=== PATIENT | female | born 1955 | race Hispanic/Latino ===

== ENCOUNTER 2018-07-23 17:41 | Emergency (ER) | payer BC ==
[2018-07-23 18:57] LABS: Absolute Lymphocytes (CBC) 3.7 K/uL (0.7-4.9); Absolute Monocytes 0.6 K/uL (0.1-1.3); Absolute Neutrophil 5.1 K/uL (1.8-8.0); Eosinophils % 1.6 % (0-4.4); Hematocrit 36.1 % (36.0-45.0); Lymphocytes % 38.1 % (15.3-44.8); MCH 31.5 pg (27.0-35.0); MCV 90.2 fL (80-100); MPV 6.7 fL (7.6-11.3); Monocytes % 6.2 % (3.3-12.3); RBC Red Blood Cell Count 4.01 M/uL (3.86-4.86)
[2018-07-23 19:15] LABS: ALT/SGPT 20 U/L (12-78); AST/SGOT 18 U/L (15-37); Albumin 3.5 g/dL (3.4-5.0); Alkaline Phosphatase 142 U/L (45-117); Amylase Level 23 U/L (25-115); BUN Blood Urea Nitrogen 16 mg/dL (7-18); Bicarbonate 26 mmol/L (21-32); Bilirubin Direct < 0.1 mg/dL (0-0.2); Bilirubin Total 0.4 mg/dL (0.2-1.0); Glucose Level 187 mg/dL (74-106); Lipase 138 U/L (73-393); Potassium 3.6 mmol/L (3.5-5.1); Protein, Total 7.3 g/dL (6.4-8.2); Sodium Level 140 mmol/L (136-145)
--- NOTE | 2018-07-23 19:31 | RAD REPORT ---
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 No acute fracture or dislocatio n seen. No joint effusion.
[2018-07-23 19:35] LABS: Urine Blood NEGATIVE (NEG); Urine Glucose TRACE (NEG); Urine Protein NEGATIVE (NEG); Urine Specific Gravity 1.025 (1.005-1.030)
[2018-07-23 19:41] LABS: Urine Bacteria <20 /HPF (<20); Urine Culture Reflex Order REFLEXED; Urine Mucus SLIGHT /HPF (NONE SEEN); Urine RBC <5 /HPF (NONE SEEN)
--- NOTE | 2018-07-23 20:43 | RAD REPORT ---
EXAM DESCRIPTION: CT - Head Brain Wo Cont - 07/23/2018 8:27 pm CLINICAL HISTORY: DIZZINESS Headache COMPARISON: HEAD BRAIN W O CONTRAST dated 10/27/2013; HEAD BRAIN W O CONTRAST dated 07/25/2001 TECHNIQUE: All CT scans are performed using dose optimization technique as appropriate and may inclu de automated exposure control or mA/KV adjustment according to patient size. FINDINGS: No intracranial hemorrhage, hydrocephalus or extra-axial fluid collection.Mild generalized brain atrophy is present with mild periventricular and deep white matter chronic microvascular ische allegra changes.No areas of brain edema or evidence of midline shift. The paranasal sinuses and mastoids are clear. The calvarium is intact. IMPRESSION: No acute intracranial abnormality.
--- NOTE | 2018-07-23 20:48 | RAD REPORT ---
EXAM DESCRIPTION: CTAbdomen Pelvis W Contrast - 07/23/2018 8:31 pm CLINICAL HISTORY: Abdominal pain. LLQ abdomen pain COMPARISON: Abdomen Pelvis W Contrast dated 11/15/2016 TECHNIQUE: Biphasic CT imaging of the abdomen and pelvis was performed with 100 ml non-ionic IV cont rast. All CT scans are performed using dose optimization technique as appropriate and may include automated exposure control or mA/KV adjustment according to patient size. FINDINGS: The lung bases are clear.Cholelithiasis. The liver, spleen, pancreas, adrenal glands and kidneys are within normal limits. No bowel obstruction, free air, free fluid or abscess. The appendix is normal. No evidence of signi ficant lymphadenopathy. No suspicious bony findings. IMPRESSION: No acute intra-abdominal or pelvic finding. Cholelithiasis.
--- NOTE | 2018-07-23 21:27 | ER ---
Nurse's Notes [facility] Name: Feli Lee Age: 63 yrs Sex: Female : 1955 Arrival Date: 07/23/2018 Time: 17:46 Bed 26 Private MD: Scott Bowling R Diagnosis: Dizziness and giddiness;Lower abdominal pain, unspecified;Pain in left knee Presentation: 07/23 17:57 Presenting complaint: Patient states: She has been having dizziness and pain to her aj1 left side and left leg since yesterday. Denies fever. Denies Cp Denies SOB. Transition of care: patient was not received from another setting of care. Onset of symptoms was July 22, 2018. Risk Assessment: Do you want to hurt yourself or someone else? Patient reports no desire to harm self or others. Initial Sepsis Screen: Does the patient meet any 2 criteria? No. Patient's initial sepsis screen is negative. Does the patient have a suspected source of infection? No. Patient's initial sepsis screen is negative. Care prior to arrival: None. 17:57 Method Of Arrival: Ambulatory [facility] 17:57 Acuity: TONO 3 aj1 Triage Assessment: 18:01 General: Appears in no apparent distress. comfortable, Behavior is calm, cooperative, aj1 appropriate for age. Pain: Complains of pain in anterior aspect of left lateral abdomen and left leg Pain currently is 8 out of 10 on a pain scale. Neuro: Level of Consciousness is awake, alert, obeys commands, Oriented to person, place, time, situation, Gait is steady, Speech is normal, Facial symmetry appears normal, Reports dizziness. Cardiovascular: Patient's skin is warm and dry. Respiratory: Airway is patent Respiratory effort is even, unlabored, Respiratory pattern is regular, symmetrical. Historical: - Allergies: 18:01 No Known Allergies; aj1 - Home Meds: 18:01 insulin daily [Active]; Lisinopril Oral [Active]; Metformin Oral [Active]; aj1 - PMHx: 18:01 Diabetes - IDDM; Hypertension; aj1 - Immunization history:: Flu vaccine is not up to date. - Social history:: Smoking status: Patient/guardian denies using tobacco. - Ebola Screening: : Patient denies travel to an Ebola-affected area in the 21 days before illness onset. Screenin:14 Abuse screen: Denies threats or abuse. Denies injuries from another. Nutritional rv screening: No deficits noted. Tuberculosis screening: No symptoms or risk factors identified. Fall Risk None identified. Assessment: 18:15 General: Appears in no apparent distress. comfortable, Behavior is calm, cooperative. rv Pain: Complains of pain in LEFT HIP, RIGHT LEG. Neuro: Level of Consciousness is awake, alert, obeys commands, Oriented to person, place, time, situation. Cardiovascular: Capillary refill < 3 seconds. Respiratory: Airway is patent. GI: No signs and/or symptoms were reported involving the gastrointestinal system. : No signs and/or symptoms were reported regarding the genitourinary system. EENT: No signs and/or symptoms were reported regarding the EENT system. Derm: Skin is intact. Vital Signs: 18:01 BP 167 / 73; Pulse 67; Resp 18; Temp 98.4; Pulse Ox 98% on R/A; Weight 79.83 kg (R); aj1 Height 5 ft. 1 in. (154.94 cm) (R); Pain 8/10; 18:14 BP 147 / 88; Pulse 66; Pulse Ox 96% on R/A; rv 21:22 BP 173 / 75; Pulse 61; Resp 16; Pulse Ox 97% ; rv 18:01 Body Mass Index 33.25 (79.83 kg, 154.94 cm) aj1 ED Course: 17:46 Patient arrived in ED. sb2 17:46 Scott Bowling MD is Private Physician. sb2 18:00 Triage completed. aj1 18:01 Arm band placed on Patient placed in an exam room. aj1 18:12 Rayshawn Cheney PA is PHCP. cp 18:12 Thaddeus Dunbar MD is Attending Physician. cp 18:14 Patient has correct armband on for positive identification. Bed in low position. Call rv light in reach. Side rails up X 1. Adult w/ patient. Pulse ox on. NIBP on. 18:40 Inserted saline lock: 20 gauge in right antecubital area, using aseptic technique. rv 18:57 X-ray completed. Portable x-ray completed in exam room. Patient tolerated procedure bb2 well. 18:58 XRAY Knee LEFT 3 view In Process Unspecified. EDMS 18:59 Urine collected: clean catch specimen, clear, jessica colored, Amount Voided: 90mL. jp3 19:29 EKG done, by ED staff, reviewed by Rayshawn SMITH. jp3 19:30 Urine --Ancillary (enter results) Sent. jp3 19:30 Urine Dipstick--Ancillary (enter results) Sent. jp3 20:27 CT Head Brain wo Cont In Process Unspecified. EDMS 20:28 CT completed. Patient tolerated procedure well. Patient moved to CT via wheelchair. ga Patient moved back from CT. 20:31 CT Abd/Pelvis - W/Contrast In Process Unspecified. EDMS 20:52 Urine Culture Sent. jp3 21:26 Scott Bowling MD is Referral Physician. cp 21:39 No provider procedures requiring assistance completed. IV discontinued, bleeding rv controlled, No redness/swelling at site. Pressure dressing applied. Administered Medications: No medications were administered Point of Care Testing: Blood Glucose: 18:14 Blood Glucose: 153 mg/dL; rv Ranges: Outcome: 21:27 Discharge ordered by MD. cp 21:39 Discharged to home ambulatory. rv 21:39 Condition: good 21:39 Discharge instructions given to patient, Instructed on discharge instructions, follow up and referral plans. medication usage, Demonstrated understanding of Prescriptions given X 2. 21:40 Patient left the ED. rv Addendum: 07/27/2018 16:47 Addendum: Culture Results: Positive urine culture. Patient was not prescribed s s antibiotics at discharge. Report given to BETHANY for further evaluation and then to food checkers and cashiers supervisor for follow up with patient. Prescription called-in to pharmacy of choice. Levaquin called into [facility] [place] as requested by patient and ordered by LUIS Garcia. Signatures: Dispatcher [employer] EDMS Alysia Ramirez, RN RN aj1 Theresa Maldonado RN RN ss Page, Corey, PA PA cp Jordan, Nathan nj Bock, Brittany bb2 Stephani Ochoa2 Betito Mello RN RN rv Nithin Lim jp3
--- NOTE | 2018-07-23 21:27 | EDPHYS ---
Physician Documentation [facility] Name: Feli Lee Age: 63 yrs Sex: Female : 1955 Arrival Date: 07/23/2018 Time: 17:46 Bed 26 Private MD: Scott Bowling R ED Physician Thaddeus Dunbar HPI: 07/23 18:35 This 63 yrs old Female presents to ER via Ambulatory with complaints of cp Dizziness, SIDE PAIN. 18:35 The patient presents with dizziness, lightheadedness. cp 18:35 Onset: The symptoms/episode began/occurred today. Associated signs and symptoms: cp Pertinent positives: abdominal pain, left knee pain, Pertinent negatives: blurred vision, chest pain, focal weakness, headache, near-syncope, numbness, palpitations, shortness of breath, syncope, vomiting. Severity of symptoms: in the emergency department the symptoms are unchanged despite home interventions. Patient's baseline: Neuro: alert and fully oriented, Motor: no deficits, Ambulation: walks without assistance, Speech: normal. Historical: - Allergies: 18:01 No Known Allergies; aj1 - Home Meds: 18:01 insulin daily [Active]; Lisinopril Oral [Active]; Metformin Oral [Active]; aj1 - PMHx: 18:01 Diabetes - IDDM; Hypertension; aj1 - Immunization history:: Flu vaccine is not up to date. - Social history:: Smoking status: Patient/guardian denies using tobacco. - Ebola Screening: : Patient denies travel to an Ebola-affected area in the 21 days before illness onset. ROS: 18:40 Constitutional: Negative for body aches, chills, fever, poor PO intake. cp 18:40 Eyes: Negative for injury, pain, redness, and discharge. cp 18:40 ENT: Negative for drainage from ear(s), ear pain, sore throat, difficulty swallowing, difficulty handling secretions. 18:40 Neck: Negative for pain with movement, pain at rest, stiffness. 18:40 Cardiovascular: Negative for chest pain, edema, palpitations. 18:40 Respiratory: Negative for cough, shortness of breath, wheezing. 18:40 Abdomen/GI: Positive for abdominal pain, Negative for vomiting, diarrhea, constipation, anorexia, black/tarry stool, rectal bleeding. 18:40 Back: Negative for pain at rest, pain with movement, radiated pain. 18:40 : Negative for urinary symptoms, flank pain. 18:40 MS/extremity: Positive for pain, tenderness, of the left knee, Negative for injury or acute deformity, decreased range of motion. 18:40 Skin: Negative for cellulitis, rash. 18:40 Neuro: Positive for dizziness, Negative for altered mental status, headache, syncope, near syncope, weakness. 18:40 All other systems are negative. Exam: 18:45 Constitutional: The patient appears in no acute distress, alert, awake, cp non-diaphoretic, non-toxic, well developed, well nourished. 18:45 Head/Face: Normocephalic, atraumatic. Eyes: Pupils equal round and reactive to light, cp extra-ocular motions intact. Lids and lashes normal. Conjunctiva and sclera are non-icteric and not injected. Cornea within normal limits. Periorbital areas with no swelling, redness, or edema. ENT: Nares patent. No nasal discharge, no septal abnormalities noted. Tympanic membranes are normal and external auditory canals are clear. Oropharynx with no redness, swelling, or masses, exudates, or evidence of obstruction, uvula midline. Mucous membranes moist. Neck: Trachea midline, no thyromegaly or masses palpated, and no cervical lymphadenopathy. Supple, full range of motion without nuchal rigidity, or vertebral point tenderness. No Meningismus. 18:45 Chest/axilla: Inspection: normal, Palpation: is normal, no crepitus, no tenderness. 18:45 Cardiovascular: Rate: normal, Rhythm: regular, Edema: is not appreciated, JVD: is not appreciated. 18:45 Respiratory: the patient does not display signs of respiratory distress, Respirations: normal, no use of accessory muscles, no retractions, no splinting, no tachypnea, labored breathing, is not present, Breath sounds: are clear throughout, no decreased breath sounds, no stridor, no wheezing. 18:45 Abdomen/GI: Inspection: abdomen appears normal, Bowel sounds: active, all quadrants, Palpation: abdomen is soft and non-tender, in all quadrants, rebound tenderness, is not appreciated, involuntary guarding, is not appreciated. 18:45 Back: pain, is absent, ROM is normal. 18:45 Musculoskeletal/extremity: Extremities: grossly normal except: noted in the anterior aspect left knee: tenderness, There is no evidence of decreased ROM. 18:45 Skin: cellulitis, is not appreciated, no rash present. 18:45 Neuro: Orientation: to person, place \T\ time. Mentation: lucid, able to follow commands, Cerebellar function: Romberg testing is negative, normal finger to nose testing, Motor: moves all fours, strength is normal, Sensation: no obvious gross deficits. 19:33 ECG was reviewed by the Attending Physician. cp Vital Signs: 18:01 BP 167 / 73; Pulse 67; Resp 18; Temp 98.4; Pulse Ox 98% on R/A; Weight 79.83 kg (R); aj1 Height 5 ft. 1 in. (154.94 cm) (R); Pain 8/10; 18:14 BP 147 / 88; Pulse 66; Pulse Ox 96% on R/A; rv 21:22 BP 173 / 75; Pulse 61; Resp 16; Pulse Ox 97% ; rv 18:01 Body Mass Index 33.25 (79.83 kg, 154.94 cm) aj1 MDM: 18:12 Patient medically screened. cp 21:27 Data reviewed: vital signs, nurses notes, lab test result(s), EKG, radiologic studies, cp CT scan, plain films. 21:27 Test interpretation: by ED physician or midlevel provider: ECG, plain radiologic cp studies. Counseling: I had a detailed discussion with the patient and/or guardian regarding: the historical points, exam findings, and any diagnostic results supporting the discharge/admit diagnosis, lab results, radiology results, to return to the emergency department if symptoms worsen or persist or if there are any questions or concerns that arise at home. Response to treatment: improved. Will discharge to home for continued monitoring. Special discussion: Based on the patient's Hx, exam, and Dx evaluation, there is no indication for emergent surgery or inpatient Tx. It is understood by the patient/guardian that if the Sx's persist or worsen they need to return immediately for re-evaluation. 07/23 18:26 Order name: Amylase, Serum; Complete Time: 20:48 cp 07/23 18:26 Order name: Basic Metabolic Panel; Complete Time: 20:48 cp 07/23 18:26 Order name: CBC with Diff; Complete Time: 20:48 cp 07/23 18:26 Order name: Creatinine for Radiology; Complete Time: 20:48 cp 07/23 18:26 Order name: Hepatic Function; Complete Time: 20:48 cp 0830 18:26 Order name: Lipase; Complete Time: 20:48 cp 30 18:26 Order name: Urine Microscopic Only; Complete Time: 20:48 cp 30 18:26 Order name: Magnesium; Complete Time: 20:48 cp 07/23 19:03 Order name: Urine Dipstick--Ancillary (enter results); Complete Time: 20:48 mw2 07/23 19:03 Order name: Urine --Ancillary (enter results); Complete Time: 20:48 mw2 07/23 19:43 Order name: Urine Culture EDMS 07/23 18:26 Order name: XRAY Knee LEFT 3 view; Complete Time: 20:48 cp 07/23 18:28 Order name: CT Head Brain wo Cont; Complete Time: 20:48 cp 07/23 20:48 Interpretation: Report reviewed. cp 07/23 18:28 Order name: CT Abd/Pelvis - W/Contrast; Complete Time: 21:27 cp 07/23 18:26 Order name: EKG; Complete Time: 18:27 cp 07/23 18:26 Order name: IV Saline Lock; Complete Time: 18:57 cp 07/23 18:26 Order name: Labs collected and sent; Complete Time: 18:57 cp 07/23 18:26 Order name: Urine Dipstick-Ancillary (obtain specimen); Complete Time: 18:57 cp 07/23 18:26 Order name: EKG - Nurse/Tech; Complete Time: 19:36 cp 07/23 21:18 Order name: PO challenge; Complete Time: 21:22 cp EC:33 Rate is 60 beats/min. Rhythm is regular. TN interval is normal. QRS interval is normal. cp QT interval is normal. T waves are Flattened in lead aVL. Interpreted by me. Reviewed by me. Administered Medications: No medications were administered Point of Care Testing: Blood Glucose: 18:14 Blood Glucose: 153 mg/dL; rv Ranges: Critical Glucose Levels:Adult <50 mg/dl or >400 mg/dl <40 mg/dl or >180 mg/dl Disposition: 07/23/18 21:27 Discharged to Home. Impression: Dizziness and giddiness, Lower abdominal pain, unspecified, Pain in left knee. - Condition is Stable. - Discharge Instructions: Abdominal Pain, Adult, Dizziness, Knee Pain. - Prescriptions for Bentyl 20 mg Oral Tablet - take 2 tablets by ORAL route every 6 hours As needed; 30 tablet. Meclizine 25 mg Oral Tablet - take 1 tablet by ORAL route every 8 hours As needed; 30 tablet. - Medication Reconciliation Form, Thank You Letter, Antibiotic Education, Prescription Opioid Use form. - Follow up: Scott Bowling MD; When: 1 - 2 days; Reason: Recheck today's complaints. - Problem is new. - Symptoms have improved. Addendum: 07/28/2018 23:41 Co-signature as Attending Physician, Thaddeus Dunbar MD. r n Signatures: Dispatcher [employer] EDMS Alysia Ramirez RN RN aj1 Thaddeus Dunbar MD MD rn Rayshawn Cheney PA PA Betito Rosa RN RN rv Corrections: (The following items were deleted from the chart) 07/23 21:27 21:27 07/23/2018 21:27 Discharged to Home. Impression: Dizziness and giddiness; Lower cp abdominal pain, unspecified. Condition is Stable. Forms are Medication Reconciliation Form, Thank You Letter, Antibiotic Education, Prescription Opioid Use. Follow up: Scott Bowling; When: 1 - 2 days; Reason: Recheck today's complaints. Problem is new. Symptoms have improved. cp 21:40 21:27 07/23/2018 21:27 Discharged to Home. Impression: Dizziness and giddiness; Lower rv abdominal pain, unspecified; Pain in left knee. Condition is Stable. Forms are Medication Reconciliation Form, Thank You Letter, Antibiotic Education, Prescription Opioid Use. Follow up: Scott Bowling; When: 1 - 2 days; Reason: Recheck today's complaints. Problem is new. Symptoms have improved. cp
[2018-07-23 21:47] VITALS: TEMP 98.4
[2018-07-23 21:49] VITALS: BP 173/75; O2SAT 97
--- NOTE | 2018-07-25 06:11 | EKG ---
Test Date: 2018-07-23 Test Time: 19:25:48 Occupational Therapist Home Based: STEVE MEASUREMENT RESULTS: Intervals: Rate: 60 OK: 198 QRSD: 80 QT: 404 QTc: 404 Chancellor: P: 52 OK: 198 QRS: -28 T: 83 INTERPRETIVE STATEMENTS: Normal sinus rhythm Normal ECG Compared to ECG 04/23/2017 00:42:17 No significant changes Electronically Signed On 07-25-18 06:08:12 CDT by Merrick Hernandez
== END 2018-07-23 21:40 | disposition home or self-care (01) ==
LOC: ER 17:41
DX: R10.30 Lower abdominal pain, unspecified (principal); M25.562 Pain in left knee; I10 Essential (primary) hypertension; E11.9 Type 2 diabetes mellitus without complications; Z79.4 Long term (current) use of insulin
CPT/HCPCS: 36415; 70450; 74177; 80048; 80076; 81003; 81015; 81025; 82150; 82962; 83690; 83735; 85025; 87077; 87086; 87088; 87186; 93005; 99284; Q9967

== ENCOUNTER 2018-12-18 19:02 | Emergency (ER) | payer BC ==
--- NOTE | 2018-12-18 21:03 | EDPHYS ---
Physician Documentation [facility] Name: Feli Lee Age: 63 yrs Sex: Female : 1955 Arrival Date: 12/18/2018 Time: 19:05 Bed 20 Private MD: Scott Bowling R ED Physician Judson Kumari HPI: 12/18 19:45 This 63 yrs old Female presents to ER via Ambulatory with complaints of Sore gs Throat, Fever. 19:45 The patient presents with sore throat. The patient describes throat pain as scratchy. gs Onset: The symptoms/episode began/occurred yesterday. Severity of symptoms: At their worst the symptoms were moderate, in the emergency department the symptoms are unchanged. Modifying factors: The symptoms are alleviated by nothing, the symptoms are aggravated by nothing, Patient's oral intake status: good. Associated signs and symptoms: Pertinent positives: chills, cough, fever, flu-like symptoms, malaise. The patient has experienced similar episodes in the past, a few times. The patient has not recently seen a physician. Historical: - Allergies: 19:08 No Known Allergies; sv - PMHx: 19:08 Diabetes - IDDM; Hypertension; sv - Immunization history:: Adult Immunizations unknown. - Social history:: The patient lives at home, Smoking status: unknown. - Ebola Screening: : No symptoms or risks identified at this time. ROS: 19:45 All other systems are negative. gs Exam: 19:45 Head/Face: Normocephalic, atraumatic. Eyes: Pupils equal round and reactive to light, gs extra-ocular motions intact. Lids and lashes normal. Conjunctiva and sclera are non-icteric and not injected. Cornea within normal limits. Periorbital areas with no swelling, redness, or edema. ENT: Nares patent. No nasal discharge, no septal abnormalities noted. Tympanic membranes are normal and external auditory canals are clear. Oropharynx with no redness, swelling, or masses, exudates, or evidence of obstruction, uvula midline. Mucous membranes moist. Neck: Trachea midline, no thyromegaly or masses palpated, and no cervical lymphadenopathy. Supple, full range of motion without nuchal rigidity, or vertebral point tenderness. No Meningismus. Chest/axilla: Normal chest wall appearance and motion. Nontender with no deformity. No lesions are appreciated. Cardiovascular: Regular rate and rhythm with a normal S1 and S2. No gallops, murmurs, or rubs. Normal PMI, no JVD. No pulse deficits. Respiratory: Lungs have equal breath sounds bilaterally, clear to auscultation and percussion. No rales, rhonchi or wheezes noted. No increased work of breathing, no retractions or nasal flaring. Abdomen/GI: Soft, non-tender, with normal bowel sounds. No distension or tympany. No guarding or rebound. No evidence of tenderness throughout. Back: No spinal tenderness. No costovertebral tenderness. Full range of motion. Skin: Warm, dry with normal turgor. Normal color with no rashes, no lesions, and no evidence of cellulitis. MS/ Extremity: Pulses equal, no cyanosis. Neurovascular intact. Full, normal range of motion. Neuro: Awake and alert, GCS 15, oriented to person, place, time, and situation. Cranial nerves II-XII grossly intact. Motor strength 5/5 in all extremities. Sensory grossly intact. Cerebellar exam normal. Normal gait. 19:45 Constitutional: The patient appears alert, awake. Vital Signs: 19:08 BP 153 / 86; Pulse 69; Resp 18; Temp 97.5; Pulse Ox 97% ; Weight 77.11 kg; Height 5 ft. sv 1 in. (154.94 cm); 20:51 BP 138 / 68; Pulse 76; Resp 16; Pulse Ox 97% on R/A; jb4 19:08 Body Mass Index 32.12 (77.11 kg, 154.94 cm) sv MDM: 19:33 Patient medically screened. 19:45 Differential diagnosis: influenza, pharyngitis, viral syndrome. Data reviewed: vital gs signs, nurses notes. Counseling: I had a detailed discussion with the patient and/or guardian regarding: the historical points, exam findings, and any diagnostic results supporting the discharge/admit diagnosis. Response to treatment: the patient's symptoms have mildly improved after treatment, and as a result, I will discharge patient. 20:59 Counseling: I had a detailed discussion with the patient and/or guardian regarding: lab gs results. 12/18 19:33 Order name: Strep 12/18 19:33 Order name: Influenza Screen (a \T\ B) 12/18 20:31 Order name: Influenza Screen (A ; Complete Time: 20:59 EDMS 12/18 20:32 Order name: Group A Streptococcus Rapid Sc; Complete Time: 20:59 EDMS 12/18 21:10 Order name: Throat Culture EDSC Administered Medications: No medications were administered Disposition: 12/18/18 21:02 Discharged to Home. Impression: Acute upper respiratory infection, unspecified. - Condition is Stable. - Discharge Instructions: Fever, Adult, Upper Respiratory Infection, Adult. - Medication Reconciliation Form, Thank You Letter, Antibiotic Education, Prescription Opioid Use form. - Follow up: Private Physician; When: 1 - 2 days; Reason: Re-evaluation by your physician. Signatures: Dispatcher [employer] EDYaneth Willard RN RN Satinder Gutierrez RN RN jb4 Judson Kumari MD MD gs Corrections: (The following items were deleted from the chart) 21:15 21:02 12/18/2018 21:02 Discharged to Home. Impression: Acute upper respiratory jb4 infection, unspecified. Condition is Stable. Forms are Medication Reconciliation Form, Thank You Letter, Antibiotic Education, Prescription Opioid Use. Follow up: Private Physician; When: 1 - 2 days; Reason: Re-evaluation by your physician.
--- NOTE | 2018-12-18 21:03 | ER ---
Nurse's Notes [facility] Name: Feil Lee Age: 63 yrs Sex: Female : 1955 Arrival Date: 12/18/2018 Time: 19:05 Bed 20 Private MD: Scott Bowling R Diagnosis: Acute upper respiratory infection, unspecified Presentation: 12/18 19:07 Presenting complaint: Patient states: sore throat x 2 days, fever last night, cough and sv runny nose. Transition of care: patient was not received from another setting of care. Onset of symptoms was December 16, 2018. Care prior to arrival: None. 19:07 Method Of Arrival: Ambulatory sv 19:07 Acuity: TONO 4 sv 19:30 Risk Assessment: Do you want to hurt yourself or someone else? Patient reports no jb4 desire to harm self or others. Initial Sepsis Screen: Does the patient meet any 2 criteria? No. Patient's initial sepsis screen is negative. Does the patient have a suspected source of infection? No. Patient's initial sepsis screen is negative. Triage Assessment: 19:09 General: Appears in no apparent distress. comfortable, Behavior is calm, cooperative, sv appropriate for age. General: Reports fever for 12-24 hours. EENT: Reports pain in throat. Neuro: Level of Consciousness is awake, alert, obeys commands, Oriented to person, place, time, situation, Moves all extremities. Full function. Respiratory: Reports cough that is non-productive, Respiratory effort is even, unlabored, Respiratory pattern is regular, symmetrical. Historical: - Allergies: 19:08 No Known Allergies; sv - PMHx: 19:08 Diabetes - IDDM; Hypertension; sv - Immunization history:: Adult Immunizations unknown. - Social history:: The patient lives at home, Smoking status: unknown. - Ebola Screening: : No symptoms or risks identified at this time. Screenin:20 Abuse screen: Denies threats or abuse. Nutritional screening: No deficits noted. jb4 Tuberculosis screening: No symptoms or risk factors identified. Fall Risk None identified. Assessment: 19:20 General: Appears in no apparent distress. comfortable, Behavior is calm, cooperative, jb4 appropriate for age. Pain: Complains of pain in throat Pain does not radiate. Pain currently is 4 out of 10 on a pain scale. Quality of pain is described as itchy scratching sensation. Neuro: Level of Consciousness is awake, alert, obeys commands, Oriented to person, place, time, situation, Speech is normal, Facial symmetry appears normal. Cardiovascular: Patient's skin is warm and dry. Respiratory: Airway is patent Respiratory effort is even, unlabored, Respiratory pattern is regular, symmetrical, Breath sounds are clear bilaterally. GI: No signs and/or symptoms were reported involving the gastrointestinal system. : No signs and/or symptoms were reported regarding the genitourinary system. EENT: Throat is clear is reddened. Derm: Skin is intact, Skin is pink, warm \T\ dry. Musculoskeletal: Circulation, motion, and sensation intact. 20:54 Reassessment: Patient appears in no apparent distress at this time. Patient and/or jb4 family updated on plan of care and expected duration. Pain level reassessed. Patient is alert, oriented x 3, equal unlabored respirations, skin warm/dry/pink. Vital Signs: 19:08 BP 153 / 86; Pulse 69; Resp 18; Temp 97.5; Pulse Ox 97% ; Weight 77.11 kg; Height 5 ft. sv 1 in. (154.94 cm); 20:51 BP 138 / 68; Pulse 76; Resp 16; Pulse Ox 97% on R/A; jb4 19:08 Body Mass Index 32.12 (77.11 kg, 154.94 cm) sv ED Course: 19:05 Patient arrived in ED. al2 19:05 Scott Bowling MD is Private Physician. al2 19:08 Triage completed. sv 19:10 Arm band placed on. sv 19:11 Judson Kumari MD is Attending Physician. gs 19:20 Patient has correct armband on for positive identification. Bed in low position. Call jb4 light in reach. Side rails up X 1. Pulse ox on. NIBP on. 19:27 Satinder Gutierrez RN is Primary Nurse. jb4 21:10 No provider procedures requiring assistance completed. Patient did not have IV access jb4 during this emergency room visit. Administered Medications: No medications were administered Outcome: 21:02 Discharge ordered by . gs 21:10 Discharged to home ambulatory. jb4 21:10 Condition: stable 21:10 Discharge instructions given to patient, Instructed on discharge instructions, follow up and referral plans. Demonstrated understanding of instructions, follow-up care. 21:15 Patient left the ED. jb4 Signatures: Yaneth Wong RN RN sv Satinder Gutierrez RN RN jb4 Judson Kumari MD MD gs Love, Angelica al2 Corrections: (The following items were deleted from the chart) 19:10 19:08 Pulse 69bpm; Resp 18bpm; Pulse Ox 97%; Temp 97.5F; 77.11 kg; Height 5 ft. 1 in.; sv BMI: 32.1; sv
[2018-12-18 21:21] VITALS: TEMP 97.5; O2SAT 97
[2018-12-18 21:23] VITALS: BP 138/68
== END 2018-12-18 21:15 | disposition home or self-care (01) ==
LOC: ER 19:02
DX: J06.9 Acute upper respiratory infection, unspecified (principal); I10 Essential (primary) hypertension
CPT/HCPCS: 87070; 87081; 87804; 99283

== ENCOUNTER 2019-04-04 23:21 | Emergency (ER) | payer BC ==
--- NOTE | 2019-04-05 00:01 | EDPHYS ---
Physician Documentation [facility] Name: Feli Lee Age: 63 yrs Sex: Female : 1955 Arrival Date: 04/04/2019 Time: 23:24 Bed 7 Private MD: Scott Bowling R ED Physician Cam Orellana HPI: 04/04 23:45 This 63 yrs old Female presents to ER via Ambulatory with complaints of cp Abdominal Pain, Urinary Problem. 23:45 The patient presents with abdominal pain in the lower abdomen. cp 23:45 Onset: The symptoms/episode began/occurred 1 day(s) ago. Associated signs and symptoms: cp Pertinent positives: dysuria, Pertinent negatives: constipation, diarrhea, fever, vomiting, back pain. Historical: - Allergies: 23:27 No Known Allergies; la1 - PMHx: 23:27 Diabetes - IDDM; Hypertension; la1 - Immunization history:: Adult Immunizations up to date. - Social history:: Smoking status: Patient/guardian denies using tobacco. - Ebola Screening: : No symptoms or risks identified at this time. ROS: 23:50 Constitutional: Negative for body aches, chills, fever, poor PO intake. cp 23:50 Eyes: Negative for injury, pain, redness, and discharge. cp 23:50 ENT: Negative for drainage from ear(s), ear pain, sore throat, difficulty swallowing, difficulty handling secretions. 23:50 Cardiovascular: Negative for chest pain. 23:50 Respiratory: Negative for cough, shortness of breath, wheezing. 23:50 Abdomen/GI: Positive for abdominal pain, of the suprapubic area, Negative for nausea, vomiting, diarrhea, constipation. 23:50 Back: Negative for radiated pain. 23:50 : Positive for urinary symptoms. 23:50 Skin: Negative for rash. 23:50 Neuro: Negative for altered mental status, headache, weakness. 23:50 All other systems are negative. Exam: 23:55 Constitutional: The patient appears in no acute distress, alert, awake, non-toxic, well cp developed, well nourished, uncomfortable. 23:55 Head/Face: Normocephalic, atraumatic. cp 23:55 Eyes: Periorbital structures: appear normal, Conjunctiva: normal, no exudate, no injection, Sclera: no appreciated abnormality, Lids and lashes: appear normal, bilaterally. 23:55 ENT: External ear(s): are unremarkable, Nose: is normal, Mouth: Lips: moist, Oral mucosa: moist. 23:55 Chest/axilla: Inspection: normal. 23:55 Cardiovascular: Rate: normal. 23:55 Respiratory: the patient does not display signs of respiratory distress, Respirations: normal. 23:55 Abdomen/GI: Inspection: abdomen appears normal, Bowel sounds: active, all quadrants, Palpation: soft, in all quadrants, mild abdominal tenderness, in the suprapubic area, rebound tenderness, is not appreciated, voluntary guarding, is elicited in the suprapubic area. 23:55 Back: pain, is absent, ROM is normal. Vital Signs: 23:27 BP 138 / 70; Pulse 70; Resp 16; Temp 98.5; Pulse Ox 98% on R/A; Weight 77.11 kg; Height la1 5 ft. 1 in. (154.94 cm); Pain 8/10; 04/05 00:20 BP 124 / 60; Pulse 73; Resp 16; Pulse Ox 99% on R/A; aa1 04/04 23:27 Body Mass Index 32.12 (77.11 kg, 154.94 cm) la1 MDM: 04/04 23:29 Patient medically screened. cp 23:45 Differential diagnosis: appendicitis, diverticulitis, Pyelonephritis, Ureterolithiasis, cp urinary tract infection. 04/05 00:00 Data reviewed: vital signs, nurses notes, and as a result, I will discharge patient. cp 00:00 Counseling: I had a detailed discussion with the patient and/or guardian regarding: the cp historical points, exam findings, and any diagnostic results supporting the discharge/admit diagnosis, lab results, the need for outpatient follow up, a family practitioner, to return to the emergency department if symptoms worsen or persist or if there are any questions or concerns that arise at home. 04/04 23:42 Order name: Urine Microscopic Only 04/04 23:42 Order name: Urine Culture 04/04 23:42 Order name: Urine Dipstick-Ancillary (obtain specimen); Complete Time: 00:13 cp 04/04 23:56 Order name: Urine Dipstick--Ancillary (enter results) mt Administered Medications: 00:19 Drug: Pyridium 200 mg Route: PO; aa1 00:19 Follow up: Response: No adverse reaction; Medication administered at discharge. aa1 :19 Drug: KeFLEX 500 mg Route: PO; aa1 :19 Follow up: Response: No adverse reaction; Medication administered at discharge. aa1 Disposition: 05:52 Co-signature as Attending Physician, Cam Orellana MD I agree with the assessment and tw4 plan of care. Disposition: 04/05/19 00:00 Discharged to Home. Impression: Urinary tract infection, site not specified. - Condition is Stable. - Discharge Instructions: Urinary Tract Infection, Adult. - Prescriptions for Keflex 500 mg Oral Capsule - take 1 capsule by ORAL route every 12 hours for 10 days; 20 capsule. Pyridium 200 mg Oral Tablet - take 1 tablet by ORAL route every 8 hours for 3 days; 6 tablet. - Medication Reconciliation Form, Thank You Letter, Antibiotic Education, Prescription Opioid Use form. - Follow up: Scott Bowling MD; When: 2 - 3 days; Reason: Worsening of condition. - Problem is new. - Symptoms have improved. Signatures: Dispatcher [employer] EDMS Elizabeth Stokes RN RN aa1 Mack Wilson RN RN la1 Rayshawn Cheney PA PA Cam Bear MD MD tw4 Corrections: (The following items were deleted from the chart) 00:24 00:00 04/05/2019 00:00 Discharged to Home. Impression: Urinary tract infection, site aa1 not specified. Condition is Stable. Forms are Medication Reconciliation Form, Thank You Letter, Antibiotic Education, Prescription Opioid Use. Follow up: Scott Bowling; When: 2 - 3 days; Reason: Worsening of condition. Problem is new. Symptoms have improved. cp
--- NOTE | 2019-04-05 00:01 | ER ---
Nurse's Notes [facility] Name: Feli Lee Age: 63 yrs Sex: Female : 1955 Arrival Date: 04/04/2019 Time: 23:24 Bed 7 Private MD: Scott Bowling R Diagnosis: Urinary tract infection, site not specified Presentation: 04/04 23:26 Presenting complaint: Patient states: lower abd pain and urinary sx for one day, denies la1 N/V/D. Transition of care: patient was not received from another setting of care. Onset of symptoms was April 04, 2019. Risk Assessment: Do you want to hurt yourself or someone else? Patient reports no desire to harm self or others. Initial Sepsis Screen: Does the patient meet any 2 criteria? No. Patient's initial sepsis screen is negative. Does the patient have a suspected source of infection? No. Patient's initial sepsis screen is negative. Care prior to arrival: None. 23:26 Method Of Arrival: Ambulatory la1 23:26 Acuity: TONO 3 la1 Historical: - Allergies: 23:27 No Known Allergies; la1 - PMHx: 23:27 Diabetes - IDDM; Hypertension; la1 - Immunization history:: Adult Immunizations up to date. - Social history:: Smoking status: Patient/guardian denies using tobacco. - Ebola Screening: : No symptoms or risks identified at this time. Screenin:40 Abuse screen: Denies threats or abuse. Denies injuries from another. Nutritional aa1 screening: No deficits noted. Tuberculosis screening: No symptoms or risk factors identified. Fall Risk None identified. Assessment: 23:40 General: Appears in no apparent distress. comfortable, Behavior is calm, cooperative, aa1 appropriate for age. Pain: Complains of pain in suprapubic area. Neuro: Level of Consciousness is awake, alert, obeys commands, Oriented to person, place, time, situation, Moves all extremities. Full function Gait is steady. Respiratory: Airway is patent Respiratory effort is even, unlabored, Respiratory pattern is regular, symmetrical. GI: Abd is soft and non tender X 4 quads. Patient currently denies constipation, diarrhea, nausea, vomiting. : Reports pain in suprapubic area with urination, Denies discharge, inability to void, vaginal bleeding. EENT: No signs and/or symptoms were reported regarding the EENT system. Derm: Skin is intact, is healthy with good turgor, Skin is pink, warm \T\ dry. Musculoskeletal: Circulation, motion, and sensation intact. Capillary refill < 3 seconds. 04/05 00:20 Reassessment: Patient appears in no apparent distress at this time. Patient is alert, aa1 oriented x 3, equal unlabored respirations, skin warm/dry/pink. Discussed d/c \T\ f/u instructions with pt; denies questions or concerns at this time. Ambulatory to lobby with steady gait. Vital Signs: 04/04 23:27 BP 138 / 70; Pulse 70; Resp 16; Temp 98.5; Pulse Ox 98% on R/A; Weight 77.11 kg; Height la1 5 ft. 1 in. (154.94 cm); Pain 8/10; 04/05 00:20 BP 124 / 60; Pulse 73; Resp 16; Pulse Ox 99% on R/A; aa1 04/04 23:27 Body Mass Index 32.12 (77.11 kg, 154.94 cm) la1 ED Course: 04/04 23:24 Patient arrived in ED. do 23:24 Scott Bowling MD is Private Physician. do 23:27 Triage completed. la1 23:27 Arm band placed on left wrist. la1 23:29 Rayshawn Cheney PA is PHCP. cp 23:29 Cam Orellana MD is Attending Physician. cp 23:40 Patient has correct armband on for positive identification. Bed in low position. Call aa1 light in reach. Pulse ox on. NIBP on. 23:49 Elizabeth Stokes, URBAN is Primary Nurse. aa1 23:50 Urine collected: clean catch specimen. aa1 04/05 00:00 Scott Bowling MD is Referral Physician. cp 00:20 No provider procedures requiring assistance completed. Patient did not have IV access aa1 during this emergency room visit. Administered Medications: 00:19 Drug: Pyridium 200 mg Route: PO; aa1 00:19 Follow up: Response: No adverse reaction; Medication administered at discharge. aa1 00:19 Drug: KeFLEX 500 mg Route: PO; aa1 00:19 Follow up: Response: No adverse reaction; Medication administered at discharge. aa1 Outcome: 00:00 Discharge ordered by . cp 00:20 Discharged to home ambulatory, with family. aa1 00:20 Condition: good 00:20 Discharge instructions given to patient, Instructed on discharge instructions, follow up and referral plans. medication usage, Demonstrated understanding of instructions, follow-up care, medications, Prescriptions given X 2. 00:24 Patient left the ED. aa1 Signatures: Elizabeth Stokes RN RN aa1 Mack Wilson RN RN la1 Rayshawn Cheney PA PA cp Ogletree, Danielle do
[2019-04-05 00:19] LABS: Urine Culture Reflex Order NOT NEEDED
[2019-04-05 00:20] LABS: Urine Bacteria >50 /HPF (<20); Urine RBC <5 /HPF (NONE SEEN)
[2019-04-05 00:21] LABS: Urine Blood TRACE (NEG); Urine Glucose NEGATIVE (NEG); Urine Protein NEGATIVE (NEG)
[2019-04-05] MEDS ORDERED: CEPHALEXIN 250 MG CAP ONE (00:28)
[2019-04-05] MEDS ORDERED: PHENAZOPYRIDINE 100MG TAB PO ONE (00:28)
[2019-04-05 02:33] VITALS: TEMP 98.5
[2019-04-05 02:35] VITALS: BP 124/60; O2SAT 99
== END 2019-04-05 00:24 | disposition home or self-care (01) ==
LOC: ER 23:21
DX: N39.0 Urinary tract infection, site not specified (principal); E11.9 Type 2 diabetes mellitus without complications; I10 Essential (primary) hypertension; Z79.4 Long term (current) use of insulin
CPT/HCPCS: 81003; 81015; 87077; 87086; 87088; 87186; 99284

== ENCOUNTER 2019-05-18 22:55 | Emergency (ER) | payer BC ==
[2019-05-18 23:42] LABS: Urine Blood TRACE (NEG); Urine Glucose NEGATIVE (NEG); Urine Protein NEGATIVE (NEG); Urine pH 6.5 (5.0-7.0)
[2019-05-19] MEDS ORDERED: CEFTRIAXONE 1000 MG/VIAL ONE (00:04)
[2019-05-19] MEDS ORDERED: levoFLOXacin 500 MG TAB ONE (00:04)
[2019-05-19] MEDS ORDERED: PHENAZOPYRIDINE 100MG TAB PO ONE (00:08)
--- NOTE | 2019-05-19 00:09 | ER ---
Nurse's Notes [facility] Name: Feli Lee Age: 63 yrs Sex: Female : 1955 Arrival Date: 05/18/2019 Time: 22:57 Bed 7 Private MD: Diagnosis: Urinary tract infection, site not specified;Low back pain Presentation: 05/18 23:10 Presenting complaint: Patient states: My lower back is hurting for about 3 days now. I ed1 think I had a UTI last month and maybe it is in my kidneys now. Transition of care: patient was not received from another setting of care. Onset of symptoms was May 15, 2019. Risk Assessment: Do you want to hurt yourself or someone else? Patient reports no desire to harm self or others. Initial Sepsis Screen: Does the patient meet any 2 criteria? No. Patient's initial sepsis screen is negative. Does the patient have a suspected source of infection? No. Patient's initial sepsis screen is negative. Care prior to arrival: None. 23:10 Method Of Arrival: Ambulatory ed1 23:10 Acuity: TONO 3 ed1 Triage Assessment: 23:11 General: Appears in no apparent distress. Behavior is calm, cooperative. Pain: ed1 Complains of pain in low back area Pain currently is 8 out of 10 on a pain scale. Quality of pain is described as aching. Musculoskeletal: Circulation, motion, and sensation intact. Range of motion: intact in all extremities, Swelling absent. Historical: - Allergies: 23:11 No Known Allergies; ed1 - Home Meds: 23:11 insulin daily [Active]; lisinopril Oral [Active]; Metformin Oral [Active]; ed1 - PMHx: 23:11 Diabetes - IDDM; Hypertension; ed1 - PSHx: 23:11 None; ed1 - Immunization history:: Adult Immunizations up to date. - Social history:: Smoking status: Patient/guardian denies using tobacco. - Ebola Screening: : Patient negative for fever greater than or equal to 101.5 degrees Fahrenheit, and additional compatible Ebola Virus Disease symptoms Patient denies exposure to infectious person Patient denies travel to an Ebola-affected area in the 21 days before illness onset No symptoms or risks identified at this time. - Family history:: not pertinent. Screenin:17 Abuse screen: Denies threats or abuse. Nutritional screening: No deficits noted. jd3 Tuberculosis screening: No symptoms or risk factors identified. Fall Risk Ambulatory Aid- None/Bed Rest/Nurse Assist (0 pts). Gait- Normal/Bed Rest/Wheelchair (0 pts) Mental Status- Oriented to own ability (0 pts). Total Ravi Fall Scale indicates No Risk (0-24 pts). Assessment: 23:15 General: Appears in no apparent distress. uncomfortable, Behavior is calm, cooperative, jd3 appropriate for age. Pain: Complains of pain in low back area Quality of pain is described as aching. Neuro: Level of Consciousness is awake, alert, obeys commands, Oriented to person, place, time, situation. Cardiovascular: Capillary refill < 3 seconds Patient's skin is warm and dry. Respiratory: Airway is patent Respiratory effort is even, unlabored, Respiratory pattern is regular, symmetrical. GI: Abdomen is round non-distended, Patient currently denies abdominal pain, constipation, diarrhea, nausea, vomiting. : Urine is clear, Reports recent untreated urinary tract infection. EENT: No signs and/or symptoms were reported regarding the EENT system. Derm: Skin is intact, Skin is dry, Skin is normal, Skin temperature is warm. Musculoskeletal: Circulation, motion, and sensation intact. Range of motion: intact in all extremities. 05/19 00:16 Reassessment: Patient appears in no apparent distress at this time. Patient and/or jd3 family updated on plan of care and expected duration. Pain level reassessed. Patient is alert, oriented x 3, equal unlabored respirations, skin warm/dry/pink. even and steady gait upon discharge. reported understanding of discharge instructions. Vital Signs: 05/18 23:11 BP 136 / 75; Pulse 59; Resp 17; Temp 98.1(TE); Pulse Ox 98% on R/A; Weight 74.84 kg; ed1 Height 5 ft. 1 in. (154.94 cm); Pain 8/10; 05/19 00:15 BP 132 / 84; Pulse 57; Resp 19 S; Pulse Ox 99% on R/A; jd3 05/18 23:11 Body Mass Index 31.18 (74.84 kg, 154.94 cm) ed1 ED Course: 05/18 22:57 Patient arrived in ED. ag3 23:10 Triage completed. ed1 23:11 Guiod Quigley, RN is Primary Nurse. jd3 23:11 Arm band placed on. ed1 23:13 Rayshawn Baugh MD is Attending Physician. [facility] 23:18 Patient has correct armband on for positive identification. Bed in low position. Call jd3 light in reach. Side rails up X 1. 05/19 00:16 No provider procedures requiring assistance completed. Patient did not have IV access jd3 during this emergency room visit. Administered Medications: 05/18 23:58 Drug: Rocephin (cefTRIAXone) 1 grams Route: IM; Site: right gluteus; jd3 05/19 00:15 Follow up: Response: No adverse reaction jd3 05/18 23:58 Drug: LevOfloxacin 500 mg Route: PO; jd3 05/19 00:15 Follow up: Response: No adverse reaction jd3 05/18 23:58 Drug: Pyridium 200 mg Route: PO; jd3 05/19 00:15 Follow up: Response: No adverse reaction jd3 Outcome: 05/18 23:50 Discharge ordered by . arcelia 05/19 00:16 Discharged to home ambulatory. jd3 Condition: stable Discharge instructions given to patient, Instructed on discharge instructions, follow up and referral plans. medication usage, Demonstrated understanding of instructions, follow-up care, medications, Prescriptions given X 3. 00:17 Patient left the ED. jd3 Signatures: Rayshawn Baugh MD MD cha Riggs, Erika RN RN ed1 Guido Quigley, RN RN jd3 Jeannette Shah ag3 Corrections: (The following items were deleted from the chart) 00:17 00:16 Reassessment: Patient appears in no apparent distress at this time. Patient jd3 and/or family updated on plan of care and expected duration. Pain level reassessed. Patient is alert, oriented x 3, equal unlabored respirations, skin warm/dry/pink. jd3
--- NOTE | 2019-05-19 00:10 | EDPHYS ---
Physician Documentation [facility] Name: Feli Lee Age: 63 yrs Sex: Female : 1955 Arrival Date: 05/18/2019 Time: 22:57 Bed 7 Private MD: DIEGO Physician Rayshawn Baugh HPI: 05/18 23:45 This 63 yrs old Female presents to ER via Ambulatory with complaints of Back arcelia Pain. 23:45 The patient presents with pain that is acute. The symptoms are located in the low back. arcelia Onset: The symptoms/episode began/occurred 2 day(s) ago. The pain does not radiate. Associated signs and symptoms: The patient has no apparent associated signs or symptoms. The problem was sustained from unknown cause. Modifying factors: The patient symptoms are alleviated by nothing, the patient symptoms are aggravated by nothing. Severity of symptoms: At their worst the symptoms were mild, moderate, in the emergency department the symptoms are unchanged. The patient has not experienced similar symptoms in the past. Historical: - Allergies: 23:11 No Known Allergies; ed1 - Home Meds: 23:11 insulin daily [Active]; lisinopril Oral [Active]; Metformin Oral [Active]; ed1 - PMHx: 23:11 Diabetes - IDDM; Hypertension; ed1 - PSHx: 23:11 None; ed1 - Immunization history:: Adult Immunizations up to date. - Social history:: Smoking status: Patient/guardian denies using tobacco. - Ebola Screening: : Patient negative for fever greater than or equal to 101.5 degrees Fahrenheit, and additional compatible Ebola Virus Disease symptoms Patient denies exposure to infectious person Patient denies travel to an Ebola-affected area in the 21 days before illness onset No symptoms or risks identified at this time. - Family history:: not pertinent. ROS: 23:45 Constitutional: Negative for fever, chills, and weight loss, Eyes: Negative for injury, arcelia pain, redness, and discharge, ENT: Negative for injury, pain, and discharge, Neck: Negative for injury, pain, and swelling, Cardiovascular: Negative for chest pain, palpitations, and edema, Respiratory: Negative for shortness of breath, cough, wheezing, and pleuritic chest pain, Abdomen/GI: Negative for abdominal pain, nausea, vomiting, diarrhea, and constipation, : Negative for injury, bleeding, discharge, and swelling, MS/Extremity: Negative for injury and deformity, Skin: Negative for injury, rash, and discoloration, Neuro: Negative for headache, weakness, numbness, tingling, and seizure, Psych: Negative for depression, anxiety, suicide ideation, homicidal ideation, and hallucinations, Allergy/Immunology: Negative for hives, rash, and allergies, Endocrine: Negative for neck swelling, polydipsia, polyuria, polyphagia, and marked weight changes. 23:45 Back: Positive for pain at rest. Exam: 23:45 Constitutional: This is a well developed, well nourished patient who is awake, alert, arcelia and in no acute distress. Head/Face: Normocephalic, atraumatic. Eyes: Pupils equal round and reactive to light, extra-ocular motions intact. Lids and lashes normal. Conjunctiva and sclera are non-icteric and not injected. Cornea within normal limits. Periorbital areas with no swelling, redness, or edema. ENT: Nares patent. No nasal discharge, no septal abnormalities noted. Tympanic membranes are normal and external auditory canals are clear. Oropharynx with no redness, swelling, or masses, exudates, or evidence of obstruction, uvula midline. Mucous membranes moist. Neck: Trachea midline, no thyromegaly or masses palpated, and no cervical lymphadenopathy. Supple, full range of motion without nuchal rigidity, or vertebral point tenderness. No Meningismus. Chest/axilla: Normal chest wall appearance and motion. Nontender with no deformity. No lesions are appreciated. Cardiovascular: Regular rate and rhythm with a normal S1 and S2. No gallops, murmurs, or rubs. Normal PMI, no JVD. No pulse deficits. Respiratory: Lungs have equal breath sounds bilaterally, clear to auscultation and percussion. No rales, rhonchi or wheezes noted. No increased work of breathing, no retractions or nasal flaring. Abdomen/GI: Soft, non-tender, with normal bowel sounds. No distension or tympany. No guarding or rebound. No evidence of tenderness throughout. Female : Normal external genitalia. Skin: Warm, dry with normal turgor. Normal color with no rashes, no lesions, and no evidence of cellulitis. MS/ Extremity: Pulses equal, no cyanosis. Neurovascular intact. Full, normal range of motion. Neuro: Awake and alert, GCS 15, oriented to person, place, time, and situation. Cranial nerves II-XII grossly intact. Motor strength 5/5 in all extremities. Sensory grossly intact. Cerebellar exam normal. Normal gait. Psych: Awake, alert, with orientation to person, place and time. Behavior, mood, and affect are within normal limits. 23:45 Back: pain, that is mild, ROM is painless, normal spinal alignment noted, CVA tenderness, is absent, muscle spasm, is not present. Vital Signs: 23:11 BP 136 / 75; Pulse 59; Resp 17; Temp 98.1(TE); Pulse Ox 98% on R/A; Weight 74.84 kg; ed1 Height 5 ft. 1 in. (154.94 cm); Pain 8/10; 05/19 00:15 BP 132 / 84; Pulse 57; Resp 19 S; Pulse Ox 99% on R/A; jd3 05/18 23:11 Body Mass Index 31.18 (74.84 kg, 154.94 cm) ed1 MDM: 05/18 23:13 Patient medically screened. [facility] 23:45 Data reviewed: vital signs, lab test result(s), urinalysis, bacteruria. [facility] 05/18 23:26 Order name: Urine Dipstick--Ancillary (enter results); Complete Time: 23:45 [facility] 05/18 23:17 Order name: Urine Dipstick-Ancillary (obtain specimen); Complete Time: 23:33 j Administered Medications: 23:58 Drug: Rocephin (cefTRIAXone) 1 grams Route: IM; Site: right gluteus; [facility] 05/19 00:15 Follow up: Response: No adverse reaction [facility] 05/18 23:58 Drug: LevOfloxacin 500 mg Route: PO; jd3 05/19 00:15 Follow up: Response: No adverse reaction [facility] 05/18 23:58 Drug: Pyridium 200 mg Route: PO; [facility] 05/19 00:15 Follow up: Response: No adverse reaction [facility] Disposition: 05/18/19 23:50 Discharged to Home. Impression: Urinary tract infection, site not specified, Low back pain. - Condition is Stable. - Discharge Instructions: Back Pain, Adult, Dysuria, Musculoskeletal Pain, Urinary Tract Infection, Adult, Urinary Tract Infection, Adult, [id number]. - Prescriptions for levofloxacin 500 mg Oral tablet - take 1 tablet by ORAL route once daily; 9 tablet. Pyridium 200 mg Oral Tablet - take 1 tablet by ORAL route every 8 hours for 3 days; 9 tablet. Tylenol- Codeine #3 300-30 mg Oral Tablet - take 2 tablets by ORAL route every 6 hours As needed; 20 tablet. - Medication Reconciliation Form, Thank You Letter, Antibiotic Education, Prescription Opioid Use form. - Follow up: Private Physician; When: 2 - 3 days; Reason: Recheck today's complaints, Continuance of care, Re-evaluation by your physician. - Problem is new. - Symptoms have improved. Signatures: Dispatcher [employer] EDMS Rayshawn Baugh MD MD cha Riggs, Erika RN RN ed1 Guido Quigley RN RN jd3 Corrections: (The following items were deleted from the chart) 00:17 05/18 23:50 05/18/2019 23:50 Discharged to Home. Impression: Urinary tract infection, jd3 site not specified; Low back pain. Condition is Stable. Forms are Medication Reconciliation Form, Thank You Letter, Antibiotic Education, Prescription Opioid Use. Follow up: Private Physician; When: 2 - 3 days; Reason: Recheck today's complaints, Continuance of care, Re-evaluation by your physician. Problem is new. Symptoms have improved. arcelia
[2019-05-19 01:23] VITALS: BP 132/84; TEMP 98.1; O2SAT 99
== END 2019-05-19 00:17 | disposition home or self-care (01) ==
LOC: ER 22:55
DX: M54.5 Low back pain (principal); N39.0 Urinary tract infection, site not specified; E11.9 Type 2 diabetes mellitus without complications; I10 Essential (primary) hypertension; Z79.4 Long term (current) use of insulin
CPT/HCPCS: 81003; 96372; 99283

== ENCOUNTER 2019-11-17 10:03 | Emergency (ER) | payer BC ==
--- OUTSIDE RECORDS SUMMARY | 2019-11-17 10:05 | XMS REPORT ---
:1955 [facility] Address [address] [place] [address] Dr. Landa [address] [place] [id number] Care Team Providers Name Role Phone Unavailable Unavailable Unavailable Problems This patient has no known problems. Allergies, Adverse Reactions, Alerts This patient has no known allergies or adverse reactions. Medications This patient has no known medications.
--- NOTE | 2019-11-17 12:18 | ER ---
Nurse's Notes [facility] Name: Feli Lee Age: 64 yrs Sex: Female : 1955 Arrival Date: 11/17/2019 Time: 10:04 Bed 17 Private MD: Scott Bowling R Diagnosis: Acute upper respiratory infection, unspecified Presentation: 11/17 10:43 Presenting complaint: Patient states: cough, sore throat, chest congestion, fever at iw night X 2 days. Transition of care: patient was not received from another setting of care. Onset of symptoms was November 15, 2019. Risk Assessment: Do you want to hurt yourself or someone else? Patient reports no desire to harm self or others. Initial Sepsis Screen: Does the patient meet any 2 criteria? No. Patient's initial sepsis screen is negative. Does the patient have a suspected source of infection? No. Patient's initial sepsis screen is negative. Care prior to arrival: None. 10:43 Method Of Arrival: Ambulatory iw 10:43 Acuity: TONO 4 iw Historical: - Allergies: 10:44 No Known Allergies; iw - Home Meds: 10:44 insulin daily [Active]; lisinopril Oral [Active]; Metformin Oral [Active]; iw - PMHx: 10:44 Diabetes - IDDM; Hypertension; iw - PSHx: 10:44 None; iw - Immunization history:: Adult Immunizations not up to date. - Social history:: Smoking status: Patient/guardian denies using tobacco. - Ebola Screening: : Patient negative for fever greater than or equal to 101.5 degrees Fahrenheit, and additional compatible Ebola Virus Disease symptoms Patient denies exposure to infectious person Patient denies travel to an Ebola-affected area in the 21 days before illness onset No symptoms or risks identified at this time. Screenin:25 Abuse screen: Denies threats or abuse. Nutritional screening: No deficits noted. em Tuberculosis screening: No symptoms or risk factors identified. Fall Risk None identified. Assessment: 11:25 General: Appears in no apparent distress. uncomfortable, Behavior is calm, cooperative, em Denies fever. Pain: Denies pain. Neuro: Level of Consciousness is awake, alert, obeys commands, Oriented to person, place, time, situation, Appropriate for age. Cardiovascular: Capillary refill < 3 seconds Patient's skin is warm and dry. Respiratory: Reports cough that is non-productive, Airway is patent Respiratory effort is even, unlabored, Respiratory pattern is regular, symmetrical, Breath sounds are clear bilaterally. EENT: Nares are clear Oral mucosa is moist. Derm: Skin is intact, is healthy with good turgor, Skin is pink, warm \T\ dry. Musculoskeletal: Range of motion: intact in all extremities. 12:00 Reassessment: Patient appears in no apparent distress at this time. Patient and/or em family updated on plan of care and expected duration. Pain level reassessed. Patient is alert, oriented x 3, equal unlabored respirations, skin warm/dry/pink. Vital Signs: 10:44 BP 171 / 75; Pulse 73; Resp 18 S; Temp 97.7(O); Pulse Ox 97% on R/A; Weight 70.31 kg; iw Height 5 ft. 1 in. (154.94 cm); Pain 0/10; 10:44 Body Mass Index 29.29 (70.31 kg, 154.94 cm) iw ED Course: 10:04 Patient arrived in ED. mr 10:04 Scott Bowling MD is Private Physician. mr 10:44 Triage completed. iw 10:44 Arm band placed on. iw 10:47 Chavo Valle NP is PHCP. pm1 10:47 Ang Schmitz MD is Attending Physician. pm1 10:50 Jose Manuel Lucero LVN is Primary Nurse. em 11:25 Patient has correct armband on for positive identification. Bed in low position. Call em light in reach. Side rails up X2. 12:27 No provider procedures requiring assistance completed. Patient did not have IV access em during this emergency room visit. Administered Medications: No medications were administered Outcome: 12:18 Discharge ordered by MD. pm1 12:29 Discharged to home ambulatory. em 12:29 Condition: good 12:29 Discharge instructions given to patient, Instructed on discharge instructions, follow up and referral plans. medication usage, Demonstrated understanding of instructions, follow-up care, medications, Prescriptions given X 2. 12:30 Patient left the ED. em Signatures: Nery Espinal mr Jose Manuel Lucero LVN PAMPHLET DISTRIBUTOR em Norma Zarco RN RN iw Chavo Valle NP DIGITAL STRATEGIST pm1
--- NOTE | 2019-11-17 12:19 | EDPHYS ---
Physician Documentation [facility] Name: Feli Lee Age: 64 yrs Sex: Female : 1955 Arrival Date: 11/17/2019 Time: 10:04 Bed 17 Private MD: Scott Bowling R ED Physician Ang Schmitz HPI: 11/17 10:59 This 64 yrs old Female presents to ER via Ambulatory with complaints of Flu pm1 Symptoms. 10:59 The patient or guardian reports cough, with no sputum, flu symptoms. pm1 10:59 Onset: The symptoms/episode began/occurred Previous night. Severity of symptoms: in the pm1 emergency department the symptoms are unchanged. Modifying factors: The symptoms are alleviated by Tylenol. Associated signs and symptoms: Pertinent positives: fever, rhinorrhea, sore throat, Pertinent negatives: chest pain, diarrhea, ear ache, vomiting, shortness of breath. 10:59 Patient has been spending time over the past few days with three of her grandchildren pm1 who have been diagnosed with the flu. Historical: - Allergies: 10:44 No Known Allergies; iw - Home Meds: 10:44 insulin daily [Active]; lisinopril Oral [Active]; Metformin Oral [Active]; iw - PMHx: 10:44 Diabetes - IDDM; Hypertension; iw - PSHx: 10:44 None; iw - Immunization history:: Adult Immunizations not up to date. - Social history:: Smoking status: Patient/guardian denies using tobacco. - Ebola Screening: : Patient negative for fever greater than or equal to 101.5 degrees Fahrenheit, and additional compatible Ebola Virus Disease symptoms Patient denies exposure to infectious person Patient denies travel to an Ebola-affected area in the 21 days before illness onset No symptoms or risks identified at this time. ROS: 10:59 Constitutional: Negative for fever, chills, and weight loss, Eyes: Negative for injury, pm1 pain, redness, and discharge. 10:59 Neck: Negative for injury, pain, and swelling, Cardiovascular: Negative for chest pain, palpitations, and edema. 10:59 Abdomen/GI: Negative for abdominal pain, nausea, vomiting, diarrhea, and constipation, Back: Negative for injury and pain, : Negative for injury, bleeding, discharge, and swelling, MS/Extremity: Negative for injury and deformity, Skin: Negative for injury, rash, and discoloration, Neuro: Negative for headache, weakness, numbness, tingling, and seizure. 10:59 ENT: Positive for rhinorrhea, sore throat, Negative for drainage from ear(s), ear pain. 10:59 Respiratory: Positive for cough, Negative for shortness of breath, sputum production, wheezing. Exam: 10:59 Constitutional: This is a well developed, well nourished patient who is awake, alert, pm1 and in no acute distress. Head/Face: Normocephalic, atraumatic. Eyes: Pupils equal round and reactive to light, extra-ocular motions intact. Lids and lashes normal. Conjunctiva and sclera are non-icteric and not injected. Cornea within normal limits. Periorbital areas with no swelling, redness, or edema. ENT: Nares patent. No nasal discharge, no septal abnormalities noted. Tympanic membranes are normal and external auditory canals are clear. Oropharynx with no redness, swelling, or masses, exudates, or evidence of obstruction, uvula midline. Mucous membranes moist. Neck: Trachea midline, no thyromegaly or masses palpated, and no cervical lymphadenopathy. Supple, full range of motion without nuchal rigidity, or vertebral point tenderness. No Meningismus. Chest/axilla: Normal chest wall appearance and motion. Nontender with no deformity. No lesions are appreciated. Cardiovascular: Regular rate and rhythm with a normal S1 and S2. No gallops, murmurs, or rubs. No pulse deficits. Respiratory: Lungs have equal breath sounds bilaterally, clear to auscultation and percussion. No rales, rhonchi or wheezes noted. No increased work of breathing, no retractions or nasal flaring. Abdomen/GI: Soft, non-tender, with normal bowel sounds. No distension or tympany. No guarding or rebound. No evidence of tenderness throughout. Back: No spinal tenderness. No costovertebral tenderness. Full range of motion. Skin: Warm, dry with normal turgor. Normal color with no rashes, no lesions, and no evidence of cellulitis. MS/ Extremity: Pulses equal, no cyanosis. Neurovascular intact. Full, normal range of motion. 10:59 Neuro: Orientation: is normal, Motor: is normal, moves all fours. Vital Signs: 10:44 BP 171 / 75; Pulse 73; Resp 18 S; Temp 97.7(O); Pulse Ox 97% on R/A; Weight 70.31 kg; iw Height 5 ft. 1 in. (154.94 cm); Pain 0/10; 10:44 Body Mass Index 29.29 (70.31 kg, 154.94 cm) iw MDM: 10:47 Patient medically screened. pm1 12:16 Data reviewed: vital signs. Counseling: I had a detailed discussion with the patient pm1 and/or guardian regarding: the historical points, exam findings, and any diagnostic results supporting the discharge/admit diagnosis, lab results, the need for outpatient follow up, to return to the emergency department if symptoms worsen or persist or if there are any questions or concerns that arise at home. 11/17 10:48 Order name: Flu; Complete Time: 11:47 pm1 11/17 10:48 Order name: Strep; Complete Time: 11:31 pm1 11/17 11:21 Order name: Throat Culture EDMS Administered Medications: No medications were administered Disposition: 13:05 Co-signature as Attending Physician, Agn Schmitz MD I agree with the assessment and kdr plan of care. Disposition: 11/17/19 12:18 Discharged to Home. Impression: Acute upper respiratory infection, unspecified. - Condition is Stable. - Discharge Instructions: Influenza, Adult, Upper Respiratory Infection, Adult. - Prescriptions for Tamiflu 75 mg Oral Capsule - take 1 tablet by ORAL route every 12 hours for 5 days; 10 tablet. Guaifenesin AC 10- 100 mg/5 mL Oral Liquid - take 10 milliliter by ORAL route every 4 hours As needed; 240 milliliter. - Medication Reconciliation Form, Thank You Letter, Antibiotic Education, Prescription Opioid Use form. - Follow up: Emergency Department; When: As needed; Reason: Worsening of condition. Follow up: Private Physician; When: 2 - 3 days; Reason: Recheck today's complaints, Continuance of care, Re-evaluation by your physician. - Problem is new. - Symptoms have improved. Signatures: Dispatcher [employer] EDMS Ang Schmitz MD MD kdr Munoz, Edgar, CLERICAL WAREHOUSE WORKER CLERICAL WAREHOUSE WORKER em Norma Zarco, RN RN iw Chavo Valle, RADHA CASINO FLOOR SUPERVISOR pm1 Corrections: (The following items were deleted from the chart) 12:30 12:18 11/17/2019 12:18 Discharged to Home. Impression: Acute upper respiratory em infection, unspecified. Condition is Stable. Forms are Medication Reconciliation Form, Thank You Letter, Antibiotic Education, Prescription Opioid Use. Follow up: Emergency Department; When: As needed; Reason: Worsening of condition. Follow up: Private Physician; When: 2 - 3 days; Reason: Recheck today's complaints, Continuance of care, Re-evaluation by your physician. Problem is new. Symptoms have improved. pm1
[2019-11-17 12:40] VITALS: BP 171/75; TEMP 97.7; O2SAT 97
== END 2019-11-17 12:30 | disposition home or self-care (01) ==
LOC: ER 10:03
DX: J06.9 Acute upper respiratory infection, unspecified (principal); I10 Essential (primary) hypertension; E11.9 Type 2 diabetes mellitus without complications
CPT/HCPCS: 87070; 87081; 87804; 99282

== ENCOUNTER 2020-09-24 23:06 | Emergency (ER) | payer BC ==
--- OUTSIDE RECORDS SUMMARY | 2020-09-24 23:08 | XMS REPORT | Continuity of Care Document ---
:1955 Author Organization [facility] t Address [address] [place] [address] Dr. Landa [address] [place] [id number] Care Team Providers Name Role Phone Unavailable Unavailable Unavailable Problems This patient has no known problems. Allergies, Adverse Reactions, Alerts This patient has no known allergies or adverse reactions. Medications This patient has no known medications. Procedures This patient has no known procedures. Results This patient has no known results.
[2020-09-24 23:27] LABS: Urine Blood TRACE (NEG); Urine Glucose NEGATIVE (NEG); Urine Protein NEGATIVE (NEG); Urine Specific Gravity >1.030 (1.005-1.030)
[2020-09-24 23:41] LABS: Absolute Lymphocytes (CBC) 1.8 K/uL (0.7-4.9); Basophils % 0.4 % (0-1.3); Hematocrit 33.3 % (36.0-45.0); Lymphocytes % 11.3 % (15.3-44.8); MPV 6.3 fL (7.6-11.3); RBC Red Blood Cell Count 3.68 M/uL (3.86-4.86)
[2020-09-24 23:44] LABS: Urine Bacteria LOADED /HPF (<20)
[2020-09-24 23:45] LABS: Urine Culture Reflex Order REFLEXED; Urine Mucus 2+ /HPF (NONE SEEN)
[2020-09-24] MEDS ORDERED: MORPHINE 4 MG/ML SYR ONE (23:45)
[2020-09-24] MEDS ORDERED: ONDANSETRON 4 MG/2 ML VIAL ONE (23:45)
[2020-09-24] MEDS ORDERED: NA CHLORIDE 0.9% 1,000 ML ONE (23:45)
[2020-09-25 00:07] LABS: ALT/SGPT 18 U/L (12-78); Albumin 3.6 g/dL (3.4-5.0); Alkaline Phosphatase 139 U/L (45-117); BUN Blood Urea Nitrogen 14 mg/dL (7-18); Bicarbonate 28 mmol/L (21-32); Bilirubin Direct < 0.1 mg/dL (0-0.2); Bilirubin Total 0.4 mg/dL (0.2-1.0); Glucose Level 133 mg/dL (74-106); Lipase 115 U/L (73-393); Protein, Total 7.7 g/dL (6.4-8.2); Sodium Level 142 mmol/L (136-145)
[2020-09-25] MEDS ORDERED: CEFTRIAXONE/SWI 1gm 1 GM/10 ML SYR ONE (00:08)
[2020-09-25 00:20] LABS: AST/SGOT 14 U/L (15-37); Potassium 3.4 mmol/L (3.5-5.1)
--- NOTE | 2020-09-25 01:30 | ER ---
Nurse's Notes [facility] Name: Feli Lee Age: 65 yrs Sex: Female : 1955 Arrival Date: 09/24/2020 Time: 23:09 Bed 7 Private MD: Scott Bowling R Diagnosis: Urinary tract infection, site not specified;Cholelithiasis Presentation: 09/24 23:10 Chief complaint: Patient states: "I am having this pain in my back that comes around jd3 the front of my stomach on the top.". Coronavirus screen: At this time, the client does not indicate any symptoms associated with coronavirus-19. Ebola Screen: Patient negative for fever greater than or equal to 101.5 degrees Fahrenheit, and additional compatible Ebola Virus Disease symptoms. Initial Sepsis Screen: Does the patient meet any 2 criteria? No. Patient's initial sepsis screen is negative. Does the patient have a suspected source of infection? No. Patient's initial sepsis screen is negative. Risk Assessment: Do you want to hurt yourself or someone else? Patient reports no desire to harm self or others. Onset of symptoms was September 17, 2020. 23:10 Method Of Arrival: Ambulatory jd3 23:10 Acuity: TONO 3 jd3 Historical: - Allergies: 23:12 No Known Allergies; jd3 - Home Meds: 23:12 lisinopril Oral [Active]; insulin daily [Active]; jd3 - PMHx: 23:12 Diabetes - IDDM; Hypertension; jd3 - PSHx: 23:12 None; jd3 - Immunization history:: Adult Immunizations up to date. - Social history:: Smoking status: Patient denies any tobacco usage or history of. Screenin:30 Abuse screen: Denies threats or abuse. Denies injuries from another. Nutritional rr5 screening: No deficits noted. Tuberculosis screening: No symptoms or risk factors identified. Fall Risk IV access (20 points). Total Ravi Fall Scale indicates No Risk (0-24 pts). Assessment: 23:18 General: Appears in no apparent distress. uncomfortable, Behavior is calm, cooperative, rr5 appropriate for age. Pain: Complains of pain in back Pain radiates to abdomen Pain currently is 8 out of 10 on a pain scale. Quality of pain is described as aching, Pain began gradually, Is intermittent. Neuro: Level of Consciousness is awake, alert, obeys commands, Oriented to person, place, time. Cardiovascular: Capillary refill < 3 seconds Patient's skin is warm and dry. Respiratory: Airway is patent Respiratory effort is even, unlabored, Respiratory pattern is regular, symmetrical. GI: Abdomen is round non-distended, Reports lower abdominal pain, upper abdominal pain. : No signs and/or symptoms were reported regarding the genitourinary system. EENT: No signs and/or symptoms were reported regarding the EENT system. Derm: Skin is intact, is healthy with good turgor, Skin temperature is warm. Musculoskeletal: Circulation, motion, and sensation intact. Capillary refill < 3 seconds. 09/25 00:45 Reassessment: Patient and/or family updated on plan of care and expected duration. Pain ll2 level reassessed. Patient is alert, oriented x 3, equal unlabored respirations, skin warm/dry/pink. 01:45 Reassessment: Patient appears in no apparent distress at this time. Patient is alert, rr5 oriented x 3, equal unlabored respirations, skin warm/dry/pink. discharge instruction given and explained without complaints made Patient denies pain at this time. Patient states feeling better. Patient states symptoms have improved. Vital Signs: 09/24 23:12 BP 156 / 78; Pulse 95; Resp 17 S; Temp 99.0(TE); Pulse Ox 100% on R/A; Weight 68.04 kg jd3 (R); Height 5 ft. 1 in. (154.94 cm) (R); Pain 9/10; 09/25 00:45 BP 134 / 70; Pulse 96; Resp 17; Pulse Ox 96% on R/A; ll2 01:45 BP 125 / 85; Pulse 90; Resp 17; Pulse Ox 99% ; Pain 0/10; rr5 09/24 23:12 Body Mass Index 28.34 (68.04 kg, 154.94 cm) jd3 ED Course: 09/24 23:09 Patient arrived in ED. am2 23:09 Scott Bowling MD is Private Physician. am2 23:11 Triage completed. jd3 23:14 Arm band placed on. jd3 23:15 Rickey Wylie RN is Primary Nurse. rr5 23:17 [facility]. pm1 23:17 Quincy Weir MD is Attending Physician. pm1 23:30 No provider procedures requiring assistance completed. Inserted saline lock: 20 gauge rr5 in left antecubital area, using aseptic technique. Blood collected. 23:33 Patient has correct armband on for positive identification. Placed in gown. Bed in low rr5 position. Call light in reach. Side rails up X2. Pulse ox on. NIBP on. 09/25 00:43 CT Abd/Pelvis - IV Contrast Only In Process Unspecified. EDMS 01:45 IV discontinued, intact, bleeding controlled, No redness/swelling at site. Pressure rr5 dressing applied. Administered Medications: 09/24 23:37 Drug: Zofran (Ondansetron) 4 mg Route: IVP; Site: right antecubital; 2 09/25 00:30 Follow up: Response: No adverse reaction rr5 01:15 Follow up: Response: No adverse reaction [facility] 09/24 23:38 Drug: NS 0.9% 1000 ml Route: IV; Rate: 1000 ml; Site: right antecubital; 2 09/25 00:30 Follow up: Response: No adverse reaction; IV Status: Completed infusion; IV Intake: rr5 1000ml 09/24 23:38 Drug: morphine 4 mg Route: IVP; Site: right antecubital; 2 09/25 00:30 Follow up: Response: No adverse reaction; RASS: Alert and Calm (0) rr5 01:15 Follow up: Response: No adverse reaction; RASS: Alert and Calm (0) [facility] 09/24 23:57 Drug: Rocephin 1 grams Route: IV; Rate: calculated rate; Site: left antecubital; rr5 09/25 01:00 Follow up: Response: No adverse reaction; IV Status: Completed infusion; IV Intake: [id number] Intake: 00:30 IV: 1000ml; Total: 1000ml. rr5 01:00 IV: 10ml; Total: 1010ml. rr5 Outcome: 01:29 Discharge ordered by . pm1 01:45 Discharged to home ambulatory. rr5 01:45 Condition: stable 01:45 Discharge instructions given to patient, Instructed on discharge instructions, follow up and referral plans. medication usage, Demonstrated understanding of instructions, follow-up care, medications, Prescriptions given X 2. 01:48 Patient left the ED. rr5 Addendum: 09/27/2020 08:31 Addendum: Culture Results: Positive urine culture. No further action required. Bacteria s s sensitive to prescribed antibiotic. Signatures: Dispatcher [employer] EDMS Theresa Maldonado RN RN ss Chavo Valle, ORDER PLANNER ORDER PLANNER pm1 Kelly Gardner am2 Guido Quigley RN RN jd3 Rickey Wylie RN RN rr5 Kiki Be RN RN ll2 Corrections: (The following items were deleted from the chart) 09/24 23:14 23:12 Pulse 95bpm; Resp 17bpm; Pulse Ox 100% RA; Temp 99.0F Temporal; 68.04 kg jd3 Reported; Height 5 ft. 1 in. Reported; BMI: 28.3; Pain 9/10; jd3
--- NOTE | 2020-09-25 01:30 | EDPHYS ---
Physician Documentation [facility] Name: Feli Lee Age: 65 yrs Sex: Female : 1955 Arrival Date: 09/24/2020 Time: 23:09 Bed 7 Private MD: Scott Bowling R ED Physician Quincy Weir HPI: 09/25 00:50 This 65 yrs old Female presents to ER via Ambulatory with complaints of Back pm1 Pain. 00:50 The patient presents with pain that is acute. The symptoms are located in the right low pm1 back. The pain radiates to the abdomen. Associated signs and symptoms: Pertinent negatives: dysuria, fever, nausea, vomiting. The problem was sustained from unknown cause. Modifying factors: The patient symptoms are alleviated by nothing, the patient symptoms are aggravated by movement. Severity of symptoms: in the emergency department the symptoms are actually worse. The patient has not experienced similar symptoms in the past. The patient has not recently seen a physician. Historical: - Allergies: 09/24 23:12 No Known Allergies; jd3 - Home Meds: 23:12 lisinopril Oral [Active]; insulin daily [Active]; jd3 - PMHx: 23:12 Diabetes - IDDM; Hypertension; jd3 - PSHx: 23:12 None; jd3 - Immunization history:: Adult Immunizations up to date. - Social history:: Smoking status: Patient denies any tobacco usage or history of. ROS: 09/25 00:50 Constitutional: Negative for fever, chills, and weight loss, Cardiovascular: Negative pm1 for chest pain, palpitations, and edema, Respiratory: Negative for shortness of breath, cough, wheezing, and pleuritic chest pain. : Negative for injury, bleeding, discharge, and swelling, MS/Extremity: Negative for injury and deformity, Skin: Negative for injury, rash, and discoloration, Neuro: Negative for headache, weakness, numbness, tingling, and seizure. Abdomen/GI: Abdomen/GI: Positive for abdominal pain, Negative for nausea, vomiting, and diarrhea. Back: Positive for flank pain, on the right, radiating to right groin area. Exam: 00:50 Constitutional: This is a well developed, well nourished patient who is awake, alert, pm1 and in no acute distress. Head/Face: Normocephalic, atraumatic. 00:50 Skin: Warm, dry with normal turgor. Normal color with no rashes, no lesions, and no evidence of cellulitis. MS/ Extremity: Pulses equal, no cyanosis. Neurovascular intact. Full, normal range of motion. 00:50 Cardiovascular: Exam negative for acute changes, Rate: normal, Rhythm: regular, Pulses: no pulse deficits are appreciated. 00:50 Respiratory: Exam negative for acute changes, respiratory distress, shortness of breath. 00:50 Abdomen/GI: Exam negative for acute changes, Inspection: abdomen appears normal, Palpation: abdomen is soft and non-tender, in all quadrants. 00:50 Back: pain, that is moderate, of the right low back, normal spinal alignment noted, vertebral tenderness, is not appreciated. 00:50 Neuro: Exam negative for acute changes, Orientation: is normal, Motor: is normal, moves all fours. Vital Signs: 09/24 23:12 BP 156 / 78; Pulse 95; Resp 17 S; Temp 99.0(TE); Pulse Ox 100% on R/A; Weight 68.04 kg jd3 (R); Height 5 ft. 1 in. (154.94 cm) (R); Pain 9/10; 09/25 00:45 BP 134 / 70; Pulse 96; Resp 17; Pulse Ox 96% on R/A; ll2 01:45 BP 125 / 85; Pulse 90; Resp 17; Pulse Ox 99% ; Pain 0/10; rr5 09/24 23:12 Body Mass Index 28.34 (68.04 kg, 154.94 cm) jd3 MDM: 09/24 23:19 Patient medically screened. pm1 09/25 00:54 Data reviewed: vital signs. Data interpreted: Pulse oximetry: on room air is 96 %. pm1 Interpretation: normal. 01:29 Counseling: I had a detailed discussion with the patient and/or guardian regarding: the pm1 historical points, exam findings, and any diagnostic results supporting the discharge/admit diagnosis, lab results, radiology results, the need for outpatient follow up, a family practitioner, a general surgeon, to return to the emergency department if symptoms worsen or persist or if there are any questions or concerns that arise at home. 09/24 23:24 Order name: Urine Dipstick--Ancillary (enter results); Complete Time: 23:50 tt3 09/24 23:25 Order name: Basic Metabolic Panel; Complete Time: 00:54 pm1 09/24 23:25 Order name: CBC with Diff; Complete Time: 23:50 pm1 09/24 23:25 Order name: Hepatic Function; Complete Time: 00:54 pm1 09/24 23:25 Order name: Lipase; Complete Time: 00:54 pm1 09/24 23:25 Order name: Urine Microscopic Only; Complete Time: 23:50 pm1 09/24 23:25 Order name: IV Saline Lock; Complete Time: 23:34 pm1 09/24 23:25 Order name: Labs collected and sent; Complete Time: 23:34 pm1 09/24 23:25 Order name: CT Abd/Pelvis - IV Contrast Only pm1 09/24 23:45 Order name: Urine Culture [facility] 09/24 23:25 Order name: Urine Dipstick-Ancillary (obtain specimen); Complete Time: 23:34 pm1 Administered Medications: 09/24 23:37 Drug: Zofran (Ondansetron) 4 mg Route: IVP; Site: right antecubital; [facility] 09/25 00:30 Follow up: Response: No adverse reaction rr5 01:15 Follow up: Response: No adverse reaction [facility] 09/24 23:38 Drug: NS 0.9% 1000 ml Route: IV; Rate: 1000 ml; Site: right antecubital; [facility] 09/25 00:30 Follow up: Response: No adverse reaction; IV Status: Completed infusion; IV Intake: rr5 1000ml 09/24 23:38 Drug: morphine 4 mg Route: IVP; Site: right antecubital; [facility] 09/25 00:30 Follow up: Response: No adverse reaction; RASS: Alert and Calm (0) rr5 01:15 Follow up: Response: No adverse reaction; RASS: Alert and Calm (0) [facility] 09/24 23:57 Drug: Rocephin 1 grams Route: IV; Rate: calculated rate; Site: left antecubital; rr5 09/25 01:00 Follow up: Response: No adverse reaction; IV Status: Completed infusion; IV Intake: [id number] Disposition: 07:25 Co-signature as Attending Physician, Quincy Weir MD. [email or web address] Disposition: 09/25/20 01:29 Discharged to Home. Impression: Cholelithiasis, Urinary tract infection, site not specified. - Condition is Stable. - Discharge Instructions: Urinary Tract Infection, Adult, Cholelithiasis. - Prescriptions for Tylenol- Codeine #3 300-30 mg Oral Tablet - take 2 tablets by ORAL route every 6 hours As needed; 20 tablet. Bactrim DS 800- 160 mg Oral Tablet - take 1 tablet by ORAL route every 12 hours for 10 days; 20 tablet. - Medication Reconciliation Form, Thank You Letter, Antibiotic Education, Prescription Opioid Use form. - Follow up: Emergency Department; When: As needed; Reason: Worsening of condition. Follow up: Private Physician; When: 2 - 3 days; Reason: Recheck today's complaints, Continuance of care, Re-evaluation by your physician. - Problem is new. - Symptoms have improved. Signatures: Dispatcher [employer] EDMS Chavo Valle NP GED INSTRUCTOR pm1 Guido Quigley RN RN jd3 Rickey Wylie RN RN rr5 Kiki Be RN RN ll2 Quincy Weir MD MD [email or web address] Corrections: (The following items were deleted from the chart) 01:48 01:29 09/25/2020 01:29 Discharged to Home. Impression: CholelithiasisUrinary tract rr5 infection, site not specified. Condition is Stable. Discharge Instructions: Urinary Tract Infection, Adult. Prescriptions for Cipro 500 mg Oral Tablet - take 1 tablet by ORAL route every 12 hours for 10 days; 20 tablet, Tylenol-Codeine #3 300-30 mg Oral Tablet - take 2 tablets by ORAL route every 6 hours As needed; 20 tablet. and Forms are Medication Reconciliation Form, Thank You Letter, Antibiotic Education, Prescription Opioid Use. Follow up: Emergency Department; When: As needed; Reason: Worsening of condition. Follow up: Private Physician; When: 2 - 3 days; Reason: Recheck today's complaints, Continuance of care, Re-evaluation by your physician. Problem is new. Symptoms have improved. pm1
[2020-09-25 02:18] VITALS: TEMP 99
[2020-09-25 02:22] VITALS: BP 125/85; O2SAT 99
--- NOTE | 2020-09-25 10:33 | RAD REPORT ---
EXAM DESCRIPTION: CT ABDOMEN AND PELVIS WITH CONTRAST. CLINICAL HISTORY: FLANK PAIN COMPARISON: None. TECHNIQUE: Axial CT imaging of the abdomen and pelvis performed with intravenous contrast. Reformatt ed coronal and sagittal images reviewed. A dose reduction technique was utilized with automated exposure control according to patient size. FINDINGS: Minimal right middle and left lower lobe atelectasis. Heart is normal in size. Normal liver contour. Liver is enlarged to approximately 21.67 cm. There is no liver mass or biliary dilatation. Gallbladder contains several partially calcified stones. No evidence of cholecystitis or biliary dilatation. Normal spleen and pancreas are normal adrenal glands. There is no renal stone or hydronephrosis in either kidney. There is no solid renal mass. Possible anterior left renal 6 mm cyst s. Mild aorta atherosclerosis. No aneurysm. Normal caliber inferior vena cava. Mesenteric vessels appear normal. Unremarkable stomach. The small bowel loops appear normal. Normal appendix within the right hemipelvi s. Unremarkable colon. No ascites or free air. No mesenteric adenopathy. There is a 4.1 cm right posterior lateral bladder diverticula. Bladder is otherwise normal. The uteru s is retroflexed. The lower uterine segment is below the level of the symphysis pubis indicative of p elvic floor laxity. Unremarkable ovaries. No pelvic free fluid or lymphadenopathy. There is moderate lower thoracic and lumbar spondylosis. There is a diffuse disc bulge at all levels from L2 to S1. In conjunction with degenerative facet changes and endplate hypertrophic bony changes, there is severe narrowing of the right L2-3 and left L4-5 and L5-S1 neural foramen with possible imp ingement upon the exiting right L2 and left L4 and L5 nerve roots. There is an L4 limbus vertebrae. I ntact bony pelvis. Normal hips. IMPRESSION: 1. No urinary tract stone, mass, or hydronephrosis to account for reported flank pain. T iny left renal cyst. 2. Right posterior lateral bladder diverticula. 3. Cholelithiasis without cholecystitis. 4. Hepatomegaly. 5. Pelvic floor laxity. 6. Lumbosacral spondylosis as detailed above. Electronically signed by: Cathy Rodgers DO 09/25/2020 1:05 AM BORDER MEASURER AND CUTTER Due to temporary technical issues with the PACS/Fluency reporting system, reports are being signed by the in house radiologist without review as a courtesy to ensure prompt reporting. The interpreting r adiologist is fully responsible for the content of the report.
== END 2020-09-25 01:48 | disposition home or self-care (01) ==
LOC: ER 23:06
DX: K80.20 Calculus of gallbladder without cholecystitis without obstruction (principal); N39.0 Urinary tract infection, site not specified; I10 Essential (primary) hypertension; E11.9 Type 2 diabetes mellitus without complications; Z79.4 Long term (current) use of insulin
CPT/HCPCS: 96365; 87088; 85025; 87086; 80048; 36415; 80076; 87077; 87186; 83690; 74177; 96375; 99284; Q9967; J7030; J2405; 81003; 81015

== ENCOUNTER 2020-12-16 14:25 | Emergency (ER) | payer BC ==
--- OUTSIDE RECORDS SUMMARY | 2020-12-16 14:27 | XMS REPORT | Continuity of Care Document ---
:1955 Author Organization [facility] t Address [address] [place] [address] Dr. Landa [address] [place] [id number] Care Team Providers Name Role Phone Unavailable Unavailable Unavailable Problems This patient has no known problems. Allergies, Adverse Reactions, Alerts This patient has no known allergies or adverse reactions. Medications This patient has no known medications. Procedures This patient has no known procedures. Results This patient has no known results.
--- NOTE | 2020-12-16 15:56 | RAD REPORT ---
EXAM DESCRIPTION: CT - Stone Protocol - 12/16/2020 3:10 pm CLINICAL HISTORY: Abdominal pain. COMPARISON: None. TECHNIQUE: Computed axial tomography of the abdomen pelvis was obtained without oral or IV contrast. Lack of IV and oral contrast limits evaluation of solid organs, bowel, and vessels. Coronal reformat samuel images were obtained and reviewed. All CT scans are performed using dose optimization technique as appropriate and may include automated exposure control or mA/KV adjustment according to patient size. FINDINGS: A renal calculus is not seen. An ureteral calculus is not noted. A bladder calculus is not present. Multiple gallstones. The gallbladder wall is not thickened. The liver, spleen, pancreas and adrenals appear grossly normal There is no evidence of diverticulitis. A vaginal pessary has been placed . A small cystocele is present. IMPRESSION: Negative for a genitourinary calculus Cholelithiasis without evidence of cholecystitis
[2020-12-16 16:10] LABS: Urine Blood NEGATIVE (NEG); Urine Glucose NEGATIVE (NEG); Urine Protein NEGATIVE (NEG); Urine pH 5.5 (5.0-7.0)
--- NOTE | 2020-12-16 16:11 | ER ---
Nurse's Notes [facility] Name: Feli Lee Age: 65 yrs Sex: Female : 1955 Arrival Date: 12/16/2020 Time: 14:27 Bed 19 Private MD: Diagnosis: Abdominal and pelvic pain Presentation: 12/16 14:30 Chief complaint: Patient states: "I don't know if i am having ovarian or my kidneys but jd3 I am hurting.". Coronavirus screen: At this time, the client does not indicate any symptoms associated with coronavirus-19. Ebola Screen: Patient negative for fever greater than or equal to 101.5 degrees Fahrenheit, and additional compatible Ebola Virus Disease symptoms. Initial Sepsis Screen: Does the patient meet any 2 criteria? No. Patient's initial sepsis screen is negative. Does the patient have a suspected source of infection? No. Patient's initial sepsis screen is negative. Risk Assessment: Do you want to hurt yourself or someone else? Patient reports no desire to harm self or others. Onset of symptoms was December 15, 2020. 14:30 Method Of Arrival: Ambulatory jd3 14:30 Acuity: TONO 3 jd3 Historical: - Allergies: 14:33 No Known Allergies; jd3 - Home Meds: 14:33 insulin daily [Active]; lisinopril Oral [Active]; jd3 - PMHx: 14:33 Diabetes - IDDM; Hypertension; jd3 - PSHx: 14:33 None; jd3 - Immunization history:: Adult Immunizations up to date. - Social history:: Smoking status: Patient denies any tobacco usage or history of. Screenin:37 Abuse screen: Denies threats or abuse. Nutritional screening: No deficits noted. rb3 Tuberculosis screening: No symptoms or risk factors identified. Fall Risk None identified. Assessment: 14:37 General: Appears in no apparent distress. comfortable, Behavior is calm, cooperative. rb3 Pain: Complains of pain in suprapubic area. Pain: Pain currently is 0 out of 10 on a pain scale. at worst was 9 out of 10 on a pain scale. Neuro: Level of Consciousness is awake, alert, obeys commands, Oriented to person, place, time, situation. Cardiovascular: Patient's skin is warm and dry. Respiratory: Airway is patent Respiratory effort is even, unlabored, Respiratory pattern is regular, symmetrical. GI: No signs and/or symptoms were reported involving the gastrointestinal system. : Denies burning with urination. 15:30 Reassessment: Patient appears in no apparent distress at this time. No changes from rb3 previously documented assessment. 16:00 Reassessment: Patient appears in no apparent distress at this time. Patient and/or rb3 family updated on plan of care and expected duration. Pain level reassessed. Patient is alert, oriented x 3, equal unlabored respirations, skin warm/dry/pink. Vital Signs: 14:33 BP 140 / 64; Pulse 77; Resp 18 S; Temp 97.1(TE); Pulse Ox 99% on R/A; Weight 68.04 kg jd3 (R); Height 5 ft. 1 in. (154.94 cm) (R); Pain 9/10; 15:40 BP 119 / 52; Pulse 68; Resp 17; Pulse Ox 97% ; rb3 14:33 Body Mass Index 28.34 (68.04 kg, 154.94 cm) jd3 ED Course: 14:27 Patient arrived in ED. ds1 14:27 Indira Ortiz [facility]C [facility] kb 14:27 Thaddeus Dunbar MD is Attending Physician. kb 14:32 Triage completed. jd3 14:33 Arm band placed on. jd3 14:37 Patient has correct armband on for positive identification. Bed in low position. Call rb3 light in reach. Pulse ox on. NIBP on. 15:10 CT Stone Protocol In Process Unspecified. EDMS 15:39 Onelia Andujar, RN is Primary Nurse. rb3 16:31 No provider procedures requiring assistance completed. Patient did not have IV access rb3 during this emergency room visit. Administered Medications: No medications were administered Outcome: 16:10 Discharge ordered by . kb 16:31 Discharged to home ambulatory. rb3 16:31 Condition: stable 16:31 Discharge instructions given to patient, Instructed on discharge instructions, follow up and referral plans. medication usage, Demonstrated understanding of instructions, follow-up care, medications, Prescriptions given X 1. 16:32 Patient left the ED. rb3 Signatures: Dispatcher [employer] EDMS Indira Ortiz FNP-C FNP-Kelsey Julian dsGuido Kearney, RN RN jd3 Onelia Andujar, RN RN rb3
--- NOTE | 2020-12-16 16:12 | EDPHYS ---
Physician Documentation [facility] Name: Feli Lee Age: 65 yrs Sex: Female : 1955 Arrival Date: 12/16/2020 Time: 14:27 Bed 19 Private MD: ED Physician Thaddeus Dunbar HPI: 12/16 15:39 This 65 yrs old Female presents to ER via Ambulatory with complaints of kb Ovarian Pain. 15:39 The patient presents with abdominal pain suprapubic. Onset: The symptoms/episode kb began/occurred yesterday. The symptoms do not radiate. Associated signs and symptoms: Pertinent positives: dysuria. The symptoms are described as constant. Modifying factors: The symptoms are alleviated by nothing, the symptoms are aggravated by nothing. Severity of pain: At its worst the pain was moderate in the emergency department the pain is unchanged. The patient has not experienced similar symptoms in the past. The patient has not recently seen a physician. Pt reports she had something inserted into her vagina by Dr Donato to keep her uterus from prolapsing on . Reports pain/pressure to suprapubic area since yesterday. States she has had some pain with urination as well. Historical: - Allergies: 14:33 No Known Allergies; jd3 - Home Meds: 14:33 insulin daily [Active]; lisinopril Oral [Active]; jd3 - PMHx: 14:33 Diabetes - IDDM; Hypertension; jd3 - PSHx: 14:33 None; jd3 - Immunization history:: Adult Immunizations up to date. - Social history:: Smoking status: Patient denies any tobacco usage or history of. ROS: 15:37 Constitutional: Negative for fever, chills, and weight loss, Cardiovascular: Negative kb for chest pain, palpitations, and edema, Respiratory: Negative for shortness of breath, cough, wheezing, and pleuritic chest pain, MS/Extremity: Negative for injury and deformity, Skin: Negative for injury, rash, and discoloration, Neuro: Negative for headache, weakness, numbness, tingling, and seizure. 15:37 Abdomen/GI: Positive for abdominal pain, of the suprapubic area. 15:37 : Positive for burning with urination. Exam: 15:38 Constitutional: This is a well developed, well nourished patient who is awake, alert, kb and in no acute distress. Head/Face: Normocephalic, atraumatic. Chest/axilla: Normal chest wall appearance and motion. Nontender with no deformity. No lesions are appreciated. Cardiovascular: Regular rate and rhythm with a normal S1 and S2. No gallops, murmurs, or rubs. Normal PMI, no JVD. No pulse deficits. Respiratory: Lungs have equal breath sounds bilaterally, clear to auscultation and percussion. No rales, rhonchi or wheezes noted. No increased work of breathing, no retractions or nasal flaring. Back: No spinal tenderness. No costovertebral tenderness. Full range of motion. Skin: Warm, dry with normal turgor. Normal color with no rashes, no lesions, and no evidence of cellulitis. MS/ Extremity: Pulses equal, no cyanosis. Neurovascular intact. Full, normal range of motion. Neuro: Awake and alert, GCS 15, oriented to person, place, time, and situation. Cranial nerves II-XII grossly intact. Motor strength 5/5 in all extremities. Sensory grossly intact. Cerebellar exam normal. Normal gait. 15:38 Abdomen/GI: Inspection: abdomen appears normal, Bowel sounds: normal, in all quadrants, Palpation: soft, in all quadrants, nontender, in all quadrants, mild abdominal tenderness, in the suprapubic area. Vital Signs: 14:33 BP 140 / 64; Pulse 77; Resp 18 S; Temp 97.1(TE); Pulse Ox 99% on R/A; Weight 68.04 kg jd3 (R); Height 5 ft. 1 in. (154.94 cm) (R); Pain 9/10; 15:40 BP 119 / 52; Pulse 68; Resp 17; Pulse Ox 97% ; rb3 14:33 Body Mass Index 28.34 (68.04 kg, 154.94 cm) jd3 MDM: 14:34 Patient medically screened. kb 15:37 Data reviewed: vital signs, nurses notes. Data interpreted: Pulse oximetry: on room air kb is 99 %. Interpretation: normal. 16:09 Counseling: I had a detailed discussion with the patient and/or guardian regarding: the kb historical points, exam findings, and any diagnostic results supporting the discharge/admit diagnosis, lab results, radiology results, the need for outpatient follow up, an OB/Gyne specialist, to return to the emergency department if symptoms worsen or persist or if there are any questions or concerns that arise at home. 12/16 16:08 Order name: Urine Dipstick--Ancillary (enter results) eb 12/16 16:08 Order name: Urine Dipstick-Ancillary; Complete Time: 16:11 [facility] 12/16 14:42 Order name: CT Stone Protocol; Complete Time: 15:59 kb 12/16 14:42 Order name: Urine Dipstick-Ancillary (obtain specimen); Complete Time: 15:58 kb Administered Medications: No medications were administered Disposition: 16:35 Co-signature as Attending Physician, Thaddeus Dunbar MD. rn Disposition: 12/16/20 16:10 Discharged to Home. Impression: Abdominal and pelvic pain. - Condition is Stable. - Discharge Instructions: Pelvic Pain, Female, Ljua-eq-[place]. - Prescriptions for Diclofenac Sodium 75 mg Oral Tablet, Delayed Release (E.C.) - take 1 tablet by ORAL route 2 times per day As needed; 30 tablet. - Medication Reconciliation Form, Thank You Letter, Antibiotic Education, Prescription Opioid Use form. - Follow up: Emergency Department; When: As needed; Reason: Worsening of condition. Follow up: Private Physician; When: 2 - 3 days; Reason: Recheck today's complaints, Continuance of care, Re-evaluation by your physician. Signatures: Dispatcher [employer] [facility] Indira Ortiz, SOCIAL SCIENCE ANALYST-C SOCIAL SCIENCE ANALYST-Ckb Thaddeus Dunbar MD MD rn Davies, Jonathon, RN RN Onelia Monet RN RN rb3 Corrections: (The following items were deleted from the chart) 16:32 16:10 12/16/2020 16:10 Discharged to Home. Impression: Abdominal and pelvic pain. rb3 Condition is Stable. Forms are Medication Reconciliation Form, Thank You Letter, Antibiotic Education, Prescription Opioid Use. Follow up: Emergency Department; When: As needed; Reason: Worsening of condition. Follow up: Private Physician; When: 2 - 3 days; Reason: Recheck today's complaints, Continuance of care, Re-evaluation by your physician. kb
[2020-12-16 16:36] VITALS: TEMP 97.1
[2020-12-16 16:37] VITALS: BP 119/52; O2SAT 97
== END 2020-12-16 16:32 | disposition home or self-care (01) ==
LOC: ER 14:25
DX: R10.2 Pelvic and perineal pain (principal); I10 Essential (primary) hypertension; E11.9 Type 2 diabetes mellitus without complications; Z79.4 Long term (current) use of insulin
CPT/HCPCS: 74176; 76377; 81003; 99283

== ENCOUNTER 2021-07-24 20:38 | Emergency (ER) | payer BC ==
--- OUTSIDE RECORDS SUMMARY | 2021-07-24 20:41 | XMS REPORT | Continuity of Care Document ---
:1955 Author Organization [facility] t Address [address] [place] [address] Dr. Landa [address] [place] [id number] Care Team Providers Name Role Phone Unavailable Unavailable Unavailable Problems This patient has no known problems. Allergies, Adverse Reactions, Alerts This patient has no known allergies or adverse reactions. Medications This patient has no known medications. Procedures This patient has no known procedures. Results This patient has no known results.
--- NOTE | 2021-07-24 21:46 | RAD REPORT ---
EXAM DESCRIPTION: RAD - Chest Single View - 07/24/2021 9:31 pm CLINICAL HISTORY: COUGH COMPARISON: Chest Single View dated 04/22/2017; CHEST SINGLE VIEW dated 10/27/2013; CHEST SINGLE VIEW dated 01/13/2011; ABDOMEN ACUTE SERIES dated 04/16/2003 FINDINGS: No evidence of edema or pneumonia. The heart size is within normal limits.No acute osseous abnormality. No significant pleural effusions or pneumothorax. IMPRESSION: No acute cardiopulmonary disease.
--- NOTE | 2021-07-24 22:46 | EDPHYS ---
Physician Documentation [facility] Name: Feli Lee Age: 66 yrs Sex: Female : 1955 Arrival Date: 07/24/2021 Time: 20:45 Bed Waiting Private MD: ED Physician Landen Pak HPI: 07/24 22:44 This 66 yrs old Female presents to ER via Ambulatory with complaints of Sore ma2 Throat, Fever, Cough. 22:44 The patient presents with sore throat. Onset: The symptoms/episode began/occurred ma2 gradually, 2 day(s) ago. Severity of symptoms: At their worst the symptoms were mild, in the emergency department the symptoms are unchanged. Associated signs and symptoms: Pertinent positives: cough, Pertinent negatives diarrhea, fever, headache. The patient has not experienced similar symptoms in the past. Historical: - Allergies: 21:15 No Known Allergies; iw - Home Meds: 21:15 insulin daily [Active]; lisinopril Oral [Active]; iw - PMHx: 21:15 Diabetes - IDDM; Hypertension; iw - Immunization history:: Client reports receiving the 1st dose of the Covid vaccine. - Social history:: Smoking status: Patient denies any tobacco usage or history of. - Family history:: not pertinent. ROS: 22:44 Constitutional: Negative for fever, chills, and weight loss. ma2 22:44 All other systems are negative. Exam: 22:44 Constitutional: This is a well developed, well nourished patient who is awake, alert, ma2 and in no acute distress. Head/Face: Normocephalic, atraumatic. Eyes: Pupils equal round and reactive to light, extra-ocular motions intact. Lids and lashes normal. Conjunctiva and sclera are non-icteric and not injected. Cornea within normal limits. Periorbital areas with no swelling, redness, or edema. ENT: Nares patent. No nasal discharge, no septal abnormalities noted. Tympanic membranes are normal and external auditory canals are clear. Oropharynx with no redness, swelling, or masses, exudates, or evidence of obstruction, uvula midline. Mucous membranes moist. Neck: Trachea midline, no thyromegaly or masses palpated, and no cervical lymphadenopathy. Supple, full range of motion without nuchal rigidity, or vertebral point tenderness. No Meningismus. Chest/axilla: Normal chest wall appearance and motion. Nontender with no deformity. No lesions are appreciated. Cardiovascular: Regular rate and rhythm with a normal S1 and S2. No gallops, murmurs, or rubs. Normal PMI, no JVD. No pulse deficits. Respiratory: Lungs have equal breath sounds bilaterally, clear to auscultation and percussion. No rales, rhonchi or wheezes noted. No increased work of breathing, no retractions or nasal flaring. Abdomen/GI: Soft, non-tender, with normal bowel sounds. No distension or tympany. No guarding or rebound. No evidence of tenderness throughout. Skin: Warm, dry with normal turgor. Normal color with no rashes, no lesions, and no evidence of cellulitis. MS/ Extremity: Pulses equal, no cyanosis. Neurovascular intact. Full, normal range of motion. Neuro: Awake and alert, GCS 15, oriented to person, place, time, and situation. Cranial nerves II-XII grossly intact. Motor strength 5/5 in all extremities. Sensory grossly intact. Cerebellar exam normal. Normal gait. Psych: Awake, alert, with orientation to person, place and time. Behavior, mood, and affect are within normal limits. Vital Signs: 21:14 BP 95 / 70; Pulse 89; Resp 16; Temp 99.0; Pulse Ox 98% on R/A; Weight 68.04 kg; Height iw 5 ft. 1 in. (154.94 cm); 21:14 Body Mass Index 28.34 (68.04 kg, 154.94 cm) iw MDM: 22:44 Differential diagnosis: gastroesophageal reflux disease, influenza, pharyngitis, upper ma2 respiratory infection. Data reviewed: vital signs, nurses notes. Counseling: I had a detailed discussion with the patient and/or guardian regarding: the historical points, exam findings, and any diagnostic results supporting the discharge/admit diagnosis, the presence of at least one elevated blood pressure reading (>120/80) during this emergency department visit, the need for outpatient follow up. Response to treatment: the patient's symptoms have markedly improved after treatment. 22:46 Patient medically screened. ma2 07/24 21:17 Order name: COVID-19 : Document "Date of Symptom Onset" if Symptomatic. iw 07/24 21:17 Order name: Strep; Complete Time: 22:29 iw 07/24 21:17 Order name: Flu; Complete Time: 22:29 iw 07/24 21:54 Order name: Throat Culture EDWA 07/24 22:19 Order name: SARS-COV-2 RT PCR; Complete Time: 22:29 EDMS 07/24 21:17 Order name: CXR XRAY; Complete Time: 22:29 iw Administered Medications: No medications were administered Disposition Summary: 07/24/21 22:46 Discharge Ordered Location: Home ma2 Condition: Stable ma2 Diagnosis - Acute upper respiratory infection, unspecified - COVID - 19 ma2 Followup: ma2 - With: Private Physician - When: Today - Reason: Continuance of care Discharge Instructions: - Discharge Summary Sheet ma2 - Upper Respiratory Infection, Adult ma2 Forms: - Medication Reconciliation Form ma2 - Thank You Letter ma2 - Antibiotic Education ma2 - Prescription Opioid Use ma2 Prescriptions: - Diclofenac Sodium 75 mg Oral Tablet Sustained Release - take 1 tablet by ORAL route 2 times per day; 30 tablet; Refills: 0, Product ma2 Selection Permitted - Zithromax Z-Phil 250 mg Oral Tablet - take 1 tablet by ORAL route as directed for 5 days Day 1 - take two (2) tablets ma2 one time. Day 2, 3, 4 , 5 take one (1) tablet once daily.; 6 tablet; Refills: 0, Product Selection Permitted - Medrol (Phil) 4 mg Oral Tablets, Dose Pack - take 1 tablet by ORAL route as directed - follow package instructions; 1 ma2 packet; Refills: 0, Product Selection Permitted Signatures: Dispatcher [employer] Norma Angel RN RN Landen Pak MD MD ma2 Corrections: (The following items were deleted from the chart) 21:30 21:17 CORONAVIRUS ordered. [facility] EDWA
--- NOTE | 2021-07-24 22:46 | ER ---
Nurse's Notes [facility] Name: Feli Lee Age: 66 yrs Sex: Female : 1955 Arrival Date: 07/24/2021 Time: 20:45 Bed Waiting Private MD: Diagnosis: Acute upper respiratory infection, unspecified-COVID - 19 Presentation: 07/24 21:14 Chief complaint: Patient states: cough, runny nose started today, no fever, and sore iw throat. Coronavirus screen: cough unrelated to allergies, nausea. Ebola Screen: Patient negative for fever greater than or equal to 101.5 degrees Fahrenheit, and additional compatible Ebola Virus Disease symptoms Patient denies exposure to infectious person. Patient denies travel to an Ebola-affected area in the 21 days before illness onset. No symptoms or risks identified at this time. Initial Sepsis Screen: Does the patient meet any 2 criteria? No. Patient's initial sepsis screen is negative. Does the patient have a suspected source of infection? No. Patient's initial sepsis screen is negative. Risk Assessment: Do you want to hurt yourself or someone else? Patient reports no desire to harm self or others. Onset of symptoms was July 24, 2021. 21:14 Method Of Arrival: Ambulatory iw 21:14 Acuity: TONO 4 iw Historical: - Allergies: 21:15 No Known Allergies; iw - Home Meds: 21:15 insulin daily [Active]; lisinopril Oral [Active]; iw - PMHx: 21:15 Diabetes - IDDM; Hypertension; iw - Immunization history:: Client reports receiving the 1st dose of the Covid vaccine. - Social history:: Smoking status: Patient denies any tobacco usage or history of. - Family history:: not pertinent. Vital Signs: 21:14 BP 95 / 70; Pulse 89; Resp 16; Temp 99.0; Pulse Ox 98% on R/A; Weight 68.04 kg; Height iw 5 ft. 1 in. (154.94 cm); 21:14 Body Mass Index 28.34 (68.04 kg, 154.94 cm) iw ED Course: 20:45 Patient arrived in ED. mr 21:15 Triage completed. iw 21:16 Arm band placed on. iw 21:32 CXR XRAY In Process Unspecified. EDMS 22:46 Landen Pak MD is Attending Physician. ma2 22:53 Norma Zarco, RN is Primary Nurse. iw Administered Medications: No medications were administered Outcome: : Discharge ordered by . ma2 22:53 Patient left the ED. iw Signatures: Dispatcher [employer] EDKY Nery Espinal mr Norma Zarco RN RN iw Landen Pak MD MD [facility]
[2021-07-24 22:59] VITALS: BP 95/70; TEMP 99; O2SAT 98
== END 2021-07-24 22:53 | disposition home or self-care (01) ==
LOC: ER 20:38
DX: U07.1 COVID-19 (principal); J06.9 Acute upper respiratory infection, unspecified; I10 Essential (primary) hypertension; E11.9 Type 2 diabetes mellitus without complications; Z79.4 Long term (current) use of insulin
CPT/HCPCS: 87070; 87081; 87804 ×2; 71045; 99282; U0003

== ENCOUNTER 2021-08-07 22:58 | Emergency (ER) | payer BC ==
--- OUTSIDE RECORDS SUMMARY | 2021-08-08 00:13 | XMS REPORT | Continuity of Care Document ---
:1955 Author Organization [facility] t Address [address] [place] [address] Care Team Providers Name Role Phone Sofya SAXENA, R Primary Care Physician Tyler RN, T Attending Clinician Unavailable Rodri RN Attending Clinician Unavailable Only, Db Test Attending Clinician Unavailable Lino MARQUEZ Attending Clinician Payers Payer Name Policy Type Policy Number Effective Date Expiration Date S ource Problems Condition Condition Condition Status Onset Resolution Last Treating Co mments Source Name Details Category Date Date Treatment Clinician Date No known No known Disease Unive rs active active ity of problems problems [facility] Allergies, Adverse Reactions, Alerts This patient has no known allergies or adverse reactions. Social History Social Habit Start Date Stop Date Quantity Comments Source Sex Assigned At [birth year] [facility] 00:00:00 00:00:00 [facility] Smoking Status Start Date Stop Date Source Unknown if ever smoked [facility] Medications Ordered Filled Start Stop Current Ordering Indication Dosage Frequency Signature Comments Components Source Medication Medication Date Date Medication? Clinician (SIG) Name Name phenazopyri 2018-11 Yes [id number] 200mg Take 1 [facility] 200 mg 2-13 tablet by ity of tablet 00:00: mouth 3 [place] (three) Medical times [place] daily. phenazopyri 2018-11 Yes [id number] 200mg Take 1 [facility] dine 200 mg 2-13 tablet by ity of tablet 00:00: mouth 3 [place] (three) Medical times [place] daily. phenazopyri 2018-11 Yes [id number] 200mg Take 1 [facility] dine 200 mg 2-13 tablet by ity of tablet 00:00: mouth 3 [place] (three) Medical times [place] daily. bisacodyl 2017-11 Yes 10mg Insert 1 Univ ers (DULCOLAX, 0-14 Suppositor ity of BISACODYL,) [place] 10 [place] 00 rectum at Medical suppository bedtime as [place] needed for Constipati on unresolved by oral medication s. bisacodyl 2017-11 Yes 10mg Insert 1 Univ ers (DULCOLAX, 0-14 Suppositor ity of BISACODYL,) [place] 00 rectum at Medical suppository bedtime as [place] needed for Constipati on unresolved by oral medication s. bisacodyl 2017-11 Yes 10mg Insert 1 Univ ers (DULCOLAX, 0-14 Suppositor ity of BISACODYL,) [place] mg 00 rectum at Medical suppository bedtime as [place] needed for Constipati on unresolved by oral medication s. lisinopril Yes 10mg Take 10 mg U nivers (PRINIVIL,Z 5-29 by mouth ity of ESTRIL) 10 19:36: daily. [place] mg tablet [facility] INSULIN NPH Yes 20U inject 20 U nivers HUM/REG 5-29 Units ity of INSULIN HM 19:[place]: [place] (NOVOLIN 04 skin every Medic al 70/30 [place]) morning. [place] INSULIN NPH Yes 10U inject 10 U nivers HUM/REG 5-29 Units it[place] of INSULIN HM 19:36: [place] (NOVOLIN 04 skin every Medic al 70/30 [place]) evening. [place] lisinopril Yes 10mg Take 10 mg U nivers (PRINIVIL,Z 5-29 by mouth ity of ESTRIL) 10 19:36: daily. [place] mg tablet 04 [facility] INSULIN NPH Yes 20U inject 20 U nivers HUM/REG 5-29 Units ity of INSULIN HM 19:36: [place] (NOVOLIN 04 skin every Medic al 70/30 [place]) morning. [place] INSULIN NPH Yes 10U inject 10 U nivers HUM/REG 5-29 Units ity of INSULIN HM 19:36: [place] (NOVOLIN 04 skin every Medic al 70/30 [place]) evening. [place] lisinopril Yes 10mg Take 10 mg U nivers (PRINIVIL,Z 5-29 by mouth ity of ESTRIL) 10 19:36: daily. [place] mg tablet 04 [facility] INSULIN NPH Yes 20U inject 20 U nivers HUM/REG 5-29 Units ity of INSULIN HM 19:36: [place] the [place] (NOVOLIN 04 skin every Medic al 70/30 SC) morning. [place] INSULIN NPH Yes 10U inject 10 U nivers HUM/REG 5-29 Units ity of INSULIN HM 19:36: [place] (NOVOLIN 04 skin every Medic al 70/30 [place]) evening. [place] Procedures This patient has no known procedures. Encounters Start End Encounter Admission Attending Care Care Encounter Source Date/Time Date/Time Type Type Clinicians Facility Department ID 2021-08-01 2021-08-01 Letter JACKSON Scott [id number] [facility] 00:00:00 00:00:00 (Out) Maribel CADET [id number] it y of [facility] [id number] Shane as [phone] [address] 2021-08-01 2021-08-01 Telephone JACKSON Mace [id number] Univers 00:00:00 00:00:00 Delmy CADET [id number] it y of [facility] [id number] Shane as [phone] [address] 2021-07-30 2021-07-30 Laboratory Only, Ang Db Test [facility] [id number] Univers 19:20:45 19:35:45 Only Lino, [facility] [id number] ity of [place] [id number] Shane as [place] [phone] [address] Medical Office Building Results This patient has no known results.
[2021-08-08 00:30] LABS: Protime INR 0.93
[2021-08-08 00:32] LABS: Absolute Lymphocytes (CBC) 2.1 K/uL (0.7-4.9); Basophils % 0.9 % (0-1.3); Hematocrit 31.2 % (36.0-45.0); Lymphocytes % 39.8 % (15.3-44.8); MPV 6.6 fL (7.6-11.3); RBC Red Blood Cell Count 3.59 M/uL (3.86-4.86)
[2021-08-08 00:57] LABS: ALT/SGPT 37 U/L (12-78); AST/SGOT 15 U/L (15-37); Alkaline Phosphatase 106 U/L (45-117); BUN Blood Urea Nitrogen 15 mg/dL (7-18); Bicarbonate 26 mmol/L (21-32); Bilirubin Direct < 0.1 mg/dL (0-0.2); Bilirubin Total 0.3 mg/dL (0.2-1.0); C-Reactive Protein 4.01 mg/L (<3.00); Ferritin 29.4 ng/mL (8-388); Glucose Level 146 mg/dL (74-106); Magnesium 2.1 mg/dL (1.8-2.4); NT PRO-BNP 45 pg/mL (<125); Potassium 3.5 mmol/L (3.5-5.1); Sodium Level 142 mmol/L (136-145); Troponin (Emerg Dept Use Only) < 0.02 ng/mL (0.0-0.045)
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
--- NOTE | 2021-08-08 01:11 | EDPHYS ---
Physician Documentation [facility] Name: Feli Lee Age: 66 yrs Sex: Female : 1955 Arrival Date: 08/07/2021 Time: 23:02 Bed 25 Private MD: ED Physician Quincy Weir HPI: 08/07 23:19 This 66 yrs old Female presents to ER via Ambulatory with complaints of Chest pm1 Pressure. 23:19 The patient or guardian reports chest pain that is located primarily in the mid-sternal pm1 area. Onset: this morning, at 07:00. The pain does not radiate. Associated signs and symptoms: Pertinent negatives: abdominal pain, cough, diaphoresis, dizziness, nausea, shortness of breath, vomiting. The chest pain is described as a pressure. Duration: The patient or guardian reports a single episode, that is now resolved, that lasted 1 hour(s). Modifying factors: The symptoms are alleviated by rest, the symptoms are aggravated by exertion. Severity of pain: in the emergency department the pain has resolved is a 0 / 10. The patient has not experienced similar symptoms in the past. The patient has not recently seen a physician, the patient's primary care provider is Dr. Bowling. Historical: - Allergies: 23:13 No Known Allergies; wg - Home Meds: 23:13 insulin [Active]; lisinopril Oral [Active]; wg - PMHx: 23:13 Diabetes - IDDM; Hypertension; wg - Immunization history:: Adult Immunizations up to date. - Social history:: Smoking status: Patient denies any tobacco usage or history of. - Code Status:: Full code. ROS: 23:19 Constitutional: Negative for fever, chills, and weight loss. pm1 23:19 Respiratory: Negative for shortness of breath, cough, wheezing, and pleuritic chest pain, Abdomen/GI: Negative for abdominal pain, nausea, vomiting, diarrhea, and constipation, Back: Negative for injury and pain, MS/Extremity: Negative for injury and deformity, Skin: Negative for injury, rash, and discoloration, Neuro: Negative for headache, weakness, numbness, tingling, and seizure. 23:19 Cardiovascular: Positive for chest pain, Negative for edema, orthopnea, palpitations. 23:19 All other systems are negative. Exam: 23:19 Constitutional: This is a well developed, well nourished patient who is awake, alert, pm1 and in no acute distress. Head/Face: Normocephalic, atraumatic. 23:19 Skin: Warm, dry with normal turgor. Normal color with no rashes, no lesions, and no evidence of cellulitis. MS/ Extremity: Pulses equal, no cyanosis. Neurovascular intact. Full, normal range of motion. 23:19 Chest/axilla: Inspection: normal, Palpation: crepitus, is not appreciated, tenderness, that is mild, of the anterior aspect of left upper chest. 23:19 Cardiovascular: Rate: normal, Rhythm: regular, Pulses: no pulse deficits are appreciated, Heart sounds: normal, normal S1and S2, Edema: is not appreciated. 23:19 Respiratory: Exam negative for acute changes, respiratory distress, shortness of breath, Breath sounds: are clear throughout. 23:19 Abdomen/GI: Inspection: abdomen appears normal, Palpation: abdomen is soft and non-tender, in all quadrants. 23:19 Neuro: Exam negative for acute changes, Orientation: is normal, Mentation: is normal, Motor: is normal, moves all fours. Vital Signs: 23:08 BP 151 / 61 RA Sitting (auto/reg); Pulse 64; Resp 18; Temp 97.6; Pulse Ox 100% on R/A; wg Weight 68.04 kg; Height 5 ft. 1 in. (154.94 cm); Pain 5/10; 23:47 BP 157 / 67; Pulse 60; Resp 19; Temp 98.1; Pulse Ox 99% on R/A; Weight 68.04 kg; Height wr 5 ft. 1 in. (154.94 cm); 08/08 02:04 BP 134 / 85; Pulse 60; Resp 21; Temp 98.4; Pulse Ox 100% ; wr 08/07 23:47 Body Mass Index 28.34 (68.04 kg, 154.94 cm) wr MDM: 08/07 23:25 Patient medically screened. pm1 08/08 00:04 Data reviewed: vital signs. Data interpreted: Pulse oximetry: on room air is 99 %. pm1 Interpretation: normal. 01:07 Counseling: I had a detailed discussion with the patient and/or guardian regarding: the pm1 historical points, exam findings, and any diagnostic results supporting the discharge/admit diagnosis, lab results, radiology results, the need for further work-up and treatment in the hospital. 01:07 Refusal of service: The patient/guardian displays adequate decision making capability pm1 and despite a detailed discussion of alternatives, benefits, risks, and consequences refuses: Admission to the hospital for further work-up and treatment, And does not want to stay in the hospital and prefers to follow-up with her PCP, Dr. Bowling, tomorrow. 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 08/07 23:16 Order name: Basic Metabolic Panel 08/07 23:16 Order name: CBC with Diff 08/07 23:16 Order name: LFT's 08/07 23:16 Order name: Magnesium; Complete Time: 01:00 08/07 23:16 Order name: NT PRO-BNP; Complete Time: 01:00 08/07 23:16 Order name: PT-INR; Complete Time: 00:46 08/07 23:16 Order name: Troponin (emerg Dept Use Only); Complete Time: 01:00 08/07 23:16 Order name: Basic Metabolic Panel; Complete Time: 01:00 [facility] 08/07 23:16 Order name: CBC with Automated Diff; Complete Time: 00:46 [facility] 08/07 23:16 Order name: Liver (Hepatic) Function; Complete Time: 01:00 [facility] 08/08 00:12 Order name: C-Reactive Protein; Complete Time: 01:00 [facility] 08/08 00:12 Order name: Ferritin; Complete Time: 01:00 [facility] 08/07 23:16 Order name: XRAY Chest (1 view) 08/07 23:16 Order name: EKG; Complete Time: 23:16 08/07 23:16 Order name: Cardiac monitoring; Complete Time: 23:38 08/07 23:16 Order name: EKG - Nurse/Tech; Complete Time: 00:07 08/07 23:16 Order name: IV Saline Lock; Complete Time: 00:07 08/07 23:16 Order name: Labs collected and sent; Complete Time: 00:07 08/07 23:16 Order name: O2 Per Protocol; Complete Time: 23:38 wg 08/07 23:16 Order name: O2 Sat Monitoring; Complete Time: 23:38 Administered Medications: 02:01 Drug: Aspirin Chewable Tablet 324 mg Route: PO; wr Disposition: 02:55 Co-signature as Attending Physician, Quincy Weir MD. [email or web address] Disposition Summary: 08/08/21 01:10 Left Against Medical Advice Location: Home pm1 Problem: new pm1 Symptoms: have improved pm1 Condition: Undetermined pm1 Diagnosis - Chest pain, unspecified pm1 Followup: pm1 - With: Emergency Department - When: As needed - Reason: Worsening of condition Followup: pm1 - With: Merrick Hernandez MD - When: Upon discharge from the Emergency Department - Reason: Recheck today's complaints, Continuance of care, Re-evaluation by your physician Discharge Instructions: - Discharge Summary Sheet pm1 - Nonspecific Chest Pain, Adult pm1 Signatures: Dispatcher [employer] EDMS Chavo Valle, SANDSTONE INSPECTOR REPAIRER SANDSTONE INSPECTOR REPAIRER pm1 Quincy Weir MD MD [facility] Andreas Singh RN Devora Guan Corrections: (The following items were deleted from the chart) 00:12 08/07 23:25 FERRITIN+C.LAB.BRZ ordered. EDMS EDMS 08/08 00:12 08/07 23:25 C-REACTIVE PROTEIN+C.LAB.BRZ ordered. EDMS EDMS
[2021-08-08] MEDS ORDERED: ASPIRIN 81 MG CHEWABLE TABLET ONE (02:00)
[2021-08-08 02:38] VITALS: BP 157/67; TEMP 98.1; O2SAT 99
--- NOTE | 2021-08-08 07:25 | RAD REPORT ---
EXAM DESCRIPTION: RAD - Chest Single View - 08/08/2021 12:01 am CLINICAL HISTORY: CHEST PAIN COMPARISON: Chest Single View dated 07/24/2021; Chest Single View dated 04/22/2017; CHEST SINGLE VIEW dated 10/27/2013; CHEST SINGLE VIEW dated 01/13/2011 FINDINGS: Lines: None. Lungs: No evidence of edema or pneumonia. Increased opacification peripherally in the lungs favored d ue to overlapping soft tissues. Pleural: No significant pleural effusions or pneumothorax. Cardiac: The heart size is within normal limits. Bones: No acute fractures. Other: IMPRESSION: No acute cardiopulmonary disease.
--- NOTE | 2021-08-08 08:14 | EKG ---
Test Date: 2021-08-07 Test Time: 23:45:49 Event Decorator And Designer: JOYCE MEASUREMENT RESULTS: Intervals: Rate: 57 [place]: 194 QRSD: 86 QT: 406 QTc: 395 [place]: P: 57 [place]: 194 QRS: -36 T: 75 INTERPRETIVE STATEMENTS: Sinus bradycardia Left axis deviation Cannot rule out Anterior infarct, age undetermined Abnormal ECG Compared to ECG 07/23/2018 19:25:48 Left-axis deviation now present Myocardial infarct finding now present Sinus rhythm no longer present Electronically Signed On 08-08-21 08:14:07 CDT by Merrick Hernandez
== END 2021-08-08 01:59 | disposition left against medical advice (07) ==
LOC: ER 22:58
DX: R07.9 Chest pain, unspecified (principal); I10 Essential (primary) hypertension; E11.9 Type 2 diabetes mellitus without complications; Z79.4 Long term (current) use of insulin
CPT/HCPCS: 36415; 71045; 80048; 80076; 82728; 83735; 83880; 84484; 85025; 85610; 86140; 93005; 99285

== ENCOUNTER 2022-04-06 22:45 | Emergency (ER) | payer OTHER, BC ==
--- OUTSIDE RECORDS SUMMARY | 2022-04-06 22:48 | XMS REPORT | Continuity of Care Document ---
:1955 [address] [facility] [place], [place] t Address [address] [place] [address] [address]. [address] [place] [address] Care Team Providers Name Role Phone Sofya SAXENA, R Primary Care Physician Tyler RN, T Attending Clinician Unavailable Rodri RN Attending Clinician Unavailable Only, Db Test Attending Clinician Unavailable Rahul ASSISTANT CREDIT MANAGER Attending Clinician RAHUL Attending Clinician Unavailable Payers Payer Name Policy Type Policy Number Effective Date Expiration Date S ource Problems Condition Condition Condition Status Onset Resolution Last Treating Co mments Source Name Details Category Date Date Treatment Clinician Date No known No known Disease Unive rs active active ity of problems problems [facility] Allergies, Adverse Reactions, Alerts Allergy Allergy Status Severity Reaction(s) Onset Inactive Treating Comm ents Source Name Type Date Date Clinician NO KNOWN Drug Active Univers ALLERGIE Class ity of S [facility] Social History Social Habit Start Date Stop Date Quantity Comments Source Sex Assigned At [birth year] [facility] 00:00:00 00:00:00 [facility] Branch Smoking Status Start Date Stop Date Source Unknown if ever smoked [facility] Medications Ordered Filled Start Stop Current Ordering Indication Dosage Frequency Signature Comments Components Source Medication Medication Date Date Medication? Clinician (SIG) Name Name phenazopyri 2018-11 Yes [id number] 200mg Take 1 Univers dine 200 mg 2-13 tablet by ity of tablet 00:00: mouth 3 [place] 00 (three) Medical times Branch daily. phenazopyri 2018-11 Yes [id number] 200mg Take 1 Univers dine 200 mg 2-13 tablet by ity of tablet 00:00: mouth 3 [place] (three) Medical times Branch daily. phenazopyri 2018-11 Yes [id number] 200mg Take 1 Univers dine 200 mg 2-13 tablet by ity of tablet 00:00: mouth 3 (three) Medical times Branch daily. phenazopyri 2018-11 Yes [id number] 200mg Take 1 Univers dine 200 mg 2-13 tablet by ity of tablet 00:00: mouth 3 [place] (three) Medical times Branch daily. phenazopyri 2018-11 Yes [id number] 200mg Take 1 Univers dine 200 mg 2-13 tablet by ity of tablet 00:00: mouth 3 [place] (three) Medical times Branch daily. bisacodyl 2017-11 Yes 10mg Insert 1 [...] on unresolved by oral medication s. lisinopril 2016-0 Yes 10mg Take 10 mg U nivers (PRINIVIL,Z 5-29 by mouth ity of ESTRIL) 10 19:36: daily. [place] mg tablet 04 [facility] INSULIN NPH 2015-0 Yes 20U inject 20 U nivers HUM/REG 5-29 Units ity of INSULIN HM 19:[place]: [place] (NOVOLIN 04 skin every Medic al 70/30 [place]) morning. Branch INSULIN NPH 2016-0 Yes 10U inject 10 U nivers HUM/REG 5-29 Units ity of INSULIN HM 19:36: [place] (NOVOLIN 04 skin every Medic al 70/30 [place]) evening. Branch lisinopril 2016-0 Yes 10mg Take 10 mg U nivers (PRINIVIL,Z 5-29 by mouth ity of ESTRIL) 10 19:36: daily. [place] mg tablet 04 [facility] INSULIN NPH 2015-0 Yes 20U inject 20 U nivers HUM/REG 5-29 Units ity of INSULIN HM 19:36: [place] the [place] (NOVOLIN 04 skin every Medic al 70/30 [place]) morning. Branch INSULIN NPH 2015-0 Yes 10U inject 10 U nivers HUM/REG 5-29 Units ity of INSULIN HM 19:36: under the [place] (NOVOLIN 04 skin every Medic al 70/30 [place]) evening. Branch lisinopril 2015-0 Yes 10mg Take 10 mg U nivers (PRINIVIL,Z 5-29 by mouth ity of ESTRIL) 10 19:36: daily. [place] mg tablet 04 [facility] INSULIN NPH 2015-0 Yes 20U inject 20 U nivers HUM/REG 5-29 Units ity of INSULIN HM 19:36: under the [place] (NOVOLIN 04 skin every Medic al 70/30 [place]) morning. Branch INSULIN NPH 2016-0 Yes 10U inject 10 U nivers HUM/REG 5-29 Units ity of INSULIN HM 19:36: under the [place] (NOVOLIN 04 skin every Medic al 70/30 [place]) evening. Branch lisinopril 2016-0 Yes 10mg Take 10 mg U nivers (PRINIVIL,Z 5-29 by mouth ity of ESTRIL) 10 19:36: daily. [place] mg tablet 04 [facility] INSULIN NPH 2016-0 Yes 20U inject 20 U nivers HUM/REG 5-29 Units ity of INSULIN HM 19:36: under the [place] (NOVOLIN 04 skin every Medic al 70/30 [place]) morning. Branch INSULIN NPH 0 Yes 10U inject 10 U nivers HUM/REG 5-29 Units ity of INSULIN HM 19:36: under the [place] (NOVOLIN 04 skin every Medic al 70/30 [place]) evening. Branch lisinopril Yes 10mg Take 10 mg U nivers (PRINIVIL,Z 5-29 by mouth ity of ESTRIL) 10 19:36: daily. [place] mg tablet 04 [facility] INSULIN NPH Yes 20U inject 20 U [...] ID 2021-08-01 2021-08-01 Letter JACKSON Scott [id number] Univers 00:00:00 00:00:00 (Out) Maribel CADET [id number] it y of [facility] [id number] Shane as [id number] [address] 2021-08-01 2021-08-01 Telephone JACKSON Mace [id number] Univers 00:00:00 00:00:00 Delmy CADET [id number] it y of [facility] [id number] Shane as [phone] [address] 2021-07-30 2021-07-30 Laboratory Only, Ang Db Test [facility] [id number] Univers 19:20:45 19:35:45 Only [facility] [id number] ity of [place] [id number] Shane as [place] [id number] [place] [address] Medical Office Building 2021-07-30 2021-07-30 Outpatient R RAHUL [facility] [id number] [facility] 19:20:00 19:20:00 KANDICE vasquez [facility] Results This patient has no known results.
[2022-04-07 00:21] LABS: Urine Blood Negative (Negative); Urine Glucose Negative (Negative); Urine Protein Negative (Negative)
--- NOTE | 2022-04-07 02:07 | ER ---
Nurse's Notes [facility] Name: Feli Lee Age: 66 yrs Sex: Female : 1955 Arrival Date: 04/06/2022 Time: 22:51 Bed 6 Private MD: Diagnosis: Sciatica, right side Presentation: 04/07 00:08 Chief complaint: Patient states: C/O bacl and right leg pain 10/10 for the past week. ll3 Coronavirus screen: Vaccine status: Patient reports receiving the 1st dose of the Covid vaccine. At this time, the client does not indicate any symptoms associated with coronavirus-19. Ebola Screen: No symptoms or risks identified at this time. Initial Sepsis Screen: Does the patient meet any 2 criteria? No. Patient's initial sepsis screen is negative. Does the patient have a suspected source of infection? No. Patient's initial sepsis screen is negative. Risk Assessment: Do you want to hurt yourself or someone else? Patient reports no desire to harm self or others. Onset of symptoms was March 31, 2022. 00:08 Method Of Arrival: Ambulatory ll3 00:08 Acuity: TONO 3 ll3 Triage Assessment: 00:09 General: Appears uncomfortable, Behavior is calm, cooperative. Pain: Complains of pain ll3 in right low back and right leg Pain currently is 10 out of 10 on a pain scale. Pain began 1 week ago Aggravated by increased activity, weight bearing. Derm: Skin is pink, warm \T\ dry. Musculoskeletal: Circulation, motion, and sensation intact. Reports pain in right low back and right leg. Historical: - Home Meds: 00:09 insulin [Active]; lisinopril Oral [Active]; ll3 - PMHx: 00:09 Diabetes - IDDM; Hypertension; Hypercholesterolemia; ll3 - Immunization history:: Client reports receiving the 1st dose of the Covid vaccine. - Social history:: Smoking status: Patient denies any tobacco usage or history of. Screenin:11 Abuse screen: Denies threats or abuse. Nutritional screening: No deficits noted. ll3 Tuberculosis screening: No symptoms or risk factors identified. Assessment: 00:11 General: See triage assessment. Neuro: Level of Consciousness is awake, alert, obeys ll3 commands, Oriented to person, place, time, situation. Vital Signs: 00:08 BP 164 / 94; Pulse 55; Resp 15; Pulse Ox 100% on R/A; Weight 68.04 kg (R); Height 5 ft. ll3 1 in. (154.94 cm) (R); 00:08 Body Mass Index 28.34 (68.04 kg, 154.94 cm) ll3 ED Course: 04/06 22:51 Patient arrived in ED. bp1 23:01 Jw Tejada DO is Attending Physician. ms3 04/07 00:08 Elisa Henderson, RN is Primary Nurse. ll3 00:09 Triage completed. ll3 00:09 Arm band placed on Patient placed in an exam room, on a stretcher, on pulse oximetry. ll3 00:11 Patient has correct armband on for positive identification. Bed in low position. Call ll3 light in reach. Side rails up X 1. 02:06 Lucas Potter MD is Referral Physician. ms3 Administered Medications: No medications were administered Medication: 00:11 VIS not applicable for this client. ll3 Outcome: 02:06 Discharge ordered by . ms3 02:44 Patient left the ED. jb4 Signatures: Satinder Gutierrez, RN RN jb4 Jw Tejada DO DO ms3 Clau Mendoza bp1 Elisa Henderson, URBAN RN ll3
--- NOTE | 2022-04-07 02:07 | EDPHYS ---
Physician Documentation [facility] Name: Feli Lee Age: 66 yrs Sex: Female : 1955 Arrival Date: 04/06/2022 Time: 22:51 Bed 6 Private MD: ED Physician Jw Tejada HPI: 04/06 23:10 This 66 yrs old Female presents to ER via Unassigned with complaints of Back ms3 Pain, Leg Pain. 23:10 The patient presents with pain that is acute, with no known mechanism of injury. The ms3 symptoms are located in the low back. Onset: The symptoms/episode began/occurred 1 week(s) ago. The pain radiates to the right leg. Associated signs and symptoms: Pertinent negatives: abdominal pain, chest pain, fever, hematuria, incontinence, numbness, tingling, urinary retention, weakness. The problem was sustained Lifts objects at work. Historical: - Home Meds: 04/07 00:09 insulin [Active]; lisinopril Oral [Active]; ll3 - PMHx: 00:09 Diabetes - IDDM; Hypertension; Hypercholesterolemia; ll3 - Immunization history:: Client reports receiving the 1st dose of the Covid vaccine. - Social history:: Smoking status: Patient denies any tobacco usage or history of. ROS: 04/06 23:10 Constitutional: Negative for fever, and chills. Eyes: Negative for injury, pain, ms3 redness, and discharge, Neck: Negative for injury, pain, and swelling, Cardiovascular: Negative for chest pain, and palpitations. Respiratory: Negative for shortness of breath, cough, wheezing, and pleuritic chest pain, Abdomen/GI: Negative for abdominal pain, nausea, vomiting, diarrhea, and constipation. Back: Positive for pain with movement, radiated pain. All other systems are negative. Exam: 23:10 Constitutional: This is a well developed, well nourished patient who is awake, alert, ms3 and in no acute distress. Head/Face: Normocephalic, atraumatic. Eyes: Pupils equal round and reactive to light, extra-ocular motions intact. Lids and lashes normal. Conjunctiva and sclera are non-icteric and not injected. Periorbital areas with no swelling, redness, or edema. Neck: Trachea midline, no cervical lymphadenopathy. Supple, full range of motion without nuchal rigidity, or vertebral point tenderness. No Meningismus. Chest/axilla: Normal chest wall appearance and motion. Nontender with no deformity. Cardiovascular: Regular rate and rhythm with a normal S1 and S2. No gallops, murmurs, or rubs. Normal PMI, no JVD. No pulse deficits. Respiratory: Lungs have equal breath sounds bilaterally, clear to auscultation and percussion. No rales, rhonchi or wheezes noted. No increased work of breathing, no retractions or nasal flaring. Abdomen/GI: Soft, non-tender, with normal bowel sounds. No distension or tympany. No guarding or rebound. No evidence of tenderness throughout. 23:10 Back: pain, that is moderate, of the right low back, ROM is normal, normal spinal alignment noted, vertebral tenderness, is not appreciated, muscle spasm, is appreciated in the right low back. Vital Signs: 04/07 00:08 BP 164 / 94; Pulse 55; Resp 15; Pulse Ox 100% on R/A; Weight 68.04 kg (R); Height 5 ft. ll3 1 in. (154.94 cm) (R); 00:08 Body Mass Index 28.34 (68.04 kg, 154.94 cm) ll3 MDM: 04/06 23:10 Differential diagnosis: spinal injury, UTI, Sciatica. ms3 23:52 Patient medically screened. ms3 04/07 02:06 Data reviewed: vital signs, nurses notes, lab test result(s). Counseling: I had a ms3 detailed discussion with the patient and/or guardian regarding: the historical points, exam findings, and any diagnostic results supporting the discharge/admit diagnosis, lab results, the need for outpatient follow up, to return to the emergency department if symptoms worsen or persist or if there are any questions or concerns that arise at home. ED course: Discussed UA , PE findings with patient. Patient to follow up with PMD as discussed. Patient understands/ agrees with plan. All questions answered. Return precautions given to include worsening symptoms, or any other concerns. Patient is improved, in NAD, non-toxic appearing, ambulatory in ED, speaking full sentences.. 04/07 00:21 Order name: Urine Dipstick-Ancillary; Complete Time: 02:05 EDMS 04/06 23:08 Order name: Urine Dipstick-Ancillary (obtain specimen); Complete Time: 00:20 ms3 Administered Medications: No medications were administered Disposition Summary: 04/07/22 02:06 Discharge Ordered Location: Home ms3 Condition: Stable ms3 Diagnosis - Sciatica, right side ms3 Followup: ms3 - With: Lucas Potter MD - When: 2 - 3 days - Reason: Recheck today's complaints Discharge Instructions: - Discharge Summary Sheet ms3 - Sciatica ms3 Forms: - Medication Reconciliation Form ms3 - Thank You Letter ms3 - Antibiotic Education ms3 - Prescription Opioid Use ms3 Prescriptions: - Ibuprofen 600 mg Oral Tablet - take 1 tablet by ORAL route every 6 hours As needed take with food; 30 tablet; ms3 Refills: 0, Product Selection Permitted - Cyclobenzaprine 10 mg Oral Tablet - take 1 tablet by ORAL route every 8 hours As needed; 30 tablet; Refills: 0, ms3 Product Selection Permitted Signatures: Dispatcher [employer] EDCA Jw Tejada DO DO ms3 Elisa Henderson RN RN ll3 Corrections: (The following items were deleted from the chart) 09:30 Data reviewed: vital signs, nurses notes, lab test result(s), ms3 ms3 09:30 Counseling: I had a detailed discussion with the patient and/or guardian ms3 regarding: the historical points, exam findings, and any diagnostic results supporting the discharge/admit diagnosis, lab results, the need for outpatient follow up, to return to the emergency department if symptoms worsen or persist or if there are any questions or concerns that arise at home, ms3 :32 09:30 ED course: Discussed UA , PE findings with patient. Patient to follow up with PMD ms3 as discussed. Patient understands/ agrees with plan. All questions answered. Return precautions given to include worsening symptoms, or any other concerns. Patient is improved, in NAD, non-toxic appearing, ambulatory in ED, speaking full sentences.. ms3
[2022-04-07 02:49] VITALS: BP 164/94; O2SAT 100
== END 2022-04-07 02:44 | disposition home or self-care (01) ==
LOC: ER 22:45
DX: M54.31 Sciatica, right side (principal); E11.9 Type 2 diabetes mellitus without complications; Z79.4 Long term (current) use of insulin; I10 Essential (primary) hypertension
CPT/HCPCS: 81003; 99282

== ENCOUNTER 2022-06-14 10:15 | Emergency (ER) | payer BC, OTHER ==
--- OUTSIDE RECORDS SUMMARY | 2022-06-14 10:19 | XMS REPORT | Continuity of Care Document ---
:1955 Author Organization [facility] t Address [address] [place] [address] Dr. D[address]on. [address] [place] [address] Care Team Providers Name Role Phone Sofya SAXENA, R Primary Care Physician Gopi SAXENA Attending Clinician Tyler RN, T Attending Clinician Unavailable Rodri DUGGAN Attending Clinician Unavailable Only, Db Test Attending Clinician Unavailable Rahul MANAGER BENEFIT Attending Clinician RAHUL Attending Clinician Unavailable Payers Payer Name Policy Type Policy Number Effective Date Expiration Date S ource Problems Condition Condition Condition Status Onset Resolution Last Treating Co mments Source Name Details Category Date Date Treatment Clinician Date No known No known Disease Unive rs active active ity of problems problems [facility] Allergies, Adverse Reactions, Alerts Allergy Allergy Status Severity Reaction(s) Onset Inactive Treating Comm ents Source Name Type Date Date Clinician NO KNOWN Drug Active Univers ALLERGIE Class ity of S [facility] Social History Social Habit Start Date Stop Date Quantity Comments Source Cigarette 2022-05-02 2022-05-02 [facility] pack-years 00:00:00 00:00:00 of Medicine Tobacco use and 2022-05-02 2022-05-02 Smokeless tobacco [facility] exposure 00:00:00 00:00:00 non-user of Medicine Sex Ass[birth year] [facility] 00:00:00 00:00:00 of Medicine Smoking Status Start Date Stop Date Source Never smoked tobacco [facility] Unknown if ever smoked [facility] Medications Ordered Filled Start Stop Current Ordering Indication Dosage Frequency Signature Comments Components Source Medication Medication Date Date Medication? Clinician (SIG) Name Name gabapentin Yes [id number] 600mg Take 1 [facility] (NEURONTIN) 05-02 Tablet by Col lege 600 MG 00:00: mouth 3 of tablet 00 times Medicin daily. e gabapentin Yes [id number] 600mg Take 1 [facility] (NEURONTIN) 05-02 Tablet by Col lege 600 MG 00:00: mouth 3 of tablet 00 times Medicin daily. e tramadol Yes TAKE 1 [facility] (ULTRAM) 50 5-20 TABLET BY Col lege MG tablet 00:00: MOUTH of 00 EVERY 6 Medicin HOURS e NEEDED tramadol Yes TAKE 1 [facility] (ULTRAM) 50 5-20 TABLET BY Col lege MG tablet 00:00: MOUTH of 00 EVERY 6 Medicin HOURS e NEEDED ibuprofen Yes TAKE 1 [facility] (MOTRIN) 5-15 TABLET BY [facility] e 600 MG 00:00: MOUTH of tablet 00 EVERY 6 Medicin HOURS e NEEDED FOR PAIN cyclobenzap Yes TAKE 1 [facility] 5-15 TABLET BY [place] (FLEXERIL) 00:00: MOUTH of 10 MG 00 EVERY 8 Medicin tablet HOURS e NEEDED FOR SPASMS cyclobenzap Yes 10mg Take 10 mg [facility] rine 5-15 by mouth 3 College (FLEXERIL) 00:00: times of 10 MG 00 daily as Medicin tablet needed for e Muscle spasms. ibuprofen 2021- No TAKE 1 [facility] (MOTRIN) 5-15 07-05 TABLET BY Colle ge 600 MG 00:00: 00:00 MOUTH of tablet 00 :00 EVERY 6 Medicin HOURS e NEEDED FOR PAIN lisinopril Yes TAKE 1 [facility] (PRINIVIL, 5-05 TABLET BY [facility] ZESTRIL) 20 00:00: MOUTH of MG tablet 00 EVERY DAY Medic in e simvastatin Yes TAKE 1 [facility] (ZOCOR) 10 5-05 TABLET BY [facility] ege MG tablet 00:00: MOUTH of 00 EVERY DAY Medicin IN THE e EVENING lisinopril Yes TAKE 1 [facility] (PRINIVIL, 5-05 TABLET BY [place] HORTA) 20 00:00: MOUTH of MG tablet 00 EVERY DAY Medic in e simvastatin 2021- No TAKE 1 [place] [facility] (ZOCOR) 10 5-05 07-05 TABLET BY Col lege MG tablet 00:00: 00:00 MOUTH of 00 :00 EVERY DAY Medicin IN THE e EVENING phenazopyri 2018-11 Yes [id number] 200mg Take 1 Univers dine 200 mg 2-13 tablet by ity of tablet 00:00: mouth 3 [place] 00 (three) Medical times Branch daily. phenazopyri 2018-11 Yes [id number] 200mg Take 1 Univers dine 200 mg 2-13 tablet by ity of tablet 00:00: mouth 3 [place] 00 (three) Medical times Branch daily. phenazopyri 2018-11 Yes [id number] 200mg Take 1 [facility] dine 200 mg 2-13 tablet by ity of tablet 00:00: mouth 3 [place] 00 (three) Medical times Branch daily. phenazopyri 2018-11 Yes [id number] 200mg Take 1 Univers dine 200 mg 2-13 tablet by ity of tablet 00:00: mouth 3 [place] 00 (three) Medical times Branch daily. phenazopyri 2018-11 Yes [id number] 200mg Take 1 Univers dine 200 mg 2-13 tablet by ity of tablet 00:00: mouth 3 [place] 00 (three) Medical times Branch daily. bisacodyl 2017-11 [...] 10 19:36: daily. [place] mg tablet 04 [facility] INSULIN NPH 0 Yes 20U inject 20 U nivers HUM/REG [...] 10 19:36: daily. [place] mg tablet 04 [facility] INSULIN NPH 0 Yes 20U inject 20 U nivers HUM/REG [...] 10 19:36: daily. [place] mg tablet 04 [facility] INSULIN NPH 2015-0 Yes 20U inject 20 [...] 10 19:36: daily. [place] mg tablet 04 [facility] INSULIN NPH 2015-0 Yes 20U inject 20 [...] 10 19:36: daily. [place] mg tablet 04 [facility] INSULIN NPH 0 Yes 20U inject 20 U nivers HUM/REG 5-29 Units ity of INSULIN HM 19:36: [place] (NOVOLIN 04 skin every Medic al 70/30 SC) morning. Branch INSULIN NPH 0 Yes 10U inject 10 U nivers HUM/REG 5-29 Units ity of INSULIN HM 19:36: [place] (NOVOLIN 04 skin every Medic al 70/30 SC) evening. [place] Vital Signs Vital Name Observation Time Observation Value Comments Source Systolic blood 2022-05-28 14:20:00 158 mm[Hg] [facility] pressure Medicine Diastolic blood 2022-05-28 14:20:00 82 mm[Hg] [facility] pressure Medicine Heart rate 2022-05-28 14:20:00 69 /min [facility] Body temperature 2022-05-28 14:20:00 36.67 [facility] Respiratory rate 2022-05-28 14:20:00 16 /min [facility] Body height 2022-05-28 14:20:00 154.9 cm [facility] Body weight 2022-05-28 14:20:00 69.4 kg [facility] BMI 2022-05-28 14:20:00 28.91 kg/m2 [facility] Systolic blood 2022-05-02 18:06:00 162 mm[Hg] [facility] Medicine Diastolic blood 2022-05-02 18:06:00 80 mm[Hg] [facility] Heart rate 2022-05-02 18:06:00 58 /min [facility] Body temperature 2022-05-02 18:06:00 35.89 [facility] Respiratory rate 2022-05-02 18:06:00 16 /min [facility] Body height 2022-05-02 18:06:00 154.9 cm [facility] Body weight 2022-05-02 18:06:00 68.402 kg [facility] BMI 2022-05-02 18:06:00 28.49 kg/m2 [facility] Procedures This patient has no known procedures. Plan of Care Planned Activity Planned Date Details Comments Source Future Scheduled 2022-05-29 Screening for [facility] Col [facility]ge Test 12:19:19 malignant neoplasm of Medici ne of colon (procedure) [code = 713443475] Future Scheduled 2022-05-29 Screening for [facility] Test 12:19:19 malignant neoplasm of Medici ne of breast (procedure) [code = 585357287] Future Scheduled 2022-05-29 COVID-19 Vaccine [facility] Test 12:19:19 (#1) [code = of Medicine COVID-19 Vaccine (#1)] Future Scheduled 2022-05-29 TETANUS SHOT (ADULT) [facility] Test 12:19:19 [code = TETANUS SHOT of Medi cine (ADULT)] Future Scheduled 2022-05-29 BMI FOLLOW UP PLAN [facility] Test 12:19:19 [code = BMI FOLLOW of Medici ne UP PLAN] Future Scheduled 2022-05-29 Hepatitis C [facility] Test 12:19:19 screening of Medicine (procedure) [code = 273496147] Future Scheduled 2022-05-29 ZOSTER VACCINE (1 of [place] [facility] Test 12:19:19 2) [code = ZOSTER of Medicin e VACCINE (1 of 2)] Future Scheduled 2022-05-29 Screening for Ever Col lege Test 12:19:19 osteoporosis of Medicine (procedure) [code = 686343166] Future Scheduled 2022-05-29 Pneumococcal 65+ (1 [facility] Test 12:19:19 - PCV) [code = of Medicine Pneumococcal 65+ (1 - PCV)] Future Scheduled 2022-05-29 FLU VACCINE > 6 [facility] Test 12:19:19 MONTHS [code = FLU of Medici ne VACCINE > 6 MONTHS] Future Scheduled 2022-05-29 FALL SCREEN [code = [facility] Test 12:19:19 FALL SCREEN] of Medicine Future Scheduled 2022-05-02 XR HIPS BILATERAL AP 1 Occurrences [facility] Test 13:48:50 LATERAL W AP PELVIS starting of Medic ine [code = 09531-1] 05/02/2022 until 05/02/2023 Future Scheduled 2022-05-02 MRI LUMBAR SPINE WO 1 Occurrences [place] [facility] Test 13:48:50 CONTRAST [code = starting of Medicine 29855-6] 05/02/2022 until 05/02/2023 Future Scheduled 2022-05-02 Screening for Ever Col [facility] Test 13:08:57 malignant neoplasm of Medici ne of colon (procedure) [code = 303224250] Future Scheduled 2022-05-02 Screening for Ever Col [facility]ge Test 13:08:57 malignant neoplasm of Medici ne of breast (procedure) [code = 526432998] Future Scheduled 2022-05-02 COVID-19 Vaccine [facility] Test 13:08:57 (#1) [code = of Medicine COVID-19 Vaccine (#1)] Future Scheduled 2022-05-02 TETANUS SHOT (ADULT) [facility] College Test 13:08:57 [code = TETANUS SHOT of Medi cine (ADULT)] Future Scheduled 2022-05-02 Hepatitis C [facility] Test 13:08:57 screening of Medicine (procedure) [code = 408094132] Future Scheduled 2022-05-02 ZOSTER VACCINE (1 of [place] [facility] Test 13:08:57 2) [code = ZOSTER of Medicin e VACCINE (1 of 2)] Future Scheduled 2022-05-02 FALL SCREEN [code = [facility] [employer] Test 13:08:57 FALL SCREEN] of Medicine Future Scheduled 2022-05-02 Screening for [facility] Test 13:08:57 osteoporosis of Medicine (procedure) [code = 056946363] Future Scheduled 2022-05-02 Pneumococcal 65+ (1 [facility] [employer] Test 13:08:57 - PCV) [code = of Medicine Pneumococcal 65+ (1 - PCV)] Future Scheduled 2022-05-02 FLU VACCINE > 6 [facility] Test 13:08:57 MONTHS [code = FLU of Medici ne VACCINE > 6 MONTHS] Encounters Start End Encounter Admission Attending Care Care Encounter Source Date/Time Date/Time Type Type Clinicians Facility Department ID 2022-05-28 2022-05-28 Office NAEL Nguyễn [id number] [facility] 09:20:00 14:31:34 Visit Alysia AMBULATOR [id number] College Y 0.2.7.2.686 of [id number] [facility] 805 e 2022-05-13 2022-05-13 Outpatient [facility] [id number] [facility] 10:22:36 10:22:36 Colleg e of Medicin e 2022-05-02 2022-05-02 Office NAEL Nguyễn [id number] [facility] 13:00:00 13:40:00 Visit Alysia AMBULATOR [id number] College Y 0.2.7.2.686 of [id number] [facility] ilene 805 e 2021-08-01 2021-08-01 Letter JACKSON Scott [id number] 00:00:00 00:00:00 (Out) Maribel CADET [id number] it y of [facility] [id number] Shane as [id number] [facility] carlos 019 Branch 2021-08-01 2021-08-01 Telephone JACKSON Mace [id number] Univers 00:00:00 00:00:00 Delmy CADET [id number] it y of [facility] 4.2.7.2.686 Shane as [id number] [address] 2021-07-30 2021-07-30 Laboratory Only, Ang Db Test [facility] [id number] Univers 19:20:45 19:35:45 Only Clau Huynh 350.1.13.10 ity [facility] [id number] Shane as [place] [id number] [place] [address] Medical Office Building 2021-07-30 2021-07-30 Outpatient R RAHUL [facility] [id number] Univers 19:20:00 19:20:00 CLAU birch o f [facility] Results This patient has no known results.
--- NOTE | 2022-06-14 11:08 | RAD REPORT ---
EXAM DESCRIPTION: CT - Head Brain Wo Cont - 06/14/2022 10:55 am CLINICAL HISTORY: Syncope COMPARISON: 2018 TECHNIQUE: Computed axial tomography of the head was obtained. IV contrast was not requested. All CT scans are performed using dose optimization technique as appropriate and may include automated exposure control or mA/KV adjustment according to patient size. FINDINGS: An intracranial bleed is not seen . The ventricles are normal in caliber. No extra-axial fluid collection is noted. Low-density area left basal ganglia unchanged probably old lacunar infarct Mild low-density areas within periventricular, deep and subcortical white matter likely represent isc hemic changes secondary to small vessel disease. Fluid within the sinuses/ mastoids is not seen. IMPRESSION: No acute intracranial abnormality is seen. If patient's symptoms persist MRI of the bra in would be recommended.
[2022-06-14 11:21] LABS: Absolute Lymphocytes (CBC) 1.6 K/uL (0.7-4.9); Hematocrit 35.1 % (36.0-45.0); Lymphocytes % 23.8 % (15.3-44.8); MCV 85.2 fL (80-100); MPV 6.2 fL (7.6-11.3); Protime INR 0.98; RBC Red Blood Cell Count 4.13 M/uL (3.86-4.86)
[2022-06-14 11:36] LABS: Albumin 3.9 g/dL (3.4-5.0); Bilirubin Direct 0.1 mg/dL (0-0.2); Bilirubin Total 0.9 mg/dL (0.2-1.0); Magnesium 2.4 mg/dL (1.8-2.4); Protein, Total 7.9 g/dL (6.4-8.2); Troponin High Sensitivity 4.3 pg/mL (<58.9)
[2022-06-14 11:50] LABS: Urine Blood Negative (Negative); Urine Glucose Negative (Negative); Urine Protein Negative (Negative); Urine Specific Gravity 1.015 (1.005-1.030); Urine pH 7.5 (5.0-7.0)
[2022-06-14 12:04] LABS: Urine Bacteria >50 /HPF (<20); Urine RBC None Seen /HPF (None Seen)
--- NOTE | 2022-06-14 12:18 | RAD REPORT ---
EXAM DESCRIPTION: Raj Single View06/14/2022 12:12 pm CLINICAL HISTORY: Chest pain COMPARISON: 2020 FINDINGS: The lungs appear clear of acute infiltrate. The heart is normal size IMPRESSION: No acute abnormalities displayed
[2022-06-14] MEDS ORDERED: NA CHLORIDE 0.9% 50 ML ONE (13:08)
[2022-06-14] MEDS ORDERED: ASPIRIN 81 MG CHEWABLE TABLET ONE (13:08)
[2022-06-14] MEDS ORDERED: CEFTRIAXONE 1000 MG/VIAL ONE (13:08)
--- NOTE | 2022-06-14 15:53 | EDPHYS ---
Physician Documentation [facility] Name: Feli Lee Age: 67 yrs Sex: Female : 1955 Arrival Date: 06/14/2022 Time: 10:19 Bed 6 Private MD: Scott Bowling R ED Physician Thaddeus Dunbar HPI: 06/14 10:45 This 67 yrs old Female presents to ER via Wheelchair with complaints of Chest cp Tightness, Dizziness, High Blood Pressure. 10:45 The patient has experienced near-syncope, almost passed out, felt dizzy, felt generally cp weak. 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 Duration: This was a single episode, that is still ongoing, but improving. Associated injury: The patient did not suffer any apparent associated injury. Patient reports starting last night she started feeling bad with general weakness, body aches. 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 Historical: - Allergies: 10:46 No Known Allergies; aa5 - PMHx: 10:46 Diabetes - IDDM; Hypercholesterolemia; Hypertension; Back pain; aa5 - Immunization history:: Adult Immunizations unknown. - Social history:: Smoking status: Patient denies any tobacco usage or history of. ROS: 10:50 Constitutional: Positive for body aches, Negative for fever, poor PO intake. cp 10:50 Eyes: Negative for injury, pain, redness, and discharge. cp 10:50 ENT: Negative for drainage from ear(s), ear pain, sore throat, difficulty swallowing, difficulty handling secretions. 10:50 Cardiovascular: Positive for chest pain, Negative for edema, palpitations. 10:50 Respiratory: Negative for cough, shortness of breath, wheezing. 10:50 Abdomen/GI: Negative for abdominal pain, vomiting, diarrhea, constipation. 10:50 Back: Negative for pain at rest, pain with movement. 10:50 Neuro: Positive for dizziness, near syncope, weakness, Negative for altered mental status, headache. 10:50 All other systems are negative. Exam: 10:51 ECG was reviewed by the Attending Physician. cp 10:55 Constitutional: The patient appears in no acute distress, alert, awake, cp non-diaphoretic, non-toxic, well developed, well nourished. 10:55 Head/Face: Normocephalic, atraumatic. cp 10:55 Eyes: Periorbital structures: appear normal, Pupils: equal, round, and reactive to light and accomodation, Extraocular movements: intact throughout, Conjunctiva: normal, no exudate, no injection, Sclera: no appreciated abnormality, Lids and lashes: appear normal, bilaterally. 10:55 ENT: External ear(s): are unremarkable, Ear canal(s): are normal, clear, TM's: dullness, bilaterally, Nose: is normal, Mouth: Lips: moist, Oral mucosa: moist, Posterior pharynx: Airway: no evidence of obstruction, patent. 10:55 Neck: ROM/movement: is normal, is supple, without pain, no range of motions limitations, no nuchal rigidity. 10:55 Chest/axilla: Inspection: normal, Palpation: is normal, no crepitus, no tenderness. 10:55 Cardiovascular: Rate: bradycardic, Rhythm: regular, Edema: is not appreciated, JVD: is not appreciated. 10:55 Respiratory: the patient does not display signs of respiratory distress, Respirations: normal, no use of accessory muscles, no retractions, labored breathing, is not present, Breath sounds: are clear throughout, no decreased breath sounds, no stridor, no wheezing. 10:55 Abdomen/GI: Inspection: abdomen appears normal, Bowel sounds: active, all quadrants, Palpation: abdomen is soft and non-tender, in all quadrants. 10:55 Back: pain, is absent, ROM is normal. 10:55 Skin: cellulitis, is not appreciated, no rash present. 10:55 Neuro: Orientation: to person, place \T\ time. Mentation: is normal, Cerebellar function: is grossly normal, Motor: moves all fours, strength is normal, Sensation: is normal. 15:24 ECG was reviewed by the Attending Physician. cp Vital Signs: 10:33 BP 164 / 64; Pulse 54; Resp 18 S; Temp 97.8(TE); Pulse Ox 97% ; Weight 68.04 kg (R); aa5 Height 5 ft. 1 in. (154.94 cm) (R); 12:05 BP 131 / 64; Pulse 49; Resp 14; Pulse Ox 98% on R/A; tw2 12:58 BP 127 / 64; Pulse 53; Resp 16; Pulse Ox 97% on R/A; tw2 13:39 BP 133 / 83; Pulse 49; Resp 18; Pulse Ox 98% on R/A; ph 14:40 BP 138 / 74; Pulse 54; Resp 15; Pulse Ox 98% on R/A; tw2 15:22 BP 129 / 52; Pulse 51; Resp 17; Pulse Ox 97% on R/A; tw2 10:33 Body Mass Index 28.34 (68.04 kg, 154.94 cm) aa5 MDM: 10:34 Patient medically screened. cp 15:53 Data reviewed: vital signs, nurses notes, lab test result(s), EKG, radiologic studies, cp CT scan, plain films. 15:53 Differential Diagnosis: cardiac arrhythmia, cerebrovascular accident, GI bleed. Test cp interpretation: by ED physician or midlevel provider: ECG, plain radiologic studies. Counseling: I had a detailed discussion with the patient and/or guardian regarding: the historical points, exam findings, and any diagnostic results supporting the discharge/admit diagnosis, lab results, radiology results, to return to the emergency department if symptoms worsen or persist or if there are any questions or concerns that arise at home. Response to treatment: the patient's symptoms have markedly improved after treatment, and as a result, I will discharge patient. 06/14 10:42 Order name: Basic Metabolic Panel; Complete Time: 12:07 06/14 10:42 Order name: CBC with Diff; Complete Time: 12: 06/14 12:07 Interpretation: Normal except: HGB 11.5; HCT 35.1; MCV 85.2; RDW 19.2; MPV 6.2. cp 06/14 10:42 Order name: LFT's; Complete Time: 12:07 cp 06/14 12:42 Interpretation: Normal except: AST 11; ALK 127; GLOB 4.0; A/G 1.0. cp 06/14 10:42 Order name: Magnesium; Complete Time: 12:07 cp 06/14 10:42 Order name: NT PRO-BNP; Complete Time: 12:07 cp 06/14 10:42 Order name: PT-INR; Complete Time: 12:07 06/14 10:42 Order name: Troponin HS; Complete Time: 12:07 06/14 10:42 Order name: XRAY Chest (1 view); Complete Time: 12:42 06/14 10:42 Order name: CT Head Brain wo Cont; Complete Time: 12:07 06/14 10:42 Order name: Urine Microscopic Only; Complete Time: 12:07 06/14 12:08 Interpretation: Abnormal: UBACT >50. 06/14 11:50 Order name: Urine Dipstick-Ancillary; Complete Time: 12:07 EDWI 06/14 12:07 Order name: Urine Culture [facility] 06/14 14:11 Order name: Troponin High Sensitivity: repeat \T\1500; Complete Time: 15:49 06/14 15:49 Interpretation: Reviewed. 06/14 10:42 Order name: EKG; Complete Time: 10:43 06/14 10:42 Order name: Cardiac monitoring; Complete Time: 11:19 06/14 10:42 Order name: EKG - Nurse/Tech; Complete Time: 10:55 06/14 10:42 Order name: IV Saline Lock; Complete Time: 11:09 06/14 10:42 Order name: Labs collected and sent; Complete Time: 11:09 06/14 10:42 Order name: O2 Per Protocol; Complete Time: 11:19 06/14 10:42 Order name: O2 Sat Monitoring; Complete Time: 11:19 06/14 10:42 Order name: Urine Dipstick-Ancillary (obtain specimen); Complete Time: 12:05 06/14 15:07 Order name: EKG - Nurse/Tech; Complete Time: 15:22 tw2 EC:51 Rate is 55 beats/min. Rhythm is regular. HI interval is normal. QRS interval is normal. cp QT interval is normal. T waves are Inverted in lead aVL. Interpreted by me. Reviewed by me. 15:24 Rate is 49 beats/min. Rhythm is regular. HI interval is normal. QRS interval is normal. cp QT interval is normal. T waves are Inverted in lead aVL. Interpreted by me. Reviewed by me. Administered Medications: 13:08 Drug: Aspirin Chewable Tablet 324 mg Route: PO; tw2 13:39 Follow up: Response: No adverse reaction ph 13:08 Drug: Rocephin - (cefTRIAXone) 1 grams Route: IVPB; Infused Over: 30 mins; Site: right tw2 antecubital; 13:39 Follow up: Response: No adverse reaction; IV Status: Completed infusion; IV Intake: 50mlph Disposition Summary: 06/14/22 15:53 Discharge Ordered Location: Home cp Problem: new cp Symptoms: have improved cp Condition: Stable cp Diagnosis - UTI/ Urinary tract infection, site not specified cp - Chest pain, unspecified cp - Hypertensive heart disease without heart failure cp - Dizziness and giddiness cp Followup: cp - With: Private Physician - When: 2 - 3 days - Reason: Recheck today's complaints Discharge Instructions: - Nonspecific Chest Pain, Adult cp - Dizziness cp - Discharge Summary Sheet tw2 - Hypertension, Adult cp - Urinary Tract Infection, Adult cp - Aspirin and Your Heart cp Forms: - Work release form tw2 - Medication Reconciliation Form cp - Thank You Letter cp - Antibiotic Education cp - Prescription Opioid Use cp Prescriptions: - Zofran 4 mg Oral Tablet - take 1 tablet by ORAL route every 12 hours As needed; 20 tablet; Refills: 0, cp Product Selection Permitted - Macrobid 100 mg Oral Capsule - take 1 capsule by ORAL route every 12 hours for 7 days; 14 capsule; Refills: 0, cp Product Selection Permitted Signatures: Dispatcher [employer] Hillary Conklin, RN RN aa5 Rayshawn Cheney PA PA cp Wise, Tara, RN RN tw2 Lizzette Julien RN ph
--- NOTE | 2022-06-14 15:53 | ER ---
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 Pt also reports chest tightness. 10:33 Coronavirus screen: At this time, the client does not indicate any symptoms associated aa5 with coronavirus-19. Ebola Screen: No symptoms or risks identified at this time. Initial Sepsis Screen: Does the patient meet any 2 criteria? No. Patient's initial sepsis screen is negative. Does the patient have a suspected source of infection? No. Patient's initial sepsis screen is negative. Risk Assessment: Do you want to hurt yourself or someone else? Patient reports no desire to harm self or others. Onset of symptoms was May 2022. 10:33 Acuity: TONO 3 aa5 10:33 Method Of Arrival: Wheelchair aa5 Historical: - Allergies: 10:46 No Known Allergies; aa5 - PMHx: 10:46 Diabetes - IDDM; Hypercholesterolemia; Hypertension; Back pain; aa5 - Immunization history:: Adult Immunizations unknown. - Social history:: Smoking status: Patient denies any tobacco usage or history of. Screenin:06 Abuse screen: Denies threats or abuse. Nutritional screening: No deficits noted. tw2 Tuberculosis screening: No symptoms or risk factors identified. Fall Risk None identified. Assessment: 12:58 Reassessment: Patient appears in no apparent distress at this time. No changes from tw2 previously documented assessment. Patient and/or family updated on plan of care and expected duration. Pain level reassessed. Patient is alert, oriented x 3, equal unlabored respirations, skin warm/dry/pink. 13:39 Reassessment: Patient appears in no apparent distress at this time. Patient and/or ph family updated on plan of care and expected duration. Pain level reassessed. Patient is alert, oriented x 3, equal unlabored respirations, skin warm/dry/pink. 14:30 Reassessment: Patient appears in no apparent distress at this time. No changes from tw2 previously documented assessment. Patient and/or family updated on plan of care and expected duration. Pain level reassessed. Patient is alert, oriented x 3, equal unlabored respirations, skin warm/dry/pink. 15:23 Reassessment: Patient appears in no apparent distress at this time. No changes from tw2 previously documented assessment. Patient and/or family updated on plan of care and expected duration. Pain level reassessed. Patient is alert, oriented x 3, equal unlabored respirations, skin warm/dry/pink. 16:15 Reassessment: Patient appears in no apparent distress at this time. No changes from tw2 previously documented assessment. Patient and/or family updated on plan of care and expected duration. Pain level reassessed. Patient is alert, oriented x 3, equal unlabored respirations, skin warm/dry/pink. Vital Signs: 10:33 BP 164 / 64; Pulse 54; Resp 18 S; Temp 97.8(TE); Pulse Ox 97% ; Weight 68.04 kg (R); aa5 Height 5 ft. 1 in. (154.94 cm) (R); 12:05 BP 131 / 64; Pulse 49; Resp 14; Pulse Ox 98% on R/A; tw2 12:58 BP 127 / 64; Pulse 53; Resp 16; Pulse Ox 97% on R/A; tw2 13:39 BP 133 / 83; Pulse 49; Resp 18; Pulse Ox 98% on R/A; ph 14:40 BP 138 / 74; Pulse 54; Resp 15; Pulse Ox 98% on R/A; tw2 15:22 BP 129 / 52; Pulse 51; Resp 17; Pulse Ox 97% on R/A; tw2 10:33 Body Mass Index 28.34 (68.04 kg, 154.94 cm) aa5 ED Course: 10:19 Patient arrived in ED. mr 10:20 Scott Bowling MD is Private Physician. mr 10:26 [facility] cp 10:26 Thaddeus Dunbar MD is Attending Physician. cp 10:33 Arm band placed on. aa5 10:33 Bed in low position. metal work duct installer on. Pulse ox on. NIBP on. Warm blanket given. tw2 10:46 Triage completed. aa5 10:56 CT Head Brain wo Cont In Process Unspecified. EDMS 11:09 Basic Metabolic Panel Sent. kc6 11:09 CBC with Diff Sent. kc6 11:09 LFT's Sent. kc6 11:09 Magnesium Sent. kc6 11:10 NT PRO-BNP Sent. kc6 11:10 PT-INR Sent. kc6 11:10 Troponin HS Sent. kc6 11:10 Inserted saline lock: 20 gauge in right antecubital area, using aseptic technique. kc6 Blood collected. 11:32 Heather Virgen RN is Primary Nurse. tw2 12:06 Patient maintains SpO2 saturation greater than 95% on room air. tw2 12:14 XRAY Chest (1 view) In Process Unspecified. EDMS 14:09 Primary Nurse role handed off by Heather Virgen RN tw2 15:22 Troponin High Sensitivity: repeat \\T\\1500 Sent. tw2 16:15 Heather Virgen RN is Primary Nurse. tw2 16:15 No provider procedures requiring assistance completed. IV discontinued, intact, tw2 bleeding controlled, No redness/swelling at site. Pressure dressing applied. Administered Medications: 13:08 Drug: Aspirin Chewable Tablet 324 mg Route: PO; tw2 13:39 Follow up: Response: No adverse reaction ph 13:08 Drug: Rocephin - (cefTRIAXone) 1 grams Route: IVPB; Infused Over: 30 mins; Site: right tw2 antecubital; 13:39 Follow up: Response: No adverse reaction; IV Status: Completed infusion; IV Intake: 50mlph Medication: 12:06 VIS not applicable for this client. tw2 Intake: 13:39 IV: 50ml; Total: 50ml. ph Outcome: 15:53 Discharge ordered by . cp 16:15 Discharged to home ambulatory. tw2 16:15 Condition: stable 16:15 Discharge instructions given to patient, Instructed on discharge instructions, follow up and referral plans. medication usage, Demonstrated understanding of instructions, follow-up care, medications, Prescriptions given X 2. 16:16 Patient left the ED. tw2 Signatures: Dispatcher [employer] DIEGORI TeddyNery mr RodriguezHillary RN RN aa5 Lizzette Julien RN RN ph Rayshawn Cheney PA PA cp Heather Virgen RN RN tw2 Rose Marie Peterson kc6
[2022-06-14 17:40] VITALS: TEMP 97.8
[2022-06-14 17:51] VITALS: BP 129/52; O2SAT 97
--- NOTE | 2022-06-16 06:24 | EKG ---
Test Date: 2022-06-14 Test Time: 10:46:25 Manufacturing Automation Engineer: FRANCES MEASUREMENT RESULTS: Intervals: Rate: 55 [place]: 186 QRSD: 80 QT: 412 QTc: 394 [place]: P: 60 [place]: 186 QRS: -14 T: 92 INTERPRETIVE STATEMENTS: Sinus bradycardia with premature supraventricular complexes Nonspecific T wave abnormality Abnormal ECG Compared to ECG 08/07/2021 23:45:49 Atrial premature complex(es) now present T-wave abnormality now present Left-axis deviation no longer present Myocardial infarct finding no longer present Electronically Signed On 06-16-22 06:22:07 CDT by Merrick Hernandez
--- NOTE | 2022-06-17 09:32 | EKG ---
Test Date: 2022-06-14 Test Time: 15:18:15 [employer] Attendant: DENNIS MEASUREMENT RESULTS: Intervals: Rate: 49 MD: 198 QRSD: 80 QT: 428 QTc: 386 [place]: P: 56 MD: 198 QRS: -33 T: 108 INTERPRETIVE STATEMENTS: Marked sinus bradycardia Left axis deviation Nonspecific ST and T wave abnormality Abnormal ECG Compared to ECG 06/14/2022 10:46:25 Left-axis deviation now present ST (T wave) deviation now present Atrial premature complex(es) no longer present T-wave abnormality no longer present Electronically Signed On 06-17-22 09:25:19 CDT by Merrick Hernandez
== END 2022-06-14 16:16 | disposition home or self-care (01) ==
LOC: ER 10:15
DX: N39.0 Urinary tract infection, site not specified (principal); I11.9 Hypertensive heart disease without heart failure; R07.89 Other chest pain; I10 Essential (primary) hypertension; E11.9 Type 2 diabetes mellitus without complications
CPT/HCPCS: 36415; 70450; 71045; 80048; 80076; 81003; 81015; 83735; 83880; 84484; 85025; 85610; 87077; 87086; 87088; 87186; 93005; 96365; 99285

== ENCOUNTER 2022-06-28 21:37 | Emergency (ER) | payer BC, OTHER ==
--- OUTSIDE RECORDS SUMMARY | 2022-06-28 21:40 | XMS REPORT | Continuity of Care Document ---
:1955 Author Organization [facility] t Address [address] [place] [address] [address]. [address] [place] [address] Care Team Providers Name Role Phone Sofya SAXENA, Scott Donaldson Primary Care Physician [phone] Gopi SAXENA, Alysia Attending Clinician Maribel Scott RN Attending Clinician Unavailable Rodri DUGGAN, Delmy Attending Clinician Unavailable Only, Loki Db Test Attending Clinician Unavailable Clau Bettencourt Attending Clinician CLAU KAY Attending Clinician Unavailable Payers Payer Name Policy Type Policy Number Effective Date Expiration Date S ource Problems Condition Condition Condition Status Onset Resolution Last Treating Co mments Source Name Details Category Date Date Treatment Clinician Date No known No known Disease Unive rs active active ity of problems problems [facility] Allergies, Adverse Reactions, Alerts Allergy Allergy Status Severity Reaction(s) Onset Inactive Treating Comm ents Source Name Type Date Date Clinician NO KNOWN Drug Active [facility] ALLERGIE Class ity of S [facility] Social History Social Habit Start Date Stop Date Quantity Comments Source Cigarette 2022-05-02 2022-05-02 [facility] pack-years 00:00:00 00:00:00 of Medicine Tobacco use and 2022-05-02 2022-05-02 Smokeless tobacco [facility] exposure 00:00:00 00:00:00 non-user of Medicine Sex Ass[birth year] [facility] [employer] 00:00:00 00:00:00 of Medicine Smoking Status Start Date Stop Date Source Never smoked tobacco [facility] of Medicine Unknown if ever smoked [facility] Medications Ordered Filled Start Stop Current Ordering Indication Dosage Frequency Signature Comments Components Source Medication Medication Date Date Medication? Clinician (SIG) Name Name gabapentin Yes [id number] 600mg Take 1 [facility] (NEURONTIN) 05-02 Tablet by Col lege 600 MG 00:00: mouth 3 of tablet 00 times Medicin daily. e gabapentin Yes [id number] 600mg Take 1 [facility] (NEURONTIN) 05-0202 Tablet by Col lege 600 MG 00:00: mouth 3 of tablet 00 times Medicin daily. e tramadol Yes TAKE 1 [facility] (ULTRAM) 50 5-20 TABLET BY Col lege MG tablet 00:00: MOUTH of 00 EVERY 6 Medicin HOURS e NEEDED tramadol Yes TAKE 1 [facility] (ULTRAM) 50 5-20 TABLET BY Col lege MG tablet 00:00: MOUTH of 00 EVERY 6 Medicin HOURS e NEEDED ibuprofen Yes TAKE 1 [facility] (MOTRIN) 5-15 TABLET BY Janel mckeon 600 MG 00:00: MOUTH of tablet 00 EVERY 6 Medicin HOURS e NEEDED FOR PAIN cyclobenzap Yes TAKE 1 [facility] 5-15 TABLET BY [place] (FLEXERIL) 00:00: MOUTH of 10 MG 00 EVERY 8 Medicin tablet HOURS e NEEDED FOR SPASMS cyclobenzap Yes 10mg Take 10 mg Ever rine 5-15 by mouth 3 College (FLEXERIL) [...] [facility] (PRINIVIL, 5-05 TABLET BY [facility] silver ZESTRIL) 20 00:00: MOUTH of MG tablet 00 EVERY DAY Medic in e simvastatin 2022-0 Yes TAKE 1 [facility] (ZOCOR) 10 5-05 TABLET BY Carmelina ege MG tablet 00:00: MOUTH of 00 EVERY DAY Medicin IN THE e EVENING lisinopril Yes TAKE 1 [facility] (PRINIVIL, 5-05 TABLET BY Carm[facility]ina ege ZESTRIL) 20 00:00: MOUTH of MG tablet 00 EVERY DAY Medic in e simvastatin 2021-0 2021- No TAKE 1 [facility] (ZOCOR) 10 5-05 07-05 TABLET BY Col lege MG tablet 00:00: 00:00 MOUTH of 00 :00 EVERY DAY Medicin IN THE e EVENING phenazopyri 2018-11 Yes [id number] 200mg Take 1 [facility] dine 200 mg 2-13 tablet by ity of tablet 00:00: mouth 3 [place] 00 (three) Medical times Branch daily. phenazopyri 2018-11 Yes [id number] 200mg Take 1 [facility] dine 200 mg 2-13 tablet by ity of tablet 00:00: mouth 3 [place] 00 (three) Medical times Branch daily. phenazopyri 2018-11 Yes [id number] 200mg Take 1 [facility] dine 200 mg 2-13 tablet by ity of tablet 00:00: mouth 3 [place] 00 (three) Medical times Branch daily. phenazopyri 2018-11 Yes [id number] 200mg Take 1 [facility] dine 200 mg 2-13 tablet by ity of tablet 00:00: mouth 3 [place] 00 (three) Medical times Branch daily. phenazopyri 2018-11 Yes [id number] 200mg Take 1 [facility] dine 200 mg 2-13 tablet by ity of tablet 00:00: mouth 3 [place] 00 (three) Medical times Branch daily. bisacodyl [...] 10 19:36: daily. [place] mg tablet 04 [facility] INSULIN NPH Yes 20U inject 20 [...] Medic al 70/30 [place]) evening. Branch lisinopril 0 Yes 10mg Take 10 mg U nivers (PRINIVIL,Z 5-29 by mouth ity of ESTRIL) 10 19:36: daily. [place] mg tablet 04 [facility] INSULIN NPH 2016-0 Yes 20U inject 20 [...] 10 19:36: daily. [place] mg tablet 04 [facility] INSULIN NPH 2016-0 Yes 20U inject 20 [...] 10 19:36: daily. [place] mg tablet 04 [facility] INSULIN NPH 2016-0 Yes 20U inject 20 U nivers HUM/REG 5-29 Units ity of INSULIN HM 19:36: [place] the [place] (NOVOLIN 04 skin every Medic al 70/30 [place]) morning. Branch INSULIN NPH 2016-0 Yes 10U inject 10 U nivers HUM/REG 5-29 Units ity of INSULIN HM 19:36: [place] (NOVOLIN 04 skin every Medic al 70/30 [place]) evening. [employer] Vital Signs Vital Name Observation Time Observation Value Comments Source Systolic blood 2022-05-28 14:20:00 158 mm[Hg] [facility] pressure Medicine Diastolic blood 2022-05-28 14:20:00 82 mm[Hg] [facility] pressure Medicine Heart rate 2022-05-28 14:20:00 69 /min [facility] Body temperature 2022-05-28 14:20:00 36.67 [facility] Respiratory rate 2022-05-28 14:20:00 16 /min [facility] Body height 2022-05-28 14:20:00 154.9 cm [facility] Body weight 2022-05-28 14:20:00 69.4 kg [facility] BMI 2022-05-28 14:20:00 28.91 kg/m2 [facility] Systolic blood 2022-05-02 18:06:00 162 mm[Hg] [facility] pressure Medicine Diastolic blood 2022-05-02 18:06:00 80 mm[Hg] [facility] Medicine Heart rate 2022-05-02 18:06:00 58 /min [facility] Body temperature 2022-05-02 18:06:00 35.89 [facility] Respiratory rate 2022-05-02 18:06:00 16 /min [facility] Body height 2022-05-02 18:06:00 154.9 cm [facility] Body weight 2022-05-02 18:06:00 68.402 kg [facility] BMI 2022-05-02 18:06:00 28.49 kg/m2 [facility] Procedures This patient has no known procedures. Plan of Care Planned Activity Planned Date Details Comments Source Future Scheduled 2022-05-29 Screening for [facility] Test 12:19:19 malignant neoplasm of Medici ne of colon (procedure) [code = 160298193] Future Scheduled 2022-05-29 Screening for [facility] Col [facility] Test 12:19:19 malignant neoplasm of Medici ne of breast (procedure) [code = 228051406] Future Scheduled 2022-05-29 COVID-19 Vaccine [facility] Test 12:19:19 (#1) [code = of Medicine COVID-19 Vaccine (#1)] Future Scheduled 2022-05-29 TETANUS SHOT (ADULT) [facility] Test 12:19:19 [code = TETANUS SHOT of Medi cine (ADULT)] Future Scheduled 2022-05-29 BMI FOLLOW UP PLAN [employer] Test 12:19:19 [code = BMI FOLLOW of Medici ne UP PLAN] Future Scheduled 2022-05-29 Hepatitis C [facility] e[facility] Test 12:19:19 screening of Medicine (procedure) [code = 189151681] Future Scheduled 2022-05-29 ZOSTER VACCINE (1 of [facility] [employer] Test 12:19:19 2) [code = ZOSTER of Medicin e VACCINE (1 of 2)] Future Scheduled 2022-05-29 Screening for [facility] Test 12:19:19 osteoporosis of Medicine (procedure) [code = 392819181] Future Scheduled 2022-05-29 Pneumococcal 65+ (1 [facility] [facility] [employer] Test 12:19:19 - PCV) [code = of Medicine Pneumococcal 65+ (1 - PCV)] Future Scheduled 2022-05-29 FLU VACCINE > 6 [facility] Test 12:19:19 MONTHS [code = FLU of Medici ne VACCINE > 6 MONTHS] Future Scheduled 2022-05-29 FALL SCREEN [code = [facility] Test 12:19:19 FALL SCREEN] of Medicine Future Scheduled 2022-05-02 XR HIPS BILATERAL AP 1 Occurrences [employer] Test 13:48:50 LATERAL W AP PELVIS starting of Medic ine [code = 29855-9] 05/02/2022 until 05/02/2023 Future Scheduled 2022-05-02 MRI LUMBAR SPINE WO 1 Occurrences [facility] [employer] Test 13:48:50 CONTRAST [code = starting of Medicine 42514-3] 05/02/2022 until 05/02/2023 Future Scheduled 2022-05-02 ZOSTER VACCINE (1 of [employer] [facility] [employer] Test 13:08:57 2) [code = ZOSTER of Medicin e VACCINE (1 of 2)] Future Scheduled 2022-05-02 FALL SCREEN [code = [employer] Test 13:08:57 FALL SCREEN] of Medicine Future Scheduled 2022-05-02 Screening for [facility] Test 13:08:57 osteoporosis of Medicine (procedure) [code = 721605896] Future Scheduled 2022-05-02 Pneumococcal 65+ (1 [employer] Test 13:08:57 - PCV) [code = of Medicine Pneumococcal 65+ (1 - PCV)] Future Scheduled 2022-05-02 FLU VACCINE > 6 [facility] Test 13:08:57 MONTHS [code = FLU of Medici ne VACCINE > 6 MONTHS] Future Scheduled 2022-05-02 Screening for [facility] Test 13:08:57 malignant neoplasm of Medici ne of colon (procedure) [code = 682368900] Future Scheduled 2022-05-02 Screening for [facility] Test 13:08:57 malignant neoplasm of Medici ne of breast (procedure) [code = 645601401] Future Scheduled 2022-05-02 COVID-19 Vaccine [facility] Test 13:08:57 (#1) [code = of Medicine COVID-19 Vaccine (#1)] Future Scheduled 2022-05-02 TETANUS SHOT (ADULT) [facility] Test 13:08:57 [code = TETANUS SHOT of Medi cine (ADULT)] Future Scheduled 2022-05-02 Hepatitis C [facility] Test 13:08:57 screening of Medicine (procedure) [code = 846939809] Encounters Start End Encounter Admission Attending Care Care Encounter Source Date/Time Date/Time Type Type Clinicians Facility Department ID 2022-05-28 2022-05-28 Office NAEL Nguyễn [id number] [facility] 09:20:00 14:31:34 Visit Alysia AMBULATOR [id number] College Y [id number] of [id number] [facility] 805 e 2022-05-13 2022-05-13 Outpatient [facility] [id number] [facility] 10:22:36 10:22:36 Colleg e of Medicin e 2022-05-02 2022-05-02 Office NAEL Nguyễn [id number] [facility] 13:00:00 13:40:00 Visit Alysia AMBULATOR [id number] College Y 0.2.7.2.686 of [id number] [facility] ilene 805 e 2021-08-01 2021-08-01 Letter JACKSON Scott [id number] Univers 00:00:00 00:00:00 (Out) Maribel CADET 350.1.13.10 y [facility] [id number] Shane as [id number] [address] 2021-08-01 2021-08-01 Telephone JACKSON Mace [id number] Univers 00:00:00 00:00:00 Delmy CADET 350.1.13.10 it y of [facility] 4.2.7.2.686 Shane as [id number] [address] 2021-07-30 2021-07-30 Laboratory Only, Ang Db Test [facility] 1.2.8 [id number] [id number] Univers 19:20:45 19:35:45 Only Clau Kay [facility] 350.1.13.10 ity of [place] [id number] Shane as [place] [id number] [facility] [address] Medical Office Building 2021-07-30 2021-07-30 Outpatient R RAHUL [facility] [id number] Univers 19:20:00 19:20:00 CLAU vasquez [facility] Results This patient has no known results.
[2022-06-28] MEDS ORDERED: NA CHLORIDE 0.9% 500 ML ONE (22:26)
[2022-06-28 23:03] LABS: Hematocrit 30.2 % (36.0-45.0); Lymphocytes % 22.8 % (15.3-44.8); MCV 85.2 fL (80-100); MPV 6.4 fL (7.6-11.3); RBC Red Blood Cell Count 3.55 M/uL (3.86-4.86)
[2022-06-28 23:17] LABS: Urine Blood Negative (Negative); Urine Glucose Negative (Negative); Urine Protein Negative (Negative); Urine pH 5.5 (5.0-7.0)
[2022-06-28 23:22] LABS: ALT/SGPT 15 U/L (12-78); AST/SGOT 13 U/L (15-37); Albumin 3.2 g/dL (3.4-5.0); Alkaline Phosphatase 122 U/L (45-117); BUN Blood Urea Nitrogen 13 mg/dL (7-18); Bicarbonate 26 mmol/L (21-32); Bilirubin Total 0.5 mg/dL (0.2-1.0); Glomerular Filtration Rate 95 ml/min (=/>90); Glucose Level 142 mg/dL (74-106); Potassium 3.5 mmol/L (3.5-5.1); Protein, Total 7.1 g/dL (6.4-8.2); Sodium Level 141 mmol/L (136-145)
[2022-06-28 23:33] LABS: Bilirubin Direct < 0.1 mg/dL (0-0.2)
[2022-06-28 23:59] LABS: Renal Epithelial <5 /HPF (None Seen); Urine Bacteria <20 /HPF (<20); Urine Mucus 1+ /HPF (None Seen); Urine RBC <5 /HPF (None Seen)
[2022-06-29] MEDS ORDERED: BENZONATATE 100 MG CAP PO ONE (02:13)
[2022-06-29] MEDS ORDERED: AZITHROMYCIN 250 MG TAB ONE (02:14)
--- NOTE | 2022-06-29 02:24 | EDPHYS ---
Physician Documentation [facility] Name: Feli Lee Age: 67 yrs Sex: Female : 1955 Arrival Date: 06/28/2022 Time: 21:39 Bed 16 Private MD: ED Physician Quincy Weir HPI: 06/28 22:18 This 67 yrs old Female presents to ER via Ambulatory with complaints of Fever, mh7 Cough. 22:18 The patient or guardian reports cough, that is intermittent, described as moderate, mh7 with no sputum, flu symptoms, low-grade fever, myalgias. Onset: The symptoms/episode began/occurred this morning, today. Severity of symptoms: At their worst the symptoms were moderate, earlier today, in the emergency department the symptoms have improved, mildly. States that she had a positive home COVID test today.. Historical: - Allergies: 21:50 No Known Allergies; lg3 - Home Meds: 21:50 insulin [Active]; lisinopril Oral [Active]; lg3 - PMHx: 21:50 Back pain; Diabetes - IDDM; Hypercholesterolemia; Hypertension; lg3 - PSHx: 21:50 None; lg3 - Immunization history:: Adult Immunizations up to date, Client reports receiving the 1st dose of the Covid vaccine. - Social history:: Smoking status: Patient denies any tobacco usage or history of. Patient uses alcohol, but reports only rare drinking. ROS: 22:18 Eyes: Negative for injury, pain, redness, and discharge, ENT: Negative for injury, mh7 pain, and discharge, Neck: Negative for injury, pain, and swelling, Cardiovascular: Negative for chest pain, palpitations, and edema, Abdomen/GI: Negative for abdominal pain, nausea, vomiting, diarrhea, and constipation, Back: Negative for injury and pain, : Negative for injury, bleeding, discharge, and swelling, MS/Extremity: Negative for injury and deformity, Skin: Negative for injury, rash, and discoloration, Neuro: Negative for headache, weakness, numbness, tingling, and seizure, Psych: Negative for depression, anxiety, suicide ideation, homicidal ideation, and hallucinations, Allergy/Immunology: Negative for hives, rash, and allergies, Endocrine: Negative for neck swelling, polydipsia, polyuria, polyphagia, and marked weight changes, Hematologic/Lymphatic: Negative for swollen nodes, abnormal bleeding, and unusual bruising. Exam: 22:18 Constitutional: This is a well developed, well nourished patient who is awake, alert, mh7 and in no acute distress. Head/Face: Normocephalic, atraumatic. Eyes: Pupils equal round and reactive to light, extra-ocular motions intact. Lids and lashes normal. Conjunctiva and sclera are non-icteric and not injected. Cornea within normal limits. Periorbital areas with no swelling, redness, or edema. ENT: Nares patent. No nasal discharge, no septal abnormalities noted. Tympanic membranes are normal and external auditory canals are clear. Oropharynx with no redness, swelling, or masses, exudates, or evidence of obstruction, uvula midline. Mucous membranes moist. Neck: Trachea midline, no thyromegaly or masses palpated, and no cervical lymphadenopathy. Supple, full range of motion without nuchal rigidity, or vertebral point tenderness. No Meningismus. Chest/axilla: Normal chest wall appearance and motion. Nontender with no deformity. No lesions are appreciated. Cardiovascular: Regular rate and rhythm with a normal S1 and S2. No gallops, murmurs, or rubs. Normal PMI, no JVD. No pulse deficits. Respiratory: Lungs have equal breath sounds bilaterally, clear to auscultation and percussion. No rales, rhonchi or wheezes noted. No increased work of breathing, no retractions or nasal flaring. Abdomen/GI: Soft, non-tender, with normal bowel sounds. No distension or tympany. No guarding or rebound. No evidence of tenderness throughout. Back: No spinal tenderness. No costovertebral tenderness. Full range of motion. Skin: Warm, dry with normal turgor. Normal color with no rashes, no lesions, and no evidence of cellulitis. MS/ Extremity: Pulses equal, no cyanosis. Neurovascular intact. Full, normal range of motion. Neuro: Awake and alert, GCS 15, oriented to person, place, time, and situation. Cranial nerves II-XII grossly intact. Motor strength 5/5 in all extremities. Sensory grossly intact. Cerebellar exam normal. Normal gait. Psych: Awake, alert, with orientation to person, place and time. Behavior, mood, and affect are within normal limits. Vital Signs: 21:47 BP 165 / 66; Pulse 97; Resp 17 S; Temp 98.5(O); Pulse Ox 98% on R/A; Weight 68.04 kg lg3 (R); Height 5 ft. 1 in. (154.94 cm) (R); 23:30 BP 132 / 54; Pulse 74; Resp 19; Pulse Ox 96% on R/A; ll3 06/29 00:40 BP 114 / 56; Pulse 70; Resp 20; Pulse Ox 95% on R/A; ll3 01:51 BP 131 / 61; Pulse 74; Resp 18; Pulse Ox 96% on R/A; ll3 06/28 21:47 Body Mass Index 28.34 (68.04 kg, 154.94 cm) lg3 MDM: 02:17 Differential Diagnosis: Bronchitis Influenza Upper Respiratory Infection Asthma mh7 Exacerbation Viral Syndrome Pneumonia. Data reviewed: vital signs, nurses notes, old medical records, lab test result(s), cardiac enzymes, CBC, electrolytes, Flu: negative urinalysis, COVID positive. Data interpreted: Pulse oximetry: on room air is 96 %. Interpretation: normal. Counseling: I had a detailed discussion with the patient and/or guardian regarding: the historical points, exam findings, and any diagnostic results supporting the discharge/admit diagnosis, lab results, radiology results, the need for outpatient follow up, to return to the emergency department if symptoms worsen or persist or if there are any questions or concerns that arise at home. Response to treatment: the patient's symptoms have markedly improved after treatment, patient is well hydrated. Special discussion:. ED course: Feels better, well appearing, NAD, VSS, no focal neurological deficits. Discussed all test results and findings with the patient including CT chest results with mild aneurysmal dilatation and multilevel degenerative changes. Patient requests to be discharged from the ER stating that she's feeling fine. Advised and emphasized that she will need to follow up with her doctor for further evaluation.. 02:24 Patient medically screened. [facility] 06/28 21:53 Order name: SARS-COV-2 RT PCR (Document "Date of Onset" if Symptomatic); Complete Time: lg3 23:06/28 21:53 Order name: Flu; Complete Time: 23:21 [facility] 06/28 22:10 Order name: CBC with Diff; Complete Time: 23:21 [facility] 06/28 22:10 Order name: Basic Metabolic Panel; Complete Time: 23:39 [facility] 06/28 22:10 Order name: LFT's; Complete Time: 23:39 [facility] 06/28 22:11 Order name: Troponin High Sensitivity; Complete Time: 23:39 [facility] 06/28 22:10 Order name: Chest Single View XRAY [facility] 06/28 22:11 Order name: Blood Culture Adult (2) [facility] 06/28 22:12 Order name: PROBNP; Complete Time: 23:21 [facility] 06/28 23:17 Order name: Urine Dipstick-Ancillary; Complete Time: 23:21 [facility] 06/28 23:21 Order name: Urine Microscopic Only; Complete Time: 00:01 [facility] 06/28 23:40 Order name: D-Dimer; Complete Time: 00:23 [facility] 06/29 00:01 Order name: CT Chest For PE Angio [facility] 06/29 00:03 Order name: Urine Culture [facility] 06/28 22:10 Order name: Saline Lock; Complete Time: 22:45 [facility] 06/28 22:10 Order name: Urine Dipstick-Ancillary (obtain specimen); Complete Time: 23:30 [facility] 06/28 22:11 Order name: EKG; Complete Time: 22:12 [facility] 06/28 22:11 Order name: EKG - Nurse/Tech; Complete Time: 22:30 [facility] Administered Medications: 06/28 22:45 Drug: NS 0.9% 500 ml Route: IV; Rate: bolus; Site: left antecubital; 3 06/29 02:39 Follow up: Response: No adverse reaction; IV Status: Infusion continued; IV Intake: tw5 500ml 02:10 Drug: Tessalon Perle (benzonatate) 100 mg Route: PO; ll3 02:39 Follow up: Response: No adverse reaction tw5 02:10 Drug: Zithromax (azithromycin) 500 mg Route: PO; ll3 02:39 Follow up: Response: No adverse reaction 5 Disposition Summary: 06/29/22 02:24 Discharge Ordered Location: Home [facility] Problem: [facility] Symptoms: have improved [facility] Condition: Stable [facility] Diagnosis - SARS-associated coronavirus as the cause of diseases classified elsewhere [facility] Followup: [facility] - With: Private Physician - When: 1 - 2 days - Reason: Worsening of condition, Recheck today's complaints, Continuance of care, Re-evaluation by your physician Discharge Instructions: - Discharge Summary Sheet [facility] - COVID-19 [facility] - Things to Know about the COVID-19 Pandemic - [place] [id number] - 10 Things You Can Do to Manage Your COVID-19 Symptoms at Home - [place] [address] - COVID-19: Quarantine vs. Isolation - [place] [address] - Prevent the Spread of COVID-19 if You Are Sick - [place] [address] Forms: - Medication Reconciliation Form [facility] - Thank You Letter [facility] - Antibiotic Education [facility] - Prescription Opioid Use [facility] Prescriptions: - Paxlovid (EUA) 150 mg x 2- 100 mg Oral tablet - take 3 tablet by ORAL route 2 times per day for 5 days per package directions; [facility] 1 packet; Refills: 0, Product Selection Permitted - Tessalon Perles 100 mg Oral Capsule - take 1 capsule by ORAL route every 8 hours As needed; 15 capsule; Refills: 0, [facility] Product Selection Permitted - Zithromax Z-Phil 250 mg Oral Tablet - take 1 tablet by ORAL route as directed for 5 days Day 1 - take two (2) tablets [facility] one time. Day 2, 3, 4 , 5 take one (1) tablet once daily.; 6 tablet; Refills: 0, Product Selection Permitted Signatures: Dispatcher [employer] Kiki Parker RN RN lg3 Quincy Weir MD MD [facility] Elisa Henderson RN RN ll3 Loreto Celaya [facility]
--- NOTE | 2022-06-29 02:24 | ER ---
Nurse's Notes [facility] Name: Feli Lee Age: 67 yrs Sex: Female : 1955 Arrival Date: 06/28/2022 Time: 21:39 Bed 16 Private MD: Diagnosis: SARS-associated coronavirus as the cause of diseases classified elsewhere Presentation: 06/28 21:47 Chief complaint: Patient states: cough, fever and chills starting this morning. took an lg3 at home covid test and it was positive. Coronavirus screen: Client denies travel out of the [place] in the last 14 days. Client presents with at least one sign or symptom that may indicate coronavirus-19. Standard/surgical mask placed on the client. Ebola Screen: No symptoms or risks identified at this time. Initial Sepsis Screen: Does the patient meet any 2 criteria? No. Patient's initial sepsis screen is negative. Does the patient have a suspected source of infection? No. Patient's initial sepsis screen is negative. Risk Assessment: Do you want to hurt yourself or someone else? Patient reports no desire to harm self or others. Onset of symptoms was June 28, 2022. 21:47 Method Of Arrival: Ambulatory lg3 21:47 Acuity: TONO 4 lg3 Triage Assessment: 21:50 General: Appears in no apparent distress. comfortable, Behavior is calm, cooperative. lg3 Pain: Denies pain. EENT: No deficits noted. No signs and/or symptoms were reported regarding the EENT system. Neuro: No deficits noted. Level of Consciousness is awake, alert, obeys commands, Oriented to person, place, time, situation. Cardiovascular: No deficits noted. Denies chest pain, shortness of breath, Capillary refill < 3 seconds Clubbing of nail beds is absent JVD is absent Patient's skin is warm and dry. Respiratory: Reports cough that is Airway is patent Trachea midline Respiratory effort is even, unlabored, Respiratory pattern is regular, symmetrical. GI: No deficits noted. No signs and/or symptoms were reported involving the gastrointestinal system. Abdomen is round non-distended. : No deficits noted. No signs and/or symptoms were reported regarding the genitourinary system. Derm: No deficits noted. No signs and/or symptoms reported regarding the dermatologic system. Skin is intact, is healthy with good turgor, Skin is dry, Skin temperature is warm. Musculoskeletal: No deficits noted. Reports generalized body aches. Historical: - Allergies: 21:50 No Known Allergies; lg3 - Home Meds: 21:50 insulin [Active]; lisinopril Oral [Active]; lg3 - PMHx: 21:50 Back pain; Diabetes - IDDM; Hypercholesterolemia; Hypertension; lg3 - PSHx: 21:50 None; lg3 - Immunization history:: Adult Immunizations up to date, Client reports receiving the 1st dose of the Covid vaccine. - Social history:: Smoking status: Patient denies any tobacco usage or history of. Patient uses alcohol, but reports only rare drinking. Screenin:52 Abuse screen: Denies threats or abuse. Nutritional screening: No deficits noted. ll3 Tuberculosis screening: No symptoms or risk factors identified. Fall Risk No fall in past 12 months (0 pts). No secondary diagnosis (0 pts). IV access (20 points). Ambulatory Aid- None/Bed Rest/Nurse Assist (0 pts). Gait- Normal/Bed Rest/Wheelchair (0 pts) Mental Status- Oriented to own ability (0 pts). Total Ravi Fall Scale indicates No Risk (0-24 pts). Assessment: 23:30 Reassessment: No changes from previously documented assessment. Patient and/or family ll3 updated on plan of care and expected duration. Pain level reassessed. Patient is alert, oriented x 3, equal unlabored respirations, skin warm/dry/pink. 06/29 00:40 Reassessment: No changes from previously documented assessment. Patient and/or family ll3 updated on plan of care and expected duration. Pain level reassessed. Patient is alert, oriented x 3, equal unlabored respirations, skin warm/dry/pink. 01:51 Reassessment: No changes from previously documented assessment. Patient and/or family ll3 updated on plan of care and expected duration. Pain level reassessed. Patient is alert, oriented x 3, equal unlabored respirations, skin warm/dry/pink. Vital Signs: 06/28 21:47 BP 165 / 66; Pulse 97; Resp 17 S; Temp 98.5(O); Pulse Ox 98% on R/A; Weight 68.04 kg lg3 (R); Height 5 ft. 1 in. (154.94 cm) (R); 23:30 BP 132 / 54; Pulse 74; Resp 19; Pulse Ox 96% on R/A; ll3 06/29 00:40 BP 114 / 56; Pulse 70; Resp 20; Pulse Ox 95% on R/A; ll3 01:51 BP 131 / 61; Pulse 74; Resp 18; Pulse Ox 96% on R/A; ll3 06/28 21:47 Body Mass Index 28.34 (68.04 kg, 154.94 cm) 3 ED Course: 06/28 21:39 Patient arrived in ED. bp1 21:50 Triage completed. lg3 21:50 Arm band placed on left wrist. lg3 21:57 Quincy Weir MD is Attending Physician. 7 21:57 Flu Sent. lg3 21:57 SARS-COV-2 RT PCR (Document "Date of Onset" if Symptomatic) Sent. lg3 21:58 Flu Sent. 5 21:58 COVID swab sent to lab. Flu and/or RSV swab sent to lab. 5 22:29 Elisa Henderson, URBAN is Primary Nurse. ll3 22:52 Patient has correct armband on for positive identification. Bed in low position. Call [facility] light in reach. Side rails up X 1. Notified ED physician of other Covid positive. 22:55 Chest Single View XRAY In Process Unspecified. EDMS 23:32 Urine Microscopic Only Sent. oe 06/29 01:17 CT Chest For PE Angio In Process Unspecified. EDMS 02:37 No provider procedures requiring assistance completed. IV discontinued, intact, tw5 bleeding controlled, No redness/swelling at site. Pressure dressing applied. Administered Medications: 06/28 22:45 Drug: NS 0.9% 500 ml Route: IV; Rate: bolus; Site: left antecubital; ll3 06/29 02:39 Follow up: Response: No adverse reaction; IV Status: Infusion continued; IV Intake: tw5 500ml 02:10 Drug: Tessalon Perle (benzonatate) 100 mg Route: PO; ll3 02:39 Follow up: Response: No adverse reaction tw5 02:10 Drug: Zithromax (azithromycin) 500 mg Route: PO; ll3 02:39 Follow up: Response: No adverse reaction tw5 Medication: 02:37 VIS not applicable for this client. tw5 Intake: 02:39 IV: 500ml; Total: 500ml. Outcome: 02:24 Discharge ordered by . clarissa 02:37 Discharged to home ambulatory. 02:37 Condition: good 02:37 Discharge instructions given to patient, Instructed on discharge instructions, follow up and referral plans. Demonstrated understanding of instructions, follow-up care, medications, Prescriptions given X 3. 02:38 Patient left the ED. Signatures: Dispatcher [employer] EDMS Anup Buenrostro [facility] Kiki Singh, RN RN lg3 Clau Mendoza Maurice, MD MD mh7 Loreto Celaya 5 Elisa Henderson, RN RN ll3
[2022-06-29 05:04] VITALS: TEMP 98.5
[2022-06-29 05:11] VITALS: BP 131/61; O2SAT 96
--- NOTE | 2022-06-29 18:35 | RAD REPORT ---
EXAM DESCRIPTION: Chest Single View CLINICAL HISTORY: 67 years Female, COUGH TECHNIQUE: 1 view (Single frontal view of the chest) COMPARISON: None. FINDINGS: Shallow inspiratory effort and underexposure limiting evaluation of lung bases. LINES AND TUBES: None. CARDIOVASCULAR STRUCTURES: Normal heart size. No pulmonary venous congestion. LUNGS: No confluent areas of acute consolidation. PLEURA: No layering pleural effusions. No pneumothorax. BONES: No acute osseous abnormality of the thorax. IMPRESSION: 1. Suboptimal evaluation of lung bases as described. Bibasilar atelectasis/consolidati on plus or minus small effusions cannot be entirely excluded. 2. Otherwise, no acute cardiopulmonary disease. Electronically signed by: Lucas Ferrera MD 06/28/2022 11:29 PM CDT Due to temporary technical issues with the PACS/Fluency reporting system, reports are being signed by the in house radiologists without review as a courtesy to insure prompt reporting. The interpreting radiologist is fully responsible for the content of the report.
--- NOTE | 2022-06-29 18:39 | RAD REPORT ---
EXAM DESCRIPTION: CT Angiography Chest With Intravenous Contrast CLINICAL HISTORY: The patient is 67 years old and is Female; Cough, COVID TECHNIQUE: Axial computed tomographic angiography images of the chest with intravenous contrast. T his CT exam was performed using one or more of the following dose reduction techniques: automated e xposure control, adjustment of the mA and/or kV according to patient size, and/or use of iterative re construction technique. MIP reconstructed images were created and reviewed. Oblique reformatted images were created and reviewed. DLP: 307 mGy*cm COMPARISON: Chest radiograph dated 06/28/2022. FINDINGS: PULMONARY ARTERIES: Unremarkable. No pulmonary embolism. AORTA: Mild aneurysmal dilatation of the posterior aspect of the aortic arch measuring 2.9 cm. LUNGS: Dependent slight bibasilar subsegmental atelectasis. No focal consolidation. PLEURAL SPACE: Unremarkable. No significant effusion. No pneumothorax. HEART: Unremarkable. No cardiomegaly. No significant pericardial effusion. No evidence of RV dysfunction. BONES/JOINTS: Multilevel degenerative changes. Heterogenous bone mineralization which may represent osteopenia or metastatic disease. Consider nuclear medicine whole body bone scan if clinically indic ated. No acute fracture. No dislocation. SOFT TISSUES: Unremarkable. LYMPH NODES: Unremarkable. No enlarged lymph nodes. LIVER: Hepatic steatosis. IMPRESSION: 1. No pulmonary embolism. No acute intrathoracic abnormality. 2. Mild aneurysmal dilatation of the posterior aspect of the aortic arch measuring 2.9 cm. 3. Hepatic steatosis. 4. Multilevel degenerative changes. Heterogenous bone mineralization which may represent osteopenia or metastatic disease. Consider nuclear medicine whole body bone scan if clinically indicated. Electronically signed by: Miller Torres DO 06/29/2022 1:41 AM CDT Due to temporary technical issues with the PACS/Fluency reporting system, reports are being signed by the in house radiologists without review as a courtesy to insure prompt reporting. The interpreting radiologist is fully responsible for the content of the report.
--- NOTE | 2022-07-01 13:50 | EKG ---
Test Date: 2022-06-28 Test Time: 22:23:28 [employer] Plant Operative: LINO MEASUREMENT RESULTS: Intervals: Rate: 80 NV: 182 QRSD: 76 QT: 372 QTc: 429 [place]: P: 69 NV: 182 QRS: -58 T: 86 INTERPRETIVE STATEMENTS: Normal sinus rhythm Left axis deviation Abnormal ECG Compared to ECG 06/14/2022 15:18:15 Sinus bradycardia no longer present ST (T wave) deviation no longer present Electronically Signed On 07-01-22 13:47:04 CDT by Kevin Lerma
== END 2022-06-29 02:38 | disposition home or self-care (01) ==
LOC: ER 21:37
DX: U07.1 COVID-19 (principal); E11.9 Type 2 diabetes mellitus without complications; I10 Essential (primary) hypertension; Z79.4 Long term (current) use of insulin
CPT/HCPCS: 96361; 93005; 87040 ×2; 87088; 85025; 87086; 80048; 36415; 85379; 80076; 84484; 83880; 87804 ×2; 71275; 71045; 96360; 99284; U0003; Q9967; J7040; 81003; 81015

== ENCOUNTER 2023-04-20 09:25 | Emergency (ER) | payer OTHER, SELFPAY ==
--- OUTSIDE RECORDS SUMMARY | 2023-04-20 09:29 | XMS REPORT | Continuity of Care Document ---
:1955 Author Organization [facility] t Address [address] [place] [address] [place] [id number] Care Team Providers Name Role Phone Sofya SAXENA, Scott Donaldson Primary Care Physician Gopi SAXENA, Alysia Attending Clinician Maribel Scott [...] rs active active ity of problems problems [facility] Allergies, Adverse Reactions, Alerts Allergy Allergy Status Severity Reaction(s) Onset Inactive Treating Comm ents Source Name Type Date Date Clinician NO KNOWN Drug Active Univers ALLERGIE Class ity of S [facility] Social History Social Habit Start Date Stop Date Quantity Comments Source Cigarette 2022-05-02 2022-05-02 [facility] pack-years 00:00:00 00:00:00 of Medicine Tobacco use and 2022-05-02 2022-05-02 Smokeless tobacco [facility] exposure 00:00:00 00:00:00 non-user of Medicine Sex [birth year] [facility] [employer] 00:00:00 00:00:00 of Medicine Smoking Status Start Date Stop Date Source Never smoked tobacco [facility] of Medicine Unknown if ever smoked [facility] Medications Ordered Filled Start Stop Current Ordering Indication Dosage Frequency Signature Comments Components Source Medication Medication Date Date Medication? Clinician (SIG) Name Name gabapentin Yes [id number] 600mg Take 1 Ever (NEURONTIN) 05-02 Tablet by Col lege 600 MG 00:00: mouth 3 of tablet 00 times Medicin daily. e gabapentin Yes [id number] 600mg Take 1 Ever (NEURONTIN) 05-0202 Tablet by Col lege 600 MG 00:00: mouth 3 of tablet 00 times Medicin daily. e tramadol Yes TAKE 1 Ever (ULTRAM) 50 5-20 TABLET BY Col [facility]ge MG tablet 00:00: MOUTH of 00 EVERY 6 Medicin HOURS e NEEDED tramadol Yes TAKE 1 Ever (ULTRAM) 50 5-20 TABLET BY Col lege MG tablet 00:00: MOUTH of 00 EVERY 6 Medicin HOURS e NEEDED ibuprofen Yes TAKE 1 Ever (MOTRIN) 5-15 TABLET BY Janel mckeon 600 MG 00:00: MOUTH of tablet 00 EVERY 6 Medicin HOURS e NEEDED FOR PAIN cyclobenzap Yes TAKE 1 [facility] 5-15 TABLET BY [place] (FLEXERIL) 00:00: MOUTH of 10 MG 00 [...] e simvastatin 2021-0 2021- No TAKE 1 [facility] (ZOCOR) 10 5-05 07-05 TABLET BY Col [facility]ge MG tablet 00:00: 00:00 MOUTH of 00 :00 EVERY DAY Medicin IN THE e EVENING phenazopyri 2018-11 Yes [id number] 200mg Take 1 Univers dine 200 mg 2-13 tablet by ity of tablet 00:00: mouth 3 [place] 00 (three) Medical times Branch daily. phenazopyri 2018-11 Yes [id number] 200mg Take 1 Univers dine 200 mg 2-13 tablet by ity of tablet 00:00: mouth 3 [place] 00 (three) Medical times Branch daily. phenazopyri 2018-11 Yes [id number] 200mg Take 1 Univers dine 200 mg 2-13 tablet by ity of tablet 00:00: mouth 3 [place] 00 (three) Medical times Branch daily. phenazopyri 2018-11 Yes [id number] 200mg Take 1 Univers dine 200 mg 2-13 tablet by ity of tablet 00:00: mouth 3 [place] 00 (three) Medical times Branch daily. phenazopyri 2018-11 Yes [id number] 200mg Take 1 Univers dine 200 mg 2-13 tablet by ity of tablet 00:00: mouth 3 [place] 00 (three) Medical times Branch daily. bisacodyl [...] daily. [place] mg tablet 04 [facility] INSULIN NPH Yes 20U inject 20 [...] daily. [place] mg tablet 04 [facility] INSULIN NPH 2016-0 Yes 20U inject [...] daily. [place] mg tablet 04 [facility] INSULIN NPH 2016-0 Yes 20U inject [...] daily. [place] mg tablet 04 [facility] INSULIN NPH 2016-0 Yes 20U inject 20 U nivers HUM/REG 5-29 Units ity of INSULIN HM 19:36: [place] (NOVOLIN 04 skin every Medic al 70/30 SC) morning. Branch INSULIN NPH 2016-0 Yes 10U inject 10 U nivers HUM/REG 5-29 Units ity of INSULIN HM 19:36[place] (NOVOLIN 04 skin every Medic al 70/30 [place]) evening. [facility] Vital Signs Vital Name Observation Time Observation Value Comments Source Systolic blood 2022-05-28 14:20:00 158 mm[Hg] [facility] pressure Medicine Diastolic blood 2022-05-28 14:20:00 82 mm[Hg] [facility] pressure Medicine Heart rate 2022-05-28 14:20:00 69 /min [facility] Body temperature 2022-05-28 14:20:00 36.67 [facility] Respiratory rate 2022-05-28 14:20:00 16 /min [facility] Body height 2022-05-28 14:20:[address] [facility] Body weight 2022-05-28 14:20:[address] [facility] BMI 2022-05-28 14:20:00 28.91 kg/m2 [facility] Systolic blood 2022-05-02 18:06:00 162 mm[Hg] [facility] pressure Medicine Diastolic blood 2022-05-02 18:06:00 80 mm[Hg] [facility] Medicine Heart rate 2022-05-02 18:06:00 58 /min [facility] Body temperature 2022-05-02 18:06:00 35.89 Anush[facility] Respiratory rate 2022-05-02 18:06:00 16 /min [facility] Body height 2022-05-02 18:06:[address] [facility] Body weight 2022-05-02 18:06:[address] [facility] BMI 2022-05-02 18:06:00 28.49 kg/m2 [facility] Procedures This patient has no known procedures. Plan of Care Planned Activity Planned Date Details Comments Source Future Scheduled 2022-05-29 Screening for [facility] Test 12:19:19 malignant neoplasm of Medici ne of colon (procedure) [code = 786198967] Future Scheduled 2022-05-29 Screening for [facility] Test 12:19:19 malignant neoplasm of Medici ne of breast (procedure) [code = 387677344] Future Scheduled 2022-05-29 COVID-19 Vaccine [facility] Test 12:19:19 (#1) [code = of Medicine COVID-19 Vaccine (#1)] Future Scheduled 2022-05-29 TETANUS SHOT (ADULT) [facility] Test 12:19:19 [code = TETANUS SHOT of Medi cine (ADULT)] Future Scheduled 2022-05-29 BMI FOLLOW UP PLAN [employer] Test 12:19:19 [code = BMI FOLLOW of Medici ne UP PLAN] Future Scheduled 2022-05-29 Hepatitis C [facility] e[facility] Test 12:19:19 screening of Medicine (procedure) [code = 651070571] Future Scheduled 2022-05-29 ZOSTER VACCINE (1 of [employer] Test 12:19:19 2) [code = ZOSTER of Medicin e VACCINE (1 of 2)] Future Scheduled 2022-05-29 Screening for [facility] Test 12:19:19 osteoporosis of Medicine (procedure) [code = 873610301] Future Scheduled 2022-05-29 Pneumococcal 65+ (1 [employer] Test 12:19:19 - PCV) [code = of Medicine Pneumococcal 65+ (1 - PCV)] Future Scheduled 2022-05-29 FLU VACCINE > 6 [facility] Test 12:19:19 MONTHS [code = FLU of Medici ne VACCINE > 6 MONTHS] Future Scheduled 2022-05-29 FALL SCREEN [code = [employer] Test 12:19:19 FALL SCREEN] of Medicine Future Scheduled 2022-05-02 XR HIPS BILATERAL AP 1 Occurrences [employer] Test 13:48:50 LATERAL W AP PELVIS starting of Medic ine [code = 17421-2] 05/02/2022 until 05/02/2023 Future Scheduled 2022-05-02 MRI LUMBAR SPINE WO 1 Occurrences [employer] Test 13:48:50 CONTRAST [code = starting of Medicine 96634-7] 05/02/2022 until 05/02/2023 Future Scheduled 2022-05-02 Screening for [facility] Test 13:08:57 malignant neoplasm of Medici ne of colon (procedure) [code = 797694339] Future Scheduled 2022-05-02 Screening for [facility] Test 13:08:57 malignant neoplasm of Medici ne of breast (procedure) [code = 161453196] Future Scheduled 2022-05-02 COVID-19 Vaccine [facility] Test 13:08:57 (#1) [code = of Medicine COVID-19 Vaccine (#1)] Future Scheduled 2022-05-02 TETANUS SHOT (ADULT) [employer] Test 13:08:57 [code = TETANUS SHOT of Medi cine (ADULT)] Future Scheduled 2022-05-02 Hepatitis C [facility] Test 13:08:57 screening of Medicine (procedure) [code = 792566423] Future Scheduled 2022-05-02 ZOSTER VACCINE (1 of [employer] Test 13:08:57 2) [code = ZOSTER of Medicin e VACCINE (1 of 2)] Future Scheduled 2022-05-02 FALL SCREEN [code = [employer] Test 13:08:57 FALL SCREEN] of Medicine Future Scheduled 2022-05-02 Screening for [facility] Test 13:08:57 osteoporosis of Medicine (procedure) [code = 781116448] Future Scheduled 2022-05-02 Pneumococcal 65+ (1 [employer] Test 13:08:57 - PCV) [code = of Medicine Pneumococcal 65+ (1 - PCV)] Future Scheduled 2022-05-02 FLU VACCINE > 6 [facility] Test 13:08:57 MONTHS [code = FLU of Medici ne VACCINE > 6 MONTHS] Encounters Start End Encounter Admission Attending Care Care Encounter Source Date/Time Date/Time Type Type Clinicians Facility Department ID 2022-05-28 2022-05-28 Office NAEL Nguyễn [id number] [facility] 09:20:00 14:31:34 Visit Alysia AMBULATOR [id number] College Y 0.2.7.2.686 of [id number] [facility] 805 e 2022-05-13 2022-05-13 Outpatient [facility] [id number] [facility] 10:22:36 10:22:36 Colleg e of Medicin e 2022-05-02 2022-05-02 Office NAEL Nguyễn [id number] [facility] 13:00:00 13:40:00 Visit Alysia AMBULATOR 350.1.13.21 College Y 0.2.7.2.[id number] [facility] ilene 805 e 2021-08-01 2021-08-01 Letter JACKSON Scott [id number] Univers 00:00:00 00:00:00 (Out) Maribel CADET [id number] it y [facility] [id number] Shane as [phone] [address] 2021-08-01 2021-08-01 Telephone JACKSON Mace [id number] Univers 00:00:00 00:00:00 Delmy CADET 350.1.13.10 it y of [facility] [id number] Shane as [id number] [address] 2021-07-30 2021-07-30 Laboratory Only, Ang Db Test [facility] 1.2.8 [id number] [id number] Univers 19:20:45 19:35:45 Only Clau Kay [facility] 350.1.13.10 ity of [place] 4.2.7.2.686 Shane as [place] [id number] [facility] [address] Medical Office Building 2021-07-30 2021-07-30 Outpatient R RAHUL [facility] [id number] Univers 19:20:00 19:20:00 CLAU vasquez [facility] Results This patient has no known results.
[2023-04-20] MEDS ORDERED: CEFTRIAXONE 1000 MG/VIAL ONE (09:57)
[2023-04-20 10:14] LABS: Specific Gravity 1.016 (1.005-1.030); Urine Bacteria >50 /HPF (<20); Urine Bilirubin NEGATIVE (Negative); Urine Blood Trace (Negative); Urine Clarity Turbid (Clear); Urine Color Yellow (Yellow); Urine Glucose NEGATIVE (Negative); Urine Mucus Slight /HPF (None Seen); Urine Protein TRACE (Negative); Urine Urobilinogen Normal (Normal); Urine WBC Clump Occasional /HPF (None Seen)
--- NOTE | 2023-04-20 10:21 | ER ---
Nurse's Notes [facility] Name: Feli Lee Age: 67 yrs Sex: Female : 1955 Arrival Date: 04/20/2023 Time: 09:25 Bed 20 Private MD: Diagnosis: UTI/ Urinary tract infection, site not specified Presentation: 04/20 09:46 Chief complaint: Patient states: Dysuria since . Dark in color. CO low back nj1 pain as well as burning with urination. Getting worse. Coronavirus screen: Vaccine status: Patient reports receiving the 1st dose of the Covid vaccine. Ebola Screen: Patient denies travel to an Ebola-affected area in the 21 days before illness onset. Initial Sepsis Screen: Does the patient meet any 2 criteria? No. Patient's initial sepsis screen is negative. Does the patient have a suspected source of infection? No. Patient's initial sepsis screen is negative. Risk Assessment: Do you want to hurt yourself or someone else? Patient reports no desire to harm self or others. Onset of symptoms was April 17, 2023. 09:46 Method Of Arrival: Ambulatory nj 09:46 Acuity: TONO 3 nj1 Historical: - Allergies: 09:48 No Known Allergies; nj1 - PMHx: 09:48 Back pain; Diabetes - IDDM; Hypercholesterolemia; Hypertension; nj1 - PSHx: 09:48 None; nj1 - Immunization history:: Client reports receiving the 1st dose of the Covid vaccine. - Social history:: Smoking status: Patient denies any tobacco usage or history of. Screenin:55 [facility] ED Fall Risk Assessment (Adult) History of falling in the last 3 months, kc6 including since admission No falls in past 3 months (0 pts) Confusion or Disorientation No (0 pts) Intoxicated or Sedated No (0 pts) Impaired Gait No (0 pts) Mobility Assist Device Used No (0 pt) Altered Elimination No (0 pt) Score/Fall Risk Level 0 - 2 = Low Risk Oriented to surroundings, Maintained a safe environment, Educated pt \T\ family on fall prevention, incl call for assistance when getting out of bed, Assessed \T\ reinforced patient's understanding of fall precautions, Hourly rounding (assess needs \T\ fall precautionary measures) done. Abuse screen: Denies threats or abuse. Denies injuries from another. Nutritional screening: No deficits noted. Tuberculosis screening: No symptoms or risk factors identified. Assessment: 09:54 General: Appears in no apparent distress. comfortable, Behavior is calm, cooperative, kc6 appropriate for age. Pain: Denies pain. Neuro: Orr Agitation-Sedation Scale (RASS): 0 - Alert and Calm Level of Consciousness is awake, alert, obeys commands, Oriented to person, place, time, situation, Appropriate for age. Cardiovascular: Capillary refill < 3 seconds. Respiratory: Airway is patent Trachea midline Respiratory effort is even, unlabored, Respiratory pattern is regular, symmetrical. GI: No signs and/or symptoms were reported involving the gastrointestinal system. : Urine is clear, Reports burning with urination. EENT: No signs and/or symptoms were reported regarding the EENT system. Derm: No signs and/or symptoms reported regarding the dermatologic system. Skin is intact, Skin is pink, warm \T\ dry. Musculoskeletal: No signs and/or symptoms reported regarding the musculoskeletal system. Circulation, motion, and sensation intact. Capillary refill < 3 seconds, Range of motion: intact in all extremities. Vital Signs: 09:46 BP 170 / 70; Pulse 67; Resp 18; Temp 98.2(O); Pulse Ox 97% ; Weight 66.22 kg; Height 5 nj1 ft. 1 in. ; Pain 7/10; 09:46 Body Mass Index 27.59 (66.22 kg, 154.94 cm) nj1 09:46 Pain Scale: Adult nj1 ED Course: 09:30 Patient arrived in ED. am2 09:36 Kirill Gonzalez PA is PHCP. [facility] 09:36 Rayshawn Baugh MD is Attending Physician. jmm 09:46 Rose Marie Peterson RN is Primary Nurse. kc6 09:47 Urinalysis W/Microscopic Sent. mm9 09:47 Urine collected: clean catch specimen, cloudy. mm9 09:47 Patient has correct armband on for positive identification. Bed in low position. Call mm9 light in reach. Warm blanket given. Pulse ox on. NIBP on. 09:48 Triage completed. nj1 09:49 Arm band placed on left wrist. nj1 10:29 No provider procedures requiring assistance completed. Patient did not have IV access kc6 during this emergency room visit. Administered Medications: 09:54 Drug: Rocephin (cefTRIAXone) IM 1 grams Route: IM; Site: left deltoid; 6 10:13 Follow up: Response: No adverse reaction kc6 Medication: 10:30 VIS not applicable for this client. kc6 Outcome: 10:20 Discharge ordered by . gonzalo 10:29 Discharged to home ambulatory. kc6 10:29 Condition: good 10:29 Discharge instructions given to patient, Instructed on discharge instructions, follow up and referral plans. medication usage, Demonstrated understanding of instructions, follow-up care, medications, Prescriptions given X 1. 10:30 Patient left the ED. 6 Signatures: Kirill Gonzalez PA PA jmm Moreno, Amanda am2 Rose Marie Peterson RN RN kc6 Feli Arango mm9 Karla Lira RN RN nj1
--- NOTE | 2023-04-20 10:21 | EDPHYS ---
Physician Documentation [facility] Name: Feli Lee Age: 67 yrs Sex: Female : 1955 Arrival Date: 04/20/2023 Time: 09:25 Bed 20 Private MD: ED Physician Rayshawn Baugh HPI: 04/20 09:42 This 67 yrs old Female presents to ER via Ambulatory with complaints of jmm Urinary Problem. 09:42 Modifying factors: The patient symptoms are alleviated by nothing, the patient symptoms jmm are aggravated by nothing. This is a 67 year old female with a history of dm, hlp, htn that presents to the ED with complaints of dysuria, mild back pain. Denies fever. States having one episode of vomiting yesterday. Today denies fever, chills. . Historical: - Allergies: 09:48 No Known Allergies; nj1 - PMHx: 09:48 Back pain; Diabetes - IDDM; Hypercholesterolemia; Hypertension; nj1 - PSHx: 09:48 None; nj1 - Immunization history:: Client reports receiving the 1st dose of the Covid vaccine. - Social history:: Smoking status: Patient denies any tobacco usage or history of. ROS: 09:42 Constitutional: Negative for fever, chills, and weight loss, Cardiovascular: Negative jmm for chest pain, palpitations, and edema, Respiratory: Negative for shortness of breath, cough, wheezing, and pleuritic chest pain. 09:42 Abdomen/GI: Positive for nausea, vomiting. 09:42 Back: Positive for pain at rest. 09:42 All other systems are negative. Exam: 09:42 Constitutional: This is a well developed, well nourished patient who is awake, alert, jmm and in no acute distress. Head/Face: atraumatic. Eyes: EOMI, no conjunctival erythema appreciated ENT: Moist Mucus Membranes Neck: Trachea midline, Supple Chest/axilla: Normal chest wall appearance and motion. Cardiovascular: Regular rate and rhythm. No edema appreciated Respiratory: Normal respirations, no respiratory distress appreciated Abdomen/GI: Non distended Back: Normal ROM Skin: General appearance color normal MS/ Extremity: Moves all extremities, no obvious deformities appreciated, no edema noted to the lower extremities Neuro: Awake and alert Psych: Behavior is normal, Mood is normal, Patient is cooperative and pleasant Vital Signs: 09:46 BP 170 / 70; Pulse 67; Resp 18; Temp 98.2(O); Pulse Ox 97% ; Weight 66.22 kg; Height 5 nj1 ft. 1 in. ; Pain 7/10; 09:46 Body Mass Index 27.59 (66.22 kg, 154.94 cm) [facility] 09:46 Pain Scale: Adult nj1 MDM: 09:42 Patient medically screened. [facility] 14:17 Differential diagnosis: UTI. Data reviewed: vital signs, nurses notes, lab test [facility] result(s), urinalysis. I considered the following discharge prescriptions or medication management in the emergency department Medications were administered in the Emergency Department. See MAR. Counseling: I had a detailed discussion with the patient and/or guardian regarding: the historical points, exam findings, and any diagnostic results supporting the discharge/admit diagnosis, lab results, the need for outpatient follow up, to return to the emergency department if symptoms worsen or persist or if there are any questions or concerns that arise at home. ED course: Patient is alert nontoxic in appearance in the ED. Able to tolerate p.o. No signs of sepsis. Patient advised to follow-up PCP and otherwise given strict return precautions. Patient understood and agrees plan of care.. 04/20 09:45 Order name: Urinalysis W/Microscopic; Complete Time: 10:20 [facility] 04/20 10:20 Order name: Urine Culture EDWY Administered Medications: 09:54 Drug: Rocephin (cefTRIAXone) IM 1 grams Route: IM; Site: left deltoid; [facility] 10:13 Follow up: Response: No adverse reaction [facility] Disposition Summary: 04/20/23 10:20 Discharge Ordered Location: Home [facility] Condition: Stable [facility] Diagnosis - UTI/ Urinary tract infection, site not specified [facility] Followup: [facility] - With: Private Physician - When: 2 - 3 days - Reason: Recheck today's complaints, Continuance of care, Re-evaluation by your physician Discharge Instructions: - Discharge Summary Sheet [facility] - Urinary Tract Infection, Adult [facility] Forms: - Work release form [facility] - Medication Reconciliation Form [facility] - Thank You Letter [facility] - Antibiotic Education [facility] - Prescription Opioid Use [facility] Prescriptions: - cefpodoxime 200 mg Oral Tablet - take 1 tablet by ORAL route every 12 hours for 10 days with food; 20 tablet; gonzalo Refills: 0, Product Selection Permitted Signatures: Dispatcher [employer] Kirill Banda PA PA jmm Campbell, Kaitlyn, RN RN kc6 Karla Lira RN RN nj1
[2023-04-20 10:34] VITALS: BP 170/70; TEMP 98.2; O2SAT 97
== END 2023-04-20 10:30 | disposition home or self-care (01) ==
LOC: ER 09:25
DX: N39.0 Urinary tract infection, site not specified (principal); I10 Essential (primary) hypertension
CPT/HCPCS: 87088; 81001; 87086; 87077; 87186; 96372; 99284; J0696

== ENCOUNTER 2023-06-20 22:59 | Emergency (ER) | payer OTHER ==
--- OUTSIDE RECORDS SUMMARY | 2023-06-20 23:04 | XMS REPORT | Continuity of Care Document ---
:1955 Author Organization [facility] t Address [address] [facility] [address] [place] [id number] Care Team Providers Name Role Phone Sofya SAXENA, Scott Donaldson Primary Care Physician [email or web address]_S Attending Clinician Unavailable Maribel Scott RN Attending Clinician Unavailable Rodri DUGGAN, Delmy Attending Clinician Unavailable Only, Ang Db Test Attending Clinician Unavailable Clau Bettencourt Attending Clinician CLAU KAY Attending Clinician Unavailable [email or web address] Admitting Clinician Unavailable Payers Payer Name Policy Type Policy Number Effective Date Expiration Date Shun wu [facility] (MEDICARE [id number] 2023 REPLACEMENT/ADVANT 00:00:00 AGE - PPO) MEDICARE B-[place]: [id number] [employer] Problems Condition Condition Condition Status Onset Resolution Last Treating Co mments Source Name Details Category Date Date Treatment Clinician Date No known No known Disease Unive rs active active ity of problems problems [facility] Allergies, Adverse Reactions, Alerts Allergy Allergy Status Severity Reaction(s) Onset Inactive Treating Comm ents Source Name Type Date Date Clinician NO KNOWN Drug Active Univers ALLERGIE Class ity of S [facility] Social History Social Habit Start Date Stop Date Quantity Comments Source [facility] At [birth year] [facility] [place] [facility] Medical Branch Smoking Status Start Date Stop Date Source Unknown if ever smoked [facility] [place] [facility] Medications Ordered Filled Start Stop Current Ordering Indication Dosage Frequency Signature Comments Components Source Medication Medication Date Date Medication? Clinician (SIG) Name Name phenazopyri 2018-11 Yes [id number] 200mg Take 1 Univers dine 200 mg 2-13 tablet by ity of tablet 00:00: mouth 3 [place] 00 ([facility]) Medical times Branch daily. phenazopyri 2018-11 Yes [id number] 200mg Take 1 Univers dine 200 mg 2-13 tablet by ity of tablet 00:00: mouth 3 [place] 00 (three) Medical times Branch daily. phenazopyri 2018-11 Yes [id number] 200mg Take 1 Univers dine 200 mg 2-13 tablet by ity of tablet 00:00: mouth 3 [place] 00 (three) Medical times Branch daily. phenazopyri 2018-11 Yes [id number] 200mg Take 1 Univers dine 200 mg 2-13 tablet by ity of tablet 00:00: mouth 3 [place] 00 ([facility]) Medical times Branch daily. phenazopyri 2018-11 Yes [id number] 200mg Take 1 Univers dine 200 mg 2-13 tablet by ity of tablet 00:00: mouth 3 [place] 00 ([facility]) Medical times Branch daily. bisacodyl 2017-11 Yes [...] daily. [place] mg tablet 04 [facility] INSULIN NPH Yes 20U inject 20 [...] daily. [place] mg tablet 04 [facility] INSULIN NPH 0 Yes 20U inject [...] daily. [place] mg tablet 04 [facility] INSULIN NPH 2015-0 Yes 20U inject [...] mg tablet 04 Medical Branch INSULIN NPH 2015-0 Yes 20U inject 20 [...] mg tablet 04 Medical Branch INSULIN NPH 2015-0 Yes 20U inject 20 [...] Date/Time Type Type Clinicians Facility Department ID 2023-06-18 2023-06-18 Outpatient [email or web address] PRIV PRIV [id number] [facility] 00:00:00 00:00:00 leandroa_S [id number] Medic al 2023-06-18 2023-06-18 Outpatient GC_[email or web address]_Ka PRIV PRIV [id number] [facility] 00:00:00 00:00:00 diyala_S [id number] Medic al 2023-06-11 2023-06-11 Outpatient GC_[email or web address]_Ka PRIV PRIV [id number] [facility] 00:00:00 00:00:00 leandroviktoriya_S [id number] [facility] al 2021-08-01 2021-08-01 Letter JACKSON Scott [id number] Univers 00:00:00 00:00:00 (Out) Maribel CADET [id number] it y of [facility] [id number] Shane as [phone] [address] 2021-08-01 2021-08-01 Telephone JACKSON Mace [id number] Univers 00:00:00 00:00:00 Delmy CADET [id number] it y of [facility] [id number] Shane as [phone] [address] 2021-07-30 2021-07-30 Laboratory Only, Ang Db Test [facility] [id number] Univers 19:20:45 19:35:45 [facility] [id number] ity of [place] [id number] Shane as [place]?Blea [id number] N[place] s[place]in [address] Medical Office Building 2021-07-30 2021-07-30 Outpatient R RAHUL [facility] [id number] Univers 19:20:00 19:20:00 CLAU birch o f [facility] Results This patient has no known results.
[2023-06-21 01:29] LABS: Absolute Lymphocytes (CBC) 2.8 K/uL (0.7-4.9); Hematocrit 33.8 % (36.0-45.0); Lymphocytes % 22.6 % (15.3-44.8); RBC Red Blood Cell Count 4.17 M/uL (3.86-4.86)
[2023-06-21 01:35] LABS: Urine Bacteria 20-50 /HPF (<20); Urine Mucus 2+ /HPF (None Seen); Urine RBC >50 /HPF (None Seen); Urine WBC Clump Many /HPF (None Seen)
[2023-06-21 01:36] LABS: Specific Gravity 1.021 (1.005-1.030); Urine Clarity Turbid (Clear); Urine Color Light-Orange (Yellow); Urine Glucose NEGATIVE (Negative)
[2023-06-21 01:37] LABS: Urine Bilirubin NEGATIVE (Negative); Urine Blood 2+ (Negative); Urine Protein 1+ (Negative); Urine Urobilinogen Normal (Normal); Urine pH 5.5 (5.0-7.0)
[2023-06-21 01:45] LABS: Albumin 3.6 g/dL (3.4-5.0); Bilirubin Total 0.6 mg/dL (0.2-1.0); Potassium 3.7 mEq/L (3.5-5.1); Protein, Total 7.9 g/dL (6.4-8.2)
[2023-06-21] MEDS ORDERED: NA CHLORIDE 0.9% 1,000 ML ONE (02:04)
[2023-06-21] MEDS ORDERED: MORPHINE 4 MG/ML SYR ONE (02:04)
--- NOTE | 2023-06-21 04:19 | ER ---
Nurse's Notes [facility] Name: Feli Lee Age: 68 yrs Sex: Female : 1955 Arrival Date: 06/20/2023 Time: 22:59 Bed 5 Private MD: Diagnosis: Urinary tract infection;Gastric mass Presentation: 06/21 00:08 Chief complaint: Patient states: I need a hysterectomy because my cervix is coming out vc1 but it hurts and my back is hurting really bad. Coronavirus screen: Vaccine status: Patient reports receiving the 1st dose of the Covid vaccine. Local Matters Client denies travel out of the [place] in the last 14 days. At this time, the client does not indicate any symptoms associated with coronavirus-19. Ebola Screen: Patient negative for fever greater than or equal to 101.5 degrees Fahrenheit, and additional compatible Ebola Virus Disease symptoms Patient denies exposure to infectious person. Patient denies travel to an Ebola-affected area in the 21 days before illness onset. No symptoms or risks identified at this time. Initial Sepsis Screen: Does the patient meet any 2 criteria? No. Patient's initial sepsis screen is negative. Does the patient have a suspected source of infection? No. Patient's initial sepsis screen is negative. Risk Assessment: Do you want to hurt yourself or someone else? Patient reports no desire to harm self or others. Onset of symptoms was June 20, 2023. 00:08 Method Of Arrival: Ambulatory vc1 00:08 Acuity: TONO 3 vc1 Triage Assessment: 00:11 General: Appears in no apparent distress. uncomfortable, Behavior is calm, cooperative, vc1 appropriate for age. Pain: Complains of pain in low back area and groin Pain does not radiate. Pain currently is 8 out of 10 on a pain scale. EENT: No deficits noted. No signs and/or symptoms were reported regarding the EENT system. Neuro: Level of Consciousness is awake, alert, obeys commands, Oriented to person, place, time, situation, Appropriate for age. Cardiovascular: No deficits noted. Respiratory: Airway is patent Respiratory effort is even, unlabored, Respiratory pattern is regular, symmetrical. GI: No deficits noted. No signs and/or symptoms were reported involving the gastrointestinal system. : Reports pain in suprapubic area in lower back. Derm: No deficits noted. No signs and/or symptoms reported regarding the dermatologic system. Musculoskeletal: Circulation, motion, and sensation intact. Range of motion: intact in all extremities. Historical: - Allergies: 00:10 No Known Allergies; vc1 - PMHx: 00:10 Back pain; Diabetes - IDDM; Hypercholesterolemia; Hypertension; vc1 - PSHx: 00:10 None; vc1 - Immunization history:: Client reports receiving the 1st dose of the Covid vaccine. - Social history:: Smoking status: Patient denies any tobacco usage or history of. Screenin:23 [facility] ED Fall Risk Assessment (Adult) History of falling in the last 3 months, kd3 including since admission No falls in past 3 months (0 pts) Confusion or Disorientation No (0 pts) Intoxicated or Sedated No (0 pts) Impaired Gait No (0 pts) Mobility Assist Device Used No (0 pt) Altered Elimination No (0 pt) Score/Fall Risk Level 0 - 2 = Low Risk Maintained a safe environment. Abuse screen: Denies threats or abuse. Denies injuries from another. 02:39 Tuberculosis screening: No symptoms or risk factors identified. kd3 04:43 Nutritional screening: No deficits noted. kd3 Assessment: 02:01 General: Appears in no apparent distress. Behavior is calm, cooperative. Neuro: Level kd3 of Consciousness is awake, alert, obeys commands, Oriented to person, place, time, situation. Respiratory: Airway is patent Trachea midline Respiratory effort is even, unlabored, Respiratory pattern is regular, symmetrical. Vital Signs: 00:08 BP 173 / 70; Pulse 68; Resp 17; Temp 98.3; Pulse Ox 99% ; Weight 66.22 kg; Height 5 ft. vc1 1 in. ; Pain 8/10; 01:22 BP 162 / 61; Pulse 57; Resp 19; Pulse Ox 98% on R/A; kd3 02:01 BP 133 / 56; Pulse 61; Resp 19; Pulse Ox 99% on R/A; kd3 02:39 BP 113 / 50; Pulse 61; Resp 18; Pulse Ox 97% ; kd3 04:43 BP 119 / 62; Pulse 62; Resp 19; Pulse Ox 99% on R/A; kd3 00:08 Body Mass Index 27.59 (66.22 kg, 154.94 cm) vc1 00:08 Pain Scale: Adult vc1 ED Course: 06/20 23:06 Patient arrived in ED. ag3 23:06 Rayshawn Cheney PA is PHCP. cp 23:06 Yaakov Magdaleno MD is Attending Physician. cp 06/21 00:10 Triage completed. vc1 00:11 Arm band placed on right wrist. vc1 01:08 Danna Andrew, RN is Primary Nurse. kd3 01:23 Urinalysis w/ reflexes Sent. kd3 01:23 Lipase Sent. kd3 01:23 CMP Sent. kd3 01:23 CBC with Diff Sent. kd3 01:23 Inserted saline lock: 20 gauge in right antecubital area, using aseptic technique. kd3 Blood collected. 02:01 No provider procedures requiring assistance completed. kd3 02:02 Patient has correct armband on for positive identification. Provided Education on: . kd3 02:31 CT Abd/Pelvis - IV Contrast Only In Process Unspecified. EDMS 04:18 Silvano Hong MD is Referral Physician. rt 04:43 IV discontinued, intact, bleeding controlled, No redness/swelling at site. Pressure kd3 dressing applied. Administered Medications: 02:00 Drug: morphine IVP or IV 4 mg Route: IVP; Infused Over: 4 mins; Site: right antecubital;kd3 02:01 Drug: NS 0.9% IV 1000 ml Route: IV; Rate: 500 ml/hr; Site: right antecubital; kd3 04:44 Follow up: IV Status: Completed infusion; IV Intake: 1000ml kd3 04:43 Drug: Rocephin IV 1 grams Route: IV; Rate: calculated rate; Site: right antecubital; kd3 04:44 Follow up: IV Status: Completed infusion; IV Intake: 10ml kd3 Medication: 02:02 VIS not applicable for this client. kd3 Intake: 04:44 IV: 10ml; Total: 10ml. kd3 04:44 IV: 1000ml; Total: 1010ml. kd3 Outcome: 04:18 Discharge ordered by . rt 04:43 Discharged to home ambulatory. kd3 04:43 Condition: stable 04:43 Discharge instructions given to patient, Instructed on discharge instructions, follow up and referral plans. medication usage, Demonstrated understanding of instructions, follow-up care, medications, Prescriptions given X 1. 04:44 Patient left the ED. kd3 Signatures: Dispatcher [employer] EDMS Rayshawn Cheney PA PA cp Gomez, Alice ag3 Danna Andrew RN RN kd3 Ruth Ann Aguirre RN RN vc1 Yaakov Magdaleno MD MD rt
--- NOTE | 2023-06-21 04:19 | EDPHYS ---
Physician Documentation [facility] Name: Feli Lee Age: 68 yrs Sex: Female : 1955 Arrival Date: 06/20/2023 Time: 22:59 Bed 5 Private MD: ED Physician Yaakov Magdaleno HPI: 06/20 23:33 This 68 yrs old Female presents to ER via Unassigned with complaints of cp Vaginal Pain, Back Pain. 23:33 The patient presents with pelvic pain, low and mid back pain. cp 23:33 Patient is a 68-year-old female with past medical history significant for cp insulin-dependent diabetes, hypertension, hyperlipidemia who presents to the emergency department with complaints of back pain that started today. Patient patient complains of increasing pelvic and suprapubic pain today and reports a history of what she describes as uterine prolapse. Patient reports she saw Dr. Portillo yesterday who is recommending surgery for uterine lift versus total hysterectomy. Patient denies fever. Denies vaginal bleeding and or urinary symptoms. Historical: - Allergies: 06/21 00:10 No Known Allergies; vc1 - PMHx: 00:10 Back pain; Diabetes - IDDM; Hypercholesterolemia; Hypertension; vc1 - PSHx: 00:10 None; vc1 - Immunization history:: Client reports receiving the 1st dose of the Covid vaccine. - Social history:: Smoking status: Patient denies any tobacco usage or history of. ROS: 06/20 23:35 Constitutional: Negative for body aches, chills, fever, poor PO intake. cp 23:35 Eyes: Negative for injury, pain, redness, and discharge. cp 23:35 ENT: Negative for drainage from ear(s), ear pain, sore throat, difficulty swallowing, difficulty handling secretions. 23:35 Cardiovascular: Negative for chest pain, palpitations. 23:35 Respiratory: Negative for cough, shortness of breath, wheezing. 23:35 Abdomen/GI: Negative for abdominal pain, vomiting, diarrhea, constipation. 23:35 Back: Positive for pain at rest, pain with movement. 23:35 : Positive for pelvic pain, Negative for urinary symptoms, vaginal bleeding, vaginal discharge. 23:35 Neuro: Negative for altered mental status, headache, weakness. 23:35 All other systems are negative. Exam: 23:40 Constitutional: The patient appears in no acute distress, alert, awake, cp non-diaphoretic, non-toxic, well developed, well nourished, uncomfortable. 23:40 Head/Face: Normocephalic, atraumatic. cp 23:40 Eyes: Periorbital structures: appear normal, Conjunctiva: normal, no exudate, no injection, Sclera: no appreciated abnormality, Lids and lashes: appear normal, bilaterally. 23:40 ENT: External ear(s): are unremarkable, Nose: is normal, Mouth: Lips: moist, Oral mucosa: pink and intact, moist, Posterior pharynx: is normal, airway is patent, no erythema, no exudate. 23:40 Chest/axilla: Inspection: normal. 23:40 Cardiovascular: Rate: normal, Rhythm: regular. 23:40 Respiratory: the patient does not display signs of respiratory distress, Respirations: normal, no use of accessory muscles, no retractions, labored breathing, is not present. 23:40 Abdomen/GI: Inspection: abdomen appears normal, Bowel sounds: active, all quadrants, Palpation: soft, in all quadrants, mild abdominal tenderness, in the right lower quadrant and left lower quadrant. 23:40 Back: pain, that is moderate, of the low back area and mid back area, ROM is painful, with all movement. 23:40 Neuro: Orientation: to person, place \T\ time. Mentation: is normal, Motor: moves all fours, strength is normal, Gait: is steady. Vital Signs: 06/21 00:08 BP 173 / 70; Pulse 68; Resp 17; Temp 98.3; Pulse Ox 99% ; Weight 66.22 kg; Height 5 ft. vc1 1 in. ; Pain 8/10; 01:22 BP 162 / 61; Pulse 57; Resp 19; Pulse Ox 98% on R/A; kd3 02:01 BP 133 / 56; Pulse 61; Resp 19; Pulse Ox 99% on R/A; kd3 02:39 BP 113 / 50; Pulse 61; Resp 18; Pulse Ox 97% ; kd3 04:43 BP 119 / 62; Pulse 62; Resp 19; Pulse Ox 99% on R/A; kd3 00:08 Body Mass Index 27.59 (66.22 kg, 154.94 cm) vc1 00:08 Pain Scale: Adult vc1 MDM: 06/20 23:49 Patient medically screened. 06/21 04:43 Differential diagnosis: Uterine prolapse, UTI, bowel obstruction. Data reviewed: vital rt signs, nurses notes. Independent interpretation of the following test(s) in the Emergency Department CT Scan: My interpretation is No bowel obstruction some interpretation of the CT scan images. Counseling: I had a detailed discussion with the patient and/or guardian regarding: the historical points, exam findings, and any diagnostic results supporting the discharge/admit diagnosis, lab results, radiology results, the need for outpatient follow up, Discussed with patient the findings of the submucosal mass in the stomach as well as the lytic lesions, she instructed to follow-up for further cancer evaluation.. 06/20 23:34 Order name: CBC with Diff; Complete Time: 03:12 06/21 03:12 Interpretation: Normal except: WBC 12.50; HGB 10.7; HCT 33.8; MCH 25.7; MCHC 31.8; RDW cp 19.1; MPV 6.0; NEUT A 8.4. 06/20 23:34 Order name: CMP; Complete Time: 03:12 06/21 03:12 Interpretation: Normal except: GLUC 122; BUN 19; ALK 149; AST 9. 06/20 23:34 Order name: Lipase; Complete Time: 03:12 cp 06/20 23:34 Order name: Urinalysis w/ reflexes; Complete Time: 03:12 06/21 03:13 Interpretation: Normal except: [facility] Turbid; UBLD 2+; UPROT 1+; UNIT 1+; UESTR 500; UWBC cp >50; URBC >50; UBACT 20-50; UWBC Clump Many. 06/21 01:40 Order name: Urine Culture [facility] 06/21 01:11 Order name: CT Abd/Pelvis - IV Contrast Only 06/20 23:34 Order name: IV Saline Lock; Complete Time: 01:23 cp 06/20 23:34 Order name: Labs collected and sent; Complete Time: 01:23 cp Administered Medications: 02:00 Drug: morphine IVP or IV 4 mg Route: IVP; Infused Over: 4 mins; Site: right antecubital;kd3 02:01 Drug: NS 0.9% IV 1000 ml Route: IV; Rate: 500 ml/hr; Site: right antecubital; kd3 04:44 Follow up: IV Status: Completed infusion; IV Intake: 1000ml kd3 04:43 Drug: Rocephin IV 1 grams Route: IV; Rate: calculated rate; Site: right antecubital; kd3 04:44 Follow up: IV Status: Completed infusion; IV Intake: 10ml kd3 Disposition: 04:43 Co-signature as Attending Physician, Yaakov Magdaleno MD PA/ANALOG DEVICE DESIGNER's history reviewed, rt patient interviewed, and examined. HPI: Patient with known uterine prolapse, developed back pain. My personal exam of patient reveals: No acute distress. Disposition Summary: 06/21/23 04:18 Discharge Ordered Location: Home rt Problem: new rt Symptoms: are unchanged rt Condition: Stable rt Diagnosis - Urinary tract infection rt - Gastric mass rt Followup: rt - With: Silvano Hong MD - When: 5 - 6 days - Reason: Discharge Instructions: - Discharge Summary Sheet rt - Urinary Tract Infection, Adult rt Forms: - Medication Reconciliation Form rt - Thank You Letter rt - Antibiotic Education rt - Prescription Opioid Use rt - Patient Portal Instructions rt Prescriptions: - cefpodoxime 100 mg Oral Tablet - take 1 tablet by ORAL route every 12 hours for 10 days take with food; 20 rt tablet; Refills: 0, Product Selection Permitted Signatures: Dispatcher [employer] EDMS Rayshawn Cheney PA PA cp Doucette, Kyli RN RN kd3 Ruth Ann Aguirre RN RN vc1 Yaakov Magdaleno MD MD rt
[2023-06-21] MEDS ORDERED: CEFTRIAXONE 1000 MG/VIAL ONE (04:43)
[2023-06-21 04:48] VITALS: TEMP 98.3
[2023-06-21 04:55] VITALS: BP 119/62; O2SAT 99
--- NOTE | 2023-06-22 16:35 | RAD REPORT ---
EXAM DESCRIPTION: CT Abdomen and Pelvis With Intravenous Contrast CLINICAL HISTORY: Lower abd, groin, and back pain TECHNIQUE: Axial computed tomography images of the abdomen and pelvis with intravenous contrast. S agittal and coronal reformatted images were created and reviewed. This CT exam was performed using one or more of the following dose reduction techniques: automated exposure control, adjustment of t he mA and/or kV according to patient size, and/or use of iterative reconstruction technique. COMPARISON: CT Abdomen Pelvis dated 11/21/2021 FINDINGS: Lung bases: Bibasilar subsegmental atelectasis/pleural parenchymal scar. ABDOMEN: Liver: Unremarkable. No mass. Gallbladder and bile ducts: Gallstones within a distended gallbladder. No gallbladder wall thicke jorge or pericholecystic fluid. No ductal dilation. Pancreas: Unremarkable. No mass. No ductal dilation. Spleen: Unremarkable. No splenomegaly. Adrenals: Unremarkable. No mass. Kidneys and ureters: Partially duplicated right renal collecting system. Subcentimeter cortical h ypodensity at the lower pole of the left kidney which is too small to characterize. No follow-up im aging is necessary. No hydronephrosis. Stomach and bowel: 2.8 x 2.2 x 2.4 cm hyperdense masslike area in the lumen of the distal stomach ( series 201 image 23, series 203 image 75 and series 202 image 29). Duodenal diverticula. Moderate stool. No bowel obstruction. No appreciable mucosal thickening. PELVIS: Appendix: Normal caliber appendix. No findings to suggest acute appendicitis. Bladder: Moderate circumferential urinary bladder wall thickening. Reproductive: Moderate pelvic floor prolapse. The uterus extends 5 cm below the pubococcygeal rosaura e. No adnexal mass. ABDOMEN and PELVIS: Intraperitoneal space: Unremarkable. No free air. No significant fluid collection. Bones/joints: Multilevel spondylosis. No acute fracture. Innumerable small lytic osseous lesion s again demonstrated. These do not appear significantly changed from the prior. No dislocation. Soft tissues: Unremarkable. Vasculature: Mild atherosclerotic disease. No abdominal aortic aneurysm. Lymph nodes: Unremarkable. No enlarged lymph nodes. IMPRESSION: 1. Findings suggestive of a 2.8 cm submucosal gastric mass. Direct visualization may be necessary for further evaluation. 2. Moderate stool. No bowel obstruction. 3. Moderate circumferential urinary bladder wall thickening. Please correlate clinically for cyst itis. 4. Moderate pelvic floor prolapse. 5. Innumerable lytic osseous lesions without significant interval change. Differential considerat ions include multiple myeloma and metastatic disease. 6. Other findings as above. Electronically signed by: Levy Dougherty MD 06/21/2023 3:46 AM CDT Due to temporary technical issues with the PACS/Fluency reporting system, reports are being signed by the in house radiologists without review as a courtesy to insure prompt reporting. The interpreting radiologist is fully responsible for the content of the report.
== END 2023-06-21 04:44 | disposition home or self-care (01) ==
LOC: ER 22:59
DX: N39.0 Urinary tract infection, site not specified (principal); K31.9 Disease of stomach and duodenum, unspecified; I10 Essential (primary) hypertension; E11.9 Type 2 diabetes mellitus without complications; Z79.4 Long term (current) use of insulin
CPT/HCPCS: 96361; 87088; 85025; 81001; 87086; 36415; 83690; 80053; 74177; 96375; 96374; 99284; Q9967; J7030; J0696; 87077; 87186

== ENCOUNTER 2023-07-25 20:01 | Emergency (ER) | payer OTHER ==
--- OUTSIDE RECORDS SUMMARY | 2023-07-25 20:04 | XMS REPORT | Continuity of Care Document ---
:1955 Author Organization [facility] t Address [address] [facility] [address] [place] [id number] Care Team Providers Name Role Phone Sofya SAXENA, Scott Donaldson Primary Care Physician [email or web address]_S Attending Clinician Unavailable Maribel Scott RN Attending Clinician Unavailable Rodri DUGGAN, Delmy Attending Clinician Unavailable Only, Ang Db Test Attending Clinician Unavailable Clau Bettencourt Attending Clinician CLAU KAY Attending Clinician Unavailable [email or web address]_S Admitting Clinician Unavailable Payers Payer Name Policy Type Policy Number Effective Date Expiration Date Shun wu [facility] (MEDICARE [id number] 2023 REPLACEMENT/ADVANT 00:00:00 AGE - PPO) MEDICARE B-[place]: [id number] [employer] Problems Condition Condition Condition Status Onset Resolution Last Treating Co mments Source Name Details Category Date Date Treatment Clinician Date No known No known Disease Unive rs active active ity of problems problems [facility] [place] Allergies, Adverse Reactions, Alerts Allergy Allergy Status Severity Reaction(s) Onset Inactive Treating Comm ents Source Name Type Date Date Clinician NO KNOWN Drug Active Univers ALLERGIE Class ity of S [facility] Social History Social Habit Start Date Stop Date Quantity Comments Source Sex Assigned At [birth year] [facility] [place] [facility] Medical Branch Smoking Status Start Date Stop Date Source Unknown if ever smoked [facility] [place] [facility] Medications Ordered Filled Start Stop Current Ordering Indication Dosage Frequency Signature Comments Components Source Medication Medication Date Date Medication? Clinician (SIG) Name Name phenazopyri 2018-11 Yes [id number] 200mg Take 1 Univers dine 200 mg 2-13 tablet by ity of tablet 00:00: mouth 3 [place] 00 ([facility]) Medical times Branch daily. phenazopyri 2018-11 Yes [id number] 200mg Take 1 Univers dine 200 mg 2-13 tablet by ity of tablet 00:00: mouth 3 [place] 00 (three) Medical times Branch daily. phenazopyri 2018-11 Yes [id number] 200mg Take 1 Univers dine 200 mg 2-13 tablet by ity of tablet 00:00: mouth 3 [place] 00 (three) Medical times Branch daily. phenazopyri 2018-11 Yes [id number] 200mg Take 1 Univers dine 200 mg 2-13 tablet by ity of tablet 00:00: mouth 3 [place] 00 ([facility]) Medical times Branch daily. phenazopyri 2018-11 Yes [id number] 200mg Take 1 Univers dine 200 mg 2-13 tablet by ity of tablet 00:00: mouth 3 [place] 00 ([facility]) Medical times Branch daily. bisacodyl 2017-11 Yes [...] daily. [place] mg tablet 04 [facility] INSULIN NPH Yes 20U inject 20 [...] daily. [place] mg tablet 04 [facility] INSULIN NPH 0 Yes 20U inject [...] daily. [place] mg tablet 04 [facility] INSULIN NPH 2015-0 Yes 20U inject [...] Date/Time Type Type Clinicians Facility Department ID 2023-07-08 2023-07-08 Outpatient GC_GCBZW_Ka PRIV PRIV [id number] [facility] 00:00:00 00:00:00 marisol_S [id number] Medic al 2023-07-08 2023-07-08 Outpatient GC_GCBZW_Ka PRIV PRIV [id number] [facility] 00:00:00 00:00:00 leandroa_S [id number] Medic al 2023-07-08 2023-07-08 Outpatient GC_GCBZW_Ka PRIV PRIV [id number] [facility] 00:00:00 00:00:00 diyala_S [id number] Medic al 2023-06-23 2023-06-23 Outpatient GC_GCBZW_Ka PRIV PRIV [id number] [facility] 00:00:00 00:00:00 diyala_S [id number] Medic al 2023-06-18 2023-06-18 Outpatient GC_GCBZW_Ka PRIV PRIV [id number] [facility] 00:00:00 00:00:00 diyala_S [id number] Medic al 2023-06-18 2023-06-18 Outpatient GC_GCBZW_Ka PRIV PRIV [id number] [facility] 00:00:00 00:00:00 diyala_S [id number] Medic al 2023-06-11 2023-06-11 Outpatient GC_GCBZW_Ka PRIV PRIV [id number] [facility] 00:00:00 00:00:00 diyala_S [id number] Medic al 2021-08-01 2021-08-01 Letter JACKSON Scott [id number] Univers 00:00:00 00:00:00 (Out) Maribel CADET [id number] it y of [facility] [id number] Shane as [phone] [address] 2021-08-01 2021-08-01 Telephone JACSKON Mace [id number] Univers 00:00:00 00:00:00 Delmy CADET [id number] it y of [facility] [id number] Shane as [phone] [address] 2021-07-30 2021-07-30 Laboratory Only, Ang Db Test [facility] [id number] Univers 19:20:45 19:35:45 Only [facility] [id number] ity of [place] [id number] Shane as [place] [phone] [place] [id number] [facility] 2021-07-30 2021-07-30 Outpatient Mendoza KAY [facility] [id number] Univers 19:20:00 19:20:00 CLAU vasquez [facility] Results This patient has no known results.
--- NOTE | 2023-07-25 22:25 | EDPHYS ---
Physician Documentation [facility] Name: Feli Lee Age: 68 yrs Sex: Female : 1955 Arrival Date: 07/25/2023 Time: 20: Bed Treatment Private MD: ED Physician Thaddeus Dunbar HPI: 07/25 22:28 This 68 yrs old Female presents to ER via Ambulatory with complaints of Cough, snw Runny Nose, Sore Throat. 22:28 The patient or guardian reports cough, described as moderate, flu symptoms, myalgias, snw no appetite. Onset: The symptoms/episode began/occurred acutely, 4 day(s) ago, and became persistent. Associated signs and symptoms: Pertinent positives: rhinorrhea, sore throat. It is unknown whether or not the patient has had similar symptoms in the past. The patient has not recently seen a physician. grandchildren with similar s/s. Historical: - Allergies: 20:46 No Known Allergies; vc1 - PMHx: 20:46 Diabetes - IDDM; Hypercholesterolemia; Hypertension; Back pain; vc1 - PSHx: 20:46 None; vc1 - Immunization history:: Client reports receiving the 1st dose of the Covid vaccine, [employer]. - Social history:: Smoking status: Patient denies any tobacco usage or history of. ROS: 22:27 Eyes: Negative for injury, pain, redness, and discharge. snw 22:27 Neck: Negative for injury, pain, and swelling, Cardiovascular: Negative for chest pain, palpitations, and edema. 22:27 Abdomen/GI: Negative for abdominal pain, nausea, vomiting, diarrhea, and constipation, Back: Negative for injury and pain, : Negative for injury, bleeding, discharge, and swelling, MS/Extremity: Negative for injury and deformity, Skin: Negative for injury, rash, and discoloration, Neuro: Negative for headache, weakness, numbness, tingling, and seizure, Psych: Negative for depression, anxiety, suicide ideation, homicidal ideation, and hallucinations. 22:27 Constitutional: Positive for body aches, fatigue, malaise. 22:27 ENT: Positive for sinus congestion, sore throat. 22:27 Respiratory: Positive for cough, with no reported sputum. Exam: 21:46 Constitutional: This is a well developed, well nourished patient who is awake, alert, snw and in no acute distress. Head/Face: Normocephalic, atraumatic. Eyes: Pupils equal round and reactive to light, extra-ocular motions intact. Lids and lashes normal. Conjunctiva and sclera are non-icteric and not injected. Cornea within normal limits. Periorbital areas with no swelling, redness, or edema. Neck: Trachea midline, no thyromegaly or masses palpated, and no cervical lymphadenopathy. Supple, full range of motion without nuchal rigidity, or vertebral point tenderness. No Meningismus. Chest/axilla: Normal chest wall appearance and motion. Nontender with no deformity. No lesions are appreciated. Cardiovascular: Regular rate and rhythm with a normal S1 and S2. No gallops, murmurs, or rubs. Normal PMI, no JVD. No pulse deficits. Respiratory: Lungs have equal breath sounds bilaterally, clear to auscultation and percussion. No rales, rhonchi or wheezes noted. No increased work of breathing, no retractions or nasal flaring. Abdomen/GI: Soft, non-tender, with normal bowel sounds. No distension or tympany. No guarding or rebound. No evidence of tenderness throughout. Back: No spinal tenderness. No costovertebral tenderness. Full range of motion. Skin: Warm, dry with normal turgor. Normal color with no rashes, no lesions, and no evidence of cellulitis. MS/ Extremity: Pulses equal, no cyanosis. Neurovascular intact. Full, normal range of motion. Neuro: Awake and alert, GCS 15, oriented to person, place, time, and situation. Cranial nerves II-XII grossly intact. Motor strength 5/5 in all extremities. Sensory grossly intact. Cerebellar exam normal. Normal gait. Psych: Awake, alert, with orientation to person, place and time. Behavior, mood, and affect are within normal limits. 21:46 ENT: External ear(s): are unremarkable, Ear canal(s): are normal, TM's: erythema, that is moderate, on the right, Nose: is normal, Mouth: is normal, Posterior pharynx: erythema, that is mild, Dental exam: upper plate dentures. Vital Signs: 20:47 Weight 65.77 kg; Height 5 ft. 1 in. ; Pain 9/10; vc1 20:48 BP 178 / 77; Pulse 68; Resp 20; Temp 99; Pulse Ox 98% ; vc1 21:30 BP 165 / 65; Pulse 65; Resp 16; Pulse Ox 100% on R/A; me1 22:48 BP 166 / 64; Pulse 71; Resp 17; Pulse Ox 100% on R/A; me1 20:47 Body Mass Index 27.40 (65.77 kg, 154.94 cm) vc1 20:47 Pain Scale: Adult vc1 MDM: 21:10 Patient medically screened. snw 22:26 Differential Diagnosis: Bronchitis Influenza Upper Respiratory Infection Sinusitis snw Pharyngitis Otitis Media Viral Syndrome. Data reviewed: vital signs, nurses notes, lab test result(s). I considered the following discharge prescriptions or medication management in the emergency department Medications were administered in the Emergency Department. See MAR. Counseling: I had a detailed discussion with the patient and/or guardian regarding the historical points, exam findings, and any diagnostic results supporting the discharge/admit diagnosis, the presence of at least one elevated blood pressure reading (>120/80) during this emergency department visit, lab results, the need for outpatient follow up, for definitive care, to return to the emergency department if symptoms worsen or persist or if there are any questions or concerns that arise at home. Special discussion: Based on the history and exam findings, there is no indication for further emergent testing or inpatient evaluation. I discussed with the patient/guardian the need to see the primary care provider for further evaluation of the symptoms. 07/25 20:52 Order name: SARS-COV-2 RT PCR; Complete Time: 22:24 [facility] 07/25 20:52 Order name: Flu; Complete Time: 22:04 [facility] 07/25 20:52 Order name: Strep [facility] 07/25 22:13 Order name: Throat Culture EDMS Administered Medications: 22:47 Drug: Amoxicillin-Clavulanate PO 875 mg Route: PO; me1 22:50 Follow up: Response: No adverse reaction me1 22:47 Drug: Famotidine PO 20 mg Route: PO; me1 22:49 Follow up: Response: No adverse reaction me1 22:47 Drug: ZyrTEC - Cetirizine PO 10 mg Route: PO; me1 22:49 Follow up: Response: No adverse reaction me1 Disposition Summary: 07/25/23 22:25 Discharge Ordered Location: Home snw Condition: Stable snw Diagnosis - Acute serous otitis media, bilateral snw Followup: snw - With: Emergency Department - When: As needed - Reason: Worsening of condition Followup: snw - With: Private Physician - When: 1 week - Reason: Recheck today's complaints, Continuance of care, Re-evaluation by your physician Discharge Instructions: - Discharge Summary Sheet snw - Otitis Media, Adult snw - Upper Respiratory Infection, Adult snw Forms: - Medication Reconciliation Form snw - Thank You Letter snw - Antibiotic Education snw - Prescription Opioid Use snw - Patient Portal Instructions snw - Leadership Thank You Letter snw Prescriptions: - Augmentin 875-125 mg Oral Tablet - take 1 tablet by ORAL route every 12 hours for 10 days; 20 tablet; Refills: 0, snw Product Selection Permitted Addendum: 07/28/2023 07:03 Co-signature as Attending Physician, Thaddeus Dunbar MD I reviewed the patient's care r n provided by the Advanced Practice Provider and agree with the diagnosis and treatment plan. Signatures: Dispatcher [employer] Henrietta Delgado, [place]AN[place] MACHINE OPERATOR-C BAN[place] MACHINE OPERATOR-Csnw Thaddeus Dunbar MD MD rn Calcote, Vanessa RN RN vc1 Courtney Herrera, RN RN me1
--- NOTE | 2023-07-25 22:25 | ER ---
Nurse's Notes [facility] Name: Feli Lee Age: 68 yrs Sex: Female : 1955 Arrival Date: 07/25/2023 Time: 20: Bed Treatment Private MD: Diagnosis: Acute serous otitis media, bilateral Presentation: 07/25 20:45 Chief complaint: Patient states: I'm coughing I have a runny nose and my throat hurts. vc1 Coronavirus screen: Vaccine status: Patient reports receiving the 1st dose of the Covid vaccine. Client denies travel out of the [place] in the last 14 days. cough unrelated to allergies, runny nose, sore throat, Client presents with at least one sign or symptom that may indicate coronavirus-19. Ebola Screen: Patient negative for fever greater than or equal to 101.5 degrees Fahrenheit, and additional compatible Ebola Virus Disease symptoms Patient denies exposure to infectious person. Patient denies travel to an Ebola-affected area in the 21 days before illness onset. No symptoms or risks identified at this time. Risk Assessment: Do you want to hurt yourself or someone else? Patient reports no desire to harm self or others. Onset of symptoms was July 24, 2023. 20:45 Method Of Arrival: Ambulatory vc1 20:45 Acuity: TONO 4 vc1 20:48 Initial Sepsis Screen: Does the patient meet any 2 criteria? No. Patient's initial vc1 sepsis screen is negative. Does the patient have a suspected source of infection? No. Patient's initial sepsis screen is negative. Triage Assessment: 20:47 General: Appears in no apparent distress. ill, Behavior is calm, cooperative, vc1 appropriate for age. Pain: Complains of pain in throat and chest with cough Pain does not radiate. Pain currently is 9 out of 10 on a pain scale. Quality of pain is described as sharp, Aggravated by coughing. EENT: Reports pain when swallowing. Neuro: No deficits noted. Cardiovascular: No deficits noted. Respiratory: Airway is patent Respiratory effort is even, unlabored, Respiratory pattern is regular, symmetrical. GI: No deficits noted. No signs and/or symptoms were reported involving the gastrointestinal system. : No deficits noted. No signs and/or symptoms were reported regarding the genitourinary system. Derm: No deficits noted. No signs and/or symptoms reported regarding the dermatologic system. Musculoskeletal: No deficits noted. No signs and/or symptoms reported regarding the musculoskeletal system. Historical: - Allergies: 20:46 No Known Allergies; vc1 - PMHx: 20:46 Diabetes - IDDM; Hypercholesterolemia; Hypertension; Back pain; vc1 - PSHx: 20:46 None; vc1 - Immunization history:: Client reports receiving the 1st dose of the Covid vaccine, Pfizer. - Social history:: Smoking status: Patient denies any tobacco usage or history of. Screenin:30 [facility] ED Fall Risk Assessment (Adult) History of falling in the last 3 months, me1 including since admission No falls in past 3 months (0 pts) Confusion or Disorientation No (0 pts) Intoxicated or Sedated No (0 pts) Impaired Gait No (0 pts) Mobility Assist Device Used No (0 pt) Altered Elimination No (0 pt) Score/Fall Risk Level 0 - 2 = Low Risk. Abuse screen: Denies threats or abuse. Nutritional screening: No deficits noted. Tuberculosis screening: No symptoms or risk factors identified. Assessment: 21:30 General: Appears uncomfortable, well groomed, well developed, well nourished, Behavior me1 is calm, cooperative, appropriate for age, Reports chills for fever for feeling ill for fatigue for 1-2 days, cough, runny nose, congestion, body aches, fever. Pain: Complains of pain in throat Pain does not radiate. Pain currently is 6 out of 10 on a pain scale. Quality of pain is described as tender, Pain began 2-3 days ago. Is continuous. Neuro: Level of Consciousness is awake, alert, obeys commands, Oriented to person, place, time, situation, Appropriate for age. Cardiovascular: Capillary refill < 3 seconds Patient's skin is warm and dry. Respiratory: Airway is patent Respiratory effort is even, unlabored, Respiratory pattern is regular, symmetrical, Breath sounds are clear bilaterally. GI: Patient currently denies constipation, diarrhea, nausea. EENT: Reports pain in throat. 21:37 EENT: Throat is pink is reddened. me1 Vital Signs: 20:47 Weight 65.77 kg; Height 5 ft. 1 in. ; Pain 9/10; vc1 20:48 BP 178 / 77; Pulse 68; Resp 20; Temp 99; Pulse Ox 98% ; vc1 21:30 BP 165 / 65; Pulse 65; Resp 16; Pulse Ox 100% on R/A; me1 22:48 BP 166 / 64; Pulse 71; Resp 17; Pulse Ox 100% on R/A; me1 20:47 Body Mass Index 27.40 (65.77 kg, 154.94 cm) vc1 20:47 Pain Scale: Adult vc1 ED Course: 20:04 Patient arrived in ED. mr 20:13 Henrietta Espinal [facility]-C [facility] snw 20:13 Thaddeus Dunbar MD is Attending Physician. snw 20:46 Triage completed. vc1 20:46 Arm band placed on left wrist. vc1 21:17 Courtney Herrera, RN is Primary Nurse. me1 21:30 Patient has correct armband on for positive identification. Bed in low position. Call me1 light in reach. Side rails up X 1. Provided Education on: POC. Verbalized understanding. . 21:30 Strep Sent. me1 21:30 Flu Sent. me1 21:30 SARS-COV-2 RT PCR Sent. me1 21:30 No provider procedures requiring assistance completed. Patient did not have IV access me1 during this emergency room visit. Administered Medications: 22:47 Drug: Amoxicillin-Clavulanate PO 875 mg Route: PO; me1 22:50 Follow up: Response: No adverse reaction me1 22:47 Drug: Famotidine PO 20 mg Route: PO; me1 22:49 Follow up: Response: No adverse reaction me1 22:47 Drug: ZyrTEC - Cetirizine PO 10 mg Route: PO; me1 22:49 Follow up: Response: No adverse reaction me1 Medication: 21:30 VIS not applicable for this client. me1 Outcome: 22:25 Discharge ordered by . snw 22:52 Discharged to home ambulatory. me1 22:52 Condition: stable 22:52 Discharge instructions given to patient, Instructed on discharge instructions, follow up and referral plans. medication usage, Demonstrated understanding of instructions, follow-up care, medications, Prescriptions given X 1. 22:53 Patient left the ED. me1 Signatures: Henrietta Espinal FNP-C WEBSPHERE ARCHITECT-Yadira EspinalNery mr Ruth Ann Aguirre RN RN vc1 Courtney Herrera, RN RN me1
[2023-07-25] MEDS ORDERED: CETIRIZINE HCL 5 MG TABLET ONE (22:54)
[2023-07-25] MEDS ORDERED: FAMOTIDINE 20 MG TAB ONE (22:55)
[2023-07-25] MEDS ORDERED: AMOX/K CLAV 875 MG TAB ONE (22:55)
[2023-07-25 23:05] VITALS: TEMP 99
[2023-07-25 23:06] VITALS: O2SAT 100
[2023-07-25 23:08] VITALS: BP 166/64
== END 2023-07-25 22:53 | disposition home or self-care (01) ==
LOC: ER 20:01
DX: H65.03 Acute serous otitis media, bilateral (principal); E11.9 Type 2 diabetes mellitus without complications; I10 Essential (primary) hypertension; Z20.822 Contact with and (suspected) exposure to COVID-19
CPT/HCPCS: 87070; 87081; 87635; 87804; 99284

== ENCOUNTER 2023-11-01 17:55 | Emergency (ER) | payer OTHER ==
[2023-11-01 19:20] LABS: SARS-CoV-2 Antigen Rapid Res Negative (Negative)
[2023-11-01 22:46] LABS: Absolute Lymphocytes (CBC) 1.4 K/uL (0.7-4.9); Hematocrit 33.3 % (36.0-45.0); Lymphocytes % 15.5 % (15.3-44.8); MCV 82.1 fL (80-100); MPV 6.9 fL (7.6-11.3); Platelets 261 thou/uL (152-406); RBC Red Blood Cell Count 4.05 M/uL (3.86-4.86)
[2023-11-01 22:50] LABS: Specific Gravity 1.011 (1.005-1.030); Urine Bacteria None Seen /HPF (<20); Urine Bilirubin NEGATIVE (Negative); Urine Blood Negative (Negative); Urine Clarity Turbid (Clear); Urine Color Light-Yellow (Yellow); Urine Crystals Unidentified Few /HPF (None Seen); Urine Glucose NEGATIVE (Negative); Urine Protein NEGATIVE (Negative); Urine RBC <5 /HPF (None Seen); Urine Urobilinogen Normal (Normal)
--- NOTE | 2023-11-01 22:55 | RAD REPORT ---
EXAM DESCRIPTION: RADChest Single View11/01/2023 10:17 pm CLINICAL HISTORY: COUGH COMPARISON: Chest Single View dated 06/28/2022; Chest Single View dated 06/14/2022; Chest Single View d ated 08/07/2021; Chest Single View dated 07/24/2021 TECHNIQUE: Portable AP view of the chest. FINDINGS: The lungs are clear. Decreased inspiratory effort limits evaluation. No pneumothorax or ef fusion. The cardiomediastinal contours are unremarkable. IMPRESSION: No acute cardiopulmonary process.
[2023-11-01] MEDS ORDERED: NA CHLORIDE 0.9% 500 ML ONE (23:03)
[2023-11-01 23:08] LABS: Albumin 3.4 g/dL (3.4-5.0); Bilirubin Total 0.8 mg/dL (0.2-1.0); Protein, Total 8.2 g/dL (6.4-8.2)
[2023-11-01 23:09] LABS: Potassium 4.5 mEq/L (3.5-5.1)
--- NOTE | 2023-11-01 23:18 | EDPHYS ---
Physician Documentation [facility] Name: Feli Lee Age: 68 yrs Sex: Female : 1955 Arrival Date: 11/01/2023 Time: 17:55 Bed 17 Private MD: ED Physician Philomena Maynard HPI: 11/01 19:18 This 68 yrs old Female presents to ER via Ambulatory with complaints of Flu snw Symptoms. 19:18 The patient or guardian reports cough, with no sputum, flu symptoms, myalgias, no snw appetite. Onset: The symptoms/episode began/occurred suddenly, 2 day(s) ago, and became persistent. Associated signs and symptoms: Pertinent positives: rhinorrhea, sore throat. Severity of symptoms: At their worst the symptoms were mild moderate. It is unknown whether or not the patient has had similar symptoms in the past. It is unknown whether or not the patient has recently seen a physician. Historical: - Allergies: 18:13 No Known Drug Allergies; hb - Home Meds: 18:13 insulin [Active]; lisinopril Oral [Active]; hb - PMHx: 18:13 Back pain; Diabetes - IDDM; Hypercholesterolemia; Hypertension; hb - Immunization history:: Adult Immunizations up to date. - Social history:: Smoking status: Patient denies any tobacco usage or history of. ROS: 19:17 Eyes: Negative for injury, pain, redness, and discharge, snw 19:17 Neck: Negative for injury, pain, and swelling, Cardiovascular: Negative for chest pain, palpitations, and edema, 19:17 Abdomen/GI: Negative for abdominal pain, nausea, vomiting, diarrhea, and constipation, Back: Negative for injury and pain, : Negative for injury, bleeding, discharge, and swelling, MS/Extremity: Negative for injury and deformity, Skin: Negative for injury, rash, and discoloration, Neuro: Negative for headache, weakness, numbness, tingling, and seizure, Psych: Negative for depression, anxiety, suicide ideation, homicidal ideation, and hallucinations, 19:17 Constitutional: Positive for body aches, malaise, poor PO intake, 19:17 ENT: Positive for nasal discharge, sinus congestion, 19:17 Respiratory: Positive for cough, Exam: 19:17 Constitutional: This is a well developed, well nourished patient who is awake, alert, snw and in no acute distress. Head/Face: Normocephalic, atraumatic. Eyes: Pupils equal round and reactive to light, extra-ocular motions intact. Lids and lashes normal. Conjunctiva and sclera are non-icteric and not injected. Cornea within normal limits. Periorbital areas with no swelling, redness, or edema. ENT: Nares patent. No nasal discharge, no septal abnormalities noted. Tympanic membranes are normal and external auditory canals are clear. Oropharynx with no redness, swelling, or masses, exudates, or evidence of obstruction, uvula midline. Mucous membranes moist. Neck: Trachea midline, no thyromegaly or masses palpated, and no cervical lymphadenopathy. Supple, full range of motion without nuchal rigidity, or vertebral point tenderness. No Meningismus. Chest/axilla: Normal chest wall appearance and motion. Nontender with no deformity. No lesions are appreciated. Cardiovascular: Regular rate and rhythm with a normal S1 and S2. No gallops, murmurs, or rubs. Normal PMI, no JVD. No pulse deficits. Respiratory: Lungs have equal breath sounds bilaterally, clear to auscultation and percussion. No rales, rhonchi or wheezes noted. No increased work of breathing, no retractions or nasal flaring. Abdomen/GI: Soft, non-tender, with normal bowel sounds. No distension or tympany. No guarding or rebound. No evidence of tenderness throughout. Back: No spinal tenderness. No costovertebral tenderness. Full range of motion. Skin: Warm, dry with normal turgor. Normal color with no rashes, no lesions, and no evidence of cellulitis. MS/ Extremity: Pulses equal, no cyanosis. Neurovascular intact. Full, normal range of motion. Neuro: Awake and alert, GCS 15, oriented to person, place, time, and situation. Cranial nerves II-XII grossly intact. Motor strength 5/5 in all extremities. Sensory grossly intact. Cerebellar exam normal. Normal gait. Psych: Awake, alert, with orientation to person, place and time. Behavior, mood, and affect are within normal limits. Vital Signs: 18:12 BP 220 / 108; Pulse 88; Resp 18; Temp 98.9(TE); Pulse Ox 98% on R/A; Weight 66.68 kg; hb Height 5 ft. 1 in. ; Pain 8/10; 18:45 BP 176 / 60; Pulse 78; Resp 18; nj1 19:30 BP 154 / 96; Pulse 79; Resp 18; Pulse Ox 98% ; vc1 20:00 BP 164 / 53; Pulse 80; Resp 17; Pulse Ox 98% ; vc1 21:00 BP 157 / 61; Pulse 72; Resp 18; Pulse Ox 97% ; vc1 21:31 BP 164 / 61 Supine; Pulse 81; Resp 18; Pulse Ox 98% ; vc1 21:32 BP 162 / 71 Sitting; Pulse 80; Resp 18; Pulse Ox 97% ; vc1 21:34 BP 154 / 74 Standing; Pulse 99; Resp 18; Pulse Ox 97% ; vc1 23:45 BP 187 / 67; Pulse 82; Resp 17; Pulse Ox 97% ; vc1 18:12 Body Mass Index 27.78 (66.68 kg, 154.94 cm) hb 18:12 Pain Scale: Adult hb MDM: 18:36 Patient medically screened. snw 23:18 Differential diagnosis: bronchitis, flu, URI. Data reviewed: vital signs, nurses notes, snw lab test result(s), radiologic studies. Counseling: I had a detailed discussion with the patient and/or guardian regarding the historical points, exam findings, and any diagnostic results supporting the discharge/admit diagnosis, lab results, radiology results, the need for outpatient follow up, for definitive care, to return to the emergency department if symptoms worsen or persist or if there are any questions or concerns that arise at home. Response to treatment: the patient's symptoms have mildly improved after treatment. Special discussion: Based on the history and exam findings, there is no indication for further emergent testing or inpatient evaluation. I discussed with the patient/guardian the need to see the OB Gyne specialist for further evaluation of the symptoms. I discussed with the patient/guardian the need to see the primary care provider for further evaluation of the symptoms. 11/01 18:37 Order name: Flu; Complete Time: 19:46 snw 11/01 18:37 Order name: SARS RAPID; Complete Time: 19:22 snw 11/01 19:52 Order name: Strep; Complete Time: 09:36 snw 11/01 19:52 Order name: Urine W/Microscopic (UAM); Complete Time: 23:15 snw 11/01 21:47 Order name: Glucose, Ancillary Testing; Complete Time: 21:49 EDMS 11/01 21:48 Order name: Throat Culture; Complete Time: 09:36 EDMS 11/01 21:56 Order name: CBC with Diff; Complete Time: 23:15 snw 11/01 21:56 Order name: CMP; Complete Time: 23:15 snw 11/01 21:56 Order name: Blood Culture Adult (2); Complete Time: 09:36 snw 11/01 23:12 Order name: Urine Culture; Complete Time: 09:36 EDMS 11/01 21:56 Order name: Chest Single View XRAY; Complete Time: 23:15 snw 11/01 21:27 Order name: FSBS; Complete Time: 22:04 snw Administered Medications: 22:48 Drug: NS 0.9% IV 500 ml IV at bolus once Route: IV; Rate: bolus; Site: left antecubital;vc1 Disposition Summary: 11/01/23 23:17 Discharge Ordered Notes: Location: Home snw Condition: Stable snw Diagnosis - Acute bronchitis, unspecified snw - Uterine prolapse snw Followup: snw - With: Emergency Department - When: As needed - Reason: Worsening of condition Followup: snw - With: Private Physician - When: 2 - 3 days - Reason: Recheck today's complaints, Continuance of care, Re-evaluation by your physician Discharge Instructions: - Discharge Summary Sheet snw - Acute Bronchitis, Adult snw - Viral Respiratory Infection snw - Pelvic Organ Prolapse snw - Rehydration, Adult snw Forms: - Medication Reconciliation Form snw - Thank You Letter snw - Antibiotic Education snw - Prescription Opioid Use snw - Patient Portal Instructions snw - Leadership Thank You Letter snw Prescriptions: - Zyrtec 10 mg Oral Tablet - take 1 tablet ORAL route once daily As needed; 20 tablet; Refills: 0, Product snw Selection Permitted - Pepcid 20 mg Oral Tablet - take 1 tablet ORAL route once daily; 20 tablet; Refills: 0, Product Selection snw Permitted Addendum: 11/10/2023 09:38 I reviewed the patient's care provided by the Advanced Practice Provider and agree with janel sinha the diagnosis and treatment plan. Signatures: Dispatcher [employer] Roseann Delgadoy, INSURANCE PRODUCER-C INSURANCE PRODUCER-[employer] Nette Mancia, RN RN hb Ruth Ann Aguirer RN RN vc1 Philomena Maynard
--- NOTE | 2023-11-01 23:18 | ER ---
Nurse's Notes [facility] Name: Feli Lee Age: 68 yrs Sex: Female : 1955 Arrival Date: 11/01/2023 Time: 17:55 Bed 17 Private MD: Diagnosis: Acute bronchitis, unspecified;Uterine prolapse Presentation: 11/01 18:12 Chief complaint: Body aches, sore throat, cough, headache, and chills x 2 days. hb Coronavirus screen: Client presents with at least one sign or symptom that may indicate coronavirus-19. Provider contacted for isolation considerations. Ebola Screen: No symptoms or risks identified at this time. Initial Sepsis Screen: Does the patient meet any 2 criteria? No. Patient's initial sepsis screen is negative. Does the patient have a suspected source of infection? No. Patient's initial sepsis screen is negative. Risk Assessment: Do you want to hurt yourself or someone else? Patient reports no desire to harm self or others. Onset of symptoms was October 31, 2023. 18:12 Method Of Arrival: Ambulatory hb 18:12 Acuity: TONO 3 hb Historical: - Allergies: 18:13 No Known Drug Allergies; hb - Home Meds: 18:13 insulin [Active]; lisinopril Oral [Active]; hb - PMHx: 18:13 Back pain; Diabetes - IDDM; Hypercholesterolemia; Hypertension; hb - Immunization history:: Adult Immunizations up to date. - Social history:: Smoking status: Patient denies any tobacco usage or history of. Screenin:48 [facility] ED Fall Risk Assessment (Adult) Score/Fall Risk Level 0 - 2 = Low Risk nj1 Oriented to surroundings, Maintained a safe environment, Hourly rounding (assess needs \T\ fall precautionary measures) done. Abuse screen: Denies threats or abuse. Denies injuries from another. Nutritional screening: No deficits noted. Tuberculosis screening: No symptoms or risk factors identified. Assessment: 18:46 General: Appears in no apparent distress. uncomfortable, Behavior is calm, cooperative, nj1 appropriate for age. Pain: Complains of pain in All over Quality of pain is described as aching. Neuro: Level of Consciousness is awake, alert, obeys commands, Oriented to person, place, time, situation. Cardiovascular: Patient's skin is warm and dry. Respiratory: Reports cough that is Airway is patent Respiratory effort is even, unlabored. 20:00 Reassessment: No changes from previously documented assessment. Patient and/or family vc1 updated on plan of care and expected duration. Pain level reassessed. 21:00 Reassessment: No changes from previously documented assessment. Patient and/or family vc1 updated on plan of care and expected duration. Pain level reassessed. Neuro: weakness trying to get up out of bed. 22:00 Reassessment: No changes from previously documented assessment. Patient and/or family vc1 updated on plan of care and expected duration. Pain level reassessed. Patient is alert, oriented x 3, equal unlabored respirations, skin warm/dry/pink. 23:00 Reassessment: No changes from previously documented assessment. Patient and/or family vc1 updated on plan of care and expected duration. Pain level reassessed. Patient is alert, oriented x 3, equal unlabored respirations, skin warm/dry/pink. 23:50 Reassessment: Patient and/or family updated on plan of care and expected duration. Pain vc1 level reassessed. Patient is alert, oriented x 3, equal unlabored respirations, skin warm/dry/pink. Patient states feeling better. Patient states symptoms have improved. Vital Signs: 18:12 BP 220 / 108; Pulse 88; Resp 18; Temp 98.9(TE); Pulse Ox 98% on R/A; Weight 66.68 kg; hb Height 5 ft. 1 in. ; Pain 8/10; 18:45 BP 176 / 60; Pulse 78; Resp 18; nj1 19:30 BP 154 / 96; Pulse 79; Resp 18; Pulse Ox 98% ; vc1 20:00 BP 164 / 53; Pulse 80; Resp 17; Pulse Ox 98% ; vc1 21:00 BP 157 / 61; Pulse 72; Resp 18; Pulse Ox 97% ; vc1 21:31 BP 164 / 61 Supine; Pulse 81; Resp 18; Pulse Ox 98% ; vc1 21:32 BP 162 / 71 Sitting; Pulse 80; Resp 18; Pulse Ox 97% ; vc1 21:34 BP 154 / 74 Standing; Pulse 99; Resp 18; Pulse Ox 97% ; vc1 23:45 BP 187 / 67; Pulse 82; Resp 17; Pulse Ox 97% ; vc1 18:12 Body Mass Index 27.78 (66.68 kg, 154.94 cm) hb 18:12 Pain Scale: Adult hb ED Course: 17:58 Patient arrived in ED. im 18:13 Triage completed. hb 18:13 Arm band placed on. hb 18:16 Henrietta Espinal FNP-C is PHCP. snw 18:16 Philomena Maynard is Attending Physician. snw 18:32 Karla Lira, RN is Primary Nurse. nj1 18:49 Patient has correct armband on for positive identification. Bed in low position. Call nj1 light in reach. Side rails up X 1. Provided Education on: call light, fall precautions. 19:07 Report given to Ruth Ann DUGGAN. nj1 22:19 Chest Single View XRAY In Process Unspecified. EDMS 23:10 Primary Nurse role handed off by Karla Lira, RN vc1 23:13 Ruth Ann Aguirre, RN is Primary Nurse. vc1 23:51 No provider procedures requiring assistance completed. IV discontinued, intact, vc1 bleeding controlled, No redness/swelling at site. Pressure dressing applied. Administered Medications: 22:48 Drug: NS 0.9% IV 500 ml IV at bolus once Route: IV; Rate: bolus; Site: left antecubital;vc1 Medication: 19:41 VIS not applicable for this client. vc1 Outcome: 23:17 Discharge ordered by MD. snw 23:51 Discharged to home via wheelchair, vc1 23:51 Condition: good 23:51 Discharge instructions given to patient, Instructed on discharge instructions, follow up and referral plans. Demonstrated understanding of instructions, follow-up care, 23:52 Patient left the ED. vc1 Addendum: 11/12/2023 10:18 Addendum: Culture Results: Prescription called-in to pharmacy of choice. Called in l l1 Macrobid to [facility] [place] per patient request. Signatures: Dispatcher [employer] EDIA Henrietta Espinal FNP-C FNP-Nette Dubon RN Min Palomares RN RN ll1 Ruth Ann Aguirre RN RN vc1 Karla Lira RN RN nj1 Jennifer Burns im Corrections: (The following items were deleted from the chart) 11/01 18:13 18:12 Pulse 88bpm; Resp 18bpm; Pulse Ox 98% RA; Temp 98.9F Temporal; 66.68 kg; Height 5 hb ft. 1 in.; BMI: 27.7; Pain 8/10, Adult; hb 18:13 18:12 Acuity: TONO 4 hb hb
[2023-11-01 23:57] VITALS: TEMP 98.9
[2023-11-02 00:31] VITALS: O2SAT 97
[2023-11-02 00:36] VITALS: BP 187/67
== END 2023-11-01 23:52 | disposition home or self-care (01) ==
LOC: ER 17:55
DX: J20.9 Acute bronchitis, unspecified (principal); N81.4 Uterovaginal prolapse, unspecified; E11.9 Type 2 diabetes mellitus without complications; I10 Essential (primary) hypertension; E78.00 Pure hypercholesterolemia, unspecified; Z11.52 Encounter for screening for COVID-19; Z79.84 Long term (current) use of oral hypoglycemic drugs; Z79.899 Other long term (current) drug therapy
CPT/HCPCS: 87040 ×2; 87070; 87088; 85025; 81001; 87086; 36415; 82947; 87081; 87077 ×2; 87186 ×2; 80053; 87804 ×2; 71045; 99284; 87811; J7040

== ENCOUNTER 2024-05-13 14:21 | Emergency (ER) | payer OTHER ==
--- NOTE | 2024-05-13 14:51 | RAD REPORT ---
EXAM DESCRIPTION: RAD - Chest Pa And Lat (2 Views) - 05/13/2024 2:46 pm CLINICAL HISTORY: COUGH Chest pain. COMPARISON: Chest Single View dated 11/01/2023; Chest Single View dated 06/28/2022; Chest Single View d ated 06/14/2022; Chest Single View dated 08/07/2021 TECHNIQUE: PA and lateral views of the chest were obtained. FINDINGS: The lungs are hyperexpanded compatible with COPD. The heart is upper limit of normal in si ze. No fracture or aggressive bony process. IMPRESSION: COPD without acute process identified. The USPSTF recommends annual screening for lung cancer with low-dose CT (LDCT) in adults aged 50 to 8 0 years who have a 20 pack-year smoking history and currently smoke or have quit within the past 15 y ears.
[2024-05-13 15:11] LABS: SARS-CoV-2 Antigen CONTROL BLUE LINE VIS/BG OK; SARS-CoV-2 Antigen Rapid Res Negative (Negative)
--- NOTE | 2024-05-13 16:01 | EDPHYS ---
Physician Documentation [facility] Name: Feli Lee Age: 68 yrs Sex: Female : 1955 Arrival Date: 05/13/2024 Time: 14:21 Bed 11 Private MD: ED Physician David Palma HPI: 05/13 14:54 This 68 yrs old Female presents to ER via Ambulatory with complaints of Flu sp3 Symptoms. 14:54 60-year-old female with a history of hypertension, hyperlipidemia, diabetes, sp3 bronchitis/COPD now presents to the ED with chief complaint subjective fever yesterday and mild cough. She denies any shortness of breath, chest pain, known sick contacts, travel history, prolonged immobilization, or any other signs or symptoms on ROS at this time.. Historical: - Allergies: 14:31 No Known Allergies; nj1 - PMHx: 14:31 Back pain; Diabetes - IDDM; Hypercholesterolemia; Hypertension; nj1 - Immunization history:: Client reports receiving the 2nd dose of the Covid vaccine. - Infectious Disease History:: Denies. - Social history:: Smoking status: Patient denies any tobacco usage or history of. ROS: 14:55 Constitutional: Negative for fever, chills, and weight loss, Eyes: Negative for injury, sp3 pain, redness, and discharge, ENT: Negative for injury, pain, and discharge, Neck: Negative for injury, pain, and swelling, Cardiovascular: Negative for chest pain, palpitations, and edema, Abdomen/GI: Negative for abdominal pain, nausea, vomiting, diarrhea, and constipation, Back: Negative for injury and pain, MS/Extremity: Negative for injury and deformity, Skin: Negative for injury, rash, and discoloration, Neuro: Negative for headache, weakness, numbness, tingling, and seizure, Psych: Negative for depression, anxiety, suicide ideation, homicidal ideation, and hallucinations, Allergy/Immunology: Negative for hives, rash, and allergies, Endocrine: Negative for neck swelling, polydipsia, polyuria, polyphagia, and marked weight changes, Hematologic/Lymphatic: Negative for swollen nodes, abnormal bleeding, and unusual bruising, 14:55 All other systems are negative, Exam: 14:55 Constitutional: This is a well developed, well nourished patient who is awake, alert, sp3 and in no acute distress. Head/Face: Normocephalic, atraumatic. Eyes: Pupils equal round and reactive to light, extra-ocular motions intact. Lids and lashes normal. Conjunctiva and sclera are non-icteric and not injected. Cornea within normal limits. Periorbital areas with no swelling, redness, or edema. ENT: Nares patent. No nasal discharge, no septal abnormalities noted. External auditory canals are clear. Oropharynx with no redness, swelling, or masses, exudates, or evidence of obstruction, uvula midline. Mucous membranes moist. Neck: Trachea midline, no thyromegaly or masses palpated, and no cervical lymphadenopathy. Supple, full range of motion without nuchal rigidity, or vertebral point tenderness. No Meningismus. Chest/axilla: Normal chest wall appearance and motion. Nontender with no deformity. No lesions are appreciated. Cardiovascular: Regular rate and rhythm with a normal S1 and S2. No gallops, murmurs, or rubs. Normal PMI, no JVD. No pulse deficits. Abdomen/GI: Soft, non-tender, with normal bowel sounds. No distension or tympany. No guarding or rebound. No evidence of tenderness throughout. Back: No spinal tenderness. No costovertebral tenderness. Full range of motion. Skin: Warm, dry with normal turgor. Normal color with no rashes, no lesions, and no evidence of cellulitis. MS/ Extremity: Pulses equal, no cyanosis. Neurovascular intact. Full, normal range of motion. Neuro: Awake and alert, GCS 15, oriented to person, place, time, and situation. Cranial nerves II-XII grossly intact. Motor strength 5/5 in all extremities. Sensory grossly intact. Cerebellar exam normal. Normal gait. Psych: Awake, alert, with orientation to person, place and time. Behavior, mood, and affect are within normal limits. 14:55 Respiratory: Mild cough without any production. Afebrile with normal vital signs. Patient eating full [place] fried chicken meal in room in no acute distress., Vital Signs: 14:30 BP 178 / 85; Pulse 91; Resp 18; Temp 98.1(O); Pulse Ox 99% ; Weight 65.32 kg; Height 5 nj1 ft. 1 in. ; Pain 8/10; 16:23 BP 149 / 68; Pulse 93; Resp 18; Pulse Ox 99% on R/A; cm10 14:30 Body Mass Index 27.21 (65.32 kg, 154.94 cm) nj1 14:30 Pain Scale: Adult nj1 MDM: 14:24 Patient medically screened. sp3 14:56 Data reviewed: vital signs, nurses notes, lab test result(s), radiologic studies. ED sp3 course: 60-year-old female with upper respiratory symptoms. Patient in no acute distress and I do not believe patient has any critical illness including sepsis and shock. Chest x-ray demonstrates no pneumonia. Swabs are pending. Differential diagnosis includes viral illness, COVID-19, influenza, strep pharyngitis, bronchitis, pneumonia. Disposition pending workup and patient course with probable discharge with any indicated medications.. 15:59 ED course: All swabs negative. Will discharge home on Tessalon and Zithromax for COPD sp3 exacerbation.. 05/13 14:24 Order name: Flu; Complete Time: 15:56 sp3 05/13 14:24 Order name: SARS RAPID; Complete Time: 15:43 sp3 05/13 14:24 Order name: Strep sp3 05/13 15:12 Order name: Throat Culture EDMS 05/13 14:46 Order name: Chest Pa And Lat (2 Views); Complete Time: 14:52 EDMS Administered Medications: No medications were administered Disposition Summary: 05/13/24 16:01 Discharge Ordered Notes: Location: Home sp3 Condition: Stable sp3 Diagnosis - COPD exacerbation, upper respiratory infection sp3 Followup: sp3 - With: Private Physician - When: Upon discharge from the Emergency Department - Reason: Recheck today's complaints, Continuance of care Discharge Instructions: - Discharge Summary Sheet sp3 - Acute Bronchitis, Adult sp3 - Living With COPD sp3 Forms: - Medication Reconciliation Form sp3 - Antibiotic Education sp3 - Prescription Opioid Use sp3 - Patient Portal Instructions sp3 - Leadership Thank You Letter sp3 Prescriptions: - Tessalon Perles 100 mg Oral Capsule - take 1 capsule ORAL route every 8 hours As needed; 15 capsule; Refills: 0, sp3 Product Selection Permitted - Zithromax Z-Phil 250 mg Oral Tablet - take 1 tablet ORAL route as directed for 5 days Day 1 - take two (2) tablets sp3 one time. Day 2, 3, 4 , 5 take one (1) tablet once daily.; 6 tablet; Refills: 0, Product Selection Permitted Signatures: Dispatcher [employer] EDMS David Palma MD MD sp3 Karla Lira RN RN nj1 Marimar Arango RN RN cm10 Corrections: (The following items were deleted from the chart) 14:25 14:25 Influenza Screen (A \T\ B)+BA.LAB.BRZ ordered. EDMS EDMS 14:25 14:25 SARS-COV-2 Antigen Rapid+I.LAB.BRZ ordered. EDMS EDMS 14:25 14:25 Group A Streptococcus Rapid Sc+BA.LAB.BRZ ordered. EDMS EDMS 14:25 14:25 Chest Single View+RAD.RAD.BRZ ordered. EDMS EDMS
--- NOTE | 2024-05-13 16:01 | ER ---
Nurse's Notes [facility] Name: Feli Lee Age: 68 yrs Sex: Female : 1955 Arrival Date: 05/13/2024 Time: 14:21 Bed 11 Private MD: Diagnosis: COPD exacerbation, upper respiratory infection Presentation: 05/13 14:30 Chief complaint: Patient states: Sore throat since yesterday, not feeling well, nj1 congested, runny nose, bilateral ear pain, cough. Coronavirus screen: Vaccine status: Patient reports being unvaccinated. Ebola Screen: Patient denies travel to an Ebola-affected area in the 21 days before illness onset. Initial Sepsis Screen: Does the patient meet any 2 criteria? HR > 90 bpm. No. Patient's initial sepsis screen is negative. Does the patient have a suspected source of infection? No. Patient's initial sepsis screen is negative. Risk Assessment: Do you want to hurt yourself or someone else? Patient reports no desire to harm self or others. Onset of symptoms was May 12, 2024. 14:30 Method Of Arrival: Ambulatory [facility] 14:30 Acuity: TONO 3 nj1 Historical: - Allergies: 14:31 No Known Allergies; nj1 - PMHx: 14:31 Back pain; Diabetes - IDDM; Hypercholesterolemia; Hypertension; nj1 - Immunization history:: Client reports receiving the 2nd dose of the Covid vaccine. - Infectious Disease History:: Denies. - Social history:: Smoking status: Patient denies any tobacco usage or history of. Screenin:10 [facility] ED Fall Risk Assessment (Adult) History of falling in the last 3 months, cm10 including since admission No falls in past 3 months (0 pts) Confusion or Disorientation No (0 pts) Intoxicated or Sedated No (0 pts) Impaired Gait No (0 pts) Mobility Assist Device Used No (0 pt) Altered Elimination No (0 pt) Score/Fall Risk Level 0 - 2 = Low Risk Oriented to surroundings, Maintained a safe environment, Hourly rounding (assess needs \T\ fall precautionary measures) done. Abuse screen: Denies threats or abuse. Denies injuries from another. Nutritional screening: No deficits noted. Tuberculosis screening: No symptoms or risk factors identified. Assessment: 14:50 General: Appears in no apparent distress. comfortable, Behavior is calm, cooperative. cm10 Pain: Denies pain. Neuro: No deficits noted. Level of Consciousness is awake, alert, obeys commands, Oriented to person, place, time, situation, Appropriate for age. Respiratory: No deficits noted. Airway is patent Respiratory effort is even, unlabored, Respiratory pattern is regular, symmetrical. Respiratory: Reports cough that is. EENT: Reports nasal discharge. Derm: No deficits noted. Skin is intact, Skin is pink, warm \T\ dry. Musculoskeletal: No deficits noted. Range of motion: intact in all extremities. Vital Signs: 14:30 BP 178 / 85; Pulse 91; Resp 18; Temp 98.1(O); Pulse Ox 99% ; Weight 65.32 kg; Height 5 nj1 ft. 1 in. ; Pain 8/10; 16:23 BP 149 / 68; Pulse 93; Resp 18; Pulse Ox 99% on R/A; cm10 14:30 Body Mass Index 27.21 (65.32 kg, 154.94 cm) nj1 14:30 Pain Scale: Adult [facility] ED Course: 14:23 Patient arrived in ED. rg4 14:24 David Palma MD is Attending Physician. sp3 14:31 Triage completed. nj1 14:32 Arm band placed on left wrist. nj1 14:39 Marimar Arango, RN is Primary Nurse. cm10 14:46 Chest Pa And Lat (2 Views) In Process Unspecified. EDMS 14:52 Strep Sent. cm10 14:52 SARS RAPID Sent. cm10 14:52 Flu Sent. cm10 14:52 COVID swab sent to lab. Flu and/or RSV swab sent to lab. Strep swab sent to lab. cm10 15:10 Patient has correct armband on for positive identification. Placed in gown. Bed in low cm10 position. Call light in reach. Side rails up X 1. Pulse ox on. NIBP on. Warm blanket given. 16:23 Provided Education on: Follow- up instructions. cm10 16:23 No provider procedures requiring assistance completed. Patient did not have IV access cm10 during this emergency room visit. Administered Medications: No medications were administered Medication: 15:10 VIS not applicable for this client. cm10 Outcome: 16:01 Discharge ordered by . sp3 16:24 Discharged to home ambulatory, cm10 16:24 Condition: good 16:24 Discharge instructions given to patient, Instructed on discharge instructions, follow up and referral plans. medication usage, Demonstrated understanding of instructions, follow-up care, medications, Prescriptions given X 2, 16:24 Patient left the ED. cm10 Signatures: Dispatcher [employer] Coni Monroy rg4 David Palma MD MD sp3 Karla Lira RN RN nj1 Marimar Arango RN RN cm10
[2024-05-13 16:36] VITALS: BP 149/68; TEMP 98.1; O2SAT 99
== END 2024-05-13 16:24 | disposition home or self-care (01) ==
LOC: ER 14:21
DX: J06.9 Acute upper respiratory infection, unspecified (principal); J44.1 Chronic obstructive pulmonary disease with (acute) exacerbation; I10 Essential (primary) hypertension; E11.9 Type 2 diabetes mellitus without complications; E78.00 Pure hypercholesterolemia, unspecified; Z11.52 Encounter for screening for COVID-19
CPT/HCPCS: 36415; 71046; 87070; 87081; 87804; 87811; 99283

== ENCOUNTER 2024-07-26 19:08 | Emergency (ER) | payer OTHER ==
[2024-07-26] MEDS ORDERED: predniSONE 20 MG TAB ONE (19:37)
--- NOTE | 2024-07-26 19:37 | EDPHYS ---
Physician Documentation [facility] Name: Feli Lee Age: 69 yrs Sex: Female : 1955 Arrival Date: 07/26/2024 Time: 19:08 Bed IW1 Private MD: ED Physician Yaakov Magdaleno HPI: 07/26 19:48 This 69 yrs old Female presents to ER via Ambulatory with complaints of Rash. sb4 19:48 The patient's rash thought to be caused by Dermatitis. The rash is located on the right sb4 arm and left arm. The rash can be described as erythematous, patchy, urticarial. Onset: The symptoms/episode began/occurred 2 day(s) ago. Associated signs and symptoms: Pertinent positives: itching, Pertinent negatives: fever, swelling of lips, swelling of throat, swelling of tongue. Treatment given at home: OTC lotion/cream steroid lotion/cream. The patient has not experienced similar symptoms in the past. The patient has not recently seen a physician. Historical: - Allergies: 19:33 No Known Allergies; cp4 - PMHx: 19:33 Back pain; Diabetes - IDDM; Hypercholesterolemia; Hypertension; cp4 - Immunization history:: Adult Immunizations up to date. - Infectious Disease History:: Denies. - Social history:: Smoking status: Patient denies any tobacco usage or history of. ROS: 19:48 Constitutional: Negative for fever, chills, and weight loss, sb4 19:48 Skin: Positive for rash, 19:48 All other systems are negative, Exam: 19:48 Constitutional: This is a well developed, well nourished patient who is awake, alert, sb4 and in no acute distress. Head/Face: Normocephalic, atraumatic. Eyes: Extra-ocular motions intact. Periorbital areas with no swelling, redness, or edema. ENT: Mucous membranes moist. 19:48 Skin: rash a mild rash is noted, contact dermatitis, on the right arm and left arm, Vital Signs: 19:31 BP 185 / 73; Pulse 56; Resp 17; Temp 97.7; Pulse Ox 100% ; Weight 65.77 kg; Height 5 cp4 ft. 1 in. ; 19:31 Body Mass Index 27.40 (65.77 kg, 154.94 cm) cp4 MDM: 19:13 Patient medically screened. sb4 19:48 Data reviewed: vital signs, nurses notes, and as a result, I will discharge patient. sb4 Counseling: I had a detailed discussion with the patient and/or guardian regarding the historical points, exam findings, and any diagnostic results supporting the discharge/admit diagnosis, the presence of at least one elevated blood pressure reading (>120/80) during this emergency department visit, to return to the emergency department if symptoms worsen or persist or if there are any questions or concerns that arise at home. Administered Medications: 19:40 Drug: predniSONE PO 40 mg PO once Route: PO; cp4 19:42 Follow up: Response: No adverse reaction cp4 Disposition: 19:58 Co-signature as Attending Physician, Yaakov Magdaleno MD I reviewed the patient's care rt provided by the Advanced Practice Provider and agree with the diagnosis and treatment plan. Disposition Summary: 07/26/24 19:37 Discharge Ordered Notes: Location: Home sb4 Problem: new sb4 Symptoms: are unchanged sb4 Condition: Stable sb4 Diagnosis - Rash and other nonspecific skin eruption sb4 - Unspecified contact dermatitis, unspecified cause sb4 Followup: sb4 - With: Emergency Department - When: As needed - Reason: Trouble breathing, Worsening of condition Discharge Instructions: - Discharge Summary Sheet sb4 - Rash, Adult, [id number] sb4 - Contact Dermatitis, [id number] sb4 Forms: - Patient Portal Instructions sb4 - Leadership Thank You Letter sb4 Prescriptions: - Prednisone 20 mg Oral Tablet - take 1 tablet ORAL route once daily for 5 days; 5 tablet; Refills: 0, Product sb4 Selection Permitted Signatures: Nicole Dobbins PA-C PA-C sb4 Yaakov Magdaleno MD MD rt Fadumo Flores cp4
--- NOTE | 2024-07-26 19:37 | ER ---
Nurse's Notes [facility] Name: Feli Lee Age: 69 yrs Sex: Female : 1955 Arrival Date: 07/26/2024 Time: 19:08 Bed IW1 Private MD: Diagnosis: Rash and other nonspecific skin eruption;Unspecified contact dermatitis, unspecified cause Presentation: 07/26 19:31 Chief complaint: Patient states: rash to the left arm that started two days ago. cp4 Coronavirus screen: Vaccine status: Patient reports receiving the 2nd dose of the covid vaccine. Patient reports receiving the 1st dose of the Covid vaccine. Client denies travel out of the [place] in the last 14 days. At this time, the client does not indicate any symptoms associated with coronavirus-19. Ebola Screen: Patient negative for fever greater than or equal to 101.5 degrees Fahrenheit, and additional compatible Ebola Virus Disease symptoms Patient denies exposure to infectious person. Patient denies travel to an Ebola-affected area in the 21 days before illness onset. No symptoms or risks identified at this time. Initial Sepsis Screen: Does the patient meet any 2 criteria? No. Patient's initial sepsis screen is negative. Does the patient have a suspected source of infection? No. Patient's initial sepsis screen is negative. Risk Assessment: Do you want to hurt yourself or someone else? Patient reports no desire to harm self or others. Onset of symptoms was July 23, 2024. 19:31 Method Of Arrival: Ambulatory cp4 19:31 Acuity: TONO 5 cp4 Triage Assessment: 19:33 General: Appears in no apparent distress. comfortable, Behavior is calm, cooperative, cp4 appropriate for age. Pain: Denies pain. Historical: - Allergies: 19:33 No Known Allergies; cp4 - PMHx: 19:33 Back pain; Diabetes - IDDM; Hypercholesterolemia; Hypertension; cp4 - Immunization history:: Adult Immunizations up to date. - Infectious Disease History:: Denies. - Social history:: Smoking status: Patient denies any tobacco usage or history of. Screenin:40 [facility] ED Fall Risk Assessment (Adult) History of falling in the last 3 months, cp4 including since admission No falls in past 3 months (0 pts) Confusion or Disorientation No (0 pts) Intoxicated or Sedated No (0 pts) Impaired Gait No (0 pts) Mobility Assist Device Used No (0 pt) Altered Elimination No (0 pt) Score/Fall Risk Level 0 - 2 = Low Risk Oriented to surroundings, Maintained a safe environment, Assessed \T\ reinforced patient's understanding of fall precautions, Hourly rounding (assess needs \T\ fall precautionary measures) done. Abuse screen: Denies threats or abuse. Nutritional screening: No deficits noted. Tuberculosis screening: No symptoms or risk factors identified. Assessment: 19:40 General: Appears in no apparent distress. comfortable, Behavior is calm, cooperative, cp4 appropriate for age. Pain: Denies pain. Neuro: Level of Consciousness is awake, alert, obeys commands, Oriented to person, place, time, situation. Cardiovascular: No deficits noted. Respiratory: Airway is patent Respiratory effort is even, unlabored. GI: No signs and/or symptoms were reported involving the gastrointestinal system. : No signs and/or symptoms were reported regarding the genitourinary system. EENT: No signs and/or symptoms were reported regarding the EENT system. Derm: No signs and/or symptoms reported regarding the dermatologic system. Musculoskeletal: No signs and/or symptoms reported regarding the musculoskeletal system. Vital Signs: 19:31 BP 185 / 73; Pulse 56; Resp 17; Temp 97.7; Pulse Ox 100% ; Weight 65.77 kg; Height 5 cp4 ft. 1 in. ; 19:31 Body Mass Index 27.40 (65.77 kg, 154.94 cm) cp4 ED Course: 19:11 Patient arrived in ED. mr 19:13 [facility] sb4 19:13 Yaakov Magdaleno MD is Attending Physician. sb4 19:33 Triage completed. cp4 19:33 Arm band placed on right wrist. Patient placed in waiting room. cp4 19:40 Fadumo Flores is Primary Nurse. cp4 19:40 Bed in low position. Call light in reach. Side rails up X 1. Provided Education on: cp4 rash. 19:40 No provider procedures requiring assistance completed. Patient did not have IV access cp4 during this emergency room visit. Administered Medications: 19:40 Drug: predniSONE PO 40 mg PO once Route: PO; cp4 19:42 Follow up: Response: No adverse reaction cp4 Medication: 19:40 VIS not applicable for this client. cp4 Outcome: 19:37 Discharge ordered by MD. sb4 19:40 Discharged to home ambulatory, cp4 19:40 Condition: stable 19:40 Discharge instructions given to patient, Instructed on discharge instructions, follow up and referral plans. medication usage, Demonstrated understanding of instructions, follow-up care, medications, Prescriptions given X 1, 19:42 Patient left the ED. cp4 Signatures: Nery Espinal, Doug Camacho mr Nicole Dobbins, LESTERC PAAlice sb4 Fadumo Flores cp4
[2024-07-26 19:47] VITALS: BP 185/73; TEMP 97.7; O2SAT 100
== END 2024-07-26 19:42 | disposition home or self-care (01) ==
LOC: ER 19:08
DX: L25.9 Unspecified contact dermatitis, unspecified cause (principal)
CPT/HCPCS: 99283

== ENCOUNTER 2025-01-24 18:08 | Emergency (ER) | payer OTHER ==
[2025-01-24 19:08] LABS: Influenza A Ag Negative; Influenza B Ag Negative; SARS-CoV-2 Antigen Rapid Res Negative (Negative)
--- NOTE | 2025-01-24 19:33 | RAD REPORT ---
EXAM: Chest Pa And Lat (2 Views) HISTORY: 69 years Female Cough;Fever COMPARISON: 05/13/2024 FINDINGS: LUNGS/PLEURA: The lungs are clear. No pleural effusions or pneumothorax. No pulmonary edema. CARDIAC/MEDIASTINUM: The cardiac silhouette is within normal limits. UPPER ABDOMEN: No significant abnormality. BONES: No acute abnormality. LINES/TUBES/OTHER: N/A IMPRESSION: No evidence of acute cardiopulmonary disease. No significant change from prior.
--- NOTE | 2025-01-24 19:42 | EDPHYS ---
Physician Documentation [facility] Name: Feli Lee Age: 69 yrs Sex: Female : 1955 Arrival Date: 01/24/2025 Time: 18:08 Bed IW1 Private MD: ED Physician Thaddeus Dunbar HPI: 01/24 18:34 This 69 yrs old Female presents to ER via Ambulatory with complaints of Flu dr5 Symptoms. 18:34 Onset: The symptoms/episode began/occurred acutely. Patient is a 69-year-old female dr5 with history of hypertension, hyperlipidemia, diabetes, and chronic back pain coming in with cough, congestion, and subjective fevers that started at noon today. Patient reports that she has not been around any sick contacts. Patient has not taken medication prior to arrival.. Historical: - Allergies: 18:31 No Known Allergies; cm10 - PMHx: 18:31 Back pain; Diabetes - IDDM; Hypercholesterolemia; Hypertension; cm10 - Immunization history:: Adult Immunizations up to date. - Infectious Disease History:: Denies. - Social history:: Smoking status: Patient denies any tobacco usage or history of. ROS: 18:34 Constitutional: as per hpi dr5 Exam: 18:34 Constitutional: This is a well developed, well nourished patient who is awake, alert, dr5 and in no acute distress. Head/Face: Normocephalic, atraumatic. ENT: Nares patent. No nasal discharge, no septal abnormalities noted. Tympanic membranes are normal and external auditory canals are clear. Oropharynx with no redness, swelling, or masses, exudates, or evidence of obstruction, uvula midline. Mucous membranes moist. Chest/axilla: Normal chest wall appearance and motion. Nontender with no deformity. No lesions are appreciated. Cardiovascular: Regular rate and rhythm with a normal S1 and S2. Normal PMI, no JVD. No pulse deficits. Respiratory: Lungs have equal breath sounds bilaterally, clear to auscultation. No rales, rhonchi or wheezes noted. No increased work of breathing, no retractions or nasal flaring. Back: No spinal tenderness. No costovertebral tenderness. Full range of motion. Skin: Warm, dry with normal turgor. Normal color with no rashes, no lesions, and no evidence of cellulitis. MS/ Extremity: Pulses equal, no cyanosis. Neurovascular intact. Full, normal range of motion. Neuro: Awake and alert, GCS 15, oriented to person, place, time, and situation. Cranial nerves II-XII grossly intact. Motor strength 5/5 in all extremities. Sensory grossly intact. Cerebellar exam normal. Normal gait. Vital Signs: 18:30 BP 169 / 90; Pulse 89; Resp 18; Temp 98.6; Pulse Ox 98% on R/A; Weight 68.04 kg; Height cm10 5 ft. 1 in. ; Pain 0/10; 18:30 Body Mass Index 28.34 (68.04 kg, 154.94 cm) cm10 18:30 Pain Scale: Adult cm10 MDM: 18:11 Medical Screening Exam initiated dr5 20:33 Differential diagnosis: viral Infection, bacterial infection, URI, bronchitis. Data dr5 reviewed: vital signs, nurses notes. Care significantly affected by the following chronic conditions: Diabetes, Hypertension, Hyperlipidemia. Care significantly affected by the following Social Determinants of Health: Poor access to healthcare and/or lack of insurance, Poor access to transportation, Problems related to employment. Counseling: I had a detailed discussion with the patient and/or guardian regarding the historical points, exam findings, and any diagnostic results supporting the discharge/admit diagnosis, the presence of at least one elevated blood pressure reading (>120/80) during this emergency department visit, lab results, radiology results, the need for outpatient follow up, for definitive care, a family practitioner, to return to the emergency department if symptoms worsen or persist or if there are any questions or concerns that arise at home. ED course: No pneumonia noted on x-ray. COVID and flu were negative in office. Patient is well-appearing. Recommended patient take ibuprofen and Tylenol as needed for fever and/or pain. Increase hydration. Steroid pack given with indications that it will raise blood sugar and to keep an eye on blood sugar if she chooses to take steroids. Recommended follow-up primary care doctor this week. All questions answered. Patient is agreeable to plan.. 01/24 18:31 Order name: COVID-19 Ag + Flu A+B Ag; Complete Time: 19:09 dr5 01/24 18:31 Order name: Chest Pa And Lat (2 Views) XRAY; Complete Time: 19:33 dr5 Administered Medications: No medications were administered Disposition: 19:51 Co-signature as Attending Physician, Thaddeus Dunbar MD I reviewed the patient's care rn provided by the Advanced Practice Provider and agree with the diagnosis and treatment plan. Disposition Summary: 01/24/25 19:41 Discharge Ordered Notes: Location: Home dr5 Condition: Stable dr5 Diagnosis - Acute upper respiratory infection, unspecified dr5 Followup: dr5 - With: Emergency Department - When: As needed - Reason: Worsening of condition Followup: dr5 - With: Private Physician - When: 1 - 2 days - Reason: Recheck today's complaints, Continuance of care, Re-evaluation by your physician Discharge Instructions: - Discharge Summary Sheet dr5 - Upper Respiratory Infection, Adult dr5 Forms: - Medication Reconciliation Form dr5 - Patient Portal Instructions dr5 - Leadership Thank You Letter dr5 Prescriptions: - Medrol (Phil) 4 mg Oral Tablets, Dose Pack - take 1 tablet ORAL route as directed - follow package instructions; 1 packet; dr5 Refills: 0, Product Selection Permitted - benzonatate 100 mg Oral capsule - take 1 capsule ORAL route 3 times per day; 30 capsule; Refills: 0, Product dr5 Selection Permitted Signatures: Dispatcher [employer] EDThaddeus Cartwright MD MD rn Martinez, Clarissa, RN RN cm10 Aj Villanueva, SYNTHETIC STAPLE EXTRUDER-C SYNTHETIC STAPLE EXTRUDER-Cdr5 Corrections: (The following items were deleted from the chart) 18:32 18:32 COVID-19 Ag + Flu A+B [id number].[id number] ordered. [facility]
--- NOTE | 2025-01-24 19:42 | ER ---
Nurse's Notes [facility] Name: Feli Lee Age: 69 yrs Sex: Female : 1955 Arrival Date: 01/24/2025 Time: 18:08 Bed IW1 Private MD: Diagnosis: Acute upper respiratory infection, unspecified Presentation: 01/24 18:30 Chief complaint: Patient states: Cough and fever onset today. Coronavirus screen: cm10 Client denies travel out of the [place] in the last 14 days. Ebola Screen: Patient denies travel to an Ebola-affected area in the 21 days before illness onset. Initial Sepsis Screen: Does the patient meet any 2 criteria? No. Patient's initial sepsis screen is negative. Does the patient have a suspected source of infection? No. Patient's initial sepsis screen is negative. Risk Assessment: Do you want to hurt yourself or someone else? Patient reports no desire to harm self or others. Onset of symptoms was January 24, 2025. 18:30 Method Of Arrival: Ambulatory cm10 18:30 Acuity: TONO 4 cm10 Triage Assessment: 18:31 General: Appears in no apparent distress. comfortable, Behavior is calm, cooperative. cm10 Neuro: No deficits noted. Level of Consciousness is awake, alert, obeys commands, Oriented to person, place, time, situation, Appropriate for age. Respiratory: No deficits noted. Airway is patent Respiratory effort is even, unlabored, Respiratory pattern is regular, symmetrical. Historical: - Allergies: 18:31 No Known Allergies; cm10 - PMHx: 18:31 Back pain; Diabetes - IDDM; Hypercholesterolemia; Hypertension; cm10 - Immunization history:: Adult Immunizations up to date. - Infectious Disease History:: Denies. - Social history:: Smoking status: Patient denies any tobacco usage or history of. Screenin:48 [facility] ED Fall Risk Assessment (Adult) History of falling in the last 3 months, cm10 including since admission No falls in past 3 months (0 pts) Confusion or Disorientation No (0 pts) Intoxicated or Sedated No (0 pts) Impaired Gait No (0 pts) Mobility Assist Device Used No (0 pt) Altered Elimination No (0 pt) Score/Fall Risk Level 0 - 2 = Low Risk Oriented to surroundings, Maintained a safe environment, Hourly rounding (assess needs \T\ fall precautionary measures) done. Abuse screen: Denies threats or abuse. Denies injuries from another. Nutritional screening: No deficits noted. Tuberculosis screening: No symptoms or risk factors identified. Vital Signs: 18:30 BP 169 / 90; Pulse 89; Resp 18; Temp 98.6; Pulse Ox 98% on R/A; Weight 68.04 kg; Height cm10 5 ft. 1 in. ; Pain 0/10; 18:30 Body Mass Index 28.34 (68.04 kg, 154.94 cm) cm10 18:30 Pain Scale: Adult cm10 ED Course: 18:10 Patient arrived in ED. im 18:11 Aj Villanueva FNP-C is PHCP. dr5 18:11 Thaddeus Dunbar MD is Attending Physician. dr5 18:31 Triage completed. cm10 18:32 Arm band placed on right wrist. Patient placed in waiting room. cm10 19:24 Chest Pa And Lat (2 Views) XRAY In Process Unspecified. EDMS 19:49 Patient has correct armband on for positive identification. Provided Education on: cm10 Follow-up instructions. 19:49 No provider procedures requiring assistance completed. Patient did not have IV access cm10 during this emergency room visit. Administered Medications: No medications were administered Medication: 19:48 VIS not applicable for this client. cm10 Outcome: 19:41 Discharge ordered by . dr5 19:49 Discharged to home ambulatory, cm10 19:49 Condition: good 19:49 Discharge instructions given to patient, Instructed on discharge instructions, follow up and referral plans. medication usage, Demonstrated understanding of instructions, follow-up care, medications, Prescriptions given X 2, 19:50 Patient left the ED. cm10 Signatures: Dispatcher [employer] EDMS Jennifer Burns Clarissa, RN RN cm10 Aj Villanueva FNP-C SILK SCREEN OPERATOR-Cdr5
[2025-01-24 19:57] VITALS: BP 169/90; TEMP 98.6; O2SAT 98
== END 2025-01-24 19:50 | disposition home or self-care (01) ==
LOC: ER 18:08
DX: J06.9 Acute upper respiratory infection, unspecified (principal); Z11.52 Encounter for screening for COVID-19
CPT/HCPCS: 36415; 71046; 87428; 99283

== ENCOUNTER 2025-07-10 15:06 | Inpatient (IN) | payer OTHER ==
[2025-07-10] MEDS ORDERED: NA CHLORIDE 0.9% 1,000 ML ONE ×2 (16:07→19:42)
[2025-07-10] MEDS ORDERED: ACETAMINOPHEN 500 MG TAB ONE (16:42)
[2025-07-10 16:54] LABS: Absolute Lymphocytes (CBC) 0.9 K/uL (0.7-4.9); Hematocrit 30.5 % (36.0-45.0); Hemoglobin 10.3 g/dL (12.0-15.0); MCH 31.4 pg (27.0-35.0); MCHC 33.9 g/dL (32.0-36.0); MCV 92.8 fL (80-100); MPV 6.4 fL (7.6-11.3); Nucleated RBC Absolute Count 0.0 (0-0); Nucleated Red Blood Cells % 0.0 % (0-0); RBC Red Blood Cell Count 3.29 M/uL (3.86-4.86); White Blood Count 8.80 thou/uL (4.3-10.9)
[2025-07-10 17:06] LABS: PT Prothrombin Time 14.1 SECONDS (10-13.0); PTT, Activated Partial Thromb 32.8 SECONDS (27.2-37.4); Protime INR 1.26
[2025-07-10 17:07] LABS: Influenza A Ag Negative; Influenza B Ag Negative; SARS-CoV-2 Antigen Rapid Res Negative (Negative)
[2025-07-10 17:19] LABS: ALT/SGPT 32.0 U/L (13-56); AST/SGOT 29.0 U/L (15-37); Albumin 3.3 g/dL (3.4-5.0); Albumin/Globulin Ratio 0.8 (1.1-1.8); Alkaline Phosphatase 110.0 U/L (45-117); Anion Gap 9.7 mEq/L (5.0-15.0); BUN Blood Urea Nitrogen 12.0 mg/dL (7-18); Bilirubin Indirect, Calculated 0.7 mg/dL (0.2-0.8); Globulin 4.1 g/dL (2.3-3.5); Glucose Level 130.0 mg/dL (74-106); Magnesium 2.0 mg/dL (1.6-2.4); NT PRO-BNP 98.0 pg/mL (<125); Potassium 3.7 mEq/L (3.5-5.1); Troponin High Sensitivity 5.7 pg/mL (<58.9)
--- NOTE | 2025-07-10 17:20 | RAD REPORT ---
EXAM: Chest Single View HISTORY: 70 years Female general weakness COMPARISON: 01/24/2025 FINDINGS: LUNGS/PLEURA: Low lung volumes. No pleural effusions or pneumothorax. No pulmonary edema. CARDIAC/MEDIASTINUM: Borderline enlarged. UPPER ABDOMEN: No significant abnormality. BONES: No acute abnormality. LINES/TUBES/OTHER: N/A IMPRESSION: No evidence of acute cardiopulmonary disease.
[2025-07-10 18:02] LABS: Sqamous Epithelial <5 /HPF (None Seen); Urine Crystals Unidentified Few /HPF (None Seen); Urine Culture Reflex Order REFLEXED; Urine Microscopic Reflex YN ORDER UMIC; Urine WBC Clump Rare /HPF (None Seen); Urine Yeast (Budding) Trace /HPF (None Seen)
--- NOTE | 2025-07-10 18:30 | RAD REPORT ---
EXAMINATION: Head C Spine Mpr Wo Con CLINICAL INDICATION: Female, 70 years old. DIZZINESS, FALL TECHNIQUE: Axial CT images from the skull base to the vertex without intravenous contrast. Axial CT i mages through the cervical spine were obtained without intravenous contrast. Sagittal and coronal reformatted images were created from the data set. Coronal and sagittal reformatted images were creat ed from the data set. One or more of the following dose reduction techniques were used: Automated exposure control, adjustment of the mA and/or kV according to patient size, and/or iterative reconstr uction. Unless otherwise specified, incidental findings do not require dedicated imaging follow-up. [id number]. COMPARISON: No prior exams FINDINGS: Head: INTRACRANIAL: No acute intracranial hemorrhage. No acute large vascular territory infarct. No hydroce phalus. No mass effect or midline shift. Mild chronic small vessel ischemic changes. VASCULATURE: No visualized abnormalities in the arteries or dural venous sinuses. SCALP/SKULL: Small lytic calvarial foci. No acute soft tissue abnormality. SINUSES: The visualized paranasal sinuses are mostly clear. No significant mastoid fluid. Cervical spine: ALIGNMENT: The cervical spine has normal alignment without scoliosis or spondylolisthesis. BONE: No acute fracture. Small well-defined lytic foci identified has been present in the spine since at least 2022. DEGENERATIVE: No significant focal degenerative changes. SOFT TISSUE: No significant abnormalities in the soft tissue of the neck. The visualized lung apices are clear. IMPRESSION: No acute intracranial abnormality. No acute fracture or traumatic malalignment of the cervical spine. Scattered lytic foci within the cervical spine and calvarium. Similar findings were present in the edil mbar spine in 2022. This may be of little significance but suggest correlating with laboratory values to exclude myeloma.
--- NOTE | 2025-07-10 18:37 | RAD REPORT ---
EXAM: Chest Abdomen Pelvis W Cont CLINICAL INDICATION: Female, 70 years abdominal pain;Fever TECHNIQUE: CT chest, abdomen and pelvis was performed, with IV contrast, as per department protocol. Axial, sagittal and coronal reconstructions were obtained. One or more of the following dose reduction techniques were used: Automated exposure control, adjustment of the mA and/or kV according to the patient size, and/or iterative reconstruction. Unless otherwise specified, incidental findings do not require dedicated imaging follow-up. [id number]. COMPARISON: 06/21/2023 FINDINGS: ---THORAX--- LOWER NECK AND CHEST WALL: Visualized thyroid gland and soft tissues are normal. MEDIASTINUM AND LYMPH NODES: No mediastinal mass or fluid collection. Normal size mediastinal, hilar, and axillary lymph nodes. Diffuse esophageal wall thickening. THORACIC AORTA: No thoracic aortic aneurysm. Atherosclerotic changes are present. PULMONARY ARTERIES: Caliber is within normal limits. No pulmonary emboli identified. HEART: Normal heart size. No coronary calcifications.No significant pericardial effusion. Aortic valv e calcifications. LUNGS AND AIRWAYS: Airways are clear. No evidence of airspace or interstitial process. Motion artifac t limits evaluation for pulmonary nodule detection. PLEURA: No pleural effusion. No pneumothorax. ---ABDOMEN/PELVIS--- UPPER GI: No significant abnormality. LIVER: Hepatic steatosis, but otherwise unremarkable. GALLBLADDER/BILE DUCTS: Cholelithiasis without CT evidence of acute cholecystitis.? PANCREAS: No mass, ductal dilation, or massimo-pancreatic fluid. SPLEEN: Unremarkable. ADRENALS: No adrenal masses. KIDNEYS AND URETERS: Bilateral collecting system fullness. No keegan hydronephrosis.Low density and/or too small to characterize renal lesions which are statistically benign.Nonspecific bilateral perinephric stranding. Bilateral urothelial thickening. 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 ABDOMINAL AORTA AND OTHER VESSELS: Mild atherosclerotic changes. PERITONEUM: No abnormal free fluid. No free air. LYMPH NODES: No pathologic lymphadenopathy. ABDOMINAL WALL: Unremarkable SMALL BOWEL/COLON: Small bowel has normal course and caliber. No colonic wall thickening or pericolon ic inflammatory changes. URINARY BLADDER: Nonspecific circumferential bladder wall thickening. REPRODUCTIVE ORGANS: Uterus surgically absent. No adnexal abnormality. ---COMBINED--- MUSCULOSKELETAL: No acute fracture. Scattered lytic foci present within the pelvis and spine which is unchanged since 2022. ADDITIONAL FINDINGS: None. IMPRESSION: Suspected right-sided polynephritis but bilateral ascending urinary tract infections. No renal absces s. No keegan hydronephrosis. 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 Scattered osseous lytic foci is stable since 2022. Suggest correlating to exclude multiple myeloma.
[2025-07-10] MEDS ORDERED: NA CHLORIDE 0.9% 50 ML ONE (19:05)
[2025-07-10] MEDS ORDERED: CEFTRIAXONE 1000 MG/VIAL ONE (19:05)
--- NOTE | 2025-07-10 19:06 | ER ---
Nurse's Notes [facility] Name: Feli Lee Age: 70 yrs Sex: Female : 1955 Arrival Date: 07/10/2025 Time: 15:06 Bed 15 Private MD: Diagnosis: Weakness;Pyelonephritis acute Presentation: 07/10 15:47 Chief complaint: Patient states: not feeling well x 3 days. Pt reports chills, fatigue, ss suprapubic discomfort and incontinence x 3 days. Coronavirus screen: Client denies travel out of the [place] in the last 14 days. Ebola Screen: Patient denies exposure to infectious person. Patient denies travel to an Ebola-affected area in the 21 days before illness onset. Initial Sepsis Screen: Does the patient meet any 2 criteria? RR > 20 per min. HR > 90 bpm. Yes Does the patient have a suspected source of infection? No. Patient's initial sepsis screen is negative. Risk Assessment: Do you want to hurt yourself or someone else? Patient reports no desire to harm self or others. Onset of symptoms was July 07, 2025. 15:47 Method Of Arrival: Ambulatory ss 15:47 Acuity: TONO 2 ss Historical: - Allergies: 15:49 No Known Allergies; ss - PMHx: 15:49 Back pain; Diabetes - IDDM; Hypercholesterolemia; Hypertension; ss - PSHx: 15:49 Total abdominal hysterectomy; ss - Immunization history:: Adult Immunizations up to date. - Infectious Disease History:: Denies. - Social history:: Smoking status: Patient denies any tobacco usage or history of. Screenin:00 [facility] ED Fall Risk Assessment (Adult) History of falling in the last 3 months, db including since admission Yes- single mechanical fall (1 pt) Confusion or Disorientation No (0 pts) Intoxicated or Sedated No (0 pts) Impaired Gait No (0 pts) Mobility Assist Device Used No (0 pt) Altered Elimination No (0 pt) Score/Fall Risk Level 0 - 2 = Low Risk Oriented to surroundings, Maintained a safe environment. Abuse screen: Denies threats or abuse. Denies injuries from another. Nutritional screening: No deficits noted. Tuberculosis screening: No symptoms or risk factors identified. Assessment: 17:28 Reassessment: Patient appears in no apparent distress at this time. Patient and/or db family updated on plan of care and expected duration. Pain level reassessed. Patient is alert, oriented x 3, equal unlabored respirations, skin warm/dry/pink. General: Appears in no apparent distress. comfortable, Behavior is calm, cooperative. Neuro: Level of Consciousness is awake, alert, obeys commands, Oriented to person, place, time, situation. 17:50 Reassessment: PT AMBULATORY TO RESTROOM WITH ASSIST. db 19:23 Reassessment: Patient appears in no apparent distress at this time. Patient and/or zm family updated on plan of care and expected duration. Pain level reassessed. Patient is alert, oriented x 3, equal unlabored respirations, skin warm/dry/pink. General: Appears in no apparent distress. uncomfortable, Behavior is calm, cooperative. Pain: Complains of pain in back, right knee and left knee Pain currently is 5 out of 10 on a pain scale. Quality of pain is described as aching, Is chronic. Neuro: No deficits noted. Level of Consciousness is awake, alert, obeys commands, Oriented to person, place, time, situation. Cardiovascular: No deficits noted. Denies chest pain, Capillary refill < 3 seconds in bilateral fingers. Respiratory: No deficits noted. Airway is patent Respiratory effort is even, unlabored, Respiratory pattern is regular, symmetrical. 19:48 General: Reports chills for 0-12 hours. zm 20:22 Reassessment: Patient appears in no apparent distress at this time. Patient and/or bm8 family updated on plan of care and expected duration. Pain level reassessed. Patient is alert, oriented x 3, equal unlabored respirations, skin warm/dry/pink. Patient states feeling better. Patient states symptoms have improved. 21:19 Reassessment: Patient appears in no apparent distress at this time. No changes from bm8 previously documented assessment. Patient and/or family updated on plan of care and expected duration. Pain level reassessed. Patient is alert, oriented x 3, equal unlabored respirations, skin warm/dry/pink. Patient states feeling better. 22:16 Reassessment: Patient appears in no apparent distress at this time. bm8 Vital Signs: 15:47 BP 175 / 73; Pulse 93; Resp 24; Temp 99.7(O); Pulse Ox 96% on R/A; Weight 65.77 kg; ss Height 5 ft. 1 in. ; Pain 8/10; 16:30 BP 166 / 74; Pulse 90; Resp 26; Pulse Ox 97% on R/A; db 16:48 Temp 103(O); db 17:00 BP 146 / 67; Pulse 85; Resp 26; Pulse Ox 97% ; db 17:45 BP 106 / 89; Pulse 82; Resp 23; Pulse Ox 97% on R/A; db 18:14 Temp 98.4; db 19:28 BP 135 / 84; Pulse 109; Resp 23; Temp 99.3; Pulse Ox 100% on R/A; Pain 5/10; zm 20:22 BP 157 / 63; Pulse 97; Resp 18; Temp 99.2; Pulse Ox 96% ; Pain 2/10; bm8 21:19 BP 127 / 72; Pulse 89; Resp 18; Temp 99.2; Pulse Ox 96% ; Pain 3/10; bm8 22:26 BP 142 / 59; Pulse 93; Resp 18; Temp 98.9; Pulse Ox 98% ; Pain 0/10; bm8 15:47 Body Mass Index 27.40 (65.77 kg, 154.94 cm) ss 15:47 Pain Scale: Adult ss 19:28 Pain Scale: Adult zm 20:22 Pain Scale: Adult bm8 21:19 Pain Scale: Adult bm8 22:26 Pain Scale: Adult bm8 [place] Coma Score: 19:28 Eye Response: spontaneous(4). Motor Response: obeys commands(6). Verbal Response: zm oriented(5). Total: 15. 20:22 Eye Response: spontaneous(4). Motor Response: obeys commands(6). Verbal Response: bm8 oriented(5). Total: 15. 21:19 Eye Response: spontaneous(4). Motor Response: obeys commands(6). Verbal Response: bm8 oriented(5). Total: 15. 22:26 Eye Response: spontaneous(4). Motor Response: obeys commands(6). Verbal Response: bm8 oriented(5). Total: 15. ED Course: 15:10 Patient arrived in ED. ts1 15:15 Rayshawn Cheney PA is PHCP. cp 15:15 Thaddeus Dunbar MD is Attending Physician. cp 15:39 Gaby Soto, RN is Primary Nurse. db 15:49 Triage completed. ss 15:49 Arm band placed on right wrist. ss 16:40 Initial lab(s) drawn, by me, sent to lab. Second set of blood cultures drawn EKG done. db Inserted saline lock: 20 gauge in right forearm, using aseptic technique. Blood collected. Flushed with 10 mL NS. 17:05 XRAY Chest (1 view) In Process Unspecified. EDMS 17:[address] via stretcher. db 17:52 Urine collected: clean catch specimen. db 18:00 Patient has correct armband on for positive identification. Bed in low position. Call db light in reach. Side rails up X2. Client placed on continuous cardiac and pulse oximetry monitoring. NIBP monitoring applied. nurse monitoring on. Pulse ox on. NIBP on. Pillow given. 18:23 CT Chest, Abdomen, Pelvis - W/Contrast In Process Unspecified. EDMS 18:23 Head C Spine Mpr Wo Con In Process Unspecified. EDMS 18:59 Epi Calderon, RN is Hospitalizing Provider. cp 19:00 Report received from URBAN Griffin. bm8 19:16 Misbah Patino, RN is Primary Nurse. bm8 19:28 Door closed. Noise minimized. Lights dimmed. knees bent and feet elevated to a position zm of comfort. 20:24 Provided Education on: need for admission. bm8 20:24 No provider procedures requiring assistance completed. Patient admitted, IV remains in bm8 place. Administered Medications: 16:40 Drug: NS 0.9% IV 1000 ml IV at 1 bolus Per protocol; to be given as a bolus over 60 db minutes Route: IV; Rate: 1 bolus; Site: right forearm; 20:23 Follow up: Response: No adverse reaction bm8 21:20 Follow up: Response: No adverse reaction; IV Status: Completed infusion bm8 16:52 Drug: Acetaminophen PO 1000 mg PO once Route: PO; db 20:23 Follow up: Response: No adverse reaction bm8 19:16 Drug: Rocephin IV 1 grams IV at calculated rate once; Given slow IV push per pharmacy bm8 instructions Route: IV; Rate: calculated rate; Site: right forearm; 19:37 Follow up: Response: No adverse reaction; IV Status: Completed infusion zm 19:48 Drug: Ibuprofen PO 800 mg PO once Route: PO; zm 20:23 Follow up: Response: No adverse reaction bm8 19:48 Drug: NS 0.9% IV 1000 ml IV at 100 ml/hr Per protocol Route: IV; Rate: 100 ml/hr; Site: right forearm; 22:27 Follow up: Response: No adverse reaction; IV Status: Infusion continued upon admission bm8 Medication: 17:00 VIS not applicable for this client. db Outcome: 19:06 Decision to Hospitalize by Provider. cp 22:26 Admitted to Tele accompanied by nurse, via wheelchair, room 428, with chart, bm8 22:26 Condition: stable 22:26 Instructed on follow up and referral plans. the need for admit, Demonstrated understanding of instructions, follow-up care, medications, 22:28 Patient left the ED. bm8 Signatures: Dispatcher [employer] EDMS Theresa Tierney RN RN ss Page, Corey, PAHerlindaC PAJessica Fletcher cp, RN RN zm Benton, Danielle, RN RN db Simpson, Tanya, PAS PAS ts1 Misbah Patino RN RN bm8 Corrections: (The following items were deleted from the chart) 16:03 15:47 Initial Sepsis Screen: Does the patient meet any 2 criteria? No. Patient's ss initial sepsis screen is negative. Does the patient have a suspected source of infection? No. Patient's initial sepsis screen is negative. 19:23 19:22 Report received from URBAN Griffin bm8 bm8 19:36 19:28 BP 135 / 84; Pulse 109bpm; Resp 23bpm; Pulse Ox 100% RA; Temp 99.1F; Pain 5/10, zm Adult; zm 22:54 22:51 BP 115 / 59; Pulse 107bpm; Resp 16bpm; Pulse Ox 95% 2 lpm Nasal Cannula; Temp zm 97.9F; Pain 0/10, Adult; zm 22:54 22:51 GCS: 15, zm zm
--- NOTE | 2025-07-10 19:07 | EDPHYS ---
Physician Documentation [facility] Name: Feli Lee Age: 70 yrs Sex: Female : 1955 Arrival Date: 07/10/2025 Time: 15:06 Bed 15 Private MD: ED Physician Thaddeus Dunbar HPI: 07/10 15:52 This 70 yrs old Female presents to ER via Ambulatory with complaints of cp Altered Mental Status, CHILLS, General Weakness. 15:52 The patient presents with confusion. Onset: The symptoms/episode began/occurred 3 cp day(s) ago. 15:55 Possible causes: unknown. cp 15:55 Associated signs and symptoms: Pertinent positives: weakness, Pertinent negatives: cp abdominal pain, chest pain, headache. Current symptoms: In the emergency department the patient's symptoms are unchanged from the initial presentation, despite home interventions. Patient's baseline: Neuro: alert and fully oriented, Motor: no deficits, Ambulation: walks without assistance, Speech: normal. 15:55 Friend of patient reports patient has fallen multiple times at home over past several cp days due to weakness. Historical: - Allergies: 15:49 No Known Allergies; ss - PMHx: 15:49 Back pain; Diabetes - IDDM; Hypercholesterolemia; Hypertension; ss - PSHx: 15:49 Total abdominal hysterectomy; ss - Immunization history:: Adult Immunizations up to date. - Infectious Disease History:: Denies. - Social history:: Smoking status: Patient denies any tobacco usage or history of. ROS: 15:55 Constitutional: Positive for chills, fever, cp 15:55 Cardiovascular: Negative for chest pain, cp 15:55 Respiratory: Negative for cough, shortness of breath, wheezing, 15:55 Abdomen/GI: Negative for abdominal pain, vomiting, diarrhea, constipation, 15:55 Neuro: Positive for weakness, 15:55 Eyes: Negative for injury, pain, redness, and discharge, cp 15:55 ENT: Negative for drainage from ear(s), ear pain, sore throat, difficulty swallowing, cp difficulty handling secretions, 15:55 : Positive for bladder incontinence Negative for difficulty urinating, 15:55 Skin: Negative for rash, 15:55 All other systems are negative, Exam: 16:00 Constitutional: The patient appears in no acute distress, alert, awake, cp non-diaphoretic, non-toxic, well developed, well nourished, uncomfortable, 16:00 Head/Face: Normocephalic, atraumatic. cp 16:00 Eyes: Periorbital structures: appear normal, Pupils: equal, round, and reactive to light and accomodation, Extraocular movements: intact throughout, Conjunctiva: normal, no exudate, no injection, Sclera: no appreciated abnormality, Lids and lashes: appear normal, bilaterally, 16:00 ENT: External ear(s): are unremarkable, Nose: is normal, Mouth: Lips: moist, Oral mucosa: moist, Posterior pharynx: Airway: no evidence of obstruction, patent, 16:00 Neck: ROM/movement: is normal, is supple, without pain, no range of motions limitations, no meningismus, 16:00 Chest/axilla: Inspection: normal, 16:00 Cardiovascular: Rate: normal, Rhythm: regular, Edema: is not appreciated, JVD: is not appreciated, 16:00 Respiratory: the patient does not display signs of respiratory distress, Respirations: normal, no use of accessory muscles, no retractions, Breath sounds: are clear throughout, no decreased breath sounds, no stridor, no wheezing, 16:00 Abdomen/GI: Inspection: abdomen appears normal, Bowel sounds: active, all quadrants, Palpation: soft, in all quadrants, mild abdominal tenderness, in the suprapubic area, right lower quadrant and left lower quadrant, rebound tenderness, is not appreciated, involuntary guarding, is not appreciated, 16:00 Back: CVA tenderness, that is mild, is noted bilaterally, vertebral tenderness, is not appreciated, 16:00 Skin: cellulitis, is not appreciated, no rash present. 16:00 Neuro: Orientation: to person, place \T\ time. Mentation: able to follow commands, Cerebellar function: Romberg testing is negative, dysmetria is noted on both sides, Motor: moves all fours, no focal deficits, Sensation: no obvious gross deficits, 16:35 ECG was reviewed by the Attending Physician. cp Vital Signs: 15:47 BP 175 / 73; Pulse 93; Resp 24; Temp 99.7(O); Pulse Ox 96% on R/A; Weight 65.77 kg; ss Height 5 ft. 1 in. ; Pain 8/10; 16:30 BP 166 / 74; Pulse 90; Resp 26; Pulse Ox 97% on R/A; db 16:48 Temp 103(O); db 17:00 BP 146 / 67; Pulse 85; Resp 26; Pulse Ox 97% ; db 17:45 BP 106 / 89; Pulse 82; Resp 23; Pulse Ox 97% on R/A; db 18:14 Temp 98.4; db 19:28 BP 135 / 84; Pulse 109; Resp 23; Temp 99.3; Pulse Ox 100% on R/A; Pain 5/10; zm 20:22 BP 157 / 63; Pulse 97; Resp 18; Temp 99.2; Pulse Ox 96% ; Pain 2/10; bm8 21:19 BP 127 / 72; Pulse 89; Resp 18; Temp 99.2; Pulse Ox 96% ; Pain 3/10; bm8 22:26 BP 142 / 59; Pulse 93; Resp 18; Temp 98.9; Pulse Ox 98% ; Pain 0/10; bm8 15:47 Body Mass Index 27.40 (65.77 kg, 154.94 cm) ss 15:47 Pain Scale: Adult ss 19:28 Pain Scale: Adult zm 20:22 Pain Scale: Adult bm8 21:19 Pain Scale: Adult bm8 22:26 Pain Scale: Adult bm8 Mila Coma Score: 19:28 Eye Response: spontaneous(4). Motor Response: obeys commands(6). Verbal Response: zm oriented(5). Total: 15. 20:22 Eye Response: spontaneous(4). Motor Response: obeys commands(6). Verbal Response: bm8 oriented(5). Total: 15. 21:19 Eye Response: spontaneous(4). Motor Response: obeys commands(6). Verbal Response: bm8 oriented(5). Total: 15. 22:26 Eye Response: spontaneous(4). Motor Response: obeys commands(6). Verbal Response: bm8 oriented(5). Total: 15. MDM: 16:00 Differential Diagnosis: CVA, electrolyte abnormality, intracranial bleed, pneumonia, cp sepsis, UTI, volume depletion. 19:06 Medical Screening Exam initiated cp 19:10 Data reviewed: vital signs, nurses notes, lab test result(s), EKG, radiologic studies, cp CT scan, plain films, and as a result, I will admit patient. 19:10 Management of patient was discussed with the following: Hospitalist: MR Calderon will cp admit after discussion. I considered the following discharge prescriptions or medication management in the emergency department Medications were administered in the Emergency Department. See MAR. Independent interpretation of the following test(s) in the Emergency Department EKG: See my EKG interpretation above. Care significantly affected by the following chronic conditions: Diabetes, Hypertension. Counseling: I had a detailed discussion with the patient and/or guardian regarding the historical points, exam findings, and any diagnostic results supporting the discharge/admit diagnosis, lab results, radiology results, the need for further work-up and treatment in the hospital. Response to treatment: the patient's symptoms have mildly improved after treatment. 07/10 15:57 Order name: UA Rfx Julius Cult if indicated; Complete Time: 18:39 cp 07/10 18:39 Interpretation: Normal except: [facility] Extremely Turbid; UKET TRACE; UBLD 1+; UPROT 1+; cp UUROB 1+; UESTR 75; UWBC 20-50; BYST Trace. 07/10 15:57 Order name: Basic Metabolic Panel; Complete Time: 17:30 cp 07/10 17:30 Interpretation: Normal except: CL 109; GLUC 130; CA 8.3. cp 07/10 15:57 Order name: CBC with Diff; Complete Time: 17:30 cp 07/10 18:41 Interpretation: Normal except: RBC 3.29; HGB 10.3; HCT 30.5; RDW 18.4; MPV 6.4; AYDEE% cp 83.2; LYM% 10.2. 07/10 15:57 Order name: LFT's; Complete Time: 17:30 cp 07/10 15:57 Order name: Magnesium; Complete Time: 17:30 cp 07/10 15:57 Order name: PT-INR; Complete Time: 17:30 cp 07/10 15:57 Order name: Troponin HS; Complete Time: 17:30 cp 07/10 15:57 Order name: BNP; Complete Time: 17:30 cp 07/10 15:57 Order name: Blood Culture Adult (2) cp 07/10 15:57 Order name: Lactate w/ 2H reflex if indic.; Complete Time: 17:30 cp 07/10 15:57 Order name: Ptt, Activated; Complete Time: 17:30 cp 07/10 15:57 Order name: COVID-19 Ag + Flu A+B Ag; Complete Time: 17:30 cp 07/10 18:13 Order name: Urine Culture EDMS 07/10 21:34 Order name: UA Rfx Julius Cult if indicated EDMS 07/10 21:34 Order name: CBC with Automated Diff EDMS 07/10 21:34 Order name: CBC with Automated Diff; Complete Time: 20:31 EDMS 07/10 21:34 Order name: CBC with Automated Diff EDMS 07/10 21:34 Order name: CBC with Automated Diff EDMS 07/10 21:34 Order name: Comprehensive Metabolic Panel EDMS 07/10 21:34 Order name: Comprehensive Metabolic Panel; Complete Time: 20:31 EDMS 07/10 21:34 Order name: Comprehensive Metabolic Panel EDMS 07/10 21:34 Order name: Comprehensive Metabolic Panel EDMS 07/10 21:34 Order name: Magnesium EDMS 07/10 21:34 Order name: Magnesium; Complete Time: 20:31 EDMS 07/10 21:34 Order name: Magnesium EDGA 07/10 21:34 Order name: Magnesium EDGA 07/10 15:57 Order name: XRAY Chest (1 view); Complete Time: 17:30 cp 07/10 17:32 Order name: CT Chest, Abdomen, Pelvis - W/Contrast; Complete Time: 18:39 cp 07/10 17:38 Order name: Head C Spine Mpr Wo Con; Complete Time: 18:39 EDGA 07/10 21:36 Order name: Physical Therapy Consult EDGA 07/10 15:57 Order name: Cardiac monitoring; Complete Time: 16:32 cp 07/10 15:57 Order name: EKG - Nurse/Tech; Complete Time: 16:32 cp 07/10 15:57 Order name: IV Saline Lock; Complete Time: 16:46 cp 07/10 15:57 Order name: Labs collected and sent; Complete Time: 16:46 cp 07/10 15:57 Order name: O2 Per Protocol; Complete Time: 16:32 cp 07/10 15:57 Order name: O2 Sat Monitoring; Complete Time: 16:32 cp 07/10 15:57 Order name: Accucheck; Complete Time: 16:46 cp 07/10 15:57 Order name: IV Saline Lock - Large Bore; Complete Time: 16:46 cp 07/10 15:57 Order name: Vital Signs; Complete Time: 16:32 cp EC:35 Rate is 90 beats/min. Rhythm is regular. OR interval is normal. QRS interval is normal. cp QT interval is normal. T waves are Inverted in lead aVR. Interpreted by me. Reviewed by me. Administered Medications: 16:40 Drug: NS 0.9% IV 1000 ml IV at 1 bolus Per protocol; to be given as a bolus over 60 db minutes Route: IV; Rate: 1 bolus; Site: right forearm; 20:23 Follow up: Response: No adverse reaction bm8 21:20 Follow up: Response: No adverse reaction; IV Status: Completed infusion bm8 16:52 Drug: Acetaminophen PO 1000 mg PO once Route: PO; db 20:23 Follow up: Response: No adverse reaction bm8 19:16 Drug: Rocephin IV 1 grams IV at calculated rate once; Given slow IV push per pharmacy bm8 instructions Route: IV; Rate: calculated rate; Site: right forearm; 19:37 Follow up: Response: No adverse reaction; IV Status: Completed infusion zm 19:48 Drug: Ibuprofen PO 800 mg PO once Route: PO; zm 20:23 Follow up: Response: No adverse reaction bm8 19:48 Drug: NS 0.9% IV 1000 ml IV at 100 ml/hr Per protocol Route: IV; Rate: 100 ml/hr; Site: right forearm; 22:27 Follow up: Response: No adverse reaction; IV Status: Infusion continued upon admission bm8 Disposition Summary: 07/10/25 19:06 Hospitalization Ordered Notes: Hospitalization Status: Inpatient Admission cp Provider: Epi Calderon cp Location: Telemetry/[facility] (Inpatient) cp Condition: Stable cp Problem: new cp Symptoms: have improved cp Bed/Room Type: Standard cp Room Assignment: 428(07/10/25 21:45) kmf Diagnosis - Weakness cp - Pyelonephritis acute cp Forms: - Medication Reconciliation Form cp - SBAR form cp - Leadership Thank You Letter cp Addendum: 07/16/2025 07:19 Co-signature as Attending Physician, Thaddeus Dunbar MD I reviewed the patient's care r n provided by the Advanced Practice Provider and agree with the diagnosis and treatment plan. Signatures: Dispatcher [employer] EDMS DunbarThaddeus agosto MD MD rn Blanchard, Shelby, RN RN Rayshawn Lopez, PA-C PA-C Jessica Jones, RN Gaby Joiner RN RN Tiffanie Donohue [facility] Misbah Patino RN RN bm8 Corrections: (The following items were deleted from the chart) 07/10 15:58 15:58 UA Rfx Julius Cult if indicated+U.LAB.BRZ ordered. EDMS EDMS 15:58 15:58 BASIC METABOLIC PANEL+C.LAB.BRZ ordered. EDMS EDMS 15:58 15:58 CBC+H.LAB.BRZ ordered. EDMS EDMS 15:58 15:58 HEPATIC FUNCTION+C.LAB.BRZ ordered. EDMS EDMS 15:58 15:58 MAGNESIUM+C.LAB.BRZ ordered. EDMS EDMS 15:58 15:58 PROTIME (+INR)+COAG.LAB.BRZ ordered. EDMS EDMS 15:58 15:58 Troponin High Sensitivity+C.LAB.BRZ ordered. EDMS EDMS 15:58 15:58 PROBNP+C.LAB.BRZ ordered. EDMS EDMS 15:58 15:58 BLOOD CULTURE*+BA.LAB.BRZ ordered. EDMS EDMS 15:58 15:58 LACTATE+C.LAB.BRZ ordered. EDMS EDMS 15:58 15:58 PTT, ACTIVATED+COAG.LAB.BRZ ordered. EDMS EDMS 15:58 15:58 COVID-19 Ag + Flu A+B Ag+I.LAB.BRZ ordered. EDMS EDMS 15:58 15:58 Chest Single View+RAD.RAD.BRZ ordered. EDMS EDMS 17:38 17:32 Head Brain Wo Cont+CT.RAD.BRZ ordered. EDMS EDMS 17:39 17:32 C Spine Wo Con+CT.RAD.BRZ ordered. EDMS EDMS 18:12 15:57 Chairez ordered. cp db 21:45 19:06 cp [facility] 07/11 20:24 07/10 15:55 Patient's baseline: Neuro: alert and fully oriented, Motor: no deficits, cp Ambulation: walks without assistance, Speech: normal, The patient has a previous history of cp
[2025-07-10] MEDS ORDERED: IBUPROFEN 400 MG TAB ONE (19:42)
[2025-07-10] MEDS ORDERED: MORPHINE 2 MG/ML SYR IV PRN (21:29)
[2025-07-10] MEDS ORDERED: ACETAMINOPHEN 325 MG TABLET PO PRN (21:30)
--- NOTE | 2025-07-10 21:36 | P.HP ---
Certification for Inpatient Patient admitted to: Inpatient With expected LOS: >2 Midnights Patient will require the following post-hospital care: None Practitioner: I am a practitioner with admitting privileges, knowledge of patient current condition, hospital course, and medical plan of care. Services: Services provided to patient in accordance with Admission requirements found in Title 42 Section 412.3 of the Code of Federal Regulations Patient History Date of Service: 07/10/25 Reason for admission: Acute pyelonephritis. History of Present Illness: Patient is a pleasant 70-year-old female with past medical history of chronic back pain, type 2 diabetes mellitus, hypercholesteremia, essential hypertension, who presents to the ER today complaining of back pain, and states "not just feeling well for the past 3 days", and multiple falls. Patient states for the past 3 days she has not been feeling well, states she had some chills, generalized body fatigue, suprapubic discomfort, incontinence, states she have had multiple falls at home because of her weak knees secondary to severe arthritis. Patient states 4 days ago she fell, states her friends had to assist in getting her off the floor, states she fell again today, and attributing her falling because of her arthritic knees. States she has been having lower back pain, and suprapubic discomfort, frequent urination and urgency for the past 3 days, states her symptoms progressively worsened today which then prompted her to report to the ER. On admission assessment, patient was fully awake, alert and oriented x 3, denies of any chest pain, shortness of breath, headaches, blurred vision, nausea or vomiting, still endorses back pain, and suprapubic pain. Course in ER: (1) CT head/cervical spine. Impression: No acute intracranial abnormality. No acute fracture or traumatic malalignment of the cervical spine. Scattered lytic foci within the cervical spine and calvarium. Similar findings were present in the lumbar spine in 2022. This may be of little significant but suggest correlating with laboratory values exclude myeloma. (2) CT chest/abdomen/pelvis with contrast. Impression: Suspected right-sided pyelonephritis but bilateral ascending urinary tract infections. No renal abscess. No keegan hydronephrosis. 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 Scattered osseous lytic foci is stable since 2022. Suggest correlating to exclude multiple myeloma. (3) chest x-ray. Impression: No evidence of acute cardiopulmonary disease Allergies No Known Allergies Allergy (Verified 07/10/25 22:40) Home Medications: Metformin ER 500 mg Tab 12/28/11 - Past Medical/Surgical History Diabetic: Yes -: Type 2 diabetes mellitus. -: Chronic back pain. -: Hypercholesterolemia. -: Hypertension. -: Total hysterectomy. - Family History Mother -: Heart disease, Hypertension - Social History Smoking Status: Never smoker Alcohol use: No CD- Drugs: No Caffeine use: Yes Place of Residence: Home Review of Systems 10-point ROS is otherwise unremarkable General: Other (Lower back pain.) Genitourinary: Frequency, Urgency, Other (Suprapubic pain) Musculoskeletal: Back Pain (Both knees, secondary to arthritis.) Neurological: Other (Multiple falls at home) Physical Examination - Physical Exam General: Alert, In no apparent distress, Oriented x3 HEENT: Atraumatic, Normocephalic, PERRLA, Mucous membr. moist/pink, Sclerae nonicteric Neck: Supple, 2+ carotid pulse no bruit, No LAD, Without JVD or thyroid abnormality Respiratory: Clear to auscultation bilaterally, Normal air movement Cardiovascular: No edema, Normal pulses, Regular rate/rhythm, Normal S1 S2, Abnormal S3, No gallops, No rubs, No murmurs Gastrointestinal: Normal bowel sounds, Soft and benign, Non-distended, W/out succussion splash, W/out hepatomegaly, No ascites, No tenderness, No masses, No rebound, No guarding Musculoskeletal: No clubbing, No swelling, No contractures, No erythema, No tenderness, No warmth Integumentary: No rashes, No breakdown, No significant lesion, No tenderness/swelling, No erythema, No warmth, No cyanosis Neurological: Normal gait, Normal speech, Normal strength at 5/5 x4 extr, Normal tone, Sensation intact, Cranial nerves 3-12 intact, Normal reflexes 2+, Normal affect Lymphatics: No axilla or inguinal lymphadenopathy - Studies Laboratory Data (last 24 hrs) 07/10/25 07/10/25 07/10/25 16:30 16:30 16:30 WBC 8.80 Hgb 10.3 L Hct 30.5 L Plt Count 200 PT 14.1 H INR 1.26 APTT 32.8 Sodium 138 Potassium 3.7 BUN 12 Creatinine 0.62 Glucose 130 H Magnesium 2.0 Total Bilirubin 1.0 AST 29 ALT 32 Alkaline Phosphatase 110 Female Exam - Breasts Breasts: Normal configuration Assessment and Plan - Plan Patient is a pleasant 70-year-old female admitted to inpatient with diagnosis of acute pyelonephritis, with associated fever. (1)Pyelonephritis. -Rocephin 2 g IV daily. -Morphine 2 mg as needed every 4 hours IV. (2)Frequent falls at home. No focal or sensory deficit identified at this time. -Consult physical therapy for strengthening, and ambulation. (3)Chronic type 2 diabetes mellitus -ACHS with moderate coverage. (3)Chronic essential hypertension. - Patient medications to be resumed after reconciliation is completed. -Hydralazine 10 mg IV as needed every 6 hours for systolic of 160 or greater and diastolic of 90 or greater. (4)To resume patient home medications after reconciliation is completed. (5)Explained the entire treatment plan to the patient, solicit questions answered and voiced understanding. Discharge Plan: Home Plan to discharge in: Greater than 2 days - Advance Directives Does patient have a Living Will: No Does patient have a Durable POA for Healthcare: No - Code Status/Comfort Care Code Status Assessed: No Code Status: Full Code Critical Care: No Time Spent Managing Pts Care (In Minutes): 55
[2025-07-10] MEDS: INSULIN REGULAR (HUMAN) 100 UNIT/ML SQ SCH (23:02)
[2025-07-11 05:47] LABS: Absolute Lymphocytes (CBC) 1.5 K/uL (0.7-4.9); Hematocrit 28.1 % (36.0-45.0); Hemoglobin 9.8 g/dL (12.0-15.0); MCH 32.2 pg (27.0-35.0); MCHC 34.9 g/dL (32.0-36.0); MCV 92.3 fL (80-100); MPV 6.4 fL (7.6-11.3); Nucleated RBC Absolute Count 0.0 (0-0); Nucleated Red Blood Cells % 0.1 % (0-0); RBC Red Blood Cell Count 3.04 M/uL (3.86-4.86); White Blood Count 8.80 thou/uL (4.3-10.9)
[2025-07-11 06:11] LABS: ALT/SGPT 28.0 U/L (13-56); AST/SGOT 15.0 U/L (15-37); Albumin 2.7 g/dL (3.4-5.0); Albumin/Globulin Ratio 0.7 (1.1-1.8); Alkaline Phosphatase 100.0 U/L (45-117); Anion Gap 9.4 mEq/L (5.0-15.0); BUN Blood Urea Nitrogen 11.0 mg/dL (7-18); Globulin 3.8 g/dL (2.3-3.5); Glucose Level 109.0 mg/dL (74-106); Magnesium 2.1 mg/dL (1.6-2.4); Potassium 3.4 mEq/L (3.5-5.1)
[2025-07-11] MEDS ORDERED: INSULIN REGULAR (HUMAN) 100 UNIT/ML SQ SCH ×2 (07:30)
[2025-07-11] MEDS ORDERED: PNEUMOCOCCAL VACCINE 0.5 ML IMVAC ONE (08:00)
[2025-07-11] MEDS: POTASSIUM CL SA 10 MEQ TAB PO ONE ×2 (08:40→16:23)
--- NOTE | 2025-07-11 09:29 | P.PN ---
Date of Service: 07/11/25 Subjective: feeling slightly better today reports multiple falls at home last few days. Was feeling very weak. 103 fever this morning denies any worsening problems Physical Exam GEN: Alert, oriented, NAD CV: Regular rate and rhythm, no edema Pulm: Nonlabored respirations on room air, clear bilaterally ABD: soft, nontender, nondistended Neuro: Normal speech, normal affect Problem List: Acute right-sided pyelonephritis Gram negative bacteremia Generalized weakness, recurrent falls NIDDM2 Hypertension Hyperlipidemia Chronic back pain Acute right-sided pyelonephritis Gram negative bacteremia Generalized weakness, recurrent falls CT chest/abd (07/10): Suspected right-sided polynephritis but bilateral ascending urinary tract infections. 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 Scattered lytic foci within the cervical spine and calvarium. Similar findings were present in the lumbar spine in 2022 Weakness likely related to infection. Continue IV Rocephin (07/11-) Blood cultures with gram negative rods in 4/4 bottles Urine culture pending Follow cultures pain control NIDDM2 Hypertension Hyperlipidemia Chronic back pain confirm home meds, restart as appropriate Code: Full Dispo: Home, ~ 3 days Time Spent Managing Pts Care (In Minutes): 55
[2025-07-11] MEDS: CEFTRIAXONE 2,000 MG in NA CHLORIDE 0.9% 100 ML IV SCH (17:05)
[2025-07-11] MEDS: Meropenem 1,000 MG in NA CHLORIDE 0.9% 100 ML IV SCH (23:31)
[2025-07-12 05:20] LABS: Absolute Lymphocytes (CBC) 1.1 K/uL (0.7-4.9); Hematocrit 29.0 % (36.0-45.0); Hemoglobin 10.1 g/dL (12.0-15.0); MCH 32.1 pg (27.0-35.0); MCHC 34.9 g/dL (32.0-36.0); MCV 91.9 fL (80-100); MPV 6.6 fL (7.6-11.3); Nucleated RBC Absolute Count 0.0 (0-0); Nucleated Red Blood Cells % 0.1 % (0-0); RBC Red Blood Cell Count 3.15 M/uL (3.86-4.86); White Blood Count 7.20 thou/uL (4.3-10.9)
[2025-07-12 05:43] LABS: ALT/SGPT 29.0 U/L (13-56); AST/SGOT 15.0 U/L (15-37); Albumin 2.8 g/dL (3.4-5.0); Albumin/Globulin Ratio 0.7 (1.1-1.8); Alkaline Phosphatase 108.0 U/L (45-117); Anion Gap 8.1 mEq/L (5.0-15.0); BUN Blood Urea Nitrogen 6.0 mg/dL (7-18); Globulin 4.0 g/dL (2.3-3.5); Glucose Level 132.0 mg/dL (74-106); Magnesium 1.9 mg/dL (1.6-2.4); Potassium 4.1 mEq/L (3.5-5.1)
--- NOTE | 2025-07-12 18:36 | P.PN ---
Subjective Date of Service: 07/12/25 Chief Complaint: Acute pyelonephritis. Patient has no new complaint. No recorded fever She has good oral intake and she is ambulatory. Physical Examination - Vital Signs Temperature: 98.1 F Blood Pressure: 151/71 Pulse: 62 Respirations: 18 Pulse Ox (%): 96 - Studies Microbiology Data (last 24 hrs): 07/10/25 17:52 Clean Catch Urine Webster Count - Final 07/10/25 16:16 Blood - Blood Aerobic Blood Culture - Final Escherichia Coli Esbl 07/10/25 16:16 Blood - Blood Blood Culture Gram Stain - Final 07/10/25 16:16 Blood - Blood Anaerobic Blood Culture - Final Escherichia Coli Esbl 07/10/25 16:16 Blood - Blood Gram Stain - Final Assessment And Plan - Plan Physical Exam GEN: Alert, oriented, NAD CV: Regular rate and rhythm, no edema Pulm: Nonlabored respirations on room air, clear bilaterally ABD: soft, nontender, nondistended Neuro: Normal speech, normal affect Problem List: Acute right-sided pyelonephritis Gram negative bacteremia Generalized weakness, recurrent falls NIDDM2 Hypertension Hyperlipidemia Chronic back pain Acute right-sided pyelonephritis Gram negative bacteremia Generalized weakness, recurrent falls CT chest/abd (07/10): Suspected right-sided polynephritis but bilateral ascending urinary tract infections. 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 Scattered lytic foci within the cervical spine and calvarium. Similar findings were present in the lumbar spine in 2022 Weakness likely related to infection. Continue IV Rocephin (07/11-) Blood cultures with gram negative rods in 4/4 bottles Urine culture pending Follow cultures pain control NIDDM2 Hypertension Hyperlipidemia Chronic back pain confirm home meds, restart as appropriate 07/12 Serial blood cultures have grown ESBL E. coli. Continue IV meropenem Repeat blood culture Patient will need outpatient IV antibiotics. Infectious disease consulted. Patient reports significant improvement in her weakness. She is now ambulating without assistance. Follow cultures. Code: Full Dispo: Home, ~ 3 days Time Spent Managing Pts Care (In Minutes): 55
[2025-07-12] MEDS: ATORVASTATIN 20 MG TAB PO SCH (20:22)
[2025-07-12] MEDS ORDERED: HOME MED 1 EA UNK (Simvastatin [Simvastatin] 40 MG Tablet) PO SCH (21:00)
[2025-07-13 00:03] VITALS: BMI 27.4
[2025-07-13 07:20] LABS: Absolute Lymphocytes (CBC) 1.5 K/uL (0.7-4.9); Hematocrit 28.4 % (36.0-45.0); Hemoglobin 10.0 g/dL (12.0-15.0); MCH 32.0 pg (27.0-35.0); MCHC 35.2 g/dL (32.0-36.0); MCV 91.1 fL (80-100); MPV 6.3 fL (7.6-11.3); Nucleated RBC Absolute Count 0.0 (0-0); Nucleated Red Blood Cells % 0.2 % (0-0); RBC Red Blood Cell Count 3.12 M/uL (3.86-4.86); White Blood Count 5.70 thou/uL (4.3-10.9)
[2025-07-13 07:38] LABS: ALT/SGPT 24.0 U/L (13-56); AST/SGOT 13.0 U/L (15-37); Albumin 2.8 g/dL (3.4-5.0); Albumin/Globulin Ratio 0.7 (1.1-1.8); Alkaline Phosphatase 98.0 U/L (45-117); Anion Gap 6.8 mEq/L (5.0-15.0); BUN Blood Urea Nitrogen 7.0 mg/dL (7-18); Globulin 4.1 g/dL (2.3-3.5); Glucose Level 124.0 mg/dL (74-106); Magnesium 2.0 mg/dL (1.6-2.4); Potassium 3.8 mEq/L (3.5-5.1)
[2025-07-13 08:02] LABS: Sqamous Epithelial <5 /HPF (None Seen); Urine Crystals Unidentified Few /HPF (None Seen); Urine Culture Reflex Order NOT NEEDED; Urine Microscopic Reflex YN ORDER UMIC; Urine Yeast (Budding) Trace /HPF (None Seen)
[2025-07-13] MEDS: POTASSIUM CL SA 10 MEQ TAB PO ONE (08:33)
--- NOTE | 2025-07-13 14:24 | P.CNS ---
Date of Consult: 07/13/25 reason for consult: pyelonephritis and bacteremia hpi: 70-year-old female with past medical history of chronic back pain, type 2 diabetes mellitus presents to the ER today complaining of back pain and states "not just feeling well for the past 3 days", and multiple falls. She report had chill othat started jul 10 (3 days ago) and had lose her balance. Denies chest pain, shortness of breath, headaches, blurred vision, nausea or vomiting, but report lower back and suprapubic pain. (1) CT head/cervical spine shows No acute intracranial abnormality. (2) CT chest/abdomen/pelvis with contrast. Impression: Suspected right-sided pyelonephritis but bilateral ascending urinary tract infections. No renal abscess. No keegan hydronephrosis. 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 Scattered osseous lytic foci is stable since 2022. (3) chest x-ray unremarkable. pt has e coli in the urine and e coli ESBL in the blood. pt is currently on merrem. Allergies No Known Allergies Allergy (Verified 07/10/25 22:40) Current Medications Acetaminophen (Acetaminophen 325 Mg Tablet) 650 mg PO Q4HP PRN PRN Reason: Pain scale 2-4 (Mild) Atorvastatin Calcium (Atorvastatin 20 Mg Tab) 20 mg PO BEDTIME [facility] Last Admin: 07/12/25 20:22 Dose: 20 mg Hydralazine HCl (Hydralazine Hcl 20 Mg/Ml Vial) 10 mg IV Q6HP PRN PRN Reason: FOR SBP>160 OR DBP>90 MM[facility] Meropenem 1,000 mg/ Sodium (Chloride) 100 mls @ 200 mls/hr IV Q12H [facility] Last Admin: 07/13/25 11:33 Dose: 100 mls Insulin Human Regular (Insulin Regular (Human) 100 Unit/Ml) 0 unit SQ ACHS NASH; Protocol Last Admin: 07/13/25 12:12 Dose: 3 unit Lisinopril (Lisinopril 20 Mg Tab) 40 mg PO DAILY [facility] Last Admin: 07/13/25 08:33 Dose: 40 mg Morphine Sulfate (Morphine 2 Mg/Ml Syr) 2 mg IV Q4H PRN PRN Reason: Pain scale 8-10 (Severe) - Past Medical/Surgical History Diabetic: Yes -: Type 2 diabetes mellitus. -: Chronic back pain. -: Hypercholesterolemia. -: Hypertension. -: Total hysterectomy. - Family History Mother -: Heart disease, Hypertension - Social History Smoking Status: Never smoker Alcohol use: No CD- Drugs: No Caffeine use: Yes Place of Residence: Home Review of Systems Genitourinary:Suprapubic pain Musculoskeletal: Back Pain objective Temp Pulse Resp BP Pulse Ox 97.7 F 64 16 118/67 97 07/13/25 12:00 07/13/25 12:00 07/13/25 12:00 07/13/25 12:00 07/13/25 12:00 - Physical Exam General: Alert, In no apparent distress, Oriented x3 HEENT: Atraumatic, Normocephalic, PERRLA Neck: Supple, Respiratory: Clear to auscultation bilaterally, Normal air movement Cardiovascular: No edema, Normal pulses, Regular rate/rhythm Gastrointestinal: some discomfort on palpation to lower abdomen Musculoskeletal:no edema or swelling Neurological: respond to question appropriately. Normal speech, labs: wbc 5.7, hgb 10, plt count 269, bun 7, cr 0.58, albumin 2.8 Microbiology 07/10/25 17:52 Clean Catch Urine [place] Count - Final 07/10/25 17:52 Clean Catch Urine - Final Escherichia Coli 07/10/25 16:16 Blood - Blood Aerobic Blood Culture - Final Escherichia Coli Esbl 07/10/25 16:16 Blood - Blood Blood Culture Gram Stain - Final 07/10/25 16:16 Blood - Blood Anaerobic Blood Culture - Final Escherichia Coli Esbl 07/10/25 16:16 Blood - Blood Gram Stain - Final assessment and planning Acute right-sided pyelonephritis Ecoli ESBL bacteremia NIDDM2 moderate protein calorie malnourishment blood culture grew e coli ESBL and urine grew Ecoli continue merrem x 2 weeks. tentative stop date jul 25 echo pending repeat blood culture until neg will continue to monitor patient as needed thank you for the consult dr coker case discussed and in agreement with Dr Andre
--- NOTE | 2025-07-13 17:00 | P.PN ---
Subjective Date of Service: 07/13/25 Chief Complaint: Acute pyelonephritis. Patient has no new complaint. No recorded fever She request to go home. Physical Examination - Vital Signs Temperature: 97.8 F Blood Pressure: 98/55 Pulse: 55 Respirations: 16 Pulse Ox (%): 98 - Studies Microbiology Data (last 24 hrs): 07/10/25 17:52 Clean Catch Urine [place] Count - Final 07/10/25 17:52 Clean Catch Urine - Final Escherichia Coli Assessment And Plan - Plan Physical Exam GEN: Alert, oriented, NAD CV: Regular rate and rhythm, no edema Pulm: Clear to auscultation bilaterally, adequate breath sounds bilaterally ABD: soft, nontender, nondistended Neuro: Normal speech, normal affect Problem List: Acute right-sided pyelonephritis Gram negative bacteremia Generalized weakness, recurrent falls NIDDM2 Hypertension Hyperlipidemia Chronic back pain Acute right-sided pyelonephritis Gram negative bacteremia Generalized weakness, recurrent falls CT chest/abd (07/10): Suspected right-sided polynephritis but bilateral ascending urinary tract infections. 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 Scattered lytic foci within the cervical spine and calvarium. Similar findings were present in the lumbar spine in 2022 Weakness likely related to infection. Continue IV Rocephin (07/11-) Blood cultures with gram negative rods in 4/4 bottles Urine culture pending Follow cultures pain control NIDDM2 Hypertension Hyperlipidemia Chronic back pain Continue home medications. 07/12 Serial blood cultures have grown ESBL E. coli. Continue IV meropenem Repeat blood culture Patient will need outpatient IV antibiotics. Infectious disease consulted. Patient reports significant improvement in her weakness. She is now ambulating without assistance. Follow cultures. 07/13 Repeat blood culture 07/12 shows no growth to date. Infectious disease input appreciated. Infectious disease recommended 2 weeks of IV meropenem. Midline for outpatient IV antibiotics requested. Awaiting arrangement for outpatient IV antibiotics for discharge. Code: Full Dispo: Home, ~ 3 days Time Spent Managing Pts Care (In Minutes): 55
[2025-07-14 07:28] LABS: Absolute Lymphocytes (CBC) 1.8 K/uL (0.7-4.9); Hematocrit 29.6 % (36.0-45.0); Hemoglobin 10.2 g/dL (12.0-15.0); MCH 31.6 pg (27.0-35.0); MCHC 34.4 g/dL (32.0-36.0); MCV 91.9 fL (80-100); MPV 6.0 fL (7.6-11.3); Nucleated RBC Absolute Count 0.0 (0-0); Nucleated Red Blood Cells % 0.2 % (0-0); RBC Red Blood Cell Count 3.22 M/uL (3.86-4.86); White Blood Count 6.70 thou/uL (4.3-10.9)
[2025-07-14 07:44] LABS: Anion Gap 8.3 mEq/L (5.0-15.0); BUN Blood Urea Nitrogen 10.0 mg/dL (7-18); Glucose Level 123.0 mg/dL (74-106); Potassium 4.3 mEq/L (3.5-5.1)
[2025-07-14 08:02] VITALS: O2SAT 96
--- NOTE | 2025-07-14 11:47 | ECHO ---
HEIGHT: 5 ft 1 in WEIGHT: 145 lb 6.4 oz DATE OF STUDY: 07/14/[address]: Latoya Salvador NP 2-DIMENSIONAL: YES M.MODE: YES DOPPLER: YES COLOR FLOW: YES TDS: PORTABLE: YES DEFINITY: BUBBLE STUDY: DIAGNOSIS: RULE OUT INFECTIVE ENDOCARDITIS CARDIAC HISTORY: CATHERIZATION: SURGERY: PROSTHETIC VALVE: PACEMAKER: MEASUREMENTS (cm) DIASTOLIC (NORMALS) SYSTOLIC (NORMALS) IVSd 0.9 (0.6-1.2) LA Diam 3.4 (1.9-4.0) LVEF 60-65% LVIDd 3.8 (3.5-5.7) LVIDs 2.6 (2.0-3.5) %FS 31% LVPWd 0.8 (0.6-1.2) Ao Diam 2.5 (2.0-3.7) 2 DIMENSIONAL ASSESSMENT: RIGHT ATRIUM: NORMAL LEFT ATRIUM: NORMAL RIGHT VENTRICLE: NORMAL LEFT VENTRICLE: NROAML TRICUSPID VALVE: TRACE TRICUPSID REGURGITATION MITRAL VALVE: NORMAL PULMONIC VALVE: NORMAL AORTIC VALVE: NORMAL PERICARDIAL EFFUSION: NONE AORTIC ROOT: NORMAL LEFT VENTRICULAR WALL MOTION: NORMAL DOPPLER/COLOR FLOW: NORMAL COMMENTS: 1. NORMAL LEFT VENTRICULAR SYSTOLIC FUNCTION, EJECTION FRACTION 60-65%, NORMAL WALL MOTION 2. NORMAL DIASTOLIC FUNCTION TECHNOLOGIST: BEKAH WALL
[2025-07-14] MEDS: HYDRALAZINE HCL 20 MG/ML VIAL IV PRN (12:33)
[2025-07-14 16:14] VITALS: BP 138/69; TEMP 97.7
--- NOTE | 2025-07-14 17:19 | P.DS ---
Admission Date: 07/10/25 Discharge Date: 07/14/25 Disposition: ROUTINE DISCHARGE Discharge Condition: FAIR Reason for Admission: Acute pyelonephritis. Hospital Course: Problem List: Acute right-sided pyelonephritis Gram negative bacteremia Generalized weakness, recurrent falls NIDDM2 Hypertension Hyperlipidemia Chronic back pain 70-year-old female with past medical history of chronic back pain, type 2 diabetes mellitus, hypercholesteremia, essential hypertension, presented to the ER complaining of back pain and multiple falls. She also reported suprapubic discomfort, incontinence, increased frequency of urination and urgency. CT head/cervical spine showed no acute intracranial abnormality. No acute fracture or traumatic malalignment of the cervical spine. Scattered lytic foci within the cervical spine and calvarium. Similar findings were present in the lumbar spine in 2022. This may be of little significant but suggest correlating with laboratory values exclude myeloma. CT chest/abdomen/pelvis with contrast suggested right-sided pyelonephritis and bilateral ascending urinary tract infections. No renal abscess. No keegan hydronephrosis. 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 Scattered osseous lytic foci is stable since 2022. Suggest correlating to exclude multiple myeloma. Chest x-ray showed no evidence of acute cardiopulmonary disease. Patient admitted to the medical floor and initiated on IV Rocephin Urine culture and blood culture grew ESBL E. coli. Antibiotics changed to IV meropenem. Patient seen and evaluated by infectious disease who recommended patient to complete 2 weeks of IV meropenem. Patient's symptoms improved. He was evaluated by physical therapy and patient cleared from their service because patient was able to ambulate independently without assistance. Midline placed, outpatient IV antibiotics arranged. Patient with stable vitals, she is tolerating diet and she is ambulatory. She is deemed stable for discharge. Of note CT head showed scattered lytic foci within the cervical spine and calvarium. I discussed the findings with the patient. Patient stated she has already followed up with a medical esthetician oncologist at [place] and has been evaluated for those lytic lesions, no malignancy was found. Vital Signs/Physical Exam: Temp Pulse Resp BP Pulse Ox 97.7 F 71 16 138/69 98 07/14/25 16:00 07/14/25 16:00 07/14/25 16:00 07/14/25 16:00 07/14/25 16:00 General: Alert, In no apparent distress, Oriented x3 HEENT: Mucous membr. moist/pink, Sclerae nonicteric Neck: Supple, JVD not distended Respiratory: Clear to auscultation bilaterally, Normal air movement Cardiovascular: No edema, Regular rate/rhythm, Normal S1 S2 Gastrointestinal: Soft and benign, Non-distended, No tenderness Musculoskeletal: No swelling, No tenderness Integumentary: No rashes, No cyanosis Neurological: Normal speech, Normal strength at 5/5 x4 extr, Cranial nerves 3-12 intact Laboratory Data at Discharge: WBC 6.70 thou/uL (4.3-10.9) 07/14/25 07:00 Hgb 10.2 g/dL (12.0-15.0) L 07/14/25 07:00 Hct 29.6 % (36.0-45.0) L 07/14/25 07:00 Plt Count 280 thou/uL (152-406) 07/14/25 07:00 PT 14.1 SECONDS (10-13.0) H 07/10/25 16:30 INR 1.26 07/10/25 16:30 APTT 32.8 SECONDS (27.2-37.4) 07/10/25 16:30 Sodium 141 mEq/L (136-145) 07/14/25 07:00 Potassium 4.3 mEq/L (3.5-5.1) D 07/14/25 07:00 BUN 10 mg/dL (7-18) 07/14/25 07:00 Creatinine 0.61 mg/dL (0.55-1.02) 07/14/25 07:00 Glucose 123 mg/dL (74-106) H 07/14/25 07:00 Phosphorus 2.9 mg/dL (2.5-4.9) 07/11/25 05:32 Magnesium 2.0 mg/dL (1.6-2.4) 07/13/25 06:46 Total Bilirubin 0.4 mg/dL (0.2-1.0) 07/13/25 06:46 AST 13 U/L (15-37) L 07/13/25 06:46 ALT 24 U/L (13-56) 07/13/25 06:46 Alkaline Phosphatase 98 U/L (45-117) 07/13/25 06:46 Home Medications: Simvastatin 1 tab PO BEDTIME 07/11/25 lisinopriL [Lisinopril] 1 tab PO DAILY 07/11/25 Metformin HCl 500 mg PO BID #60 tab 07/14/25 New Medications: Metformin HCl 500 mg PO BID #60 tab Physician Discharge Instructions: 70-year-old female with past medical history of chronic back pain, type 2 diabetes mellitus, hypercholesteremia, essential hypertension, presented to the ER complaining of back pain and multiple falls. She also reported suprapubic discomfort, incontinence, increased frequency of urination and urgency. CT head/cervical spine showed no acute intracranial abnormality. No acute fracture or traumatic malalignment of the cervical spine. Scattered lytic foci within the cervical spine and calvarium. Similar findings were present in the lumbar spine in 2022. This may be of little significant but suggest correlating with laboratory values exclude myeloma. CT chest/abdomen/pelvis with contrast suggested right-sided pyelonephritis and bilateral ascending urinary tract infections. No renal abscess. No keegan hydronephrosis. 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 Scattered osseous lytic foci is stable since 2022. Suggest correlating to exclude multiple myeloma. Chest x-ray showed no evidence of acute cardiopulmonary disease. Patient admitted to the medical floor and initiated on IV Rocephin Urine culture and blood culture grew ESBL E. coli. Antibiotics changed to IV meropenem. Patient seen and evaluated by infectious disease who recommended patient to complete 2 weeks of IV meropenem. Patient's symptoms improved. He was evaluated by physical therapy and patient cleared from their service because patient was able to ambulate independently without assistance. Midline placed, outpatient IV antibiotics arranged. Patient with stable vitals, she is tolerating diet and she is ambulatory. She is deemed stable for discharge. Diet: ADA Activity: Ad jonathon Followup: Tyrell Jeff DO [Primary Care Provider] - 1 Week Time spent managing pt's care (in minutes): 37
--- NOTE | 2025-07-14 22:44 | PN ---
Subjective: The patient is lying in bed. No new acute event. Chart reviewed. Objective: Vital Signs: Reviewed. Lungs: Basal crackles. Heart: S1, S2. Regular. Abdomen: Soft, nontender. Bowel sounds present. Extremities: Trace edema. Laboratory Data: WBC 6.7, hemoglobin 10.2, platelets 280, BUN 10, creatinine 0.6. Cultures are grow ing E coli ESBL in blood and in the urine, also has E coli. The patient is currently being treated w ith meropenem which to be continued for 2 weeks. Assessment And Plan: 1. Right-sided pyelonephritis with E coli ESBL bacteremia and urosepsis. 2. Qli-[id number] diabetes mellitus. 3. Moderate protein-calorie malnourishment. 4. Anemia of chronic disease. Continue current treatment. We will follow the patient as needed. NF/MODL Voice ID: [id number] Report ID: [id number]
== END 2025-07-14 17:42 | disposition home health service (06) | DRG 690 ==
LOC: ER 15:06 → ERHOLD 21:26 → 4TH 21:56
PROVIDERS: ADMIT Hospitalist; ATTEND Internal Medicine
PROC: 02HV33Z Insertion of Infusion Device into Superior Vena Cava, Percutaneous Approach (ICD-10-PCS; principal; 2025-07-13)
DX: N10 Acute pyelonephritis (principal); R78.81 Bacteremia; Z16.12 Extended spectrum beta lactamase (ESBL) resistance; E44.0 Moderate protein-calorie malnutrition; I10 Essential (primary) hypertension; G89.29 Other chronic pain; M54.9 Dorsalgia, unspecified; M13.862 Other specified arthritis, left knee; M13.861 Other specified arthritis, right knee; E11.9 Type 2 diabetes mellitus without complications; D63.8 Anemia in other chronic diseases classified elsewhere; E78.00 Pure hypercholesterolemia, unspecified; B96.20 Unspecified Escherichia coli [E. coli] as the cause of diseases classified elsewhere; R29.6 Repeated falls; Z91.81 History of falling; Z11.52 Encounter for screening for COVID-19; Z68.27 Body mass index [BMI] 27.0-27.9, adult; Z79.84 Long term (current) use of oral hypoglycemic drugs; Z90.710 Acquired absence of both cervix and uterus
CPT/HCPCS: 36415; 70450; 71045; 71260; 72125; 74177; 80048; 80053; 80076; 81001; 82947; 83605; 83735; 83880; 84100; 84132; 84484; 85025; 85610; 85730; 87040; 87077; 87086; 87088; 87186; 87205; 87428; 93005; 93306; 96361; 96365; 97161; 99285; J0360; J0696; J1815; J2185; J7030; Q9967

== ENCOUNTER 2025-07-20 11:45 | Emergency (ER) | payer OTHER ==
[2025-07-20] MEDS ORDERED: Meropenem 1000 MG/VIAL IV ONE (14:21)
[2025-07-20] MEDS ORDERED: NA CHLORIDE 0.9% 500 ML ONE (14:22)
[2025-07-20] MEDS ORDERED: NA CHLORIDE 0.9% 100 ML ONE (14:22)
[2025-07-20 14:26] LABS: Absolute Lymphocytes (CBC) 2.3 K/uL (0.7-4.9); Hematocrit 32.0 % (36.0-45.0); Hemoglobin 11.0 g/dL (12.0-15.0); MCH 31.6 pg (27.0-35.0); MCHC 34.5 g/dL (32.0-36.0); MCV 91.6 fL (80-100); MPV 5.9 fL (7.6-11.3); Nucleated RBC Absolute Count 0.0 (0-0); Nucleated Red Blood Cells % 0.0 % (0-0); RBC Red Blood Cell Count 3.49 M/uL (3.86-4.86); White Blood Count 10.00 thou/uL (4.3-10.9)
[2025-07-20 14:32] LABS: PT Prothrombin Time 12.9 SECONDS (10-13.0); Protime INR 1.15
[2025-07-20 14:41] LABS: Sqamous Epithelial <5 /HPF (None Seen); Urine Culture Reflex Order NOT NEEDED; Urine Microscopic Reflex YN ORDER UMIC
--- NOTE | 2025-07-20 14:47 | RAD REPORT ---
Procedure: Chest Single View HISTORY: Cough COMPARISON: July 10, 2025 FINDINGS: The lungs appear clear of acute infiltrate. No significant pleural effusion noted. The heart is mildly enlarged. PICC line has its tip in the left brachial vein.
[2025-07-20 15:05] LABS: Glucose Level 94.0 mg/dL (74-106); Potassium 4.1 mEq/L (3.5-5.1)
[2025-07-20 15:06] LABS: ALT/SGPT 24.0 U/L (13-56); AST/SGOT 10.0 U/L (15-37); Albumin 3.6 g/dL (3.4-5.0); Albumin/Globulin Ratio 0.8 (1.1-1.8); Alkaline Phosphatase 106.0 U/L (45-117); Anion Gap 9.1 mEq/L (5.0-15.0); BUN Blood Urea Nitrogen 11.0 mg/dL (7-18); Globulin 4.3 g/dL (2.3-3.5)
--- NOTE | 2025-07-20 15:35 | EDPHYS ---
Physician Documentation [facility] Name: Feli Lee Age: 70 yrs Sex: Female : 1955 Arrival Date: 07/20/2025 Time: 11:45 Bed 26 Private MD: DIEGO Physician Rayshawn Baugh HPI: 07/20 15:31 This 70 yrs old Female presents to ER via Ambulatory with complaints of [place] arcel[place] Check. 15:31 This 70 yrs old Female presents to ER via Ambulatory with complaints of [place] Check. 15:31 The patient or guardian complains of. left shoulder. arcelia Historical: - Allergies: 12:08 No Known Allergies; iw - PMHx: 12:00 Diabetes - IDDM; Back pain; Hypercholesterolemia; Hypertension; iw - PSHx: 12:00 Total abdominal hysterectomy; iw - Immunization history:: Adult Immunizations up to date. - Infectious Disease History:: Denies. - Social history:: Smoking status: Patient denies any tobacco usage or history of. ROS: 15:32 Constitutional: Negative for fever, chills, and weight loss, Eyes: Negative for injury, arcelia pain, redness, and discharge, ENT: Negative for injury, pain, and discharge, Neck: Negative for injury, pain, and swelling, Cardiovascular: Negative for chest pain, palpitations, and edema, Respiratory: Negative for shortness of breath, cough, wheezing, and pleuritic chest pain, Abdomen/GI: Negative for abdominal pain, nausea, vomiting, diarrhea, and constipation, Back: Negative for injury and pain, : Negative for injury, bleeding, discharge, and swelling, MS/Extremity: Negative for injury and deformity, Skin: Negative for injury, rash, and discoloration, Neuro: Negative for headache, weakness, numbness, tingling, and seizure, Psych: Negative for depression, anxiety, suicide ideation, homicidal ideation, and hallucinations, Allergy/Immunology: Negative for hives, rash, and allergies, Endocrine: Negative for neck swelling, polydipsia, polyuria, polyphagia, and marked weight changes, Hematologic/Lymphatic: Negative for swollen nodes, abnormal bleeding, and unusual bruising, Exam: 15:32 Constitutional: This is a well developed, well nourished patient who is awake, alert, arcelia and in no acute distress. Head/Face: Normocephalic, atraumatic. Eyes: Pupils equal round and reactive to light, extra-ocular motions intact. Lids and lashes normal. Conjunctiva and sclera are non-icteric and not injected. Cornea within normal limits. Periorbital areas with no swelling, redness, or edema. ENT: Nares patent. No nasal discharge, no septal abnormalities noted. Tympanic membranes are normal and external auditory canals are clear. Oropharynx with no redness, swelling, or masses, exudates, or evidence of obstruction, uvula midline. Mucous membranes moist. Neck: Trachea midline, no thyromegaly or masses palpated, and no cervical lymphadenopathy. Supple, full range of motion without nuchal rigidity, or vertebral point tenderness. No Meningismus. Chest/axilla: Normal chest wall appearance and motion. Nontender with no deformity. No lesions are appreciated. Cardiovascular: Regular rate and rhythm with a normal S1 and S2. No gallops, murmurs, or rubs. Normal PMI, no JVD. No pulse deficits. Respiratory: Lungs have equal breath sounds bilaterally, clear to auscultation and percussion. No rales, rhonchi or wheezes noted. No increased work of breathing, no retractions or nasal flaring. Abdomen/GI: Soft, non-tender, with normal bowel sounds. No distension or tympany. No guarding or rebound. No evidence of tenderness throughout. Back: No spinal tenderness. No costovertebral tenderness. Full range of motion. Skin: Warm, dry with normal turgor. Normal color with no rashes, no lesions, and no evidence of cellulitis. MS/ Extremity: Pulses equal, no cyanosis. Neurovascular intact. Full, normal range of motion., bilateral aka Neuro: Awake and alert, GCS 15, oriented to person, place, time, and situation. Cranial nerves II-XII grossly intact. Motor strength 5/5 in all extremities. Sensory grossly intact. Cerebellar exam normal. Normal gait. Psych: Awake, alert, with orientation to person, place and time. Behavior, mood, and affect are within normal limits. Vital Signs: 11:58 BP 102 / 89; Pulse 58; Resp 16; Temp 98.2; Pulse Ox 100% on R/A; Weight 66.68 kg; iw Height 5 ft. 1 in. ; 14:00 BP 153 / 92; Pulse 52; Resp 18; Pulse Ox 100% on R/A; kj2 14:57 BP 169 / 73; Pulse 52; Resp 20; Pulse Ox 99% ; kj2 15:34 BP 150 / 67; Pulse 53; Resp 20; Temp 98; Pulse Ox 100% ; kj2 11:58 Body Mass Index 27.78 (66.68 kg, 154.94 cm) iw MDM: 11:54 Medical Screening Exam initiated [facility] 15:32 Differential diagnosis: picc./ mid line place. Differential Diagnosis altered mental arcelia status, sepsis, flu. Data reviewed: vital signs, nurses notes, lab test result(s), radiologic studies, plain films. Consideration of Admission/Observation Escalation of care including admission/observation considered. I considered the following discharge prescriptions or medication management in the emergency department Medications were administered in the Emergency Department. See MAR. Care significantly affected by the following chronic conditions: Diabetes, Hypertension, back pain, high chlesterol. 07/20 12:04 Order name: CBC with Diff; Complete Time: 15:20 [facility] 07/20 12:04 Order name: CMP; Complete Time: 15:20 [facility] 07/20 12:04 Order name: PT-INR; Complete Time: 15:20 [facility] 07/20 12:04 Order name: UA Rfx Julius Cult if indicated; Complete Time: 15:20 [facility] 07/20 12:04 Order name: Chest Single View XRAY; Complete Time: 15:20 [facility] 07/20 11:55 Order name: Misc. Order: CHECK AND FLUSH PORT; Complete Time: 12:07 [facility] Administered Medications: 14:32 Drug: Meropenem IV 1 grams IV at per protocol once; (mix in NS 100 mL) Route: IV; Rate: kj2 per protocol; Site: right antecubital; 15:32 Follow up: IV Status: Completed infusion; IV Intake: 100ml kj2 14:33 Drug: NS 0.9% IV 500 ml 500 ml IV at 1 bolus once; to be given as a bolus over 30 kj2 minutes Volume: 500 ml; Route: IV; Rate: 1 bolus; Site: right antecubital; 15:33 Follow up: IV Status: Completed infusion; IV Intake: 500ml kj2 15:34 CANCELLED (Physician Discretion; physici): heparin flush5 ml IVP once kj2 Disposition Summary: 07/20/25 15:35 Discharge Ordered Notes: Location: Home [facility] Problem: new arcelia Symptoms: have improved arcelia Condition: Stable arcelia Diagnosis - UTI/ Urinary tract infection, site not specified - MIDLINE IV CATHETER, CHECKED , arcelia FUNCTIONING WELL Followup: arcelia - With: Private Physician - When: 2 - 3 days - Reason: Recheck today's complaints, Continuance of care, Re-evaluation by your physician Followup: arcelia - With: Fortino Andre MD - When: 2 - 3 days - Reason: Recheck today's complaints, Continuance of care, Re-evaluation by your physician Discharge Instructions: - Discharge Summary Sheet arcelia - Urinary Tract Infection, Adult arcelia - Urinary Tract Infection, Adult, [id number] arcelia - Peripheral Intravenous Catheter Placement, Adult arcelia - Antibiotic Medicine, Adult, [id number] arcelia - Peripheral Intravenous Catheter Placement, Adult, Care After arcelia Forms: - Medication Reconciliation Form arcelia - Antibiotic Education arcelia - Prescription Opioid Use arcelia - Patient Portal Instructions arcelia - Leadership Thank You Letter [facility] Signatures: Dispatcher [employer] Rayshawn Martinez MD MD cha Williams, Irene RN RN Gabby Aburto RN RN kj2 Corrections: (The following items were deleted from the chart) 15:34 15:29 HEParin Flush IVP 5 ml IVP once ordered. [facility] kj2
--- NOTE | 2025-07-20 15:35 | ER ---
Nurse's Notes [facility] Name: Feli Lee Age: 70 yrs Sex: Female : 1955 Arrival Date: 07/20/2025 Time: 11:45 Bed 26 Private MD: Diagnosis: UTI/ Urinary tract infection, site not specified-MIDLINE IV CATHETER, CHECKED , FUNCTIONING WELL Presentation: 07/20 11:58 Chief complaint: Patient states: her midline was not working, the medication was not iw able to infuse. Coronavirus screen: At this time, the client does not indicate any symptoms associated with coronavirus-19. Ebola Screen: No symptoms or risks identified at this time. Initial Sepsis Screen: Does the patient meet any 2 criteria? No. Patient's initial sepsis screen is negative. Does the patient have a suspected source of infection? No. Patient's initial sepsis screen is negative. Risk Assessment: Do you want to hurt yourself or someone else? Patient reports no desire to harm self or others. Onset of symptoms was July 20, 2025. 11:58 Method Of Arrival: Ambulatory iw 11:58 Acuity: TONO 3 iw Historical: - Allergies: 12:08 No Known Allergies; iw - PMHx: 12:00 Diabetes - IDDM; Back pain; Hypercholesterolemia; Hypertension; iw - PSHx: 12:00 Total abdominal hysterectomy; iw - Immunization history:: Adult Immunizations up to date. - Infectious Disease History:: Denies. - Social history:: Smoking status: Patient denies any tobacco usage or history of. Screenin:00 [facility] ED Fall Risk Assessment (Adult) History of falling in the last 3 months, kj2 including since admission No falls in past 3 months (0 pts) Confusion or Disorientation No (0 pts) Intoxicated or Sedated No (0 pts) Impaired Gait No (0 pts) Mobility Assist Device Used No (0 pt) Altered Elimination Yes (1 pt) Score/Fall Risk Level 0 - 2 = Low Risk Maintained a safe environment, Hourly rounding (assess needs \T\ fall precautionary measures) done. Abuse screen: Denies threats or abuse. Denies injuries from another. Nutritional screening: No deficits noted. Tuberculosis screening: No symptoms or risk factors identified. Assessment: 12:13 Reassessment: tubing and cap replaced on midline, flushes easily but does not have iw blood return. 14:00 General: Appears in no apparent distress. Behavior is cooperative. Pain: Denies pain. kj2 Neuro: Level of Consciousness is awake, alert, obeys commands, Oriented to person, place, time, situation. Cardiovascular: Patient's skin is warm and dry. Respiratory: Airway is patent Respiratory effort is even, unlabored. GI: No signs and/or symptoms were reported involving the gastrointestinal system. : No signs and/or symptoms were reported regarding the genitourinary system. 14:56 Reassessment: Patient appears in no apparent distress at this time. Patient and/or kj2 family updated on plan of care and expected duration. Pain level reassessed. Patient is alert, oriented x 3, equal unlabored respirations, skin warm/dry/pink. 15:34 Reassessment: Patient appears in no apparent distress at this time. Patient and/or kj2 family updated on plan of care and expected duration. Pain level reassessed. Patient is alert, oriented x 3, equal unlabored respirations, skin warm/dry/pink. Vital Signs: 11:58 BP 102 / 89; Pulse 58; Resp 16; Temp 98.2; Pulse Ox 100% on R/A; Weight 66.68 kg; iw Height 5 ft. 1 in. ; 14:00 BP 153 / 92; Pulse 52; Resp 18; Pulse Ox 100% on R/A; kj2 14:57 BP 169 / 73; Pulse 52; Resp 20; Pulse Ox 99% ; kj2 15:34 BP 150 / 67; Pulse 53; Resp 20; Temp 98; Pulse Ox 100% ; kj2 11:58 Body Mass Index 27.78 (66.68 kg, 154.94 cm) iw ED Course: 11:49 Patient arrived in ED. cj3 11:54 Rayshawn Baugh MD is Attending Physician. arcelia 11:59 Triage completed. iw 12:00 Arm band placed on. iw 14:00 Patient has correct armband on for positive identification. Bed in low position. Call kj2 light in reach. Provided Education on: call light. 14:03 Chest Single View XRAY In Process Unspecified. EDMS 14:15 PT-INR Sent. bc6 14:15 CMP Sent. bc6 14:15 CBC with Diff Sent. bc6 14:16 Gabby Booth, RN is Primary Nurse. kj2 14:16 Initial lab(s) drawn, by me, sent to lab. Inserted saline lock: 20 gauge in right bc6 antecubital area, using aseptic technique. Blood collected. Flushed with 10 mL NS. 15:34 Fortino Andre MD is Referral Physician. arcelia 15:35 No provider procedures requiring assistance completed. kj2 15:59 IV discontinued, intact, bleeding controlled, No redness/swelling at site. Pressure kj2 dressing applied. Administered Medications: 14:32 Drug: Meropenem IV 1 grams IV at per protocol once; (mix in NS 100 mL) Route: IV; Rate: kj2 per protocol; Site: right antecubital; 15:32 Follow up: IV Status: Completed infusion; IV Intake: 100ml kj2 14:33 Drug: NS 0.9% IV 500 ml 500 ml IV at 1 bolus once; to be given as a bolus over 30 kj2 minutes Volume: 500 ml; Route: IV; Rate: 1 bolus; Site: right antecubital; 15:33 Follow up: IV Status: Completed infusion; IV Intake: 500ml kj2 15:34 CANCELLED (Physician Discretion; physici): heparin flush5 ml IVP once kj2 Medication: 14:00 VIS not applicable for this client. kj2 Intake: 15:32 IV: 100ml; Total: 100ml. kj2 15:33 IV: 500ml; Total: 600ml. kj2 Outcome: 15:35 Discharge ordered by . arcelia 15:37 Discharged to home ambulatory, kj2 15:37 Condition: stable 15:37 Discharge instructions given to patient, family, Instructed on discharge instructions, follow up and referral plans. Demonstrated understanding of instructions, follow-up care, 15:59 Patient left the ED. kj2 Signatures: Dispatcher [employer] EDMS Rayshawn Baugh MD MD cha Williams, Irene, RN RN iw Denita Wheatley [facility] Gabby Booth RN RN [email or web address] Deepthi Ramirez 3 Corrections: (The following items were deleted from the chart) 11:59 11:58 BP 102 / 89; Pulse 58bpm; Resp 16bpm; Pulse Ox 100% RA; Temp 98.2F; iw iw 12:08 11:58 Chief complaint: Patient states: her PICC line was not working, the medication iw was not able to infuse iw
[2025-07-20 20:03] VITALS: BP 150/67; TEMP 98; O2SAT 100
== END 2025-07-20 15:59 | disposition home or self-care (01) ==
LOC: ER 11:45
DX: Z45.2 Encounter for adjustment and management of vascular access device (principal); N39.0 Urinary tract infection, site not specified
CPT/HCPCS: 85025; 81001; 36415; 85610; 80053; 71045; J2185; J7040